=== PATIENT | female | born 1950 | race Caucasian/White ===

== ENCOUNTER → 2018-02-04 09:06 | Outpatient (CLI) | payer MEDICARE, OTHER, SELFPAY ==
[2018-02-04] VITALS (7 sets, daily range): BP systolic 116–150; BP diastolic 57–78; PULSE 53–84; RESP 16–18; TEMP 36.4–37; O2SAT 94–99; BMI 32.9
[2018-02-04] MEDS: Acetaminophen 500 MG Tablet 1000 MG PO (09:09)
[2018-02-04] MEDS: DiphenhydrAMINE 25 MG Capsule PO (09:10)
[2018-02-04] MEDS: MethylPREDNISolone 125 MG/2 ML Vial 100 MG IV (09:12)
== END ==
PROVIDERS: Family Provider Family Medicine; PCP Family Medicine; Visit Provider Internal Medicine Rheumatology
DX: M06.09 Rheumatoid arthritis without rheumatoid factor, multiple sites (principal)
CPT/HCPCS: 96374; 96413; 96415; J7040; J7050; J9310; A4216

== ENCOUNTER → 2018-02-09 09:45 | Outpatient (CLI) | payer MEDICARE, OTHER, SELFPAY ==
--- NOTE | 2018-02-10 08:27 | PFT ---
INTRODUCTION: The patient is a 67-year-old female currently under the care of myself the presents for pulmonary function testing secondary to a diagnosis of obstructive sleep apnea. Respiratory therapy reports good patient effort reports no other concerns. Bronchodilators were used during testing. INTERPRETATION: Forced expiration spirometry demonstrates no evidence of a large airways obstructive ventilatory defect. There was no significant response to aerosolized bronchodilators, based upon strict ATS criteria. Spirograms are of good quality and plateau gradually. Body plethysmography was performed and reveals lung volumes to be within normal limits. Diffusing capacity by single breath CO is moderately reduced at 50% of predicted. There has been significant improvement in the patient's spirometric values and DLCO since PFTs were last completed in 2017. IMPRESSION: These pulmonary function studies demonstrate the presence of an isolated moderate reduction in diffusing capacity. There has been improvement in the patient's PFTs since they were last completed in 2017.
== END ==
PROVIDERS: Family Provider Family Medicine; PCP Family Medicine; Visit Provider Nurse Practitioner Acute Care
DX: G47.33 Obstructive sleep apnea (adult) (pediatric) (principal)
CPT/HCPCS: 94060; 94726; 94729

== ENCOUNTER → 2018-02-18 08:57 | Outpatient (CLI) | payer MEDICARE, OTHER, SELFPAY ==
[2018-02-18 09:07] VITALS: BP 129/65; PULSE 62; RESP 16; TEMP 36.2; O2SAT 96; BMI 33.5
[2018-02-18] MEDS: DiphenhydrAMINE 25 MG Capsule PO (09:12)
[2018-02-18] MEDS: Acetaminophen 500 MG Tablet 1000 MG PO (09:13)
[2018-02-18] MEDS: MethylPREDNISolone 125 MG/2 ML Vial 100 MG IV (09:13)
[2018-02-18 10:20] VITALS: BP 125/58; PULSE 54
[2018-02-18 10:55] VITALS: BP 128/64; PULSE 49; RESP 16; TEMP 36.3; O2SAT 96
[2018-02-18 12:26] VITALS: BP 112/52; PULSE 55; RESP 16; TEMP 36.2; O2SAT 96
== END ==
PROVIDERS: Family Provider Family Medicine; PCP Family Medicine; Visit Provider Internal Medicine Rheumatology
DX: M06.09 Rheumatoid arthritis without rheumatoid factor, multiple sites (principal)
CPT/HCPCS: 96375; 96413; 96415; J7040; J7050; J9310

== ENCOUNTER → 2018-02-26 08:18 | Outpatient (CLI) | payer MEDICARE, OTHER, SELFPAY ==
[2018-02-26 10:45] LABS: Absolute Lymphocyte Count 1.82 X10^3/ul (0.83-4.51); Basophil# 0.03 X10^3/uL; Basophil% 0.4 % (0-1); Eosinophil# 0.12 X10^3/uL; Eosinophils% 1.5 % (0-5); Hematocrit 40.8 % (37-47); Hemoglobin 13.4 g/dl (12.0-15.0); Lymphocyte # 1.82 X10^3/ul (4.0); Lymphocyte % 23.2 % (19-41); Mean Corp Hgb Conc 32.8 g/gl (32-36); Mean Corpuscular Hgb 31.6 pg (27.0-32.0); Mean Corpuscular Volume 96.2 fL (81-99); Mean Platelet Vol. 10.9 fl (6.2-12.0); Monocyte# 0.73 X10^3/uL; Monocyte% 9.3 % (0-10); Neutrophil # 5.04 X10^3/uL (2.7-7.7); Neutrophil % 64.5 % (47-70); Platelet Count 232 K/mm3 (150-450); RBC Distribution Width CV 13.5 % (11.6-14.6); RBC Distribution Width SD 46.1 fl (35.1-43.9); Red Blood Count 4.24 M/mm3 (4.2-5.4); White Blood Count 7.8 K/mm3 (4.4-11.0)
[2018-02-26 10:47] LABS: POSITIVE COUNT NO; POSITIVE DIFFERENTIAL NO; POSITIVE MORPHOLOGY NO
== END ==
PROVIDERS: Family Provider Family Medicine; PCP Family Medicine; Visit Provider Internal Medicine Rheumatology
DX: D72.819 Decreased white blood cell count, unspecified (principal)
CPT/HCPCS: 36415; 85025

== ENCOUNTER → 2018-03-11 09:03 | Outpatient (CLI) | payer MEDICARE, OTHER, SELFPAY ==
[2018-03-11 10:14] LABS: Absolute Lymphocyte Count 1.61 X10^3/ul (0.83-4.51); Absolute Neutrophil Count 5.6 X10^3/uL (2.0-7.7); Basophil# 0.02 X10^3/uL; Basophil% 0.2 % (0-1); Eosinophil# 0.12 X10^3/uL; Eosinophils% 1.5 % (0-5); Hemoglobin 12.3 g/dl (12.0-15.0); Lymphocyte # 1.61 X10^3/ul (4.0); Lymphocyte % 19.9 % (19-41); Mean Corp Hgb Conc 31.5 g/gl (32-36); Mean Corpuscular Volume 95.1 fL (81-99); Mean Platelet Vol. 10.7 fl (6.2-12.0); Monocyte# 0.77 X10^3/uL; Monocyte% 9.5 % (0-10); Neutrophil # 5.55 X10^3/uL (2.7-7.7); Neutrophil % 68.4 % (47-70); POSITIVE COUNT NO; POSITIVE DIFFERENTIAL NO; POSITIVE MORPHOLOGY NO; Platelet Count 223 K/mm3 (150-450); RBC Distribution Width CV 13.9 % (11.6-14.6); RBC Distribution Width SD 48.2 fl (35.1-43.9); White Blood Count 8.1 K/mm3 (4.4-11.0)
[2018-03-11 10:28] LABS: ALB/GLOB Ratio 0.9 RATIO (0.9-2.4); AST(SGOT) 22 U/L (15-37); Alanine Aminotransfer ALT/SGPT 26 U/L (13-56); Albumin, Serum 3.4 g/dL (3.2-5.0); Alkaline Phosphatase 77 U/L (45-117); Anion Gap 5 (5-15); BUN 18 mg/dL (7-18); BUN/Creat Ratio 18.1 RATIO (10-20); Calcium,Total 9.7 mg/dL (8.5-10.1); Chloride 107 mmol/L (98-107); Creatinine, Serum 0.99 mg/dL (0.55-1.02); EST Glomerular Filtration Rate 59 mL/min (>60); Est Glom Filt Rate - Afr Amer 72 mL/min (>60); Globulin 3.6 g/dL (2.2-4.2); Glucose 83 mg/dL (74-106); Potassium 4.2 mmol/L (3.5-5.1); Sodium Level 140 mmol/L (136-145)
== END ==
PROVIDERS: Family Provider Family Medicine; PCP Family Medicine; Visit Provider Family Medicine
DX: Z01.818 Encounter for other preprocedural examination (principal)
CPT/HCPCS: 36415; 80053; 85025

== ENCOUNTER 2018-03-19 06:57 | Day surgery (SDC) | payer MEDICARE, OTHER, SELFPAY ==
[2018-03-19 07:24] VITALS: BP 127/69; PULSE 55; RESP 14; TEMP 36.3; BMI 34.3
--- NOTE | 2018-03-19 08:30 | BON_PTH ---
PATIENT: TATO SOLOMON LOC: [facility] – [place] U#:[id number] AGE/SX: 67/F ROOM: RE03/19/[address]: Dr. Wellington Bess DPM : 1950 BED: DIS: 03/19/2018 SPEC #: [id number] RECD: 03/19/18 16:07 STATUS: RODRIGUEZ CELIA #: [id number] MARLY: 03/19/18 08:[address]: Wellington Bess DEPT: SURGICAL PATHOLOGY RECD BY: Shola Chery ENTERED: 03/22/18 07:30 SP TYPE: Bone OTHR DR: Dr. Pablo Gonzalez MD Tissues: Bone of foot, NOS Procedures: Decalcification bone/plaque Surgery Specimen Level III HEADER OPERATION: Arthroplasty/cheilectomy, 1st MPJ, corticosteroid injection PRE-OP DIAGNOSIS: Right hallux rigidus, rheumatoid arthritis TISSUE SUBMITTED: Bone first metatarsophalangeal joint, right foot MICROSCOPIC DIAGNOSIS Bone first metatarsophalangeal joint, right foot: Pieces of bone and adherent pieces of synovial tissue with reactive changes. See comment. RANDALL:bruno 03/25/18 COMMENT Changes consistent with rheumatoid nodule formation are not seen. MICROSCOPIC DESCRIPTION Slides are reviewed. GROSS DESCRIPTION Received in fixative is one container labeled with the patient's name and designated bone first metatarsophalangeal joint right foot. The specimen consists of multiple pieces of bone that in aggregate measure 4 x 3 x 0.4 cm. The entire specimen is submitted in two cassettes after decalcification. / RANDALL:bruno 03/22/18 TC: 5 CPT: 06525, 05883
--- NOTE | 2018-03-19 08:55 | RAD_ITS ---
STUDY: X-RAY - LEFT FOOT CLINICAL: Female, 67 years old. Arthroplasty. TECHNIQUE: 7 C-arm view(s) of the foot. 8 seconds fluoroscopy time. COMPARISON: None. FINDINGS: These images show medial bunionectomy of the head of the first metatarsal. There is prominent osteoarthritis of the first metatarsophalangeal joint. Correlate with procedure note. Electronically Signed: Bhaskar Bello MD at 16:27 EDT , Service support , RAD/Foot min 3 Views
[2018-03-19] MEDS: Ondansetron 4 MG/2 ML Vial (09:12)
[2018-03-19] MEDS: Cefazolin 2 GM in 0.9% Normal Saline 100 ML IV (09:13)
[2018-03-19] MEDS: Bupivacaine Mpf 0.5% 30 ML VIAL (09:20)
[2018-03-19] MEDS: MethylPREDNISolone Acetate 80 MG/ML Vial (10:08)
--- NOTE | 2018-03-19 10:21 | RAD_ITS ---
STUDY: X-RAY - RIGHT FOOT CLINICAL: Female, 67 years old. Postop TECHNIQUE: 3 view(s) of the foot. COMPARISON: None. FINDINGS: Normal calcaneus. Arthritic change of the hindfoot and midfoot. Advanced joint space narrowing with cystic change at the talonavicular articulation. There is accessory navicular. Postoperative changes of the first metatarsal. There is degenerative arthrosis of the metatarsophalangeal joint of the hallux . Normal tibial and fibular sesamoid bones. Normal interphalangeal joint of the great toe. Normal phalanges of the great toe. Normal second through fifth metatarsophalangeal joints. Normal interphalangeal joints and phalanges of the lesser toes. Postoperative changes in the soft tissues on the medial aspect. RAD/Foot min 3 Views IMPRESSION: Postoperative changes. Electronically Signed: Segundo Diana MD at 13:42 EDT , Service support ,
--- NOTE | 2018-03-19 10:24 | PCM.DC.POD ---
Discharge Diet: Light diet - advance as tolerated Discharge Activity: May Not Drive, Use Walker Weight Bearing Status: Partial weight bearing Keep extremity elevated above heart level: Right Leg - Keep right foot elevated with pillows for at least 50 minutes of every hour Call your doctor if your incision/area has: Continuous Slow Oozing, Sudden Increased Bleeding, Increased Redness, Foul Smelling Discharge Call your doctor if you observe: Fever of 101 or Higher, Coldness, Increased Pain, Shortness of breath, Chest pain, Increased palpitations (irregular heartbeat), Calf discomfort, Uncontrolled pain Cleanse incision/area with: Do not get Incision Wet, Keep Dressing Clean & Dry Allergies/Adverse Reactions: Allergies Sulfa (Sulfonamide Antibiotics) Allergy (Intermediate, Verified 03/12/18 13:05) Rash sulfasalazine Allergy (Verified 03/12/18 13:05) Rash Medications to take at Discharge Alendronate Sodium [Fosamax] 70 mg PO Q7D@0700 06/13/15 Calcium Carbonate/Vitamin D3 [Calcium 600-Vit D3 800 Tablet] 1 ea PO DAILY 06/13/15 Multivitamins,Therapeutic [Multivitamin] 1 tab PO DAILY 06/13/15 Sumatriptan Succinate [Imitrex] 100 - 200 mg PO DAILY PRN PRN 06/13/15 Citalopram [Celexa] 20 mg PO DAILY 07/11/15 Acetaminophen/Butalbital/Caffe [Fioricet] 40 mg PO DAILY PRN PRN 01/13/17 Ropinirole HCl [Requip] 1 mg PO QHS 01/13/17 Leflunomide 10 mg PO DAILY 07/03/17 Rituximab/Hyaluronidase,Human [Rituxan Hycela 1,400 mg-23,400] 1,000 mg IV UD 07/03/17 omega-3 acid ethyl esters 1 gram capsule 1 g PO QDAY 11/12/17 prednisone 5 mg tablet 10 mg PO DAILY tab 11/12/17 Atenolol 50 mg PO DAILY 02/04/18 Cyanocobalamin (Vitamin B-12) [Vitamin B-12] 1,000 mcg PO DAILY 03/12/18 L.acidoph,Paracasei, B.lactis [Probiotic] 1 each PO DAILY 03/12/18 Omeprazole 40 mg PO QDAY 03/12/18 Hydrocodone/Acetaminophen [Vicodin 5-300 mg Tablet] 1 - 2 tab PO Q6H PRN PRN 4 Days #30 tab 03/19/18 The following prescriptions were given: Hydrocodone/Acetaminophen [Vicodin 5-300 mg Tablet] 1 - 2 tab PO Q6H PRN PRN 4 Days #30 tab PRN Reason: Pain Primary Care Physician: Pablo Gonzalez MD [Primary Care Provider] - Please Follow Up With: Wellington Bess DPM When: within 1 week, sooner if needed
[2018-03-19 10:25] VITALS: BP 127/69; BP 161/72; PULSE 80; RESP 18; TEMP 36.3; O2SAT 96
--- NOTE | 2018-03-19 10:26 | PCM.OPRPT ---
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 Hallux rigidus, right. Rheumatoid arthritis. 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 Kyara Santacruz Type of Anesthesia:: Local MAC Specimen's removed: Bone from 1st MTPJ, right, sent to pathology Estimated Blood Loss (mL): 10mL Description of Procedure: Indications: This is a 67 year old with painful 1st metatarsal phalagneal joint (MTPJ), as well as midfoot/hindfoot joints due to osteoarthritis, rheumatoid arthritis and hallux rigidus, right foot. Patient has pain, with limited range of motion. Osteoarthritis was seen on xrays of the foot. This has been treated with extensive conservative/nonsurgical management, but symptoms persists and she continues to have pain and limitation. She elected to undergo surgery. We discussed the procedures. We reviewed the rationale of each as well as the possible benefits, risks, potential complications goals and expectations of each. This was discussed with her in great detail. Typical post op recovery was reviewed with her. She expressed understanding and agreement. The consent forms were reviewed with her in detail, and she freely signed them. No guarantees were given or implied. All of her questions were answered. Operative Procedure: The patient was brought back into the operating room and was placed on the operating room table in the supine position. She was carefully secured to the operating room table with a safety belt around her waist. A time out was performed and the patient was properly identified and the surgical plan was confirmed. The patient received 2 grams of IV Ancef for antibiotic prophylaxis. A well padded pneumatic tourniquet was applied around the right ankle. The patient did receive MAC anesthesia per the anesthesiologist. The skin was cleansed with 70% Isopropyl alcohol, and 10mL of 0.5% Bupivacaine plain was given as a 1st ray block on the right foot. The right foot was scrubbed, prepped, draped in the usual aseptic fashion. A timeout was performed and the patient was properly identified and the surgical plan was confirmed. The right foot was elevated for 3 minutes and the right ankle pneumatic tourniquet was inflated to 250mmHg. Attention was directed to the right 1st MTPJ. There as noted to be significant limited range of motion present, with grinding consistent with hallux rigidus and osteoarthritis. A linear longitudinal skin incision was made overlying the dorsal medial 1st MTPJ, medial to the Extensor Hallucis Longus tendon using a 15 scalpel blade. Careful blunt dissection was completed down through the subcutaneous tissue layer, down to the 1st MTPJ capsule, which was incised with a 15 scalpel blade. The 1st MTPJ capsule was partially reflected exposing the dorsal, lateral, and medial aspect of the 1st metatarsal head and base of the hallux proximal phalanx. There were significant osteophytes around the dorsal, medial and lateral 1st metatarsal head as well as the base of the hallux proximal phalanx. The was a large dorsal eminence present to the dorsal 1st metatarsal head. The cartilage on the dorsal half of the 1st metatarsal head was significantly thinned, worn away and unhealthy. There was a osteochondral lesion to the base of the hallux proximal phalanx. There were significant adhesions of the sesamoid apparatus. The adhesions of the sesamoid apparatus were freed up using a McGlamry elevator. Using a powered sagittal saw the dorsal eminence and the dorsal 1st metatarsal head was resected. The osteophytes were resected using a bone cutting rongeur. The resected bone was sent to pathology for further evaluation. Resection of the dorsal aspect of the 1st metatarsal head and osteophytes was confirmed using intra operative fluoroscopy, without the use of a renewable energy technician. The osteochondral lesion was drilled subchondrally using a 0.062 inch Kwire. At this time the 1st MTPJ was put through range of motion and it was gliding normally and smoothly, with no impingement present. There was now 90 degrees of dorsiflexion of the hallux, this was confirmed using intra operative fluoroscopy without a surveillance technician. The remaining joint appeared healthy and viable. The site was flushed out with copious amounts of normal saline solution. The joint capsule was reapproximated in neutral position using 3-0 Vicryl, the subcutaneous tissue layer was reapproximated using 3-0 Vicryl, the skin was reapproximated using 3-0 Monocryl. An additional 10mL of 0.5% Bupivacaine plain as well as 1% Lidocaine plain had to be given for further pain control intra-operatively. Next a total of 40mg of Depo Medrol as well as an additional 2mL of 0.5% Bupivacaine plain was given an a corticosteroid injection to the subtalar joint/sinus tarsi and midfoot joints. Cavilon was painted to the sutured skin edges and steristrips were applied across the sutured skin incisions. All vital structure, including all vital neurovascular structures were properly identified and protected as necessary throughout the procedure. The pneumatic tourniquet was deflated, there was immediate return of vascular flow to the foot and all toes. CFT < 2 seconds to all toes, and had normal temperature gradient present. A dressing was applied which consisted of Betadine soaked adaptic, 4x4 gauze, kerlix and sveta dressing to the right foot. The patient tolerated the above operative procedure well at the anesthesia well with no complications. The patient was transported to the recovery room with vital signs stable and in good condition. Post operative orders were placed. Post operative instructions were reviewed with patient today. No weightbearing right foot, keep right foot elevated for at least 50 minutes of every hour, keep dressing clean, dry and intact. Prescription for Vicodin 5mg/325mg was prescribed: 1-2 tabs PO q 6 hours PRN pain for pain control. She was dispensed a surgical shoe. Post operative xrays were obtained in the recovery room which confirmed 1st MTPJ cheilectomy arthroplasty. No post operative complications. Otherwise no acute changes and stable xrays. Grafts/Implants Used: None - Complications None
[2018-03-19 10:30] VITALS: BP 127/69; BP 146/86; PULSE 78; RESP 16; O2SAT 94
[2018-03-19 10:35] VITALS: BP 127/69; BP 155/64; PULSE 78; RESP 16; O2SAT 93
[2018-03-19 10:40] VITALS: BP 127/69; BP 147/64; PULSE 78; RESP 16; TEMP 36.3; O2SAT 94
[2018-03-19 11:04] VITALS: BP 127/69
== END 2018-03-19 11:10 | disposition home or self-care (01) ==
LOC: SDC 06:59 → AC 07:00
PROVIDERS: Family Provider Family Medicine; PCP Family Medicine; Visit Provider Podiatrist
PROC: (CPT 20605; principal; 2018-03-19 08:15)
DX: M19.071 Primary osteoarthritis, right ankle and foot (principal); M20.21 Hallux rigidus, right foot; M06.9 Rheumatoid arthritis, unspecified; I10 Essential (primary) hypertension; M85.80 Other specified disorders of bone density and structure, unspecified site; G25.81 Restless legs syndrome; G47.30 Sleep apnea, unspecified; K21.9 Gastro-esophageal reflux disease without esophagitis; F32.9 Major depressive disorder, single episode, unspecified; F41.9 Anxiety disorder, unspecified; Z78.0 Asymptomatic menopausal state; I25.2 Old myocardial infarction; Z79.899 Other long term (current) drug therapy
CPT/HCPCS: 01480; 20605; 28289; 73630; 76000; 88304; 88305; 88311; J7120; J2405

== ENCOUNTER → 2018-05-07 11:12 | Outpatient (CLI) | payer MEDICARE, OTHER, SELFPAY ==
--- NOTE | 2018-05-07 11:15 | RAD_ITS ---
STUDY: X-RAY CHEST REASON FOR EXAM: Female, 67 years old. Left-sided rib pain. TECHNIQUE: PA and lateral views of the chest. COMPARISON: Comparison is made with prior study dated February 18, 2017. FINDINGS: Volume loss in the right hemithorax. The previously seen infiltration has resolved. Minimal changes persist most likely representing scarring. The left lung is clear. Hyperinflation. Normal size heart. Normal mediastinum and luann. There is prominence of the pulmonary hilar arteries without peripheral pulmonary vascular congestion, suggesting pulmonary hypertension. Normal visualized aortic arch and descending thoracic aorta. There is demineralization of the osseous structures. Normal visualized ribs, clavicles, and shoulders. There is no demonstrated abnormality of the visualized soft tissue structures of the upper abdomen. RAD/Chest PA and Lateral IMPRESSION: Hyperinflation. Volume loss in the right hemithorax. No acute abnormality is seen. Electronically Signed: Donald Baird MD at 12:02 EDT Tel [phone], Service support ,
== END ==
PROVIDERS: Family Provider Family Medicine; PCP Family Medicine; Visit Provider Family Medicine
DX: R07.81 Pleurodynia (principal)
CPT/HCPCS: 71046

== ENCOUNTER → 2018-06-14 10:14 | Outpatient (CLI) | payer MEDICARE, OTHER, SELFPAY ==
[2018-06-14 12:58] LABS: Albumin, Serum 3.2 g/dL (3.2-5.0); BUN 14 mg/dL (7-18); BUN/Creat Ratio 15.3 RATIO (10-20); Calcium,Total 9.6 mg/dL (8.5-10.1); Chloride 105 mmol/L (98-107); Creatinine, Serum 0.92 mg/dL (0.55-1.02); EST Glomerular Filtration Rate 65 mL/min (>60); Est Glom Filt Rate - Afr Amer 79 mL/min (>60); Glucose 86 mg/dL (74-106); Phosphorus 2.5 mg/dL (2.5-4.9); Potassium 3.7 mmol/L (3.5-5.1); Sodium Level 139 mmol/L (136-145)
== END ==
PROVIDERS: Family Provider Family Medicine; PCP Family Medicine; Visit Provider Internal Medicine Rheumatology
DX: N28.9 Disorder of kidney and ureter, unspecified (principal)
CPT/HCPCS: 36415; 80069

== ENCOUNTER → 2018-06-28 15:41 | Outpatient (CLI) | payer MEDICARE, OTHER, SELFPAY ==
--- NOTE | 2018-06-28 | COLBX_PTH ---
PATIENT: TATO SOLOMON LOC: [place] U#:[id number] AGE/SX: 74/F ROOM: RE06/28/[address]: Dr. Jose Larry MD : 1950 BED: DIS: SPEC #: [id number] RECD: 06/28/18 15:20 STATUS: RODRIGUEZ RAMEYPriyanka #: [id number] MARLY: 06/28/18 00:[address]: Jose Larry DEPT: SURGICAL PATHOLOGY RECD BY: Edgar Cleveland ENTERED: 06/29/18 12:00 SP TYPE: COLON BX OTHR DR: Dr. Pablo Gonzalez MD [facility] [place] Tissues: A - Ileum, NOS B - Cecum, NOS C - COLON BIOPSY D - Sigmoid colon biopsy Procedures: Trichrome (control) Special Stain Group II Surgery Specimen Level IV HEADER OPERATION: Colonoscopy with biopsies PRE-OP DIAGNOSIS: Diarrhea TISSUE SUBMITTED: A ? Terminal ileum biopsies, rule out Crohn?s, B ? Ulcer biopsies cecum, rule out Crohn?s, C ? Right and left colon, rule out microscopic colitis, D ? Sigmoid polyp 30 cm, rule out adenoma MICROSCOPIC DIAGNOSIS A. Terminal ileum, biopsy: No significant pathologic change. No evidence of Crohn?s colitis. B. Cecal ulcer, biopsy: Ulceration with associated acute and chronic inflammation and granulation. C. Right and left colon, biopsy: Collagenous colitis. D. Sigmoid colon polyp at 30 cm, biopsy: Tubular adenoma, inflamed. AM:bruno 06/30/18 COMMENT A. Benign appearing lymphoid aggregates are present in the biopsy. B. Features of Crohn?s colitis are not present. Clinical correlation is suggested. C. Trichrome stain with matched control reveals a thickened basal plate. MICROSCOPIC DESCRIPTION Slides are reviewed. B. Sections show ulcerated mucosa with acute and chronic inflammation. No significant glandular distortion is identified. No granulomas are seen. GROSS DESCRIPTION A - Received in fixative is one container labeled with the patient's name and designated terminal ileum. The specimen consists of one irregular fragment of light wick soft tissue that measures 0.5 x 0.2 x 0.1 cm. The specimen is totally submitted in one cassette. B - Received in fixative is one container labeled with the patient's name and designated cecum. The specimen consists of multiple irregular fragments of light wick soft tissue that in aggregate measure 0.6 x 0.6 x 0.1 cm. The specimen is totally submitted in one cassette. C - Received in fixative is one container labeled with the patient's name and designated right and left colon biopsy. The specimen consists of multiple irregular fragments of light wick soft tissue that in aggregate measure 0.7 x 0.5 x 0.1 cm. The specimen is totally submitted in one cassette. D - Received in fixative is one container labeled with the patient's name and designated sigmoid polyp. The specimen consists of one irregular fragment of light wick soft tissue that measures 0.5 x 0.3 x 0.1 cm. The specimen is totally submitted in one cassette. / AM:bruno 06/29/18 TC:4 CPT: 64888 x4, 46964
== END ==
PROVIDERS: Family Provider Family Medicine; PCP Family Medicine; Visit Provider Internal Medicine Gastroenterology
DX: K63.3 Ulcer of intestine (principal); K52.831 Collagenous colitis; D12.5 Benign neoplasm of sigmoid colon
CPT/HCPCS: 88305; 88313

== ENCOUNTER → 2018-08-19 08:59 | Outpatient (CLI) | payer MEDICARE, OTHER, SELFPAY ==
[2018-08-19] VITALS (7 sets, daily range): BP systolic 93–132; BP diastolic 52–80; PULSE 44–58; RESP 16–18; TEMP 36.4–36.6; O2SAT 97–98; BMI 29.1
[2018-08-19] MEDS: DiphenhydrAMINE 25 MG Capsule PO (09:28)
[2018-08-19] MEDS: MethylPREDNISolone 125 MG/2 ML Vial 100 MG IV (09:36)
[2018-08-19] MEDS: Acetaminophen 500 MG Tablet 1000 MG PO (09:44)
== END ==
PROVIDERS: Family Provider Family Medicine; PCP Family Medicine; Referring Provider Internal Medicine Rheumatology; Visit Provider Internal Medicine Rheumatology
DX: M06.09 Rheumatoid arthritis without rheumatoid factor, multiple sites (principal)
CPT/HCPCS: 96375; 96413; 96415; J7040; J7050; J9310; A4216

== ENCOUNTER → 2018-09-02 08:59 | Outpatient (CLI) | payer MEDICARE, OTHER, SELFPAY ==
[2018-09-02] VITALS (10 sets, daily range): BP systolic 72–147; BP diastolic 47–67; PULSE 49–68; RESP 16; TEMP 36.1–36.4; O2SAT 99; BMI 28.5
[2018-09-02] MEDS: DiphenhydrAMINE 25 MG Capsule PO (09:12)
[2018-09-02] MEDS: Acetaminophen 500 MG Tablet 1000 MG PO (09:12)
[2018-09-02] MEDS: MethylPREDNISolone 125 MG/2 ML Vial 100 MG IV (09:24)
== END ==
PROVIDERS: Family Provider Family Medicine; PCP Family Medicine; Referring Provider Internal Medicine Rheumatology; Visit Provider Internal Medicine Rheumatology
DX: M06.09 Rheumatoid arthritis without rheumatoid factor, multiple sites (principal)
CPT/HCPCS: 96375; 96413; 96415; J7040; J7050; J9310; A4216

== ENCOUNTER → 2018-09-09 15:17 | Outpatient (CLI) | payer MEDICARE, OTHER, SELFPAY ==
--- NOTE | 2018-09-09 15:18 | BD_ITS ---
STUDY: DUAL ENERGY X-RAY ABSORPTIOMETRY / DXA REASON FOR EXAM: Female, 67 years old. The patient is postmenopausal. Loss of height. TECHNIQUE: Bone Mineral Density (BMD) measurements of lumbar spine and bilateral hips were obtained. COMPARISON: None. FINDINGS: Lumbar Spine (L1-L4): g/cm2 (0.916) / T-score (-2.1) / Z-score (-0.4) Findings are suggestive of osteopenia with a moderate fracture risk. Increased thoracic kyphosis. Left Femur Total: g/cm2 (0.793) / T-score (-1.7) / Z-score (-0.3) Left Femoral Neck: g/cm2 (0.777) / T-score (-1.9) / Z-score (-0.3) Right Femur Total: g/cm2 (0.790) / T-score (-1.7) / Z-score (-0.3) Right Femoral Neck: g/cm2 (0.769) / T-score (-1.9) / Z-score (-0.3) BD/Dexa Bone Density Study IMPRESSION: The patient is considered osteopenic as outlined below according to World Keagan Organization (WHO) criteria with a moderate fracture risk. There has been worsening of bone density since the previous examination. Reference Information: The T-score is the number of standard deviations above or below the standard which is normal for young adults at their peak bone mineral density. The World Health Organization (WHO) interprets the T-scores as follows: Above -1 Normal bone density Between -1 and -2.5 Osteopenia Equal to / or below -2.5 Osteoporosis As a practical clinical guideline, osteopenia may be graded as follows: Mild -1 through -1.5 Moderate -1.6 through -2.0 Severe -2.1 through -2.4 The Z-score is the number of standard deviations above or below age-matched controls. A Z-score of less than -1.5 would be considered abnormal. References: 1. NIH Osteoporosis and Related Bone Diseases http://www.osteo.org 2. International Society for Clinical Densitometry http://www.iscd.org 3. National Osteoporosis Foundation http://www.nof.org Electronically Signed: Donald Baird MD at 15:05 EST Tel [phone], Service support ,
--- NOTE | 2018-09-09 15:19 | BI_ITS ---
MAMMOGRAPHY - BILATERAL SCREENING REASON FOR EXAM: Female, 67 years old. Routine annual screening examination. PERTINENT HISTORY: Non-contributory. TECHNIQUE: Digital bilateral breast nupur (3D mammographic acquisition) in the CC and MLO projections. 2-D mediolateral oblique (MLO) and craniocaudad (CC) views of both breasts were obtained. CAD: Full Field Digital Mammography with Computer Added Detection was performed. COMPARISON: Comparison is made with prior study dated September 05, 2017. FINDINGS: Breast Composition: The breasts are heterogeneously dense, which may obscure small masses. There are no dominant masses or suspicious calcifications. No other significant abnormalities are identified. There has been no significant change since the prior study. BI/SCREENING MAMM (CAD), BILAT IMPRESSION: Stable bilateral screening mammogram. Yearly follow-up mammogram recommended. (A) ASSESSMENT CATEGORY: BIRADS Category 1: Negative. A letter regarding these results will be sent to the patient by the facility within 30 days. Approximately 10% of breast cancers are not detected by mammography. A normal mammogram should not delay biopsy of a clinically suspicious abnormality. [id number] Electronically Signed: Donald Baird MD at 8:00 EST Tel [phone], Service support ,
== END ==
PROVIDERS: Family Provider Family Medicine; PCP Family Medicine; Referring Provider Nurse Practitioner Women's Health; Visit Provider Nurse Practitioner Women's Health
DX: Z12.31 Encounter for screening mammogram for malignant neoplasm of breast (principal); Z78.0 Asymptomatic menopausal state; M85.80 Other specified disorders of bone density and structure, unspecified site
CPT/HCPCS: 77063; 77067; 77080

== ENCOUNTER → 2019-02-22 09:01 | Outpatient (CLI) | payer MEDICARE, OTHER, SELFPAY ==
[2019-02-15 10:41] VITALS: BMI 27.8
[2019-02-22] VITALS (8 sets, daily range): BP systolic 92–140; BP diastolic 44–84; PULSE 57–67; RESP 16–18; TEMP 36.2–36.6; O2SAT 97–100; BMI 27.4
[2019-02-22] MEDS: DiphenhydrAMINE 25 MG Capsule PO (09:34)
[2019-02-22] MEDS: Acetaminophen 500 MG Tablet 1000 MG PO (09:35)
[2019-02-22] MEDS: MethylPREDNISolone 125 MG/2 ML Vial 100 MG IV (09:35)
== END ==
PROVIDERS: Family Provider Family Medicine; PCP Family Medicine; Referring Provider Internal Medicine Rheumatology; Visit Provider Internal Medicine Rheumatology
DX: M06.09 Rheumatoid arthritis without rheumatoid factor, multiple sites (principal)
CPT/HCPCS: 96375; 96413; 96415; J7040; J7050; J9312; A4216

== ENCOUNTER → 2019-03-08 09:01 | Outpatient (CLI) | payer MEDICARE, OTHER, SELFPAY ==
[2019-02-22 09:18] VITALS: BMI 27.4
[2019-03-08] MEDS: DiphenhydrAMINE 25 MG Capsule PO (09:13)
[2019-03-08] MEDS: Acetaminophen 500 MG Tablet 1000 MG PO (09:13)
[2019-03-08] MEDS: MethylPREDNISolone 125 MG/2 ML Vial 100 MG IV (09:14)
[2019-03-08 09:36] VITALS: BP 136/74; PULSE 54; RESP 16; TEMP 36.6; O2SAT 98; BMI 26.9
[2019-03-08 14:06] VITALS: BP 120/73; PULSE 69; RESP 16; TEMP 36.9; O2SAT 97
== END ==
PROVIDERS: Family Provider Family Medicine; PCP Family Medicine; Referring Provider Internal Medicine Rheumatology; Visit Provider Internal Medicine Rheumatology
DX: M06.09 Rheumatoid arthritis without rheumatoid factor, multiple sites (principal)
CPT/HCPCS: 96375; 96413; 96415; J7040; J7050; J9312; A4216

== ENCOUNTER → 2019-08-30 | Outpatient (CLI) | payer MEDICARE, OTHER, SELFPAY ==
[2019-03-08 09:36] VITALS: BMI 26.9
[2019-08-30 09:02] VITALS: BP 125/67; PULSE 47; RESP 16; TEMP 36; O2SAT 98; BMI 26.9
[2019-08-30] MEDS: Acetaminophen 500 MG Tablet 1000 MG PO (09:34)
[2019-08-30] MEDS: DiphenhydrAMINE 25 MG Capsule PO (09:34)
[2019-08-30] MEDS: MethylPREDNISolone 125 MG/2 ML Vial 100 MG IV (09:36)
== END | disposition home or self-care (01) ==
LOC: MEDOUTP 08:56
PROVIDERS: Family Provider Family Medicine; PCP Family Medicine; Referring Provider Internal Medicine Rheumatology; Visit Provider Internal Medicine Rheumatology
DX: M06.09 Rheumatoid arthritis without rheumatoid factor, multiple sites (principal)
CPT/HCPCS: 96365; 96366; 96375; 96413; J7040; J7050; J9312; A4216

== ENCOUNTER → 2019-09-13 08:44 | Outpatient (CLI) | payer MEDICARE, OTHER, SELFPAY ==
[2019-03-08 09:36] VITALS: BMI 26.9
[2019-08-30 09:02] VITALS: BMI 26.9
[2019-09-13] MEDS: Acetaminophen 500 MG Tablet 1000 MG PO (09:09)
[2019-09-13] MEDS: DiphenhydrAMINE 25 MG Capsule PO (09:09)
[2019-09-13] MEDS: MethylPREDNISolone 125 MG/2 ML Vial 100 MG IV (09:17)
[2019-09-13 09:21] VITALS: BP 144/60; PULSE 48; RESP 16; O2SAT 99; BMI 27.1
== END ==
PROVIDERS: Family Provider Family Medicine; PCP Family Medicine; Referring Provider Internal Medicine Rheumatology; Visit Provider Internal Medicine Rheumatology
DX: M06.09 Rheumatoid arthritis without rheumatoid factor, multiple sites (principal)
CPT/HCPCS: 96375; 96413; 96415; J7040; J7050; J9312

== ENCOUNTER → 2019-09-22 10:28 | Outpatient (CLI) | payer MEDICARE, OTHER, SELFPAY ==
[2019-09-13 09:21] VITALS: BMI 27.1
[2019-09-22 13:05] LABS: ALB/GLOB Ratio 1.1 RATIO (0.9-2.4); AST(SGOT) 24 U/L (15-37); Alanine Aminotransfer ALT/SGPT 32 U/L (13-56); Albumin, Serum 3.7 g/dL (3.2-5.0); Alkaline Phosphatase 67 U/L (45-117); Anion Gap 8 (5-15); BUN 16 mg/dL (7-18); BUN/Creat Ratio 20.8 RATIO (10-20); Calcium,Total 9.6 mg/dL (8.5-10.1); Chloride 104 mmol/L (98-107); Cholesterol 232 mg/dL (200); Creatinine, Serum 0.77 mg/dL (0.55-1.02); EST Glomerular Filtration Rate 79 mL/min (>60); Est Glom Filt Rate - Afr Amer 95 mL/min (>60); Globulin 3.5 g/dL (2.2-4.2); Glucose 78 mg/dL (74-106); High Density Lipoprotein 80 mg/dL; Potassium 3.8 mmol/L (3.5-5.1); Protein, Total 7.2 g/dL (6.4-8.2); Sodium Level 139 mmol/L (136-145); Triglycerides 148 mg/dL; Very Low Density Lipoprotein 30 mg/dL (5-40)
== END ==
PROVIDERS: Family Provider Family Medicine; PCP Family Medicine; Referring Provider Family Medicine; Visit Provider Family Medicine
DX: I10 Essential (primary) hypertension (principal)
CPT/HCPCS: 36415; 80053; 80061

== ENCOUNTER → 2019-09-27 10:16 | Outpatient (CLI) | payer MEDICARE, OTHER, SELFPAY ==
[2019-03-08 09:36] VITALS: BMI 26.9
[2019-09-27 09:59] VITALS: BMI 27.1
--- NOTE | 2019-09-27 10:17 | BI_ITS ---
MAMMOGRAPHY - BILATERAL SCREENING 3-D TOMOSYNTHESIS REASON FOR EXAM: Female, 68 years old. Routine annual screening examination. PERTINENT HISTORY: No significant family history. TECHNIQUE: 2-D mammograms and 3-D Tomosynthesis of the breast (s) were performed. CAD was performed. COMPARISON: September 09, 2018, May 29, 2015 FINDINGS: The breast composition is composed of scattered fibroglandular density. Scattered benign calcifications are seen. No dense spiculated masses or suspicious microcalcifications are identified. No architectural distortion is identified. There is no skin thickening or retraction. Stable lymph nodes. There has been no significant change since the prior study. BI/SCREEN MAMM (CAD) W/SOL BILAT IMPRESSION: No mammographic signs of malignancy. Routine yearly mammograms recommended. ASSESSMENT CATEGORY: BIRADS Category 2: Benign. A letter regarding these results will be sent to the patient by the facility within 30 days. FOLLOW UP RECOMMENDATION: Yearly follow up mammogram recommended. (A) Approximately 10% of breast cancers are not detected by mammography. A normal mammogram should not delay biopsy of a clinically suspicious abnormality. Electronically Signed: Ever Heredia MD at 11:39 EST , Service support ,
== END ==
PROVIDERS: Family Provider Family Medicine; PCP Family Medicine; Referring Provider Nurse Practitioner Women's Health; Visit Provider Nurse Practitioner Women's Health
DX: Z12.31 Encounter for screening mammogram for malignant neoplasm of breast (principal)
CPT/HCPCS: 77063; 77067

== ENCOUNTER → 2020-02-14 08:55 | Outpatient (CLI) | payer MEDICARE, OTHER, SELFPAY ==
[2019-09-13 09:21] VITALS: BMI 27.1
[2019-10-24 11:43] VITALS: BMI 28.5
[2020-02-14 09:02] VITALS: BP 116/73; PULSE 58; RESP 18; TEMP 36.1; O2SAT 100; BMI 27.5
[2020-02-14] MEDS: 0.9% NaCl IVPB Med Flush (250 mL) 15 ML IV (09:20)
[2020-02-14] MEDS: Acetaminophen 500 MG Tablet 1000 MG PO (09:21)
[2020-02-14] MEDS: MethylPREDNISolone 125 MG/2 ML Vial 100 MG IV (09:21)
[2020-02-14] MEDS: DiphenhydrAMINE 25 MG Capsule PO (09:21)
[2020-02-14] MEDS: 0.9% NaCl Peripheral Flush Adult/Peds IV (09:21)
== END ==
PROVIDERS: Family Provider Family Medicine; PCP Family Medicine; Referring Provider Internal Medicine Rheumatology; Visit Provider Internal Medicine Rheumatology
DX: M06.09 Rheumatoid arthritis without rheumatoid factor, multiple sites (principal)
CPT/HCPCS: 96375; 96413; 96415; J7040; J7050; J9312; A4216

== ENCOUNTER → 2020-02-27 08:58 | Outpatient (CLI) | payer MEDICARE, OTHER, SELFPAY ==
[2019-09-13 09:21] VITALS: BMI 27.1
[2020-02-14 09:02] VITALS: BMI 27.5
[2020-02-27 09:08] VITALS: BP 137/62; PULSE 68; RESP 16; TEMP 36.2; O2SAT 98; BMI 27.3
[2020-02-27] MEDS: 0.9% NaCl IVPB Med Flush (250 mL) 15 ML IV (09:13)
[2020-02-27] MEDS: DiphenhydrAMINE 25 MG Capsule PO (09:14)
[2020-02-27] MEDS: Acetaminophen 500 MG Tablet 1000 MG PO (09:14)
[2020-02-27] MEDS: MethylPREDNISolone 125 MG/2 ML Vial 100 MG IV (09:19)
[2020-02-27] MEDS: 0.9% NaCl Peripheral Flush Adult/Peds IV (09:26)
== END ==
PROVIDERS: Family Provider Family Medicine; PCP Family Medicine; Referring Provider Internal Medicine Rheumatology; Visit Provider Internal Medicine Rheumatology
DX: M06.09 Rheumatoid arthritis without rheumatoid factor, multiple sites (principal)
CPT/HCPCS: 96372; 96375; 96413; 96415; J7040; J7050; J9312; A4216

== ENCOUNTER → 2020-03-07 09:25 | Outpatient (CLI) | payer MEDICARE, OTHER, SELFPAY ==
[2020-02-27 09:08] VITALS: BMI 27.3
[2020-03-07 10:17] LABS: Cholesterol 223 mg/dL (200); High Density Lipoprotein 81 mg/dL; Triglycerides 130 mg/dL; Very Low Density Lipoprotein 26 mg/dL (5-40)
== END ==
PROVIDERS: PCP Family Medicine; Visit Provider Family Medicine
DX: E78.00 Pure hypercholesterolemia, unspecified (principal)
CPT/HCPCS: 36415; 80061

== ENCOUNTER → 2020-08-08 15:30 | Outpatient (CLI) | payer MEDICARE, OTHER, SELFPAY ==
[2020-02-27 09:08] VITALS: BMI 27.3
[2020-08-10 20:07] LABS: Endomysial Antibody IgA Negative (Negative); Immunoglobulin A 58 mg/dL (87-352)
[2020-08-10 20:34] LABS: t-Transglutaminase IgA <2 U/mL (0-3)
== END ==
PROVIDERS: PCP Family Medicine; Referring Provider Internal Medicine Gastroenterology; Visit Provider Internal Medicine Gastroenterology
DX: R19.7 Diarrhea, unspecified (principal)
CPT/HCPCS: 36415; 82784; 83516; 86255

== ENCOUNTER → 2020-08-09 | Outpatient (CLI) | payer MEDICARE, OTHER, SELFPAY ==
[2019-10-24 11:43] VITALS: BMI 28.5
[2020-02-27 09:08] VITALS: BMI 27.3
[2020-08-09 09:16] VITALS: BP 122/59; PULSE 57; RESP 16; TEMP 36.4; O2SAT 96; BMI 28.3
[2020-08-09] MEDS: DiphenhydrAMINE 25 MG Capsule PO (09:40)
[2020-08-09] MEDS: 0.9% NaCl IVPB Med Flush (250 mL) 15 ML IV (09:40)
[2020-08-09] MEDS: 0.9% NaCl Peripheral Flush Adult/Peds IV (09:40)
[2020-08-09] MEDS: MethylPREDNISolone 125 MG/2 ML Vial 100 MG IV (09:41)
[2020-08-09] MEDS: Acetaminophen 500 MG Tablet 1000 MG PO (09:53)
[2020-08-09 14:46] VITALS: BP 118/49; PULSE 58; TEMP 36.2
== END | disposition home or self-care (01) ==
LOC: MEDOUTP 09:00
PROVIDERS: PCP Family Medicine; Referring Provider Internal Medicine Rheumatology; Visit Provider Internal Medicine Rheumatology
DX: M06.09 Rheumatoid arthritis without rheumatoid factor, multiple sites (principal)
CPT/HCPCS: 96375; 96413; 96415; J7040; J7050; J9312; A4216

== ENCOUNTER → 2020-08-16 14:30 | Outpatient (CLI) | payer MEDICARE, OTHER, SELFPAY ==
[2020-08-09 09:16] VITALS: BMI 28.3
[2020-08-18 14:32] LABS: Immunoglobulin G 714 mg/dL (586-1602)
== END ==
LOC: MTLAB 02-19 00:19
PROVIDERS: PCP Family Medicine; Visit Provider Internal Medicine Gastroenterology
DX: D80.2 Selective deficiency of immunoglobulin A [IgA] (principal)
CPT/HCPCS: 36415; 82784; 83516

== ENCOUNTER → 2020-08-24 08:56 | Outpatient (CLI) | payer MEDICARE, OTHER, SELFPAY ==
[2020-02-14 09:02] VITALS: BMI 27.5
[2020-08-09 09:16] VITALS: BMI 28.3
[2020-08-24 09:14] VITALS: BP 145/67; PULSE 59; RESP 18; TEMP 36.2; O2SAT 96; BMI 28.3
[2020-08-24] MEDS: 0.9% NaCl Peripheral Flush Adult/Peds IV (09:30)
[2020-08-24] MEDS: 0.9% NaCl IVPB Med Flush (250 mL) 15 ML IV (09:30)
[2020-08-24] MEDS: Acetaminophen 500 MG Tablet 1000 MG PO (09:33)
[2020-08-24] MEDS: DiphenhydrAMINE 25 MG Capsule PO (09:33)
[2020-08-24] MEDS: MethylPREDNISolone 125 MG/2 ML Vial 100 MG IV (09:33)
[2020-08-24 14:00] VITALS: BP 124/60; PULSE 61; RESP 16; TEMP 36.6; O2SAT 95
== END ==
PROVIDERS: PCP Family Medicine; Referring Provider Internal Medicine Rheumatology; Visit Provider Internal Medicine Rheumatology
DX: M06.09 Rheumatoid arthritis without rheumatoid factor, multiple sites (principal)
CPT/HCPCS: 96375; 96413; 96415; J7040; J7050; J9312; A4216

== ENCOUNTER → 2020-10-02 10:30 | Outpatient (CLI) | payer MEDICARE, OTHER, SELFPAY ==
[2020-02-27 09:08] VITALS: BMI 27.3
[2020-08-24 09:14] VITALS: BMI 28.3
--- NOTE | 2020-10-02 10:35 | BI_ITS ---
MAMMOGRAPHY - BILATERAL SCREENING REASON FOR EXAM: Female, 69 years old. Routine annual screening examination. PERTINENT HISTORY: Non-contributory. TECHNIQUE: Digital bilateral breast sol (3D mammographic acquisition) in the CC and MLO projections. 2-D mediolateral oblique (MLO) and craniocaudad (CC) views of both breasts were obtained. CAD: Full Field Digital Mammography with Computer Added Detection was performed. COMPARISON: Comparison is made with prior study dated 09/27/2019 and 09/09/2018. FINDINGS: Breast Composition: The breasts are heterogeneously dense, which may obscure small masses. There are no dominant masses or suspicious calcifications. No other significant abnormalities are identified. There has been no significant change since the prior study. BI/SCREEN MAMM (CAD) W/SOL BILAT IMPRESSION: Stable bilateral screening mammogram. Yearly follow-up mammogram recommended. (A) ASSESSMENT CATEGORY: BIRADS Category 1: Negative. A letter regarding these results will be sent to the patient by the facility within 30 days. Approximately 10% of breast cancers are not detected by mammography. A normal mammogram should not delay biopsy of a clinically suspicious abnormality. [id number] Electronically Signed: Donald Baird, at 11:22 EST , Service support ,
--- NOTE | 2020-10-02 11:02 | BD_ITS ---
STUDY: DUAL ENERGY X-RAY ABSORPTIOMETRY / DXA REASON FOR EXAM: Female, 69 years old. Age of juma 47. Pat is 174.1# and 63 and quot; a loss of 2 and quot; per pat. Past hx of using an HRT but for a short time. Past hx of taking fosamax for about 5 yrs. Takes prednisone for about 5-6 yrs now for arthritis. takes Endocort for colitis. Takes 1000 mg of calcium and a multi-vit. Exercises a little. Hx of a left patella fx. Hx of L4-L5 micro decompresion. TECHNIQUE: Bone Mineral Density (BMD) measurements of lumbar spine and bilateral hips were obtained. COMPARISON: Comparison is made with prior study dated 09/09/2018. FINDINGS: Lumbar Spine (L1-L4): g/cm2 (0.988) / T-score (-1.5) / Z-score (0.2) Findings are suggestive of osteopenia with a low fracture risk. Left Femur Total: g/cm2 (0.797) / T-score (-1.7) / Z-score (-0.2) Left Femoral Neck: g/cm2 (0.793) / T-score (-1.8) / Z-score (0.0) Right Femur Total: g/cm2 (0.812) / T-score (-1.5) / Z-score (-0.1) Right Femoral Neck: g/cm2 (0.801) / T-score (-1.7) / Z-score (0.0) The T-Scores on the most recent prior examination were: Lumbar Spine (L1-L4): There has been improvement of bone density since the previous examination. Left Femur Total: which represents an improvement of 0.5%. Right Femur Total: which represents an improvement of 2.8%. BD/Dexa Bone Density Study IMPRESSION: The patient is considered osteopenic as outlined below according to World Keagan Organization (WHO) criteria with a moderate fracture risk. There has been improvement of bone density since the previous examination. Reference Information: The T-score is the number of standard deviations above or below the standard which is normal for young adults at their peak bone mineral density. The World Health Organization (WHO) interprets the T-scores as follows: Above -1 Normal bone density Between -1 and -2.5 Osteopenia Equal to / or below -2.5 Osteoporosis As a practical clinical guideline, osteopenia may be graded as follows: Mild -1 through -1.5 Moderate -1.6 through -2.0 Severe -2.1 through -2.4 The Z-score is the number of standard deviations above or below age-matched controls. A Z-score of less than -1.5 would be considered abnormal. References: 1. NIH Osteoporosis and Related Bone Diseases www osteo.org 2. International Society for Clinical Densitometry www iscd.org 3. National Osteoporosis Foundation www nof.org Electronically Signed: Donald Baird, at 15:06 EST , Service support ,
== END ==
PROVIDERS: PCP Family Medicine; Referring Provider Nurse Practitioner Women's Health; Visit Provider Nurse Practitioner Women's Health
DX: Z12.31 Encounter for screening mammogram for malignant neoplasm of breast (principal); Z78.0 Asymptomatic menopausal state
CPT/HCPCS: 77063; 77067; 77080

== ENCOUNTER → 2020-10-09 11:14 | Outpatient (CLI) | payer MEDICARE, OTHER, SELFPAY ==
[2020-08-24 09:14] VITALS: BMI 28.3
[2020-10-09 12:47] LABS: AST(SGOT) 22 U/L (15-37); Alanine Aminotransfer ALT/SGPT 28 U/L (13-56); Albumin, Serum 3.6 g/dL (3.2-5.0); Alkaline Phosphatase 83 U/L (45-117); Anion Gap 6 (5-15); BUN 18 mg/dL (7-18); BUN/Creat Ratio 24.3 RATIO (10-20); Calcium,Total 9.7 mg/dL (8.5-10.1); Chloride 103 mmol/L (98-107); Cholesterol 195 mg/dL (200); Creatinine, Serum 0.74 mg/dL (0.55-1.02); EST Glomerular Filtration Rate 82 mL/min (>60); Est Glom Filt Rate - Afr Amer 99 mL/min (>60); Globulin 3.6 g/dL (2.2-4.2); Glucose 84 mg/dL (74-106); High Density Lipoprotein 81 mg/dL; Potassium 3.7 mmol/L (3.5-5.1); Protein, Total 7.2 g/dL (6.4-8.2); Sodium Level 137 mmol/L (136-145); Triglycerides 84 mg/dL; Very Low Density Lipoprotein 17 mg/dL (5-40)
== END ==
PROVIDERS: PCP Family Medicine; Visit Provider Family Medicine
DX: I10 Essential (primary) hypertension (principal)
CPT/HCPCS: 36415; 80053; 80061

== ENCOUNTER → 2020-10-29 10:52 | Outpatient (CLI) | payer MEDICARE, OTHER, SELFPAY ==
[2020-10-10 10:55] VITALS: BMI 30.8
--- NOTE | 2020-10-29 10:53 | ECHOD_ITS ---
Reason For Study: CONGENITAL HEART DISEASE Procedure This was a 2D Doppler, Color Flow transthoracic echocardiogram. The study was technically difficult. Exam performed in department. Left Ventricle Normal LV size. Left ventricular systolic function is normal. The estimated ejection fraction is 65 %. Stage 1 diastolic dysfunction. No regional wall motion abnormalities noted. Right Ventricle Normal RV size. Normal systolic function. Atria Normal left atrium. Normal right atrium. Mitral Valve Normal mitral valve. Mild (1+) eccentric mitral valve insufficiency. Tricuspid Valve Normal tricuspid valve. Mild (1+) tricuspid valve insufficiency. Pulmonary artery systolic pressure is 40 mmHg. Aortic Valve Normal aortic valve. Great Vessels Normal aortic root. The pulmonary artery is normal size. Normal inferior vena cava. Pericardium/Pleural No pericardial effusion. MMode/2D Measurements & Calculations LVIDd: 4.8 cm IVSd: 0.95 cm Ao root diam: 3.2 cm LVIDs: 3.4 cm LVPWd: 0.96 cm RVDd: 4.2 cm FS: 28.8 % LAV(MOD-bp): 64.0 ml LVAd ap4: 28.5 cm2 SV(MOD-sp4): 41.5 ml LAV(MOD-bp) Indexed: 34.8 ml/m2 EDV(MOD-sp4): 84.8 ml LAV(MOD-sp2): 73.5 ml EDV(sp4-el): 87.9 ml LAV(MOD-sp4): 56.0 ml LVAs ap4: 18.4 cm2 ESV(MOD-sp4): 43.3 ml ESV(sp4-el): 44.3 ml EF(MOD-sp4): 48.9 % EF(sp4-el): 49.6 % SV(sp4-el): 43.6 ml LA dimension(2D): 3.5 cm LA A4 area: 19.8 cm2 RA A4 area: 17.8 cm2 Time Measurements MV dec time: 0.22 sec Doppler Measurements & Calculations MV E max hector: 93.3 cm/sec Lat Peak E' Hector: 7.4 cm/sec Med Peak E' Hector: 5.9 cm/sec MV A max hector: 112.2 cm/sec E/E' lat: 12.7 E/E' med: 15.7 MV E/A: 0.83 Ao V2 max: 179.3 cm/sec LV V1 max: 132.9 cm/sec TV V2 max: 80.1 cm/sec Ao max P.9 mmHg LV V1 max P.1 mmHg TV max P.6 mmHg TV V2 mean: 40.0 cm/sec TV mean P.72 mmHg PA V2 max: 218.7 cm/sec TR max hector: 302.7 cm/sec PA V2 mean: 154.8 cm/sec TR max P.0 mmHg PA V2 VTI: 54.7 cm Interpretation Summary Normal LV size. Left ventricular systolic function is normal. The estimated ejection fraction is 65 %. Stage 1 diastolic dysfunction. Mild (1+) tricuspid valve insufficiency. Pulmonary artery systolic pressure is 40 mmHg. Ordering Physician: Rodrigue Mendez Referring Physician: INDERJIT PRUETT Performed By: Marsha Grove, ERICKSON, RVT
== END ==
PROVIDERS: PCP Family Medicine; Referring Provider Internal Medicine Cardiovascular Disease; Visit Provider Internal Medicine Cardiovascular Disease
DX: Q22.1 Congenital pulmonary valve stenosis (principal)
CPT/HCPCS: 93306

== ENCOUNTER 2020-12-26 14:45 | Outpatient (RCR) | payer MEDICARE, OTHER, SELFPAY ==
[2020-10-10 10:55] VITALS: BMI 30.8
== END 2020-12-26 23:59 ==
LOC: IMMUN 14:45
PROVIDERS: PCP Family Medicine; Referring Provider Family Medicine; Visit Provider Family Medicine
DX: Z23 Encounter for immunization (principal)
CPT/HCPCS: 0011A; 0012A; 91301

== ENCOUNTER 2021-02-21 08:56 | Outpatient (CLI) | payer MEDICARE, OTHER, SELFPAY ==
[2020-02-27 09:08] VITALS: BMI 27.3
[2020-10-10 10:55] VITALS: BMI 30.8
[2021-02-21] MEDS: 0.9% NaCl Peripheral Flush Adult/Peds IV (09:05)
[2021-02-21] MEDS: 0.9% NaCl IVPB Med Flush (250 mL) 15 ML IV (09:22)
[2021-02-21] MEDS: MethylPREDNISolone 125 MG/2 ML Vial 100 MG IV (09:23)
[2021-02-21] MEDS: Acetaminophen 500 MG Tablet 1000 MG PO (09:23)
[2021-02-21] MEDS: DiphenhydrAMINE 25 MG Capsule PO (09:23)
[2021-02-21 09:33] VITALS: BP 129/61; PULSE 81; RESP 16; TEMP 36.3; O2SAT 97; BMI 29.2
[2021-02-21 13:42] VITALS: BP 120/60; PULSE 73; RESP 16; TEMP 36.6; O2SAT 94
== END 2021-02-21 16:00 | disposition home or self-care (01) ==
LOC: MEDOUTP 08:59
PROVIDERS: PCP Family Medicine; Referring Provider Internal Medicine Rheumatology; Visit Provider Internal Medicine Rheumatology
DX: M06.89 Other specified rheumatoid arthritis, multiple sites (principal)
CPT/HCPCS: 96375; 96413; 96415; J7040; J7050; J9312; A4216

== ENCOUNTER 2021-02-25 14:30 | Outpatient (RCR) | payer MEDICARE, OTHER, SELFPAY ==
[2020-10-10 10:55] VITALS: BMI 30.8
--- NOTE | 2021-01-02 15:42 | HP.OTEVAL ---
Patient's Visit Information TATO SOLOMON is a 70 year old F, referred to Occupational Therapy by YANCY LEA, with a diagnosis of RA. Date of Evaluation: 12/31/20 Occupational Therapist: Isamar Georges, ARABELLA/Reynaldo, CHT - Subjective This 70 year olf female was seen for OT eval with dx of RA right UE, wrist. pt 2 weeks s/p a Proximal row carpectomy with interpositional arthroplasty using capsular tissue, excison of volar mass right wristflexor tenosynovectomy/synovectomy, volar aspect of right wrist. repair of radial artery atrhodesis metacarpohalangial joint right thumb with allograft. pt arrives with right thumb spica clam shell orthsis. Incisions clean and no sings of infections. pt states she struggled with pain for years prior to having her sx. pt would like to return to perfoming ADLs and IALDs at ind level. - ADLs Eating: Use silverware, Drink from glass Bathing: Handle washcloth & soap Kitchen: Chop with knife, Open jars, Open bottle caps Household: Laundry - Pain right hand 3 Pain Intensity Range: 3, 6 - ROM Wrist: right NT left 75/60 CMC: right NT left 5 MP: right NT left 65 IP: right 25 left 45 Radial Abduction: right NT left 40 ROM Comments: will test ROM when protocol permits - Strength Transportation Design Engineer: right NT left 26# Lateral Pinch: right NT left 6# Tripod Pinch: right NT left 6# Strength Comments: will test right metal drill operator strength at later date - Quick DASH-Disab of Arm,Shoulder& Hand Quick DASH Score: 77.2725 - Goals Goal:100% adherence to protocol: Yes Comment: Proximal row carpectomy protocol Goal:Daily scar massage when approriate: Yes Goal:ROM equal to unaffected hand: Yes Comment: ROM to 30 50% of unaffected Goal:No pain with affected hand use: Yes Goal:Full use of affected hand in daily activities including: Yes - Rehabilitation General Assessment: pt 2 weeks s/p a Proximal row carpectomy with interpositional arthroplasty using capsular tissue, excison of volar mass right wristflexor tenosynovectomy/synovectomy, volar aspect of right wrist. repair of radial artery atrhodesis metacarpohalangial joint right thumb with allograft. pt limited with ROM and use of right hand with ADLs and IADLs. pt would benefit from skilled OT services 1-2x week for 8 weeks. Today therapist ed. pt on protocol and edema control jose. Therapy will follow protocol for pt to gain use of right UE for ADLs and IADL.pt demo understanding and agree to POC. Rehabilitation Potential: Good - Anticipated Interventions A/AAROM/PROM, Strengthening, Edema Control, Triggerpoint Release, Desensitization, Sensory Retraining, Modalities, Orthoses, Joint Protection/Energy Conservation, Ergonomic Education - Visit Plan Frequency: 1-2x /Week Duration: 2 Months TEXT: Thank you for the opportunity to evaluate your patient. For Medicare and Medicare HMO plans, please review the plan of care and approve it. It will need to be FAXED BACK to us at [phone] for Medicare purposes. Please let me know if there are questions or concerns regarding this plan of care. Physician Signature: Date:
--- NOTE | 2021-01-21 15:20 | HP.OTREVAL ---
YANCY LEA, It has been my pleasure to treat TATO SOLOMON over the last 3 visits for RA. Please see the progress note below for an update on the occupational therapy plan of care! Subjective: pt arrives 5 weeks s/p proximal row carpectomy- and cmc arthroplasty- pt states she is doing better with pain and still sometimes wakes pt up at night - mostly at IF MPJ region - Objective/Function: wrist 32/30. CMC 10*. MP fussion. IP 30*. opposition to tip of RF. pt is progressing with her ROM and gurpreet. orthosis well- will progress pt as able and gurpreet- with light strenghtening at 6 weeks will follow protocol Plan Frequency: 1-2x /Week Duration: 2 Months Plan: cont with Dr protocol. Goals - Goals Patient Goals: Use Hand/Wrist/Arm Normally Again Goal:100% adherence to protocol: Yes Goal:Daily scar massage when approriate: Yes Goal:ROM equal to unaffected hand: Yes Goal:No pain with affected hand use: Yes Goal:Full use of affected hand in daily activities including: Yes Anticipated Interventions Anticipated Interventions: A/AAROM/PROM, Strengthening, Edema Control, Triggerpoint Release, Desensitization, Sensory Retraining, Modalities, Orthoses, Joint Protection/Energy Conservation, Ergonomic Education Please do not hesitate to contact me at [phone] by phone or if you have questions or concerns regarding this new plan of care! Sincerely, Isamar Georges, OTR/L, CHT
--- NOTE | 2021-02-25 15:04 | HP.OTREVAL ---
YANCY LEA, It has been my pleasure to treat TATO SOLOMON over the last 8 visits for RA. Please see the progress note below for an update on the occupational therapy plan of care! Subjective: pt is s/p 10 weeks s/p from right proximal row carpectomy arthroplasty. pt states she is doing her scar mtg- and ROM exercises Objective/Function: pt states she is 85% better! pt states her right hand doesnt stop her from doing her ADLs just reports akward mobility (ie slicing tomato). right manager of enterprise strength 25# left is 26#. right lateral pinch 2# left is 6#. right wrist ROM 35/35. right cmc 5. right mp 10 (fussion ). right IP 40. oppisition to MF. pt is using electric can residential sales manager and will use spring loaded scissors for opening cracker/chip bags etc- pt is working on strengthening right UB with 2# Plan Plan: pt return to for follow up Goals - Goals Patient Goals: Use Hand/Wrist/Arm Normally Again Goal:100% adherence to protocol: Yes Goal:Daily scar massage when approriate: Yes Goal:ROM equal to unaffected hand: Yes Goal:No pain with affected hand use: Yes Goal:Full use of affected hand in daily activities including: Yes Anticipated Interventions Anticipated Interventions: A/AAROM/PROM, Strengthening, Edema Control, Triggerpoint Release, Desensitization, Sensory Retraining, Modalities, Orthoses, Joint Protection/Energy Conservation, Ergonomic Education Please do not hesitate to contact me at [phone] by phone or if you have questions or concerns regarding this new plan of care! Sincerely, Isamar Georges, OTR/L, CHT
--- NOTE | 2021-06-24 15:28 | HP.OTDCSUM_ITS ---
It has been my pleasure to treat TATO SOLOMON under orders from YANCY LEA, for the diagnosis of RA for a total of 8 visit(s). Please see the following information for a summary of their discharge status. % Improvement: 80 Objective/Function: pt states she is 85% better! pt states her right hand doesnt stop her from doing her ADLs just reports akward mobility (ie slicing tomato). right administrative services coordinator strength 25# left is 26#. right lateral pinch 2# left is 6#. right wrist ROM 35/35. right cmc 5. right mp 10 (fussion ). right IP 40. oppisition to MF. pt is using electric can radio communications mechanician and will use spring loaded scissors for opening cracker/chip bags etc- pt is working on strengthening right UB with 2# Patient Goals: Use Hand/Wrist/Arm Normally Again Goal:100% adherence to protocol: Yes Goal:Daily scar massage when approriate: Yes Goal:ROM equal to unaffected hand: Yes Goal:No pain with affected hand use: Yes Goal:Full use of affected hand in daily activities including: Yes Plan: pt return to for follow up If there are questions or concerns regarding this patient's occupational therapy, please fell free to call me at [phone]. Thank you for the referral of this patient. Sincerely, Isamar Georgse, OTR/L, CHT
== END 2021-02-25 19:00 | disposition home or self-care (01) ==
LOC: OT 14:30
PROVIDERS: PCP Family Medicine
DX: M06.9 Rheumatoid arthritis, unspecified (principal)
CPT/HCPCS: 97110; 97140; 97166; 97530; 97760; 97763

== ENCOUNTER → 2021-03-08 08:55 | Outpatient (CLI) | payer MEDICARE, OTHER, SELFPAY ==
[2020-02-27 09:08] VITALS: BMI 27.3
[2021-02-21 09:33] VITALS: BMI 29.2
[2021-03-08 09:08] VITALS: BP 142/69; PULSE 58; RESP 16; TEMP 36.4; O2SAT 97; BMI 28.7
[2021-03-08] MEDS: DiphenhydrAMINE 25 MG Capsule PO (09:11)
[2021-03-08] MEDS: Acetaminophen 500 MG Tablet 1000 MG PO (09:11)
[2021-03-08] MEDS: 0.9% NaCl Peripheral Flush Adult/Peds IV (09:11)
[2021-03-08] MEDS: MethylPREDNISolone 125 MG/2 ML Vial 100 MG IV (09:12)
[2021-03-08] MEDS: 0.9% NaCl IVPB Med Flush (250 mL) 15 ML IV (09:12)
== END ==
PROVIDERS: PCP Family Medicine; Referring Provider Internal Medicine Rheumatology; Visit Provider Internal Medicine Rheumatology
DX: M06.9 Rheumatoid arthritis, unspecified (principal)
CPT/HCPCS: 96375; 96413; 96415; J7040; J7050; J9312; A4216

== ENCOUNTER → 2021-07-29 15:47 | Outpatient (CLI) | payer MEDICARE, OTHER, SELFPAY | PROVIDERS: PCP Family Medicine; Referring Provider Internal Medicine Rheumatology; Visit Provider Internal Medicine Rheumatology | DX: M06.09 Rheumatoid arthritis without rheumatoid factor, multiple sites (principal) | CPT/HCPCS: 36415 ==

== ENCOUNTER → 2021-10-03 10:52 | Outpatient (CLI) | payer MEDICARE, OTHER, SELFPAY ==
--- NOTE | 2021-10-03 10:54 | BI_ITS ---
MAMMOGRAPHY - BILATERAL SCREENING REASON FOR EXAM: Female, 70 years old. Routine annual screening examination. PERTINENT HISTORY: Non-contributory. TECHNIQUE: Digital bilateral breast sol (3D mammographic acquisition) in the CC and MLO projections. 2-D mediolateral oblique (MLO) and craniocaudad (CC) views of both breasts were obtained. CAD: Full Field Digital Mammography with Computer Added Detection was performed. COMPARISON: Comparison is made with prior study 10/02/2020 and 09/27/2019. FINDINGS: Breast Composition: The breasts are heterogeneously dense, which may obscure small masses. There are no dominant masses or suspicious calcifications. No other significant abnormalities are identified. There has been no significant change since the prior study. BI/SCRN MAMM (CAD)W/SOL BILAT IMPRESSION: Stable bilateral screening mammogram. Yearly follow-up mammogram recommended. (A) ASSESSMENT CATEGORY: BIRADS Category 1: Negative. A letter regarding these results will be sent to the patient by the facility within 30 days. Approximately 10% of breast cancers are not detected by mammography. A normal mammogram should not delay biopsy of a clinically suspicious abnormality. [id number] Electronically Signed: Donald Baird MD at 12:24 EST , Service support ,
== END ==
PROVIDERS: PCP Family Medicine; Referring Provider Nurse Practitioner Women's Health; Visit Provider Nurse Practitioner Women's Health
DX: Z12.31 Encounter for screening mammogram for malignant neoplasm of breast (principal)
CPT/HCPCS: 77063; 77067

== ENCOUNTER 2021-11-07 09:31 | Outpatient (CLI) | payer MEDICARE, OTHER, SELFPAY ==
[2021-11-07] MEDS: Acetaminophen 500 MG Tablet 1000 MG PO (10:08)
[2021-11-07] MEDS: DiphenhydrAMINE 25 MG Capsule PO (10:08)
[2021-11-07] MEDS: 0.9% NaCl IVPB Med Flush (250 mL) 15 ML IV (10:09)
[2021-11-07] MEDS: 0.9% NaCl Peripheral Flush Adult/Peds IV (10:09)
[2021-11-07] MEDS: MethylPREDNISolone 125 MG/2 ML Vial 100 MG IV (10:12)
[2021-11-07 10:22] VITALS: BP 139/77; PULSE 57; RESP 16; TEMP 35.8; O2SAT 97
== END 2021-11-07 23:59 | disposition short-term general hospital (02) ==
LOC: MEDOUTP 09:32
PROVIDERS: PCP Family Medicine; Referring Provider Internal Medicine Rheumatology; Visit Provider Internal Medicine Rheumatology
DX: M06.09 Rheumatoid arthritis without rheumatoid factor, multiple sites (principal)
CPT/HCPCS: 96415 ×2; 96375; 96413; J7040; J7050; J9312; A4216

== ENCOUNTER 2021-11-21 09:02 | Outpatient (CLI) | payer MEDICARE, OTHER, SELFPAY ==
[2021-11-21] MEDS: 0.9% NaCl IVPB Med Flush (250 mL) 15 ML IV (09:23)
[2021-11-21] MEDS: 0.9% NaCl Peripheral Flush Adult/Peds IV (09:23)
[2021-11-21] MEDS: Acetaminophen 500 MG Tablet 1000 MG PO (09:25)
[2021-11-21] MEDS: DiphenhydrAMINE 25 MG Capsule PO (09:25)
[2021-11-21] MEDS: MethylPREDNISolone 125 MG/2 ML Vial 100 MG IV (09:26)
[2021-11-21 09:32] VITALS: BP 140/58; PULSE 55; RESP 16; TEMP 35.9; O2SAT 97; BMI 28.7
== END 2021-11-21 23:59 | disposition home or self-care (01) ==
LOC: MEDOUTP 09:02
PROVIDERS: PCP Family Medicine; Referring Provider Internal Medicine Rheumatology; Visit Provider Internal Medicine Rheumatology
DX: M06.09 Rheumatoid arthritis without rheumatoid factor, multiple sites (principal)
CPT/HCPCS: 96415 ×2; 96375; 96413; J7040; J7050; J9312; A4216

== ENCOUNTER 2021-12-07 18:26 | Emergency (ER) | payer MEDICARE, OTHER, SELFPAY ==
[2021-12-07 18:28] VITALS: BP 138/79; PULSE 74; RESP 17; TEMP 37; O2SAT 94; BMI 30.7
--- NOTE | 2021-12-07 18:41 | EX.ED.DYSGE1 ---
HPI History of Present Illness Chief Complaint: Dizziness Informant: patient Onset/Context/Timing Context: Sudden Onset Timing: Continuous Quality: Aching Location: Head Worsened by: Head movements Relieved by: Nothing Narrative Narrative: Patient presents with dizziness and a headache that began today. Patient states it began rather suddenly after eating lunch. Patient states that her dizziness is worse whenever she moves her head or moves her eyes. Patient states that her dizziness does not feel like a spinning sensation. Patient is unable to describe her dizziness. Patient admits to a generalized headache. Patient states it is more in the frontal area but it is all over. Patient describes it as aching. Patient admits to nausea but denies any vomiting. [facility] Medical History (Updated 12/07/21 @ 21:[address] Macho Duran, ) Abnormal chest CT Abnormal LFTs Acute respiratory failure with hypoxemia Acute systolic (congestive) heart failure (12/2016) Anxiety and depression Atrophic vaginitis Community acquired pneumonia Depression Essential (primary) hypertension GERD (gastroesophageal reflux disease) History of immunosuppressive therapy History of non-ST elevation myocardial infarction (NSTEMI) (01/15/17) Hypokalemia Hypomagnesemia Hypophosphatemia Immunocompromised Inflamed seborrheic keratosis Legionella pneumonia Microscopic colitis Migraine headache Nevus Normochromic normocytic anemia DARIO (obstructive sleep apnea) Osteopenia Osteoporosis Pulmonary HTN Rate-dependent bundle branch block Respiratory insufficiency Rheumatoid arthritis RLS (restless legs syndrome) Seborrheic keratosis Sleep-related breathing disorder Home Medications calcium carbonate-vitamin D3 1 ea PO DAILY 06/13/15 [History Last Taken 01/12/17] multivitamin with folic acid 1 tab PO DAILY 06/13/15 [History Last Taken 01/12/17 09:00] sumatriptan succinate 100 - 200 mg PO DAILY PRN PRN 06/13/15 [History Last Taken 01/06/17 09:00] citalopram 20 mg PO DAILY 07/11/15 [History Last Taken 01/12/17 09:00] sbdqccifln-ntdipjuspnegy-wjpi 40 mg PO DAILY PRN PRN 01/13/17 [History Last Taken 01/08/17 09:00] leflunomide 10 mg PO DAILY 07/03/17 [History Last Taken Unknown] rituximab-hyaluronidase,human 1,000 mg IV UD 07/03/17 [History Last Taken 02/18/18] omega-3 acid ethyl esters 1 gram capsule 1 g PO QDAY 11/12/17 [History Last Taken Unknown] L.acidoph, paracasei,B. lactis 1 ea PO DAILY 03/12/18 [History Last Taken Unknown] cyanocobalamin (vitamin B-12) 1,000 mcg PO DAILY 03/12/18 [History Last Taken Unknown] omeprazole 20 mg PO DAILY 08/09/20 [History Last Taken Unknown] prednisone 1 mg tablet 3 mg PO DAILY tab 10/10/20 [History Last Taken Unknown] ropinirole 1 mg tablet 2 mg PO BID tab 10/10/20 [History Last Taken Unknown] atenolol 25 mg tablet 25 mg PO DAILY #90 tab 01/30/21 [Rx Last Taken Unknown] meclizine 25 mg PO Q8H PRN PRN #20 tab 12/07/21 [Rx Last Taken Unknown] Allergy/AdvReac Type Severity Reaction Status Date / Time Sulfa (Sulfonamide Allergy Intermediate Rash Verified 12/07/21 18:27 Antibiotics) sulfasalazine Allergy Rash Verified 12/07/21 18:27 Family History Father CVA (cerebral vascular accident) Diabetes Surgical History History of bilateral carpal tunnel release History of cholecystectomy History of lumbar surgery (11/2019) Hx of appendectomy Total knee replacement status Social History Smoking Status: Never smoker second hand exposure: No alcohol intake: current alcohol intake frequency: holidays/special occasions only substance use type: does not use what type of physical activity do you participate in: bicycling frequency: 3-4 times per week ROS ROS ED Constitutional Constitutional ED: Reports chills and sweats; Denies fever(s) Eyes Eyes: Denies blurry vision or change in vision ENT ENT ED: Denies rhinorrhea or sore throat Cardiovascular Cardiovascular: Denies chest pain or palpitations Respiratory/Chest Respiratory/Chest: Denies cough or dyspnea Gastrointestinal Gastrointestinal: Reports nausea; Denies vomiting Genitourinary Genitourinary ED: Denies dysuria or hematuria Musculoskeletal Musculoskeletal: Reports neck pain; Denies back pain Integumentary Denies abscess or rash Neurologic Neurologic: Reports headache(s); Denies weakness Allergic/Immunologic Allergic/Immunologic ED: Denies mouth swelling or urticaria EXAM Physical Exam Const Vital Signs: 12/07/21 18:28 12/07/21 21:04 Temperature 98.6 F Temperature Source Oral Pulse Rate 74 72 Respiratory Rate 17 20 H Blood Pressure 138/79 H 144/60 H Blood Pressure Mean 98 88 Pulse Ox 94 94 Oxygen Delivery Method Room Air Positive well nourished and well developed General Appearance ED: well developed HEENT Reports moist mucous membranes Eyes PERRL and EOMs intact bilaterally Resp normal respiratory effort and clear to auscultation bilaterally Cardio regular rate and regular rhythm GI normal to inspection, nondistended, normoactive bowel sounds and non-tender Palpation: soft Neuro oriented x3, CN's II-XII intact bilaterally and no sensory deficits noted Sensorium / Orientation: alert Motor Exam: strength 5/5 throughout Psych mental status grossly normal Skin no rashes or lesions noted MDM MDM MDM Narrative Medical decision making narrative: Patient was given a dose of meclizine here. CBC and comprehensive metabolic profile were obtained and were essentially within normal limits. Urinalysis does not show any evidence of urinary tract infection. CT scan of the brain was obtained. There is no acute intracranial abnormality. This was interpreted by the radiologist and reviewed by myself. Patient was feeling better on reevaluation. Patient was able to ambulate to the bathroom without difficulty. Patient was given a prescription for meclizine. Patient was instructed to rest at home. Patient was instructed to follow-up with her primary care physician in 5 to 7 days. Patient understood and was agreeable with the plan. All questions were answered. Lab Data Attestation: I reviewed the patient's lab results. Labs: Laboratory Results - last 24 hr 12/07/21 12/07/21 12/07/21 18:35 18:35 20:20 WBC 5.6 RBC 3.84 L Hgb 12.2 Hct 36.7 L MCV 95.6 MCH 31.8 MCHC 33.2 RDW Std Deviation 45.2 H RDW Coeff of Omar 13.0 Plt Count 193 MPV 11.6 Immature Gran % (Auto) 0.500 Neut % (Auto) 72.7 H Lymph % (Auto) 13.9 L Sandoval % (Auto) 11.4 H Eos % (Auto) 1.1 Baso % (Auto) 0.4 Absolute Neuts (auto) 4.1 Absolute Lymphs (auto) 0.78 L Nucleated RBC % 0 Sodium 137 Potassium 3.5 Chloride 103 Carbon Dioxide 26.0 Anion Gap 8 BUN 19 H Creatinine 1.12 H Estim Creat Clear Calc 39.78 Est GFR (MDRD) Af Amer 62 Est GFR (MDRD) Non-Af 51 L BUN/Creatinine Ratio 17.0 Glucose 141 H Calcium 10.1 Total Bilirubin 0.50 AST 33 ALT 31 Alkaline Phosphatase 79 Total Protein 7.4 Albumin 3.9 Globulin 3.5 Albumin/Globulin Ratio 1.1 Urine Color Straw Urine Clarity Sl. Cloudy Urine pH 6.0 Ur Specific [place] 1.010 Urine Protein Negative Urine Glucose (UA) Normal Urine Ketones Negative Urine Occult Blood Negative Urine Nitrite Negative Urine Bilirubin Negative Urine Urobilinogen Normal Ur Leukocyte Esterase 25 H Urine RBC 0 SEEN Urine WBC 0-5 SEEN Ur Squamous Epith Cells 0-5 SEEN Urine Bacteria RARE Urine Mucus 0 SEEN Radiography Diagnostic Testing: Clinical Impression(s) from Imaging Studies Brain CT 12/07/21 19:48 IMPRESSION: No acute intracranial hemorrhage or mass effect. Electronically Signed: Carlos Weathers MD (Brooks) at 20:24 EST Reading Location ID and State: [facility] / [place] , Service support , Discharge Plan Triage Chief Complaint: Dizziness ED Provider: Macho Duran Dx/Rx/DC Orders Clinical Impression: Vertigo Instructions: ED Vertigo, Unspecified Prescriptions: New meclizine 25 MG tablet 25 mg PO Q8H PRN PRN (Reason: Dizziness) Qty: 20 RF: 0 No Action omega-3 acid ethyl esters [Lovaza] 1 gram capsule 1 g PO QDAY RF: 0 prednisone 1 mg tablet 3 mg PO DAILY RF: 0 sumatriptan succinate 100 MG tablet 100 - 200 mg PO DAILY PRN PRN (Reason: Migraine Symptoms) RF: 0 multivitamin with folic acid 1 TABLET tablet 1 tab PO DAILY RF: 0 calcium carbonate-vitamin D3 1 EACH tablet 1 ea PO DAILY RF: 0 citalopram 20 MG tablet 20 mg PO DAILY RF: 0 ppghcewnwt-lkxrimochqruc-qkdy 1 TABLET tablet 40 mg PO DAILY PRN PRN (Reason: Headache) RF: 0 ropinirole 1 mg tablet 2 mg PO BID RF: 0 leflunomide 10 MG tablet 10 mg PO DAILY RF: 0 rituximab-hyaluronidase,human 1,400 MG/11.7 ML solution 1,000 mg IV UD RF: 0 cyanocobalamin (vitamin B-12) 1,000 MCG tablet 1,000 mcg PO DAILY RF: 0 L.acidoph, paracasei,B. lactis 1 EACH capsule 1 ea PO DAILY RF: 0 omeprazole 40 MG capsule,delayed release(DR/EC) 20 mg PO DAILY RF: 0 atenolol 25 mg tablet 25 mg PO DAILY Qty: 90 RF: 3 Primary Care Provider: Macho Schmidt Referrals: Macho Schmidt MD [Primary Care Provider] - 3-5 Days Disposition Disposition: Home, Self Care
[2021-12-07 19:12] LABS: Absolute Lymphocyte Count 0.78 X10^3/uL (0.83-4.51); Absolute Neutrophil Count 4.1 X10^3/uL (2.0-7.7); Basophil# 0.02 X10^3/uL; Basophil% 0.4 % (0-1); Eosinophil# 0.06 X10^3/uL; Eosinophils% 1.1 % (0-5); Hematocrit 36.7 % (37-47); Hemoglobin 12.2 g/dL (12.0-15.0); Lymphocyte # 0.78 X10^3/ul (0.83-4.51); Lymphocyte % 13.9 % (19-41); Mean Corp Hgb Conc 33.2 g/dL (32-36); Mean Corpuscular Hgb 31.8 pg (27.0-32.0); Mean Corpuscular Volume 95.6 fL (81-99); Mean Platelet Vol. 11.6 fl (6.2-12.0); Monocyte# 0.64 X10^3/uL; Monocyte% 11.4 % (0-10); NRBC Flagged by Analyzer 0 % (0-5); Neutrophil # 4.08 X10^3/uL (2.7-7.7); Neutrophil % 72.7 % (47-70); Platelet Count 193 K/mm3 (150-450); RBC Distribution Width SD 45.2 fl (35.1-43.9); Red Blood Count 3.84 M/mm3 (4.2-5.4); White Blood Count 5.6 K/mm3 (4.4-11.0)
[2021-12-07] MEDS: Meclizine HCl 25 MG Tablet PO (19:22)
[2021-12-07] MEDS: Metoclopramide 10 MG/2 ML Vial IV (19:23)
[2021-12-07] MEDS: DiphenhydrAMINE 50 MG/ML Syringe 25 MG IV (19:23)
[2021-12-07 19:25] LABS: ALB/GLOB Ratio 1.1 RATIO (0.9-2.4); AST(SGOT) 33 U/L (15-37); Alanine Aminotransfer ALT/SGPT 31 U/L (13-56); Albumin, Serum 3.9 g/dL (3.2-5.0); Alkaline Phosphatase 79 U/L (45-117); Anion Gap 8 (5-15); BUN 19 mg/dL (7-18); Calcium,Total 10.1 mg/dL (8.5-10.1); Chloride 103 mmol/L (98-107); Creatinine, Serum 1.12 mg/dL (0.55-1.02); EST Glomerular Filtration Rate 51 mL/min (>60); Est Glom Filt Rate - Afr Amer 62 mL/min (>60); Estimated Creatinine Clearance 39.78 ml/min; Globulin 3.5 g/dL (2.2-4.2); Glucose 141 mg/dL (74-106); Potassium 3.5 mmol/L (3.5-5.1); Protein, Total 7.4 g/dL (6.4-8.2); Sodium Level 137 mmol/L (136-145)
--- NOTE | 2021-12-07 19:48 | CT_ITS ---
STUDY: CT BRAIN WITHOUT CONTRAST REASON FOR EXAM: Female, 70 years old. Headache RADIATION DOSAGE (If Supplied By Facility): CTDIvol = ( 44.99 ) mGy, DLP = ( 829.85 ) mGycm TECHNIQUE: Transaxial CT imaging of the brain was performed without administration of intravenous contrast material. Individualized dose optimization techniques were used for this CT. COMPARISON: No relevant priors. FINDINGS: Normal soft tissue structures. Normal calvarium. There is mild cerebral atrophy with widening of the extra-axial spaces and ventricular dilatation. There are areas of decreased attenuation within the white matter tracts of the supratentorial brain, consistent with microvascular disease changes. There are small punctate calcifications of the basal ganglia which are seen in the aging brain as a normal variant. Normal brainstem. Normal cerebellum. There is no intracranial hemorrhage. There are no findings of an acute ischemic infarction. Normal visualized paranasal sinuses. CT/Brain/Head without Contrast IMPRESSION: No acute intracranial hemorrhage or mass effect. Electronically Signed: Carlos Weathers MD (Brooks) at 20:24 EST Reading Location ID and State: [facility] / [place] , Service support ,
[2021-12-07 20:25] LABS: Mucous, Urine 0 SEEN /hpf (<or=2+); Red Blood Cells-Urine 0 SEEN /hpf (0-5)
[2021-12-07 20:27] LABS: Color, Urine Straw (Yellow); Glucose, Dipstick Normal (Normal); Ketone-Dipstick Negative (Negative); Leukocyte Esterase-Dipstick 25 /ul (Negative); Nitrite-Dipstick Negative (Negative); Occult Blood-Urine Negative /ul (Negative); Protein-Dipstick Negative (Negative); Urine Bilirubin Dipstick Negative (Negative); Urine Clarity Sl. Cloudy (Clear); Urine Urobilinogen Normal (Normal)
[2021-12-07 20:39] LABS: Squamous Epithelial Cells - UA 0-5 SEEN /hpf (5-10); White Blood Cells 0-5 SEEN /hpf (0-5)
[2021-12-07 20:40] LABS: Bacteria RARE /hpf (None Seen)
[2021-12-07 21:04] VITALS: BP 144/60; PULSE 72; RESP 20; O2SAT 94
[2021-12-07 21:37] VITALS: PULSE 68; RESP 18
== END 2021-12-07 21:38 | disposition home or self-care (01) ==
PROVIDERS: Emergency Provider Emergency Medicine; PCP Family Medicine; Visit Provider Emergency Medicine
DX: R42 Dizziness and giddiness (principal); M06.9 Rheumatoid arthritis, unspecified; I27.20 Pulmonary hypertension, unspecified; I10 Essential (primary) hypertension; R11.0 Nausea; R51.9 Headache, unspecified; F32.A Depression, unspecified; F41.9 Anxiety disorder, unspecified; K21.9 Gastro-esophageal reflux disease without esophagitis; I25.2 Old myocardial infarction; Z79.899 Other long term (current) drug therapy
CPT/HCPCS: 70450; 80053; 81001; 85025; 96374; 96375; 99284; A4216

== ENCOUNTER 2022-01-16 14:29 | Outpatient (CLI) | payer MEDICARE, OTHER, SELFPAY ==
--- NOTE | 2022-01-16 14:34 | RAD_ITS ---
STUDY: X-RAY CHEST REASON FOR EXAM: Female, 71 years old. CHEST PAIN ARTHRITIS/PAIN TECHNIQUE: XR Chest 2 Views COMPARISON: 7.6.18 FINDINGS: There is no demonstrated pleural abnormality. The lung villasenor are hyperexpanded. There is mild cardiac enlargement. Normal mediastinum and luann. Normal visualized pulmonary arteries. There is atherosclerotic calcification of the aortic arch with tortuosity. There are diffuse degenerative changes of the visualized thoracic spine. There is degenerative osteoarthritis of the bilateral shoulders. There is no demonstrated abnormality of the visualized soft tissue structures of the upper abdomen. RAD/Chest PA and Lateral IMPRESSION: There are no acute findings. Electronically Signed: Crow Bryan MD at 14:51 EDT ,
== END 2022-01-16 23:59 | disposition home or self-care (01) ==
LOC: MTRAD 14:32
PROVIDERS: PCP Family Medicine; Referring Provider Internal Medicine Rheumatology; Visit Provider Internal Medicine Rheumatology
DX: M06.09 Rheumatoid arthritis without rheumatoid factor, multiple sites (principal)
CPT/HCPCS: 71046

== ENCOUNTER 2022-01-27 10:34 | Outpatient (CLI) | payer MEDICARE, OTHER, SELFPAY ==
[2022-01-27 12:46] LABS: Thyroid Stim Hormone (TSH) 2.32 uIU/mL (0.358-3.74)
== END 2022-01-27 23:59 | disposition home or self-care (01) ==
PROVIDERS: PCP Family Medicine; Referring Provider Internal Medicine Rheumatology; Visit Provider Internal Medicine Rheumatology
DX: R94.6 Abnormal results of thyroid function studies (principal)
CPT/HCPCS: 36415; 84443

== ENCOUNTER → 2022-03-04 | Outpatient (CLI) | payer MEDICARE, OTHER, SELFPAY ==
[2022-03-04 10:38] VITALS: BP 135/52; PULSE 53; RESP 12; TEMP 36.4; O2SAT 97; BMI 28.8
[2022-03-04 13:20] VITALS: BP 128/52; PULSE 53; RESP 12; TEMP 36.4; O2SAT 95
== END | disposition home or self-care (01) ==
LOC: MEDOUTP 10:22
PROVIDERS: PCP Family Medicine; Referring Provider Internal Medicine Rheumatology; Visit Provider Internal Medicine Rheumatology
DX: M06.09 Rheumatoid arthritis without rheumatoid factor, multiple sites (principal); Z79.899 Other long term (current) drug therapy
CPT/HCPCS: 96372; Q0220

== ENCOUNTER → 2022-05-15 | Outpatient (CLI) | payer MEDICARE, OTHER, SELFPAY ==
[2022-05-16 08:10] LABS: Hepatitis B Surface Antigen Non-Reactive (Nonreactive)
[2022-05-17 13:07] LABS: QNTFERON TB Mitogen Value > 10.00 IU/mL (.); QNTFERON TB Nil Value 0.02 IU/mL (.); QNTFERON TB1+ Ag Value 0.02 IU/mL (.); QNTFERON TB2+ Ag Value 0.02 IU/mL (.)
[2022-05-17 13:34] LABS: QNTIFERON TB Positive Criteria Negative (Negative)
== END | disposition home or self-care (01) ==
LOC: MTLAB 16:14
PROVIDERS: PCP Family Medicine; Referring Provider Internal Medicine Gastroenterology; Visit Provider Internal Medicine Gastroenterology
DX: K52.839 Microscopic colitis, unspecified (principal); R19.7 Diarrhea, unspecified
CPT/HCPCS: 36415; 86480; 87340

== ENCOUNTER → 2022-08-14 | Outpatient (CLI) | payer MEDICARE, OTHER, SELFPAY ==
[2022-08-14 10:18] LABS: Absolute Lymphocyte Count 1.54 X10^3/uL (0.83-4.51); Absolute Neutrophil Count 1.2 X10^3/uL (2.0-7.7); Basophil# 0.04 X10^3/uL; Eosinophil# 0.12 X10^3/uL; Eosinophils% 3.1 % (0-5); Hemoglobin 13.8 g/dL (12.0-15.0); Lymphocyte # 1.54 X10^3/ul (0.83-4.51); Lymphocyte % 40.4 % (19-41); Mean Corp Hgb Conc 32.9 g/dL (32-36); Mean Corpuscular Hgb 31.6 pg (27.0-32.0); Mean Corpuscular Volume 96.1 fL (81-99); Mean Platelet Vol. 11.5 fl (6.2-12.0); Monocyte# 0.91 X10^3/uL; Monocyte% 23.9 % (0-10); NRBC Flagged by Analyzer 0 % (0-5); Neutrophil # 1.19 X10^3/uL (2.7-7.7); Neutrophil % 31.3 % (47-70); Platelet Count 188 K/mm3 (150-450); RBC Distribution Width CV 13.2 % (11.6-14.6); RBC Distribution Width SD 47.7 fl (35.1-43.9); Red Blood Count 4.37 M/mm3 (4.2-5.4); White Blood Count 3.8 K/mm3 (4.4-11.0)
[2022-08-14 11:02] LABS: BUN 13 mg/dL (7-18); Creatinine, Serum 0.96 mg/dL (0.55-1.02); Glucose 88 mg/dL (74-106)
[2022-08-14 11:03] LABS: ALB/GLOB Ratio 1.1 RATIO (0.9-2.4); AST(SGOT) 26 U/L (15-37); Alanine Aminotransfer ALT/SGPT 25 U/L (13-56); Albumin, Serum 3.7 g/dL (3.2-5.0); Alkaline Phosphatase 68 U/L (45-117); Anion Gap 9 (5-15); BUN/Creat Ratio 13.6 RATIO (10-20); Calcium,Total 9.7 mg/dL (8.5-10.1); Chloride 106 mmol/L (98-107); Cholesterol 207 mg/dL (200); EST Glomerular Filtration Rate 61 mL/min (>60); Est Glom Filt Rate - Afr Amer 74 mL/min (>60); Globulin 3.3 g/dL (2.2-4.2); High Density Lipoprotein 84 mg/dL; Sodium Level 140 mmol/L (136-145); Triglycerides 112 mg/dL; Very Low Density Lipoprotein 22 mg/dL (5-40)
== END | disposition home or self-care (01) ==
LOC: MFPLAB 08:56
PROVIDERS: PCP Family Medicine; Referring Provider Family Medicine; Visit Provider Nurse Practitioner Family
DX: Z01.818 Encounter for other preprocedural examination (principal); E78.00 Pure hypercholesterolemia, unspecified; I10 Essential (primary) hypertension
CPT/HCPCS: 36415; 80053; 80061; 85025

== ENCOUNTER → 2022-10-31 | Outpatient (CLI) | payer MEDICARE, OTHER, SELFPAY | END | disposition home or self-care (01) | LOC: MTLAB 10:10 | PROVIDERS: PCP Family Medicine; Referring Provider Internal Medicine Gastroenterology; Visit Provider Internal Medicine Gastroenterology | DX: K52.839 Microscopic colitis, unspecified (principal) | CPT/HCPCS: 36415 ==

== ENCOUNTER → 2022-11-26 | Outpatient (CLI) | payer MEDICARE, OTHER, SELFPAY ==
[2022-11-26 15:29] LABS: Hematocrit 39.1 % (37-47); Hemoglobin 12.7 g/dL (12.0-15.0); Mean Corp Hgb Conc 32.5 g/dL (32-36); Mean Corpuscular Hgb 31.6 pg (27.0-32.0); Mean Corpuscular Volume 97.3 fL (81-99); Mean Platelet Vol. 12.3 fl (6.2-12.0); Platelet Count 210 K/mm3 (150-450); RBC Distribution Width CV 12.8 % (11.6-14.6); RBC Distribution Width SD 45.2 fl (35.1-43.9); Red Blood Count 4.02 M/mm3 (4.2-5.4); White Blood Count 6.3 K/mm3 (4.4-11.0)
[2022-11-26 15:30] LABS: Erythrocyte Sedimentation Rate 11 mm/hr (0-30)
[2022-11-26 15:49] LABS: ALB/GLOB Ratio 1.2 RATIO (0.9-2.4); AST(SGOT) 21 U/L (15-37); Alanine Aminotransfer ALT/SGPT 25 U/L (13-56); Albumin, Serum 3.9 g/dL (3.2-5.0); Alkaline Phosphatase 75 U/L (45-117); Anion Gap 7 (5-15); BUN 17 mg/dL (7-18); BUN/Creat Ratio 18.2 RATIO (10-20); CRP 5.56 mg/L (0.0-3.0); Calcium,Total 9.6 mg/dL (8.5-10.1); Chloride 106 mmol/L (98-107); Creatinine, Serum 0.93 mg/dL (0.55-1.02); EST Glomerular Filtration Rate 63 mL/min (>60); Est Glom Filt Rate - Afr Amer 76 mL/min (>60); Globulin 3.2 g/dL (2.2-4.2); Glucose 81 mg/dL (74-106); Protein, Total 7.1 g/dL (6.4-8.2); Sodium Level 139 mmol/L (136-145); T4 Total, Thyroxin 9.1 ug/dL (4.8-13.9); Thyroid Stim Hormone (TSH) 1.57 uIU/mL (0.358-3.74)
== END | disposition home or self-care (01) ==
LOC: MTLAB 11:38
PROVIDERS: PCP Family Medicine; Referring Provider Internal Medicine Gastroenterology; Visit Provider Internal Medicine Gastroenterology
DX: R19.7 Diarrhea, unspecified (principal)
CPT/HCPCS: 36415; 80053; 84436; 84443; 85027; 85652; 86140

== ENCOUNTER → 2022-12-16 | Outpatient (CLI) | payer MEDICARE, OTHER, SELFPAY ==
--- NOTE | 2022-12-16 14:19 | BI_ITS ---
MAMMOGRAPHY - BILATERAL SCREENING REASON FOR EXAM: Female, 71 years old. Routine annual screening examination. PERTINENT HISTORY: Non-contributory. TECHNIQUE: Digital bilateral breast sol (3D mammographic acquisition) in the CC and MLO projections. 2-D mediolateral oblique (MLO) and craniocaudad (CC) views of both breasts were obtained. CAD: Full Field Digital Mammography with Computer Added Detection was performed. COMPARISON: Comparison is made with prior study dated 10/03/2021 and 10/02/2020. FINDINGS: Breast Composition: The breasts are heterogeneously dense, which may obscure small masses. There are no dominant masses or suspicious calcifications. No other significant abnormalities are identified. There has been no significant change since the prior study. BI/SCRN MAMM (CAD)W/SOL BILAT IMPRESSION: Stable bilateral screening mammogram. Yearly follow-up mammogram recommended. (A) ASSESSMENT CATEGORY: BIRADS Category 1: Negative. A letter regarding these results will be sent to the patient by the facility within 30 days. Approximately 10% of breast cancers are not detected by mammography. A normal mammogram should not delay biopsy of a clinically suspicious abnormality. [id number] Electronically Signed: Donald Baird MD at 15:37 EST ,
--- NOTE | 2022-12-16 14:25 | BD_ITS ---
STUDY: DUAL ENERGY X-RAY ABSORPTIOMETRY / DXA REASON FOR EXAM: Female, 71 years old. Bone density screening TECHNIQUE: Bone Mineral Density (BMD) measurements of lumbar spine and bilateral hips were obtained. COMPARISON: Comparison is made with prior study dated 10/02/2020. FINDINGS: Lumbar Spine (L1-L4): g/cm2 (0.794) / T-score (-2.0) / Z-score (0.2) Findings are suggestive of osteopenia with a moderate fracture risk. Left Femur Total: g/cm2 (0.758) / T-score (-1.5) / Z-score (0.2) Left Femoral Neck: g/cm2 (0.589) / T-score (-2.3) / Z-score (-0.4) Right Femur Total: g/cm2 (0.792) / T-score (-1.2) / Z-score (0.4) Right Femoral Neck: g/cm2 (0.662) / T-score (-1.7) / Z-score (0.3) The T-Scores on the most recent prior examination were: Lumbar Spine (L1-L4): There has been worsening of bone density since the previous examination. Left Femur Total: which represents an improvement of 2.8%. Right Femur Total: which represents an improvement of 5.3%. BD/Dexa Bone Density Study IMPRESSION: The patient is considered osteopenic as outlined below according to World Keagan Organization (WHO) criteria with a high fracture risk. There has been improvement of bone density since the previous examination. Reference Information: The T-score is the number of standard deviations above or below the standard which is normal for young adults at their peak bone mineral density. The World Health Organization (WHO) interprets the T-scores as follows: Above -1 Normal bone density Between -1 and -2.5 Osteopenia Equal to / or below -2.5 Osteoporosis As a practical clinical guideline, osteopenia may be graded as follows: Mild -1 through -1.5 Moderate -1.6 through -2.0 Severe -2.1 through -2.4 The Z-score is the number of standard deviations above or below age-matched controls. A Z-score of less than -1.5 would be considered abnormal. References: 1. NIH Osteoporosis and Related Bone Diseases www osteo.org 2. International Society for Clinical Densitometry www iscd.org 3. National Osteoporosis Foundation www nof.org Electronically Signed: Donald Baird MD at 15:12 EST ,
== END | disposition home or self-care (01) ==
LOC: OPBD 14:16
PROVIDERS: PCP Family Medicine; Visit Provider Obstetrics & Gynecology
DX: Z12.31 Encounter for screening mammogram for malignant neoplasm of breast (principal); Z78.0 Asymptomatic menopausal state; M85.80 Other specified disorders of bone density and structure, unspecified site
CPT/HCPCS: 77063; 77067; 77080

== ENCOUNTER → 2023-01-05 | Outpatient (CLI) | payer MEDICARE, OTHER, SELFPAY ==
[2023-01-05 15:32] LABS: Vitamin D,25 Hydroxy 78.8 ng/mL
[2023-01-05 15:41] LABS: ALB/GLOB Ratio 1.4 RATIO (0.9-2.4); AST(SGOT) 23 U/L (15-37); Alanine Aminotransfer ALT/SGPT 23 U/L (13-56); Albumin, Serum 4.1 g/dL (3.2-5.0); Alkaline Phosphatase 64 U/L (45-117); Anion Gap 6 (5-15); BUN 21 mg/dL (7-18); BUN/Creat Ratio 22.1 RATIO (10-20); Calcium,Total 10.3 mg/dL (8.5-10.1); Chloride 103 mmol/L (98-107); Creatinine, Serum 0.95 mg/dL (0.55-1.02); EST Glomerular Filtration Rate 61 mL/min (>60); Est Glom Filt Rate - Afr Amer 74 mL/min (>60); Glucose 91 mg/dL (74-106); Potassium 4.3 mmol/L (3.5-5.1); Protein, Total 7.1 g/dL (6.4-8.2); Sodium Level 139 mmol/L (136-145)
[2023-01-06 08:45] LABS: PTHIN 39.6 pg/mL (18.4-80.1)
== END | disposition home or self-care (01) ==
PROVIDERS: PCP Family Medicine; Referring Provider Family Medicine; Visit Provider Family Medicine
DX: M85.80 Other specified disorders of bone density and structure, unspecified site (principal)
CPT/HCPCS: 36415; 80053; 82306; 83970

== ENCOUNTER 2023-08-27 09:07 | Outpatient (CLI) | payer MEDICARE, OTHER, SELFPAY ==
[2023-08-27 10:57] LABS: Absolute Lymphocyte Count 2.04 X10^3/uL (0.83-4.51); Absolute Neutrophil Count 4.3 X10^3/uL (2.0-7.7); Basophil# 0.03 X10^3/uL; Basophil% 0.4 % (0-1); Eosinophil# 0.11 X10^3/uL; Eosinophils% 1.6 % (0-5); Hematocrit 34.9 % (37-47); Hemoglobin 10.9 g/dL (12.0-15.0); Lymphocyte # 2.04 X10^3/ul (0.83-4.51); Lymphocyte % 29.1 % (19-41); Mean Corp Hgb Conc 31.2 g/dL (32-36); Mean Corpuscular Hgb 29.1 pg (27.0-32.0); Mean Corpuscular Volume 93.1 fL (81-99); Mean Platelet Vol. 10.6 fl (6.2-12.0); Monocyte# 0.49 X10^3/uL; NRBC Flagged by Analyzer 0 % (0-5); Neutrophil # 4.31 X10^3/uL (2.7-7.7); Neutrophil % 61.6 % (47-70); Platelet Count 256 K/mm3 (150-450); RBC Distribution Width CV 13.4 % (11.6-14.6); RBC Distribution Width SD 45.6 fl (35.1-43.9); Red Blood Count 3.75 M/mm3 (4.2-5.4)
[2023-08-27 11:29] LABS: PTHIN 79.8 pg/mL (18.4-80.1)
[2023-08-27 11:32] LABS: Vitamin B12 1028 pg/mL (211-911); Vitamin D,25 Hydroxy 34.5 ng/mL
[2023-08-27 12:20] LABS: ALB/GLOB Ratio 0.9 RATIO (0.9-2.4); AST(SGOT) 18 U/L (15-37); Alanine Aminotransfer ALT/SGPT 25 U/L (13-56); Albumin, Serum 3.2 g/dL (3.2-5.0); Alkaline Phosphatase 72 U/L (45-117); Anion Gap 5 (5-15); BUN 18 mg/dL (7-18); BUN/Creat Ratio 21.2 RATIO (10-20); Calcium,Total 8.9 mg/dL (8.5-10.1); Chloride 107 mmol/L (98-107); Cholesterol 136 mg/dL (200); Creatinine, Serum 0.85 mg/dL (0.55-1.02); EST Glomerular Filtration Rate 70 mL/min (>60); Est Glom Filt Rate - Afr Amer 84 mL/min (>60); Ferritin 48 ng/mL (8-252); Globulin 3.4 g/dL (2.2-4.2); Glucose 83 mg/dL (74-106); High Density Lipoprotein 64 mg/dL; Potassium 4.5 mmol/L (3.5-5.1); Protein, Total 6.6 g/dL (6.4-8.2); Sodium Level 139 mmol/L (136-145); Triglycerides 98 mg/dL; Very Low Density Lipoprotein 20 mg/dL (5-40)
== END 2023-08-27 23:59 | disposition home or self-care (01) ==
PROVIDERS: PCP Family Medicine; Visit Provider Family Medicine
DX: Z13.220 Encounter for screening for lipoid disorders (principal); M06.9 Rheumatoid arthritis, unspecified; M85.80 Other specified disorders of bone density and structure, unspecified site; K52.839 Microscopic colitis, unspecified; E78.00 Pure hypercholesterolemia, unspecified
CPT/HCPCS: 36415; 80053; 80061; 82306; 82607; 82728; 82746; 83970; 85025

== ENCOUNTER → 2024-02-09 | Outpatient (CLI) | payer MEDICARE, OTHER, SELFPAY ==
[2024-02-09 15:26] LABS: Absolute Neutrophil Count 9.4 X10^3/uL (2.0-7.7); Basophil# 0.04 X10^3/uL; Basophil% 0.3 % (0-1); Eosinophil# 0.05 X10^3/uL; Eosinophils% 0.4 % (0-5); Hematocrit 34.9 % (37-47); Hemoglobin 10.5 g/dL (12.0-15.0); Lymphocyte % 11.1 % (19-41); Mean Corp Hgb Conc 30.1 g/dL (32-36); Mean Corpuscular Hgb 26.6 pg (27.0-32.0); Mean Corpuscular Volume 88.4 fL (81-99); Mean Platelet Vol. 10.3 fl (6.2-12.0); Monocyte# 0.83 X10^3/uL; Monocyte% 7.1 % (0-10); NRBC Flagged by Analyzer 0 % (0-5); Neutrophil # 9.41 X10^3/uL (2.7-7.7); Neutrophil % 80.7 % (47-70); Platelet Count 316 K/mm3 (150-450); RBC Distribution Width CV 14.9 % (11.6-14.6); RBC Distribution Width SD 47.9 fl (35.1-43.9); Red Blood Count 3.95 M/mm3 (4.2-5.4); White Blood Count 11.7 K/mm3 (4.4-11.0)
[2024-02-09 16:39] LABS: AST(SGOT) 24 U/L (15-37); Alanine Aminotransfer ALT/SGPT 23 U/L (13-56); Albumin, Serum 3.4 g/dL (3.2-5.0); Alkaline Phosphatase 66 U/L (45-117); Anion Gap 9 (5-15); BUN 16 mg/dL (7-18); BUN/Creat Ratio 14.7 RATIO (10-20); Calcium,Total 9.5 mg/dL (8.5-10.1); Chloride 103 mmol/L (98-107); Creatinine, Serum 1.09 mg/dL (0.55-1.02); EST Glomerular Filtration Rate 52 mL/min (>60); Est Glom Filt Rate - Afr Amer 63 mL/min (>60); Globulin 3.5 g/dL (2.2-4.2); Glucose 96 mg/dL (74-106); Potassium 4.5 mmol/L (3.5-5.1); Protein, Total 6.9 g/dL (6.4-8.2); Sodium Level 135 mmol/L (136-145); Thyroid Stim Hormone (TSH) 1.94 uIU/mL (0.358-3.74)
== END | disposition home or self-care (01) ==
LOC: MFPLAB 11:41
PROVIDERS: PCP Family Medicine; Visit Provider Family Medicine
DX: R53.83 Other fatigue (principal)
CPT/HCPCS: 36415; 80053; 84443; 85025

== ENCOUNTER 2024-03-31 15:00 | Outpatient (RCR) | payer MEDICARE, OTHER, SELFPAY ==
--- NOTE | 2024-02-16 10:52 | HP.PTEVAL_ITS ---
Patient's Visit Information Visit Information Visit Information: TATO SOLOMON is a 73 year old F referred to Physical Therapy by Dr. Macho Schmidt MD with a diagnosis of Fatigue adn joint pain,RA. Date of Evaluation: 02/16/24 Physical Therapist: Macho Allen, DPT, OCS, CSCS Visit Plan Frequency: 2x /Week Duration: 4-6 Weeks Plan: 2x/week for 4-6 weeks for 1. HS and gastroc stretches to HEP 2. LE/core adn UE general ex to HEp 3. vestibular and weight shift ex for balance to HEP work all to I with list and pics and emphasize compliance. IE: pt given walking 15-20+ daily with wh walker and educated on course of therapy Subjective Subjective: Saw Brayan bustamante last week for f/u and fatigue is a big thing as she gets worn out easily. Scheduled with heart group. Has RA. Balance is not as great as it used to be and has to be careful. H/o back surgery long ago. Pain is not a great issue right now. 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 It has been getting worse. Takes meds from rhumatologist. Feels better with tylenol in am. Uses caffeine to give a boost. Sleep is OK typically, has sleep apnea and uses cpap. Trouble falling asleep and uses sleep aid occasionally. Lives with husbnad in two story house with railing and can do them slowly. Bathe, dress, bathroom I. 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 Spends day now bumming around house and that is getting more limited. Avoids outdoor work b/c she [place] and hard to walk outdoors, uses cane to keep balance on irregular surfaces. Hobbies: puzzle. No regular exercises. Has dumbbells at home Objective Objective: Walks with stiff legs and weakness apparent L hip and very short steps without much weight shifting into PT without Ad I. Much faster, bigger stepos with wh walker which she has at home. Transfers bed and chair I, steps needs rail and prefers step to pattern for safety and stiffness. Very stiff in LE whne first exitting chair. LE AROM WNL hips and knee and ankles, tightness obvious in gastroc and HS B at - 30 90/90 test. Weakness apparent in hips and core with + instability test of UE and hip flexion showing opposite IR at hips. 3+ strength hip flexion, abd and ext, 4- knee flexion and extension ankle strength 4 reflexes 2/3 patella and achilles Sensation LE WNL to gross light touch UE AROM and strength WFL and 3+/5 coordination reciprocal toe tapping and heel tapping. Balance/Special Test Scores Functional Gait Assessment Score: 22 % Disability: 26.6700 CATSIB Score (Max score 120 seconds): 94 Lower Extremity Functional Score: 24 TUG Test Time Seconds: 14 30 Second Chair Rise Test Seconds: 8 Goals Goal 1:: 30 sec sit to stand 12 and FGA 25 to diminish fallk risk and improve mobility. Goal Time Frame: 4-6 Weeks Goal 2:: I appropriate HEP to maintain improved mobility(walking and strength/stretch) Goal Time Frame: 4-6 Weeks Goal 3:: Pt feel 75% better in overall mobility Goal Time Frame: 4-6 Weeks Goal 4:: able to work for 1 hour without needing a break Goal Time Frame: 4-6 Weeks Goal 5:: 44 LEFS Goal Time Frame: 4-6 Weeks Rehabilitation Potential Physical Therapy Diagnosis: stiffness and imbalance effecting mob ility Rehabilitation Potential: Fair Anticipated Interventions Patient/Client Instruction: Educate patient on: Condition and Plan of Care For the Purpose of:: To improve nutrient delivery to tissue, To improve muscle performance and motor function, To increase tolerance to activity/condition/position, To improve ability of physical actions for home/community/work/leisure and To improve gait and locomotor functions Therapeutic Exercise to Include: Strength training, Flexibilty training, Gait and locomotor training, Passive ROM and Active ROM For the Purpose of:: To increase ROM, To improve nutrient delivery to tissue, To improve muscle performance and motor function, To improve ability of physical actions for home/community/work/leisure and To improve gait and locomotor functions Text: Thank you for the opportunity to evaluate your patient. For Medicare and Medicare HMO plans, please review the plan of care and approve it. It will need to be FAXED BACK to us at [phone] for Medicare purposes. For Medicare only, by signing this I certify the plan of care. Please let me know if there are questions or concerns regarding this plan of care. Physician Signature: Date:
--- NOTE | 2024-03-31 15:50 | HP.PTDCSUM ---
Discharge Summary D/C summary: It has been my pleasure to treat TATO SOLOMON referred by Dr. Macho Schmidt MD, with the diagnosis of Fatigue adn joint pain,RA for a total of 12 visit(s). Discharge Date: 03/31/24 Please see the following information for a summary of their discharge status. Subjective Subjective: Better. Walking good without pain. Balance is improving. Activities are good, wants to do steps better but can do them. Currently uses railing. Feels steadier that way. sleeping well. HEP going well. Pain wrist and elbow: Pain Intensity (Out of 10): 3 R foot: Pain Intensity (Out of 10): 2 L hip: Pain Intensity (Out of 10): 0 Overall Improvement % Improvement: 80 Objective Objective/Function: fGA +3 +3 30 sec STS subjectively better and doing what she needs to do. Slight weakness descending steps but safe with railing. Goals Goal 1:: 30 sec sit to stand 12 and FGA 25 to diminish fallk risk and improve mobility. Goal Progress: Progressing STS, met FGA Goal 2:: I appropriate HEP to maintain improved mobility(walking and strength/stretch) Goal Progress: Goal Met Goal 3:: Pt feel 75% better in overall mobility Goal Progress: Goal Met Goal 4:: able to work for 1 hour without needing a break Goal Progress: Progressing, 30 min Goal 5:: 44 LEFS Goal Progress: Progressing Plan Plan: d/c to HEP D/C Information d/c sentence: If there are questions or concerns regarding this patient's physical therapy, please feel free to call me at [phone]. Thank you for the referral of this patient. Sincerely, Macho Allen, DPT, OCS, CSCS Balance/Gait/Functional tests Balance/Special Test Scores Functional Gait Assessment Score: 25 % Disability: 16.6700 CATSIB Score (Max score 120 seconds): 94 Lower Extremity Functional Score: 36 TUG Test Time Seconds: 14 Tug Test: <20 sec.=mostly independent 30 Second Chair Rise Test Seconds: 11 Improvement % Improvement: 80
== END 2024-03-31 19:00 | disposition home or self-care (01) ==
LOC: PT 15:00
PROVIDERS: PCP Family Medicine; Referring Provider Family Medicine; Visit Provider Family Medicine
DX: R53.83 Other fatigue (principal); M06.9 Rheumatoid arthritis, unspecified; M25.50 Pain in unspecified joint; R26.89 Other abnormalities of gait and mobility; M85.80 Other specified disorders of bone density and structure, unspecified site
CPT/HCPCS: 97110; 97162; 97530

== ENCOUNTER 2024-04-07 11:44 | Inpatient (IN) | payer MEDICARE, OTHER, SELFPAY ==
[2024-04-07] VITALS (18 sets, daily range): BP systolic 103–162; BP diastolic 48–147; PULSE 31–72; RESP 12–21; TEMP 36.4–37.2; O2SAT 88–100; BMI 31.3
--- NOTE | 2024-04-07 12:21 | EX.ED.DYSGE1 ---
HPI <RASHAD Lauren - Last Filed: 04/07/24 13:19> History of Present Illness Chief Complaint: Dizziness Narrative Narrative: Patient is a 73-year-old female with history of rheumatoid arthritis, hypertension hyperlipidemia who presents to the emergency department with syncopal episodes, low heart rate. Patient states last evening, she was sitting, she states that she had 2-3 syncopal episodes just while sitting there. She noticed that her heart rate was lower than normal and she is here for evaluation. She did take her atenolol today this morning. Patient states she just feels washed out, and that she cannot do anything. He states every time she gets up and tries to do something, she feels dizzy and like she might pass out. PFS <RASHAD Lauren - Last Filed: 04/07/24 13:19> [facility] Medical History Left bundle branch block (LBBB) Rate-dependent bundle branch block History of immunosuppressive therapy Essential (primary) hypertension History of non-ST elevation myocardial infarction (NSTEMI) (01/15/17) Atrophic vaginitis Microscopic colitis DARIO (obstructive sleep apnea) Inflamed seborrheic keratosis Seborrheic keratosis Nevus Immunocompromised GERD (gastroesophageal reflux disease) Abnormal chest CT Pulmonary HTN Osteopenia Sleep-related breathing disorder Depression Migraine headache Community acquired pneumonia Abnormal LFTs Hypophosphatemia Hypomagnesemia Hypokalemia Normochromic normocytic anemia Osteoporosis Anxiety and depression RLS (restless legs syndrome) Acute systolic (congestive) heart failure (12/2016) Acute respiratory failure with hypoxemia Legionella pneumonia Respiratory insufficiency Rheumatoid arthritis Home Medications ?Medication ?Instructions ?Recorded ?Last Taken ?Type multivitamin with folic acid 400 1 tab PO DAILY 06/13/15 01/12/17 09:00 History mcg tablet sumatriptan succinate 100 mg tablet 100 - 200 mg PO DAILY PRN PRN 06/13/15 01/06/17 09:00 History Migraine Symptoms citalopram 20 mg tablet 20 mg PO DAILY 07/11/15 01/12/17 09:00 History omega-3 acid ethyl esters 1 gram 1 g PO QDAY 11/12/17 Unknown History capsule (Lovaza) cyanocobalamin (vitamin B-12) 1,000 mcg PO DAILY SUPPLEMENT 03/12/18 Unknown History 1,000 mcg tablet ropinirole 1 mg tablet 2 mg PO BID 10/10/20 Unknown History meclizine 25 mg tablet 25 mg PO Q8H PRN PRN Dizziness #20 12/07/21 Unknown Rx tabs prednisone 1 mg tablet 1 mg PO DAILY 05/20/22 Unknown History Lactobacillus 1 cap PO DAILY 08/19/22 Unknown History acidophilus-Bifidobac.animalis 10 billion cell capsule (Digestive Probiotic) rjzhrisrnr-owlhloafqdugl-ezdvcffh 1 tab PO DAILY PRN PRN Headache 08/19/22 Unknown History 50 mg-325 mg-40 mg tablet calcium carbonate 600 mg-vitamin 2 tab PO DAILY 08/19/22 Unknown History D3 20 mcg (800 unit) tablet cholecalciferol (vitamin D3) 50 50 mcg PO DAILY 08/19/22 Unknown History mcg (2,000 unit) capsule omeprazole 20 mg capsule,delayed 20 mg PO DAILY 08/19/22 Unknown History release atenolol 25 mg tablet 25 mg PO DAILY #90 tabs 03/23/24 Unknown Rx hydroxychloroquine 200 mg tablet 300 mg PO DAILY 03/23/24 Unknown History infliximab 100 mg intravenous mg .Route 03/23/24 Unknown History solution (Remicade) Allergy/AdvReac Type Severity Reaction Status Date / Time Sulfa (Sulfonamide Allergy Intermediate Rash Verified 04/07/24 11:45 Antibiotics) sulfasalazine Allergy Rash Verified 04/07/24 11:45 Family History Father CVA (cerebral vascular accident) Diabetes Surgical History H/O cataract removal with insertion of prosthetic lens History of left heart catheterization (01/19/17) History of lumbar surgery (11/2019) Total knee replacement status History of cholecystectomy Hx of appendectomy History of bilateral carpal tunnel release Social History Smoking Status: Never smoker second hand exposure: No alcohol intake: current alcohol intake frequency: holidays/special occasions only substance use type: does not use what type of physical activity do you participate in: bicycling frequency: 3-4 times per week ROS <RASHAD Lauren - Last Filed: 04/07/24 13:19> ROS ED ROS Narrative Constitutional: Negative for fever, chills, weight loss, weakness Eyes: Negative for vision loss, vision change, double vision ENT: Negative for any sore throat, ear pain, congestion Cardiovascular: Negative for any chest pain, tightness, palpitations. Positive for low heart rate Respiratory: Negative for any cough, sputum production, hemoptysis, dyspnea, dyspnea on exertion, orthopnea Gastrointestinal: Negative for any abdominal pain, nausea, vomiting, diarrhea, constipation, blood in stool, blood in vomit : Negative for any urinary frequency, dysuria, retention, blood in urine Muscle skeletal: Negative for any neck pain, back pain Neurological: Negative for any headache. Positive syncope, dizziness Skin: Negative for any rashes, itching, abrasions, lacerations Psychiatric: Negative for any depression, anxiety, stress, suicidal ideation, homicidal ideation Hematologic: Negative for any excessive bruising, easy bleeding EXAM <RASHAD Lauren - Last Filed: 04/07/24 13:19> Physical Exam Narrative Exam Narrative: Vital signs reviewed. On my evaluation, patient's heart rate was 42, he did look irregular. HEET: Head normocephalic atraumatic, TMs clear bilaterally. Posterior pharynx is clear, moist mucous membranes. Nares clear bilaterally. Neck: Supple with no lymphadenopathy or tenderness. No signs of meningismus. Cardiac: Bradycardic, irregular no murmurs gallops or rubs, equal peripheral pulses bilaterally. Respiratory: Lungs clear to auscultation bilaterally. No chest tenderness. Abdomen: Soft, nontender, nondistended. No abdominal bruit or pulsatile masses. No hepatosplenomegaly Extremities: No peripheral edema, no signs of gross trauma or deformity. Active full range of motion of all extremities. Neuro: Cranial nerves II through XII intact, no focal neurological deficits. Skin: Clean dry and intact with no rash, purpura, petechiae, vesicles or pustules. Backs/flank: No CVA tenderness, no midline spinal tenderness, no deformity. Psych: Normal mood and affect. No SI, HI or acute psychosis. Const Vital Signs: 04/07/24 11:44 04/07/24 11:44 04/07/24 12:19 Temperature 98.3 F Temperature Source Temporal Pulse Rate 60 33 L Respiratory Rate 12 12 Blood Pressure 110/79 109/70 Blood Pressure Mean 89 83 Pulse Ox 96 95 98 Oxygen Delivery Method Room Air Room Air Nasal Cannula Oxygen Flow Rate (L/min) 3 04/07/24 12:48 Temperature 99.0 F Temperature Source Oral Pulse Rate 36 L Respiratory Rate 12 Blood Pressure 121/104 H Blood Pressure Mean 109 Pulse Ox 95 Oxygen Delivery Method Nasal Cannula Oxygen Flow Rate (L/min) 3 Positive well nourished and well developed General Appearance ED: well developed <Dr. Ron Carter DO - Last Filed: 04/07/24 14:15> Physical Exam Const Vital Signs: 04/07/24 11:44 04/07/24 11:44 04/07/24 12:19 Temperature 98.3 F Temperature Source Temporal Pulse Rate 60 33 L Respiratory Rate 12 12 Blood Pressure 110/79 109/70 Blood Pressure Mean 89 83 Pulse Ox 96 95 98 Oxygen Delivery Method Room Air Room Air Nasal Cannula Oxygen Flow Rate (L/min) 3 04/07/24 12:48 Temperature 99.0 F Temperature Source Oral Pulse Rate 36 L Respiratory Rate 12 Blood Pressure 121/104 H Blood Pressure Mean 109 Pulse Ox 95 Oxygen Delivery Method Nasal Cannula Oxygen Flow Rate (L/min) 3 MDM <RASHAD Lauren - Last Filed: 04/07/24 13:19> MDM Lab Data Labs: Laboratory Results - last 24 hr 04/07/24 12:30 WBC 9.7 RBC 3.63 L Hgb 9.7 L Hct 32.2 L MCV 88.7 MCH 26.7 L MCHC 30.1 L RDW Std Deviation 51.0 H RDW Coeff of Omar 15.8 H Plt Count 267 MPV 10.3 Immature Gran % (Auto) 0.400 Neut % (Auto) 78.6 H Lymph % (Auto) 14.4 L Benton % (Auto) 5.9 Eos % (Auto) 0.4 Baso % (Auto) 0.3 Absolute Neuts (auto) 7.6 Absolute Lymphs (auto) 1.40 Nucleated RBC % 0 PT 13.8 INR 1.1 Sodium 133 L Potassium 4.9 Chloride 103 Carbon Dioxide 21.0 Anion Gap 9 BUN 35 H Creatinine 1.58 H Est GFR (MDRD) Af Amer 41 L Est GFR (MDRD) Non-Af 34 L BUN/Creatinine Ratio 22.2 H Glucose 114 H Calcium 9.5 Magnesium 1.9 Troponin I High Sens 432 H* B-Natriuretic Peptide 933.9 H TSH 3.24 Radiography Diagnostic Testing: Clinical Impression(s) from Imaging Studies Chest X-Ray 04/07/24 12:50 IMPRESSION: Hyperinflation. No acute abnormality is seen. Hiatal hernia. Electronically Signed: Donald Baird MD at 13:12 EDT , Treatment and Re-Evaluation :: Differential diagnosis includes however is not limited to: Heart block, medication reaction, ACS, MD, CHF Patient appears to be in no respiratory distress, patient is bradycardic, patient looks nontoxic. Patient will receive a full cardiac workup, I am concerned for her bradycardia could be heart block. EKG will be completed, electrolytes, TSH, patient given 1 L normal saline. Patient denies any specific chest pain however states her whole body can feel numb, she did have 2-3 syncopal episodes yesterday. Upon my initial evaluation, I do believe the patient need to be admitted to the hospital. Patient will be reevaluated I did reach out to cardiology. Cardiology did come down and evaluate the patient. While the patient was speaking with the hotel recreational facilities manager and the ER attending, patient did have a torsades episode. Patient remained stable. Chest x-ray was unremarkable. Patient's CBC was unremarkable, PT/INR was unremarkable. Patient's chemistries show slight elevation in renal function with a creatinine of 1.58, this is higher than baseline. Patient's troponin was elevated 432, I did speak with the hotel recreational facilities manager regarding this, secondary to the plan to have a pacemaker placed, the patient will not be heparinized. BNP was elevated at 933, TSH was normal at 3.24. We did speak to hospitalist, patient be admitted to the ICU for close monitoring. Patient stable for admission. <Dr. Ron Carter, DO - Last Filed: 04/07/24 14:15> [facility] Lab Data Labs: Laboratory Results - last 24 hr 04/07/24 12:30 WBC 9.7 RBC 3.63 L Hgb 9.7 L Hct 32.2 L MCV 88.7 MCH 26.7 L MCHC 30.1 L RDW Std Deviation 51.0 H RDW Coeff of Omar 15.8 H Plt Count 267 MPV 10.3 Immature Gran % (Auto) 0.400 Neut % (Auto) 78.6 H Lymph % (Auto) 14.4 L Benton % (Auto) 5.9 Eos % (Auto) 0.4 Baso % (Auto) 0.3 Absolute Neuts (auto) 7.6 Absolute Lymphs (auto) 1.40 Nucleated RBC % 0 PT 13.8 INR 1.1 Sodium 133 L Potassium 4.9 Chloride 103 Carbon Dioxide 21.0 Anion Gap 9 BUN 35 H Creatinine 1.58 H Est GFR (MDRD) Af Amer 41 L Est GFR (MDRD) Non-Af 34 L BUN/Creatinine Ratio 22.2 H Glucose 114 H Calcium 9.5 Magnesium 1.9 Troponin I High Sens 432 H* B-Natriuretic Peptide 933.9 H TSH 3.24 Radiography Diagnostic Testing: Clinical Impression(s) from Imaging Studies Chest X-Ray 04/07/24 12:50 IMPRESSION: Hyperinflation. No acute abnormality is seen. Hiatal hernia. Electronically Signed: Donald Baird MD at 13:12 EDT , Treatment and Re-Evaluation :: Differential diagnosis includes however is not limited to: Heart block, medication reaction, ACS, MD, CHF Patient appears to be in no respiratory distress, patient is bradycardic, patient looks nontoxic. Patient will receive a full cardiac workup, I am concerned for her bradycardia could be heart block. EKG will be completed, electrolytes, TSH, patient given 1 L normal saline. Patient denies any specific chest pain however states her whole body can feel numb, she did have 2-3 syncopal episodes yesterday. Upon my initial evaluation, I do believe the patient need to be admitted to the hospital. Patient will be reevaluated I did reach out to cardiology. Cardiology did come down and evaluate the patient. While the patient was speaking with the hotel recreational facilities manager and the ER attending, patient did have a torsades episode. Patient remained stable. Chest x-ray was unremarkable. Patient's CBC was unremarkable, PT/INR was unremarkable. Patient's chemistries show slight elevation in renal function with a creatinine of 1.58, this is higher than baseline. Patient's troponin was elevated 432, I did speak with the hotel recreational facilities manager regarding this, secondary to the plan to have a pacemaker placed, the patient will not be heparinized. BNP was elevated at 933, TSH was normal at 3.24. We did speak to hospitalist, patient be admitted to the ICU for close monitoring. Patient stable for admission. This patient was seen with a PA/DIESEL ENGINEER Individually assessed they patient including history and physical. I have reviewed everything on the chart that is available and agree with the documentation provided by the PA/DIESEL ENGINEER including discussion about the assessment, treatment plan, discussion, and return precautions. Differential as above. 73-year-old female presenting with feeling weak. She states she had a couple of episodes where she felt lightheaded yesterday and almost fainted. She does not report any chest pain. She feels generally weak. On arrival she is noted to be bradycardic and her EKG looks like a third-degree heart block. Discussed with cardiology. CBC shows normal white blood cell count at 9.7. Hemoglobin 9.7 as well. Creatinine is increased today at 1.58. Magnesium level normal at 1.9. BNP 933.6. High-sensitivity troponin 432. Follows in the room with Dr. Mendez look like she went into torsades. Apparently she took some Zofran this morning for some nausea. Dr. Crenshaw he does not recommend heparin. He plans to do a pacemaker later today. Discussed with the hospitalist for admission to the ICU Discharge Plan Dx/Rx/DC Orders Clinical Impression: CHB (complete heart block), Syncope, Torsades de pointes, Elevated troponin Disposition Disposition: Acute Care Hospital [facility] Discharge Date/Time: 04/07/24 13:53
[2024-04-07 12:40] LABS: Absolute Neutrophil Count 7.6 X10^3/uL (2.0-7.7); Basophil# 0.03 X10^3/uL; Basophil% 0.3 % (0-1); Eosinophil# 0.04 X10^3/uL; Eosinophils% 0.4 % (0-5); Hematocrit 32.2 % (37-47); Hemoglobin 9.7 g/dL (12.0-15.0); Lymphocyte % 14.4 % (19-41); Mean Corp Hgb Conc 30.1 g/dL (32-36); Mean Corpuscular Hgb 26.7 pg (27.0-32.0); Mean Corpuscular Volume 88.7 fL (81-99); Mean Platelet Vol. 10.3 fl (6.2-12.0); Monocyte# 0.57 X10^3/uL; Monocyte% 5.9 % (0-10); NRBC Flagged by Analyzer 0 % (0-5); Neutrophil # 7.62 X10^3/uL (2.7-7.7); Neutrophil % 78.6 % (47-70); Platelet Count 267 K/mm3 (150-450); RBC Distribution Width CV 15.8 % (11.6-14.6); Red Blood Count 3.63 M/mm3 (4.2-5.4); White Blood Count 9.7 K/mm3 (4.4-11.0)
[2024-04-07] MEDS: 0.9% Normal Saline (1000mL) 1,000 ML 999 ML IV (12:43)
[2024-04-07 12:47] LABS: International Normalized Ratio 1.1; Prothrombin Time (Protime)PT. 13.8 SECONDS (11.7-14.9)
--- NOTE | 2024-04-07 12:50 | RAD_ITS ---
STUDY: X-RAY CHEST REASON FOR EXAM: Female, 73 years old. Chest pain TECHNIQUE: Single AP portable view of the chest. COMPARISON: Comparison is made with prior study dated January 16, 2022. FINDINGS: EKG electrodes are seen. Hyperinflation. There is no demonstrated pleural abnormality. There is moderate cardiac enlargement. Calcified hilar lymph nodes. Normal visualized pulmonary arteries. Normal visualized aortic arch and descending thoracic aorta. There are degenerative changes of the visualized thoracic spine. Normal visualized ribs, clavicles, and shoulders. Hiatal hernia. RAD/Chest 1 View (Portable) IMPRESSION: Hyperinflation. No acute abnormality is seen. Hiatal hernia. Electronically Signed: Donald Baird MD at 13:12 EDT ,
[2024-04-07 13:02] LABS: BNP,B-Type NATRIURETIC PEPTIDE 933.9 pg/mL (0-100)
--- NOTE | 2024-04-07 13:06 | PCM.HP.STD ---
HPI - General General Date of Admission: 04/07/24 Date of Service: 04/07/24 Chief Complaint: syncope HPI Narrative TATO SOLOMON, is a 73 F with a PMH as outlined who presents via the ED on 04/07/2024 with a complaint of dizziness and syncope. She had 2-3 syncopal episodes whilst sitting on the couch watching tv yesterday. She felt lightheaded and weak and felt like she was going to faint. She also felt like her heart rate was slow. She denied any chest pain, nausea, vomiting or any other symptoms. Review of systems was otherwise negative. She had not had any symptoms like that before. Vitals in the ED were BP of 121/104, LA of 36, RR of 12 and temp of 99F. He was saturating at 95% on 3L of oxygen. CBC showed hb of 9.7, wbc of 9.7 and platelets of 267. Chemistry showed sodium of 133, potassium of 4.9, bicarb of 21, Cr of 1.58, troponin of 432 and BNP of 933.9. TSH was 3.24. CXR showed hyperinflation. EKG showed third degree heart block. Per ED doctor, patient went into torsades in the ER and so was started on dopamine drip per cardiology. She is being admitted to be managed for third degree AV block. During my review, patient went into torsades again. She was sent emergently to the Web Specialist for insertion of pacemaker. [facility] Medical History (Updated 04/07/24 @ 17:50 by Martha Chadwick) Presence of cardiac pacemaker Left bundle branch block (LBBB) Rate-dependent bundle branch block History of immunosuppressive therapy Essential (primary) hypertension History of non-ST elevation myocardial infarction (NSTEMI) (01/15/17) Atrophic vaginitis Microscopic colitis DARIO (obstructive sleep apnea) Inflamed seborrheic keratosis Seborrheic keratosis Nevus Immunocompromised GERD (gastroesophageal reflux disease) Abnormal chest CT Pulmonary HTN Osteopenia Sleep-related breathing disorder Depression Migraine headache Community acquired pneumonia Abnormal LFTs Hypophosphatemia Hypomagnesemia Hypokalemia Normochromic normocytic anemia Osteoporosis Anxiety and depression RLS (restless legs syndrome) Acute systolic (congestive) heart failure (12/2016) Acute respiratory failure with hypoxemia Legionella pneumonia Respiratory insufficiency Rheumatoid arthritis Home Medications ?Medication ?Instructions ?Recorded ?Last Taken ?Type multivitamin with folic acid 400 1 tab PO DAILY vitamin 06/13/15 04/07/24 History mcg tablet sumatriptan succinate 100 mg tablet 100 - 200 mg PO DAILY PRN PRN 06/13/15 01/06/17 09:00 History Migraine Symptoms citalopram 20 mg tablet 20 mg PO DAILY mood 07/11/15 04/07/24 History omega-3 acid ethyl esters 1 gram 1 g PO QDAY supplement 11/12/17 04/07/24 History capsule (Lovaza) cyanocobalamin (vitamin B-12) 1,000 mcg PO DAILY SUPPLEMENT 03/12/18 04/07/24 History 1,000 mcg tablet ropinirole 1 mg tablet 2 mg PO BID restless legs 10/10/20 04/06/24 History meclizine 25 mg tablet 25 mg PO Q8H PRN PRN Dizziness #20 12/07/21 Unknown Rx tabs prednisone 1 mg tablet 1 mg PO DAILY RA 05/20/22 04/07/24 History Lactobacillus 1 cap PO DAILY digestion 08/19/22 04/07/24 History acidophilus-Bifidobac.animalis 10 billion cell capsule (Digestive Probiotic) hldeksoxvl-cncxgugfztpfy-lucujbtr 1 tab PO DAILY PRN PRN Headache 08/19/22 Unknown History 50 mg-325 mg-40 mg tablet calcium carbonate 600 mg-vitamin 2 tab PO DAILY supplement 08/19/22 04/07/24 History D3 20 mcg (800 unit) tablet cholecalciferol (vitamin D3) 50 50 mcg PO DAILY supplement 08/19/22 04/07/24 History mcg (2,000 unit) capsule omeprazole 20 mg capsule,delayed 20 mg PO DAILY gerd 08/19/22 04/06/24 History release atenolol 25 mg tablet 25 mg PO DAILY blood pressure #90 03/23/24 04/07/24 Rx tabs hydroxychloroquine 200 mg tablet 300 mg PO DAILY RA 03/23/24 04/07/24 History infliximab 100 mg intravenous mg .Route RA and colitis 03/23/24 Unknown History solution (Remicade) Allergy/AdvReac Type Severity Reaction Status Date / Time Sulfa (Sulfonamide Allergy Intermediate Rash Verified 04/07/24 11:45 Antibiotics) sulfasalazine Allergy Rash Verified 04/07/24 11:45 Family History Father CVA (cerebral vascular accident) Diabetes Surgical History H/O cataract removal with insertion of prosthetic lens History of left heart catheterization (01/19/17) History of lumbar surgery (11/2019) Total knee replacement status History of cholecystectomy Hx of appendectomy History of bilateral carpal tunnel release Social History Smoking Status: Never smoker second hand exposure: No alcohol intake: current alcohol intake frequency: holidays/special occasions only substance use type: does not use what type of physical activity do you participate in: bicycling frequency: 3-4 times per week ROS Constitutional Constitutional: Reports fatigue, malaise and weakness; Denies anorexia, chills or fever(s) Eyes Eyes: Denies change in vision ENT HEENT: Denies dysphagia, headache(s) or sore throat Cardiovascular Cardiovascular: Reports lightheadedness and syncope; Denies chest pain, dyspnea on exertion, edema, orthopnea, palpitations, paroxysmal nocturnal dyspnea or rapid heart rate Respiratory/Chest Respiratory/Chest: Denies cough, dyspnea, productive cough, shortness of breath at rest, shortness of breath with exertion or wheezing Gastrointestinal Gastrointestinal: Reports nausea; Denies abdominal pain, diarrhea, melena or vomiting Genitourinary Genitourinary: Denies burning urination or dysuria Musculoskeletal Musculoskeletal: Denies arthralgias, back pain or joint stiffness Neurologic Neurologic: Denies confusion, dizziness, focal weakness, headache(s), numbness, seizures, syncope or tingling Psychiatric Psychiatric: Denies anxiety or depression Endocrine Endocrinology: Denies change in body appearance Vital Signs Vital Signs Vital Signs: 04/07/24 11:44 04/07/24 11:44 Temperature 98.3 F Temperature Source Temporal Pulse Rate 60 33 L Respiratory Rate 12 12 Blood Pressure 110/79 109/70 Blood Pressure Mean 89 83 Pulse Ox 96 95 Oxygen Delivery Method Room Air Room Air Physical Exam Const alert, oriented x3 and no apparent distress General Appearance: cooperative HEENT normocephalic, head/scalp atraumatic, hearing grossly normal bilaterally and moist oral mucous membranes Mouth: oral and palatal mucosa normal Eyes PERRL, EOMs intact bilaterally and conjunctivae normal Neck no lymphadenopathy and supple Resp normal respiratory effort, no retractions, no use of accessory muscles and clear to auscultation bilaterally Cardio regular rhythm, S1 normal heart sound, S2 normal heart sound and no murmurs Cardio Narrative: bradycardic, then went into torsades during my review. GI normal to inspection, nondistended, normoactive bowel sounds, soft to palpation and non-tender Extremity normal to inspection, full ROM and no clubbing, cyanosis or edema Neuro oriented x3, CN's II-XII intact bilaterally, moves all extremities and no focal motor deficits Sensorium / Orientation: awake and alert Motor Exam: strength 5/5 throughout Results Lab / Micro Data 04/07/24 12:30 04/07/24 12:30 Labs: Laboratory Results - last 24 hr 04/07/24 12:30: WBC 9.7, RBC 3.63 L, Hgb 9.7 L, Hct 32.2 L, MCV 88.7, MCH 26.7 L, MCHC 30.1 L, RDW Std Deviation 51.0 H, RDW Coeff of Omar 15.8 H, Plt Count 267, MPV 10.3, Immature Gran % (Auto) 0.400, Neut % (Auto) 78.6 H, Lymph % (Auto) 14.4 L, Camp % (Auto) 5.9, Eos % (Auto) 0.4, Baso % (Auto) 0.3, Absolute Neuts (auto) 7.6, Absolute Lymphs (auto) 1.40, Nucleated RBC % 0, PT 13.8, INR 1.1, B-Natriuretic Peptide 933.9 H Assessment & Plan Assessment/Plan (1) Torsades de pointes: (2) Syncope: (3) CHB (complete heart block): (4) Elevated troponin: PLAN: Plan #Syncope due to third degree heart block with torsades de pointes admit to ICU due to patient being on dopamine drip was admitted with a complaint of dizziness, lightheadedness and syncope EKG done in ED showed third degree heart block. She subsequently went into torsades rhythm cardiology consulted BNP is elevated at 933 and initial troponin also elevated at 432. patient started on dopamine drip per cardiology get 2D echo check magnesium hold citalopram o/a of torsades de pointes was sent emergently to the laboratory animal facility supervisor for insertion of pacemaker. #Hypertension: on atenolol; will hold due to third degree heart block #JONATHAN: Baseline Cr is 0.85, and Cr is 1.58. Cannot hydrate due to elevated BNP. Will trend Cr, and if it trends upwards, will consider nephrology consult #NSTEMI; initial troponin is elevated at 432. WIll trend troponins. Per cardiology, no need to anticoagulate with heparin drip. 2D echo ordered. Cardiology on board. #Acute HF: EF unknown. BNP is 933.9. 2D echo ordered. Will diurese with IV lasix 40mg bid. #Rheumatoid arthritis: on infliximab and plaquenil. Will hold these due to Torsades de pointes arrythmia #History of migraines: on sumatriptan prn #Restless leg syndrome: on ropinirole #Depression: hold citalopram due to patient having torsades de pointes. DVT prophylaxis: lovenox Code status: full code Patient counseled about differences between full code, DNRCCA and DNRCC; patient elects to be full code. total face to face time: 17 mins Charges/Coding Visit Charges Inpatient E&M: 37293 Init Hosp L3 Procedures Hospitalists Procedures: 28428 Advncd Care Plan 30 Min
[2024-04-07 13:09] LABS: Anion Gap 9 (5-15); BUN 35 mg/dL (7-18); BUN/Creat Ratio 22.2 RATIO (10-20); Calcium,Total 9.5 mg/dL (8.5-10.1); Chloride 103 mmol/L (98-107); Creatinine, Serum 1.58 mg/dL (0.55-1.02); EST Glomerular Filtration Rate 34 mL/min (>60); Est Glom Filt Rate - Afr Amer 41 mL/min (>60); Glucose 114 mg/dL (74-106); Magnesium 1.9 mg/dL (1.6-2.6); Potassium 4.9 mmol/L (3.5-5.1); Sodium Level 133 mmol/L (136-145); Thyroid Stim Hormone (TSH) 3.24 uIU/mL (0.358-3.74); Troponin-I HS (w/2H Reflex) 432 pg/mL (3.0-54.0)
--- NOTE | 2024-04-07 13:09 | CON.PCM.CA_ITS ---
Assessment & Plan Assessment/Plan (1) CHB (complete heart block): PLAN: Patient presents with complete heart block complicated by intermittent torsade de pointes. This is likely from the Zofran interacting with her bradycardia and other medications. My recommendation will be to proceed with an urgent permanent pacemaker I have discussed this with her the risk benefits alternatives she understands and agrees to proceed. This was in the presence of the ER physician. (2) Essential (primary) hypertension: PLAN: Her blood pressure appears to be stable at this time we will hold off on current medications. We will obtain an echocardiogram in AM. HPI Consult Data Date of Consult: 04/07/24 HPI Narrative HPI Narrative: TATO SOLOMON, is a 73 F who presents to the emergency room with complaints of fatigue which has been going on for a day or so. She actually had presented to the office a few weeks ago with a similar complaint of fatigue but yesterday she felt particularly fatigued and felt she was going to pass out. Yesterday she also did get nauseated and took a dose of Zofran yesterday as well as today. She also took her regular dose of atenolol. She has had dizziness but no diaphoresis and specifically denies any chest pain. She has had some shortness of breath. She has been compliant with all her other medications. She has a history of hypertension, rheumatoid arthritis with immunosuppressive therapy obstructive sleep apnea and congenital pulmonary valve stenosis diagnosed in 1971. She has had a right bundle branch block as well as a left anterior fascicular block and has been on atenolol. She did undergo a cardiac catheterization in 2017 demonstrating preserved ejection fraction and angiographically normal coronary arteries. She was seen in the emergency room today and was noted to be in an AV dissociated rhythm suggestive of complete heart block. During my evaluation of her she did have intermittent periods of torsade. [facility] Medical History Left bundle branch block (LBBB) Rate-dependent bundle branch block History of immunosuppressive therapy Essential (primary) hypertension History of non-ST elevation myocardial infarction (NSTEMI) (01/15/17) Atrophic vaginitis Microscopic colitis DARIO (obstructive sleep apnea) Inflamed seborrheic keratosis Seborrheic keratosis Nevus Immunocompromised GERD (gastroesophageal reflux disease) Abnormal chest CT Pulmonary HTN Osteopenia Sleep-related breathing disorder Depression Migraine headache Community acquired pneumonia Abnormal LFTs Hypophosphatemia Hypomagnesemia Hypokalemia Normochromic normocytic anemia Osteoporosis Anxiety and depression RLS (restless legs syndrome) Acute systolic (congestive) heart failure (12/2016) Acute respiratory failure with hypoxemia Legionella pneumonia Respiratory insufficiency Rheumatoid arthritis Home Medications ?Medication ?Instructions ?Recorded ?Last Taken ?Type multivitamin with folic acid 400 1 tab PO DAILY 06/13/15 01/12/17 09:00 History mcg tablet sumatriptan succinate 100 mg tablet 100 - 200 mg PO DAILY PRN PRN 06/13/15 01/06/17 09:00 History Migraine Symptoms citalopram 20 mg tablet 20 mg PO DAILY 07/11/15 01/12/17 09:00 History omega-3 acid ethyl esters 1 gram 1 g PO QDAY 11/12/17 Unknown History capsule (Lovaza) cyanocobalamin (vitamin B-12) 1,000 mcg PO DAILY SUPPLEMENT 03/12/18 Unknown History 1,000 mcg tablet ropinirole 1 mg tablet 2 mg PO BID 10/10/20 Unknown History meclizine 25 mg tablet 25 mg PO Q8H PRN PRN Dizziness #20 12/07/21 Unknown Rx tabs prednisone 1 mg tablet 1 mg PO DAILY 05/20/22 Unknown History Lactobacillus 1 cap PO DAILY 08/19/22 Unknown History acidophilus-Bifidobac.animalis 10 billion cell capsule (Digestive Probiotic) ioqihgmyks-zsrrfnxhesmaj-iwvfnfnj 1 tab PO DAILY PRN PRN Headache 08/19/22 Unknown History 50 mg-325 mg-40 mg tablet calcium carbonate 600 mg-vitamin 1 tab PO DAILY 08/19/22 Unknown History D3 20 mcg (800 unit) tablet cholecalciferol (vitamin D3) 50 50 mcg PO DAILY 08/19/22 Unknown History mcg (2,000 unit) capsule omeprazole 20 mg capsule,delayed 20 mg PO DAILY 08/19/22 Unknown History release atenolol 25 mg tablet 25 mg PO DAILY #90 tabs 03/23/24 Unknown Rx hydroxychloroquine 200 mg tablet 200 mg PO BID 03/23/24 Unknown History infliximab 100 mg intravenous mg .Route 03/23/24 Unknown History solution (Remicade) Allergy/AdvReac Type Severity Reaction Status Date / Time Sulfa (Sulfonamide Allergy Intermediate Rash Verified 04/07/24 11:45 Antibiotics) sulfasalazine Allergy Rash Verified 04/07/24 11:45 Family History Father CVA (cerebral vascular accident) Diabetes Surgical History H/O cataract removal with insertion of prosthetic lens History of left heart catheterization (01/19/17) History of lumbar surgery (11/2019) Total knee replacement status History of cholecystectomy Hx of appendectomy History of bilateral carpal tunnel release Social History Smoking Status: Never smoker second hand exposure: No alcohol intake: current alcohol intake frequency: holidays/special occasions only substance use type: does not use what type of physical activity do you participate in: bicycling frequency: 3-4 times per week ROS Constitutional Constitutional: Denies fever(s) or weight loss Eyes Eyes: Reports systems reviewed and no addt'l complaints, except as documented ENT HEENT: Reports systems reviewed and no addt'l complaints, except as documented Cardiovascular Cardiovascular: Reports dizziness, dyspnea at rest and slow heart rate; Denies chest pain at rest, chest pain with activity, dyspnea on exertion, edema, palpitations or paroxysmal nocturnal dyspnea Respiratory/Chest Respiratory/Chest: Denies dyspnea on exertion, productive cough, shortness of breath at rest or shortness of breath with exertion Gastrointestinal Gastrointestinal: Denies change in bowel habits, nausea, vomiting or weight changes Genitourinary Genitourinary: Denies difficulty urinating Musculoskeletal Musculoskeletal: Denies joint stiffness or muscle weakness Integumentary Integumentary: Denies lesions Neurologic Neurologic: Reports dizziness; Denies syncope Psychiatric Psychiatric: Denies anxiety Endocrine Endocrinology: Denies excessive sweating or fatigue Hematologic/Lymphatic Hematologic/Lymphatic: Denies anemia Allergic/Immunologic Allergic/Immunologic: Denies seasonal rhinorrhea Physical Exam Const alert, oriented x3 and no apparent distress General Appearance: cooperative HEENT hearing grossly normal bilaterally Head and Scalp: atraumatic Eyes EOMs intact bilaterally Neck General: normal visual inspection Chest inspection of chest normal and palpation of chest normal Resp normal respiratory effort Auscultation: clear to auscultation bilaterally Cardio regular rate, regular rhythm, S1 normal heart sound and S2 normal heart sound Jugular Venous Distention: JVD GI normal to inspection, nondistended, normoactive bowel sounds Extremity normal capillary refill and no pedal edema Peripheral Pulses: Yes pulses 2+ throughout and femoral pulses present Skin no rashes or lesions noted Neuro oriented x3 and CN's II-XII intact bilaterally Psych Appearance: grossly normal and appropriate Risk Stratification Risk Stratification Applicable: No Objective Data Vital Signs: Vital Signs Temp Pulse Resp BP Pulse Ox O2 Del Method O2 Flow Rate 99.0 F 36 L 12 121/104 H 95 Nasal Cannula 3 04/07/24 12:48 04/07/24 12:48 04/07/24 12:48 04/07/24 12:48 04/07/24 12:48 04/07/24 12:48 04/07/24 12:48 Oxygen Flow Rate (L/min) 3 Oxygen Delivery Method Nasal Cannula Lab / Micro Data 04/07/24 12:30 04/07/24 12:30 Labs: Laboratory Results - last 24 hr 04/07/24 12:30: WBC 9.7, RBC 3.63 L, Hgb 9.7 L, Hct 32.2 L, MCV 88.7, MCH 26.7 L , MCHC 30.1 L, RDW Std Deviation 51.0 H, RDW Coeff of Omar 15.8 H, Plt Count 267, MPV 10.3, Immature Gran % (Auto) 0.400, Neut % (Auto) 78.6 H, Lymph % (Auto) 14.4 L, [place] % (Auto) 5.9, Eos % (Auto) 0.4, Baso % (Auto) 0.3, Absolute Neuts (auto) 7.6, Absolute Lymphs (auto) 1.40, Nucleated RBC % 0, PT 13.8, INR 1.1, S odium 133 L, Potassium 4.9, Chloride 103, Carbon Dioxide 21.0, Anion Gap 9, BUN 35 H, Creatinine 1.58 H, Est GFR (MDRD) Af Amer 41 L, Est GFR (MDRD) Non-Af 34 L , BUN/Creatinine Ratio 22.2 H, Glucose 114 H, Calcium 9.5, Magnesium 1.9, T roponin I High Sens 432 H*, B-Natriuretic Peptide 933.9 H, TSH 3.24 Cardiology Labs/Tests 04/07/24 12:30: WBC 9.7, RBC 3.63 L, Hgb 9.7 L, Hct 32.2 L, MCV 88.7, MCH 26.7 L , MCHC 30.1 L, Plt Count 267, MPV 10.3, Immature Gran % (Auto) 0.400, Neut % (Auto) 78.6 H, Lymph % (Auto) 14.4 L, [place] % (Auto) 5.9, Eos % (Auto) 0.4, Baso % (Auto) 0.3, Absolute Neuts (auto) 7.6, Nucleated RBC % 0, PT 13.8, INR 1.1, S odium 133 L, Potassium 4.9, Chloride 103, Carbon Dioxide 21.0, Anion Gap 9, BUN 35 H, Creatinine 1.58 H, Est GFR (MDRD) Af Amer 41 L, Est GFR (MDRD) Non-Af 34 L , BUN/Creatinine Ratio 22.2 H, Glucose 114 H, Calcium 9.5, Magnesium 1.9, B- Natriuretic Peptide 933.9 H Rhythm: EKG: ECHO: Stress Test: Cardiac Cath: PCI: CT Surgery: Holter monitor: EPS: PPM: CXR: Chest CT Scan:
--- NOTE | 2024-04-07 13:22 | NURSING ---
ICU [facility] 3RD DEGREE HEART BLOCK, TORSADES DE POINTE
--- NOTE | 2024-04-07 13:30 | ED.RN ---
UNABLE TO SCAN DOPAMINE GTT. GTT HUNG BY THIS NURSE WITH VERIFICATION OF RATE BY PATSY,RN FLIGHT TEST MECHANIC.
[2024-04-07 14:36] LABS: Reflex Troponin-HS? (from REC) Y
--- NOTE | 2024-04-07 15:08 | ECHOD_ITS ---
Reason For Study: ARRYTHMIA Procedure This was a 2D Doppler, Color Flow transthoracic echocardiogram. Technically difficult study. Patient scanned supine due to recent pacemaker placement. Exam performed portable in patient room. Left Ventricle Normal LV size. The left ventricular ejection fraction is 55 %. Mild segmental systolic dysfunction (see wall motion). Septal [place] : Hypokinetic. Inferior [place] : Hypokinetic. There are regional wall motion abnormalities as specified. Right Ventricle Normal RV size. ICD or pacer leads identified within the right ventricle. Normal systolic function. Atria Normal left atrium. Normal right atrium. Mitral Valve Normal mitral valve. Tricuspid Valve Normal tricuspid valve. Aortic Valve Trisinus/trileaflet aortic valve. Pulmonic Valve Normal pulmonic valve. Great Vessels Normal aortic root. The pulmonary artery is normal size. Normal inferior vena cava. Pericardium/Pleural No pericardial effusion. MMode/2D Measurements & Calculations RVDd: 3.4 cm LAV(MOD-bp): 47.2 ml LVAd ap4: 28.9 cm2 LAV(MOD-bp) Indexed: 25.7 ml/m2 LVLd ap4: 8.6 cm LAV(MOD-sp2): 38.4 ml EDV(MOD-sp4): 83.3 ml LAV(MOD-sp4): 57.9 ml EDV(sp4-el): 82.2 ml LVAs ap4: 13.8 cm2 LVLs ap4: 7.3 cm ESV(MOD-sp4): 22.8 ml ESV(sp4-el): 22.0 ml EF(MOD-sp4): 72.7 % EF(sp4-el): 73.2 % SV(MOD-sp4): 60.5 ml SV(sp4-el): 60.2 ml LA A4 area: 20.1 cm2 RA A4 area: 15.5 cm2 TAPSE: 1.8 cm Time Measurements MV dec time: 0.24 sec Doppler Measurements & Calculations MV E max hector: 57.4 cm/sec Lat Peak E' Hector: 4.4 cm/sec Med Peak E' Hector: 3.6 cm/sec MV A max hector: 101.8 cm/sec E/E' lat: 13.0 E/E' med: 16.0 MV E/A: 0.56 MV V2 max: 93.6 cm/sec MV dec slope: 244.0 cm/sec2 Ao V2 max: 201.6 cm/sec MV max P.5 mmHg Ao max P.3 mmHg MV V2 mean: 56.2 cm/sec Ao V2 mean: 131.7 cm/sec MV mean P.4 mmHg Ao mean P.1 mmHg MV V2 VTI: 32.9 cm Ao V2 VTI: 40.4 cm AV (velocity ratio): 0.82 LV V1 max: 157.9 cm/sec PA V2 max: 241.6 cm/sec LV V1 max P.0 mmHg PA max PG (full): 19.0 mmHg LV V1 mean P.8 mmHg PA V2 mean: 175.3 cm/sec LV V1 mean: 98.8 cm/sec PA mean PG (full): 11.3 mmHg LV V1 VTI: 33.1 cm ECHO/Echo Complete Interpretation Summary Normal LV size. The left ventricular ejection fraction is 55 %. Mild segmental systolic dysfunction (see wall motion). There are regional wall motion abnormalities as specified. Ordering Physician: Jennifer Mitchell Referring Physician: ADALBERTO DAVID Performed By: Anna Silverman RCS
[2024-04-07 17:50] LABS: Troponin-I HS 812 pg/mL (3.0-54.0)
[2024-04-07] MEDS: Furosemide 40 MG/4 ML Vial IV (19:13)
[2024-04-07] MEDS: Magnesium Sulfate 2 GM in Dextrose 5%-Water (100mL Bag) 100 ML IV (20:06)
[2024-04-07] MEDS: Pramipexole Di-HCl 1 MG Tablet PO (22:06)
[2024-04-07] MEDS: Acetaminophen 325 MG Tablet 650 MG PO (22:06)
[2024-04-08 03:19] VITALS: BMI 32.4
[2024-04-08 03:53] VITALS: BP 146/62; PULSE 60; RESP 21; TEMP 36.1; O2SAT 100
--- NOTE | 2024-04-08 05:55 | RAD_ITS ---
We are attempting to reach an attending provider to discuss findings. An addendum with communication details will be sent when the communication is complete. EXAM: XR CHEST, 3 VIEWS CLINICAL INDICATION: Post permanant ICD/Pacemaker -- inspiration/expiration. Arms Down. Wet read to MD TECHNIQUE: Frontal, lateral and one additional view of the chest. COMPARISON: Previous chest radiographs of 04/07/2024 and 01/16/2022. FINDINGS: LUNGS AND PLEURAL SPACES: Lateral view shows mild blunting of posterior costophrenic angles indicating development of small pleural effusions. No acute pulmonary infiltrates are identified. No pneumothorax. Chronic curvilinear scarring abutting an emphysematous bulla in the right midlung. HEART: Heart size remains moderately enlarged with normal pulmonary vasculature. MEDIASTINUM: There is a stable rounded retrocardiac bulge consistent with hiatal hernia. Stable mild elongation of the thoracic aorta. BONES/JOINTS: Stable degenerative narrowing of one of the lower thoracic intervertebral disc spaces. No acute fracture. SOFT TISSUES: Unremarkable. TUBES, LINES AND DEVICES: A dual-lead cardiac pacemaker has been placed with the generator overlying the left upper chest laterally. The pacing lead tips are projected in the region of the right atrium and right ventricular apex. RAD/Chest 3 View IMPRESSION: Interval placement of cardiac pacemaker; no pneumothorax. Hiatal hernia again noted. Blunting of both posterior costophrenic angles indicating small pleural effusions. Nonstandard communication protocol initiated. Electronically Signed: Noam Phoenix MD at 5:28 EDT ,
[2024-04-08 06:04] LABS: Absolute Lymphocyte Count 1.05 X10^3/uL (0.83-4.51); Absolute Neutrophil Count 4.3 X10^3/uL (2.0-7.7); Basophil# 0.04 X10^3/uL; Basophil% 0.6 % (0-1); Eosinophil# 0.13 X10^3/uL; Eosinophils% 2.1 % (0-5); Hematocrit 28.9 % (37-47); Hemoglobin 8.9 g/dL (12.0-15.0); Lymphocyte # 1.05 X10^3/ul (0.83-4.51); Mean Corp Hgb Conc 30.8 g/dL (32-36); Mean Corpuscular Hgb 26.6 pg (27.0-32.0); Mean Corpuscular Volume 86.5 fL (81-99); Mean Platelet Vol. 10.1 fl (6.2-12.0); Monocyte# 0.61 X10^3/uL; Monocyte% 9.9 % (0-10); NRBC Flagged by Analyzer 0 % (0-5); Neutrophil # 4.31 X10^3/uL (2.7-7.7); Neutrophil % 70.1 % (47-70); Platelet Count 236 K/mm3 (150-450); RBC Distribution Width CV 15.7 % (11.6-14.6); RBC Distribution Width SD 49.6 fl (35.1-43.9); Red Blood Count 3.34 M/mm3 (4.2-5.4); White Blood Count 6.2 K/mm3 (4.4-11.0)
[2024-04-08 07:33] VITALS: O2SAT 100
[2024-04-08 08:17] LABS: Anion Gap 8 (5-15); BUN 25 mg/dL (7-18); BUN/Creat Ratio 26.5 RATIO (10-20); Calcium,Total 9.3 mg/dL (8.5-10.1); Chloride 105 mmol/L (98-107); Creatinine, Serum 0.94 mg/dL (0.55-1.02); EST Glomerular Filtration Rate 62 mL/min (>60); Est Glom Filt Rate - Afr Amer 75 mL/min (>60); Estimated Creatinine Clearance 53.58 ml/min; Glucose 91 mg/dL (74-106); Potassium 3.9 mmol/L (3.5-5.1); Sodium Level 138 mmol/L (136-145)
[2024-04-08 09:00] VITALS: BP 147/52; PULSE 61; RESP 18; TEMP 37; O2SAT 99
[2024-04-08] MEDS: predniSONE 1 MG Tablet PO (09:03)
[2024-04-08] MEDS: Furosemide 40 MG/4 ML Vial IV (09:03)
[2024-04-08] MEDS: Enoxaparin 40 MG/0.4 ML Syringe SC (09:03)
[2024-04-08] MEDS: Cyanocobalamin 500 MCG Tablet 1000 MCG PO (09:03)
[2024-04-08] MEDS: Omega-3 Acid Ethyl Esters 1 GM Capsule PO (09:04)
[2024-04-08] MEDS: Cholecalciferol (VIT D3) 25 MCG TABLET (1,000 UNITS) 50 MCG PO (09:04)
[2024-04-08] MEDS: Pantoprazole Sodium 20 MG Tablet PO (09:04)
[2024-04-08] MEDS: Calcium Carb/Vitamin D 1 TABLET Tablet 2 TABLET PO (09:04)
[2024-04-08] MEDS: Pramipexole Di-HCl 1 MG Tablet PO ×2 (09:04→19:47)
[2024-04-08] MEDS: Multivitamins,Therapeutic Tablet 1 TABLET PO (09:04)
[2024-04-08] MEDS: Lactobacillis Acidophilus 1 CAP PO (09:04)
[2024-04-08] MEDS: 0.9% Saline Lock 10 ML Syringe IV (09:05)
--- NOTE | 2024-04-08 09:11 | PCM.PN.HOSP ---
Subjective Subjective Doing well, no issues overnight. She is on a little bit of oxygen and was started on Lasix. Pacemaker in place and functioning Objective Data Objective Data Vital Signs: Vital Signs Temp Pulse Resp BP Pulse Ox O2 Del Method O2 Flow Rate 98.6 F 61 18 147/52 H 99 Nasal Cannula 2 04/08/24 09:00 04/08/24 09:00 04/08/24 09:00 04/08/24 09:00 04/08/24 09:00 04/08/24 09:00 04/08/24 09:00 Oxygen Flow Rate (L/min) 2 Oxygen Delivery Method Nasal Cannula Weight: 182 lb 15.739 oz Body Mass Index (BMI) 32.4 Intake & Output: Intake and Output for Last 24 Hours 04/07/24 04/08/24 04/09/24 03:59 03:59 03:59 Intake Total 1284 / 1284 Output Total 1200 / 1200 0 / 0 Balance 84 / 84 0 / 0 Lab / Micro Data 04/08/24 05:34 04/08/24 05:34 Labs: Laboratory Results - last 24 hr 04/07/24 12:30: WBC 9.7, RBC 3.63 L, Hgb 9.7 L, Hct 32.2 L, MCV 88.7, MCH 26.7 L, MCHC 30.1 L, RDW Std Deviation 51.0 H, RDW Coeff of Omar 15.8 H, Plt Count 267, MPV 10.3, Immature Gran % (Auto) 0.400, Neut % (Auto) 78.6 H, Lymph % (Auto) 14.4 L, [place] % (Auto) 5.9, Eos % (Auto) 0.4, Baso % (Auto) 0.3, Absolute Neuts (auto) 7.6, Absolute Lymphs (auto) 1.40, Nucleated RBC % 0, PT 13.8, INR 1.1, Sodium 133 L, Potassium 4.9, Chloride 103, Carbon Dioxide 21.0, Anion Gap 9, BUN 35 H, Creatinine 1.58 H, Est GFR (MDRD) Af Amer 41 L, Est GFR (MDRD) Non-Af 34 L, BUN/Creatinine Ratio 22.2 H, Glucose 114 H, Calcium 9.5, Magnesium 1.9, Troponin I High Sens 432 H*, B-Natriuretic Peptide 933.9 H, TSH 3.24 04/07/24 17:12: Troponin I High Sens 812 H* 04/08/24 05:34: WBC 6.2, RBC 3.34 L, Hgb 8.9 L, Hct 28.9 L, MCV 86.5, MCH 26.6 L, MCHC 30.8 L, RDW Std Deviation 49.6 H, RDW Coeff of Omar 15.7 H, Plt Count 236, MPV 10.1, Immature Gran % (Auto) 0.300, Neut % (Auto) 70.1 H, Lymph % (Auto) 17.0 L, [place] % (Auto) 9.9, Eos % (Auto) 2.1, Baso % (Auto) 0.6, Absolute Neuts (auto) 4.3, Absolute Lymphs (auto) 1.05, Nucleated RBC % 0, Sodium 138, Potassium 3.9, Chloride 105, Carbon Dioxide 25.0, Anion Gap 8, BUN 25 H, Creatinine 0.94, Estim Creat Clear Calc 53.58, Est GFR (MDRD) Af Amer 75, Est GFR (MDRD) Non-Af 62, BUN/Creatinine Ratio 26.5 H, Glucose 91, Calcium 9.3 Radiography Diagnostic Testing: Radiology Impression Chest X-Ray 04/07/24 12:50 IMPRESSION: Hyperinflation. No acute abnormality is seen. Hiatal hernia. Electronically Signed: Donald Baird MD at 13:12 EDT , Chest X-Ray 04/08/24 05:55 IMPRESSION: Interval placement of cardiac pacemaker; no pneumothorax. Hiatal hernia again noted. Blunting of both posterior costophrenic angles indicating small pleural effusions. Nonstandard communication protocol initiated. Electronically Signed: Noam Phoenix MD at 5:28 EDT , ADDENDUM: 04/08/24 0535 IMPRESSION: Interval placement of cardiac pacemaker; no pneumothorax. Hiatal hernia again noted. Blunting of both posterior costophrenic angles indicating small pleural effusions. Nonstandard communication protocol initiated. N.B. : The above Results were Read Back by Noam Phoenix MD to Ericka Atwood RN, and understanding confirmed on 04/08/2024 05:28:52 (ET). Electronically Signed: Noam Phoenix MD at 5:28 EDT , Physical Exam Narrative General: Alert, Oriented x3, Cooperative, No apparent distress HEENT: Atraumatic, PERRLA, EOMI, Normocephalic Oral: Moist Mucosa Neck: Supple, No JVD Lungs: Diminished, Normal air movement, No rhonchi, No wheeze, No rales Cardiovascular: Regular rate, Regular Rhythm, Normal S1, Normal S2, No murmurs Abdomen: Soft, Non Tender, Non-Distended, No Hepato-splenomegaly Extremities: No edema, Capillary Refill Less than 3 Seconds Skin: No rashes, No breakdown Musculoskeletal: No Tenderness to Palpation of Joints or Extremities Neurological: No focal neurological deficits, Motor Exam 5/5 strength throughout, Sensory exam intact to light touch and pain Psych/Mental Status: Normal Affect, Appropriate Assessment & Plan Assessment/Plan (1) Torsades de pointes: (2) Syncope: (3) CHB (complete heart block): (4) Elevated troponin: PLAN: Plan 1. Syncope secondary to third-degree AV block with torsades/essential HTN/JONATHAN ? She is status post pacemaker, she tolerated the procedure well ? Continue with Lasix ? Appreciate cardiology's assistance ? Echo is pending ? Elevated troponin likely secondary to her third-degree AV block with torsades unlikely to be a non-STEMI ? Heart failure physiology is likely related to her heart block, now that she is with a pacemaker in place we will check echo ? She was on atenolol as an outpatient however this was discontinued secondary to her third-degree block will see how she does with the pacemaker prior to instituting blood pressure medications ? Renal function is back to baseline, JONATHAN is resolved 2. Rheumatoid arthritis ? Stable ? Will hold her Plaquenil secondary to her torsades ? Will need to follow-up with her hvac service technician for adjustment of her medications 3. Restless leg syndrome/anxiety/depression ? Can continue with ropinirole but will hold her citalopram secondary to her torsades ? She will need to follow-up as an outpatient for medication adjustment DVT: Lovenox Charges/Coding Visit Charges Inpatient E&M: 35996 Subs Hosp L2
--- NOTE | 2024-04-08 09:35 | CASEMGMT ---
MAMTA RODRÍGUEZ Assessment Face to Face with patient for initial transition planning/care coordination assessment. MAMTA RODRÍGUEZ introduced self and role at [facility], pt voices understanding. Pt is A&Ox4 and is resting comfortably in bed and is calm. Care providers, pharmacy, and demographics verified. Admitting dx: 3rd Degree HB LACE Strata: 2 PCP: Macho Schmidt Specialists: Laron SMYTH (GI), Michelle (Rheumatology - [facility]) Preferred Pharmacy: [facility] [place] Insurance: MCR A/B, [employer] MCR Supp Prescription Benefit: Yes LNOK: Nimesh You (H) Living Arrangements: Pt lives with her in a raised ranch style home with 13 steps to enter ADLs/IADLs: Ind Transportation: Self, DME: CPAP @ [facility] with no additional O2. BP Cuff. Pulse Ox (this is how the pt knew her saturation levels were low [employer]). Pt uses a cane at time. FWW at home. Pt is currently on 2L of additional oxygen. A verbal list of local in-network DME companies provided to the pt at this time. Pt chose [facility] for potential home going oxygen needs. HHC/SNF: Denies history or needs. Pt states that she has a history at [facility] and [facility]. Pt states that she just finished PT at [facility] very recently. Pt denies the need to return after DC. Pt?s goal: Home with Plan: Home with . Follow Oxygen needs. Pt denies the need for HHC or OP therapy. Pt states that she wishes to DC home once she is medically ready. Pt denies further questions or concerns. CM to follow for safe DC from [facility]. Marycarmen Gonzalez RN, CM
--- NOTE | 2024-04-08 12:09 | DCINST_ITS ---
Discharge Instructions Diet Discharge Diet: No restrictions (as you feel able. No excessive stretching. No lifting your arm over your head (keep elbow below shoulder level) until seen for your pacemaker check. Do not lift your elbow away from your side until you are seen for your first visit. Keep the arm sling on if it helps remind you not to lift your arm.) Activity Discharge Activity: May Not Drive May shower in (days): 2 Additional Activity Instructions:: May shower or bathe on [day 3]. Do not scrub the incision or soak in the tub. Just wash with soap and let the water run over the incision. Gently pat dry with towel. Medications: Take your pain medication as directed. Refer to your discharge instruction sheet for a list of medications you are to take. Dressing / Incision Call your doctor if your incision/area has: Continuous Slow Oozing, Sudden Increased Bleeding, Increased Pain/ Swelling, Increased Redness, Foul Smelling Discharge and Swelling at the incision site Call your doctor if you observe: Fever of 101 or Higher, Shortness of breath, Dizziness, Fainting spells, Swelling in the ankles, Chest pain, Prolonged hiccupping and Increased palpitations (irregular heartbeat) Suture Line Care: Avoid Pulling/Pushing and Avoid Pinching/Bending Change Dressing in: do not change dressing Cleanse incision/area with: Do not get Incision Wet and Keep Dressing Clean & Dry Additional Dressing/Incision Instructions:: When dressing is removed, wash and dry incision. Keep covered with a light bandage if it is rubbing against your clothing. Do not cover the incision with an airtight bandage. Change the bandage daily. Do not remove steri strips. The strips will fall off on their own. Follow Up Care Please Follow Up With: Rodrigue Mendez MD When: Pacer follow-up on April 14, 2024 at 10 AM Test Results: Test results from this visit will be discussed in further detail at your follow- up appointment, if applicable. Discharge Plan Admission Admit Date/Time: 04/07/24 13:23 Attending Provider: Chaka To Primary Care Provider: Macho Schmidt Consulting Providers: Rodrigue Mendez; Jennifer Mitchell Discharge Orders/Prescriptions Prescriptions: No Action omega-3 acid ethyl esters [Lovaza] 1 gram capsule 1 g PO QDAY prednisone 1 mg tablet 1 mg PO DAILY omeprazole 20 mg capsule,delayed release(DR/EC) 20 mg PO DAILY Digestive Probiotic 10 billion cell capsule 1 cap PO DAILY cholecalciferol (vitamin D3) 50 mcg (2,000 unit) capsule 50 mcg PO DAILY hydroxychloroquine 200 mg tablet 300 mg PO DAILY infliximab [Remicade] 100 mg recon soln .Route Rx Instructions: every 8 weeks atenolol 25 mg tablet 25 mg PO DAILY Qty: 90 3RF sumatriptan succinate 100 MG tablet 100 - 200 mg PO DAILY PRN PRN (Reason: Migraine Symptoms) Patient Comments: MIGRAINES multivitamin with folic acid 1 TABLET tablet 1 tab PO DAILY Patient Comments: VITAMIN SUPPLEMENT calcium carbonate-vitamin D3 600 mg-20 mcg (800 unit) tablet 2 tab PO DAILY Patient Comments: SUPPLEMENT citalopram 20 MG tablet 20 mg PO DAILY Patient Comments: MOOD ropinirole 1 mg tablet 2 mg PO BID Patient Comments: 1 mg AM and 2 mg PM vpamxqazvt-tgqhtynwgtrhe-ccjn 50-325-40 mg tablet 1 tab PO DAILY PRN PRN (Reason: Headache) Patient Comments: HEADACHE 1-2 tabs cyanocobalamin (vitamin B-12) 1,000 MCG tablet 1,000 mcg PO DAILY meclizine 25 MG tablet 25 mg PO Q8H PRN PRN (Reason: Dizziness) Qty: 20 0RF Referrals / Follow Up: Macho Schmidt MD [Primary Care Provider] -
--- NOTE | 2024-04-08 12:10 | PN.CARD_ITS ---
Objective Data Vital Signs: Vital Signs Temp Pulse Resp BP Pulse Ox O2 Del Method O2 Flow Rate 98.6 F 61 18 147/52 H 99 Nasal Cannula 2 04/08/24 09:00 04/08/24 09:00 04/08/24 09:00 04/08/24 09:00 04/08/24 09:00 04/08/24 09:00 04/08/24 09:00 Oxygen Flow Rate (L/min) 2 Oxygen Delivery Method Nasal Cannula Weight: 182 lb 15.739 oz Body Mass Index (BMI) 32.4 Intake & Output: Intake and Output for Last 24 Hours 04/06/24 04/07/24 04/08/24 23:59 23:59 23:59 Intake Total 1284 / 1284 540 / 540 Output Total 1200 / 1200 950 / 950 Balance 84 / 84 -410 / -410 Lab / Micro Data 04/08/24 05:34 04/08/24 05:34 Labs: Laboratory Results - last 24 hr 04/07/24 12:30: WBC 9.7, RBC 3.63 L, Hgb 9.7 L, Hct 32.2 L, MCV 88.7, MCH 26.7 L , MCHC 30.1 L, RDW Std Deviation 51.0 H, RDW Coeff of Omar 15.8 H, Plt Count 267, MPV 10.3, Immature Gran % (Auto) 0.400, Neut % (Auto) 78.6 H, Lymph % (Auto) 14.4 L, [place] % (Auto) 5.9, Eos % (Auto) 0.4, Baso % (Auto) 0.3, Absolute Neuts (auto) 7.6, Absolute Lymphs (auto) 1.40, Nucleated RBC % 0, PT 13.8, INR 1.1, S odium 133 L, Potassium 4.9, Chloride 103, Carbon Dioxide 21.0, Anion Gap 9, BUN 35 H, Creatinine 1.58 H, Est GFR (MDRD) Af Amer 41 L, Est GFR (MDRD) Non-Af 34 L , BUN/Creatinine Ratio 22.2 H, Glucose 114 H, Calcium 9.5, Magnesium 1.9, T roponin I High Sens 432 H*, B-Natriuretic Peptide 933.9 H, TSH 3.24 04/07/24 17:12: Troponin I High Sens 812 H* 04/08/24 05:34: WBC 6.2, RBC 3.34 L, Hgb 8.9 L, Hct 28.9 L, MCV 86.5, MCH 26.6 L , MCHC 30.8 L, RDW Std Deviation 49.6 H, RDW Coeff of Omar 15.7 H, Plt Count 236, MPV 10.1, Immature Gran % (Auto) 0.300, Neut % (Auto) 70.1 H, Lymph % (Auto) 17.0 L, [place] % (Auto) 9.9, Eos % (Auto) 2.1, Baso % (Auto) 0.6, Absolute Neuts (auto) 4.3, Absolute Lymphs (auto) 1.05, Nucleated RBC % 0, Sodium 138, Potassium 3.9, Chloride 105, Carbon Dioxide 25.0, Anion Gap 8, BUN 25 H, Creatinine 0.94, Estim Creat Clear Calc 53.58, Est GFR (MDRD) Af Amer 75, Est GFR (MDRD) Non-Af 62, BUN/Creatinine Ratio 26.5 H, Glucose 91, Calcium 9.3 Cardiology Labs/Tests 04/07/24 12:30: WBC 9.7, RBC 3.63 L, Hgb 9.7 L, Hct 32.2 L, MCV 88.7, MCH 26.7 L , MCHC 30.1 L, Plt Count 267, MPV 10.3, Immature Gran % (Auto) 0.400, Neut % (Auto) 78.6 H, Lymph % (Auto) 14.4 L, [place] % (Auto) 5.9, Eos % (Auto) 0.4, Baso % (Auto) 0.3, Absolute Neuts (auto) 7.6, Nucleated RBC % 0, PT 13.8, INR 1.1, S odium 133 L, Potassium 4.9, Chloride 103, Carbon Dioxide 21.0, Anion Gap 9, BUN 35 H, Creatinine 1.58 H, Est GFR (MDRD) Af Amer 41 L, Est GFR (MDRD) Non-Af 34 L , BUN/Creatinine Ratio 22.2 H, Glucose 114 H, Calcium 9.5, Magnesium 1.9, B- Natriuretic Peptide 933.9 H 04/08/24 05:34: WBC 6.2, RBC 3.34 L, Hgb 8.9 L, Hct 28.9 L, MCV 86.5, MCH 26.6 L , MCHC 30.8 L, Plt Count 236, MPV 10.1, Immature Gran % (Auto) 0.300, Neut % (Auto) 70.1 H, Lymph % (Auto) 17.0 L, [place] % (Auto) 9.9, Eos % (Auto) 2.1, Baso % (Auto) 0.6, Absolute Neuts (auto) 4.3, Nucleated RBC % 0, Sodium 138, Potassium 3.9, Chloride 105, Carbon Dioxide 25.0, Anion Gap 8, BUN 25 H, Creatinine 0.94, Est GFR (MDRD) Af Amer 75, Est GFR (MDRD) Non-Af 62, B UN/Creatinine Ratio 26.5 H, Glucose 91, Calcium 9.3 Rhythm: EKG: ECHO: Stress Test: Cardiac Cath: PCI: CT Surgery: Holter monitor: EPS: PPM: CXR: Chest CT Scan: Radiography Diagnostic Testing: Radiology Impression Chest X-Ray 04/07/24 12:50 IMPRESSION: Hyperinflation. No acute abnormality is seen. Hiatal hernia. Electronically Signed: Donald Baird MD at 13:12 EDT , Echocardiogram 04/07/24 15:08 Interpretation Summary Normal LV size. The left ventricular ejection fraction is 55 %. Mild segmental systolic dysfunction (see wall motion). There are regional wall motion abnormalities as specified. Ordering Physician: Jennifer Mitchell Referring Physician: ADALBERTO DAVID Performed By: Anna Silverman RCS Chest X-Ray 04/08/24 05:55 IMPRESSION: Interval placement of cardiac pacemaker; no pneumothorax. Hiatal hernia again noted. Blunting of both posterior costophrenic angles indicating small pleural effusions. Nonstandard communication protocol initiated. Electronically Signed: Noam Phoenix MD at 5:28 EDT , ADDENDUM: 04/08/24 0535 IMPRESSION: Interval placement of cardiac pacemaker; no pneumothorax. Hiatal hernia again noted. Blunting of both posterior costophrenic angles indicating small pleural effusions. Nonstandard communication protocol initiated. N.B. : The above Results were Read Back by Noam Phoenix MD to Ericka Atwood RN, and understanding confirmed on 04/08/2024 05:28:52 (ET). Electronically Signed: Noam Phoenix MD at 5:28 EDT , Physical Exam Const alert, oriented x3 and no apparent distress General Appearance: cooperative HEENT hearing grossly normal bilaterally Head and Scalp: atraumatic Eyes EOMs intact bilaterally Neck General: normal visual inspection Chest inspection of chest normal and palpation of chest normal Resp normal respiratory effort Auscultation: clear to auscultation bilaterally Cardio regular rate, regular rhythm, S1 normal heart sound and S2 normal heart sound Jugular Venous Distention: JVD GI normal to inspection, nondistended, normoactive bowel sounds Extremity normal capillary refill and no pedal edema Peripheral Pulses: Yes pulses 2+ throughout and femoral pulses present Skin no rashes or lesions noted Neuro oriented x3 and CN's II-XII intact bilaterally Psych Appearance: grossly normal and appropriate Assessment & Plan Assessment/Plan (1) CHB (complete heart block): PLAN: Patient presents with complete heart block complicated by intermittent torsade de pointes. She underwent successful placement of a dual-chamber pacemaker yesterday and pacemaker interrogation today demonstrates normal function and chest x-ray demonstrates good positioning. * She does have an unexplained anemia which will be further evaluated and at this point in time I do not want to pursue any invasive management until this is sorted out. (2) Essential (primary) hypertension: PLAN: Her blood pressure appears to be stable at this time we will hold off on current medications. Her echocardiogram demonstrated preserved ejection fraction with segmental wall motion abnormality involving the distal anterior wall. I will recommend at some point evaluating this with a left heart catheterization.
[2024-04-08 12:34] LABS: Hematocrit 31.9 % (37-47); Hemoglobin 9.8 g/dL (12.0-15.0)
[2024-04-08 13:13] LABS: Ferritin 80 ng/mL (8-252); Iron 34 ug/dL (50-170); Iron Binding Capacity,Total 329 ug/dL (250-450); PERCENT IRON SATURATION 10.3 % (15.0-55.0)
[2024-04-08 15:05] VITALS: BP 141/50; PULSE 62; RESP 18; TEMP 36.6; O2SAT 96
[2024-04-08] MEDS: Ferrous Gluconate 324 MG Tablet PO (16:05)
[2024-04-08] MEDS: Acetaminophen 325 MG Tablet 650 MG PO (19:47)
[2024-04-08 21:27] VITALS: BP 110/57; PULSE 62; RESP 16; TEMP 36.1; O2SAT 97
[2024-04-09 03:06] VITALS: BMI 32.6
[2024-04-09 03:50] VITALS: BP 145/60; PULSE 59; RESP 18; TEMP 36.6; O2SAT 95
--- NOTE | 2024-04-09 03:51 | EKG12_ITS ---
Test Reason : CP Blood Pressure : / mmHG Vent. Rate : 063 BPM Atrial Rate : 063 BPM P-R Int : 194 ms QRS Dur : 174 ms QT Int : 524 ms P-R-T Axes : 010 265 059 degrees QTc Int : 536 ms AV dual-paced rhythm Abnormal ECG When compared with ECG of 07-APR-2024 12:22, Previous ECG has undetermined rhythm, needs review Confirmed by CASSIE AGARWAL, FABRICIO ([id number]), visual effects editor IFEANYI LOPEZ ([id number]) on 04/12/2024 5:53:07 AM Referred By: Confirmed By:FABRICIO MATTHEWS MD
[2024-04-09] MEDS: Acetaminophen 325 MG Tablet 650 MG PO (03:54)
[2024-04-09] MEDS: Calcium Carbonate 500 MG Tablet PO (04:16)
[2024-04-09] MEDS: oxyCODONE 5 MG Tablet PO (05:30)
[2024-04-09 05:31] LABS: Absolute Neutrophil Count 6.5 X10^3/uL (2.0-7.7); Basophil# 0.03 X10^3/uL; Basophil% 0.3 % (0-1); Eosinophil# 0.16 X10^3/uL; Eosinophils% 1.9 % (0-5); Hematocrit 31.4 % (37-47); Hemoglobin 9.8 g/dL (12.0-15.0); Mean Corp Hgb Conc 31.2 g/dL (32-36); Mean Corpuscular Hgb 26.8 pg (27.0-32.0); Mean Corpuscular Volume 85.8 fL (81-99); Mean Platelet Vol. 10.4 fl (6.2-12.0); Monocyte# 0.66 X10^3/uL; Monocyte% 7.6 % (0-10); NRBC Flagged by Analyzer 0 % (0-5); Neutrophil # 6.45 X10^3/uL (2.7-7.7); Neutrophil % 74.7 % (47-70); Platelet Count 265 K/mm3 (150-450); RBC Distribution Width CV 15.3 % (11.6-14.6); RBC Distribution Width SD 48.2 fl (35.1-43.9); Red Blood Count 3.66 M/mm3 (4.2-5.4); White Blood Count 8.6 K/mm3 (4.4-11.0)
[2024-04-09 05:54] LABS: Anion Gap 6 (5-15); BUN 25 mg/dL (7-18); BUN/Creat Ratio 26.8 RATIO (10-20); Calcium,Total 9.8 mg/dL (8.5-10.1); Chloride 102 mmol/L (98-107); Creatinine, Serum 0.93 mg/dL (0.55-1.02); EST Glomerular Filtration Rate 62 mL/min (>60); Est Glom Filt Rate - Afr Amer 76 mL/min (>60); Estimated Creatinine Clearance 54.36 ml/min; Glucose 117 mg/dL (74-106); Potassium 3.9 mmol/L (3.5-5.1); Sodium Level 135 mmol/L (136-145)
--- NOTE | 2024-04-09 06:17 | CT_ITS ---
STUDY: CT CHEST WITHOUT CONTRAST REASON FOR EXAM: Female, 73 years old. Chest pain RADIATION DOSAGE (If Supplied By Facility): CTDIvol = ( 11.55 ) mGy, DLP = ( 401.28 ) mGycm TECHNIQUE: Transaxial imaging was performed without the administration of intravenous contrast material. Coronal and sagittal reformatted images were created. Individualized dose optimization techniques were used for this CT. COMPARISON: Prior study dated: 06/16/2017 FINDINGS: LUNGS: There are no pulmonary infiltrates. There is stable scarring noted in both lungs. PLEURAL SPACE: There are small bilateral pleural effusions. There is no pneumothorax. MEDIASTINUM: There is a pacemaker in place. The heart and pericardium are within normal limits. There are no coronary artery calcifications. There is no thoracic lymphadenopathy. VESSELS: There is no evidence of thoracic aortic aneurysm. UPPER ABDOMEN: There is a moderate hiatal hernia. BONES: There are no destructive osseous lesions. SOFT TISSUES: The visualized soft tissues are unremarkable. CT/Chest without Contrast IMPRESSION: Small bilateral pleural effusions. No pulmonary infiltrates. Stable bilateral pulmonary scarring. Moderate hiatal hernia. This is increased in size when compared with the prior exam. Electronically Signed: Jag De León MD at 7:43 EDT ,
[2024-04-09] MEDS: Ketorolac 15 MG/ML Vial IV (06:31)
--- NOTE | 2024-04-09 07:10 | PCM.DC ---
Discharge Instructions Diet Discharge Diet: No restrictions (as you feel able. No excessive stretching. No lifting your arm over your head (keep elbow below shoulder level) until seen for your pacemaker check. Do not lift your elbow away from your side until you are seen for your first visit. Keep the arm sling on if it helps remind you not to lift your arm.) Activity Discharge Activity: Return to Normal Activity May shower in (days): 2 Additional Activity Instructions:: May shower or bathe on [day 3]. Do not scrub the incision or soak in the tub. Just wash with soap and let the water run over the incision. Gently pat dry with towel. Medications: Take your pain medication as directed. Refer to your discharge instruction sheet for a list of medications you are to take. Dressing / Incision Call your doctor if your incision/area has: Continuous Slow Oozing, Sudden Increased Bleeding, Increased Pain/ Swelling, Increased Redness, Foul Smelling Discharge and Swelling at the incision site Call your doctor if you observe: Fever of 101 or Higher, Shortness of breath, Dizziness, Fainting spells, Swelling in the ankles, Chest pain, Prolonged hiccupping and Increased palpitations (irregular heartbeat) Suture Line Care: Avoid Pulling/Pushing and Avoid Pinching/Bending Cleanse incision/area with: Do not get Incision Wet and Keep Dressing Clean & Dry Additional Dressing/Incision Instructions:: When dressing is removed, wash and dry incision. Keep covered with a light bandage if it is rubbing against your clothing. Do not cover the incision with an airtight bandage. Change the bandage daily. Do not remove steri strips. The strips will fall off on their own. Follow Up Care Please Follow Up With: Rodrigue Mendez MD Test Results: Test results from this visit will be discussed in further detail at your follow-up appointment, if applicable. 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 Discharge Orders/Prescriptions Prescriptions: New ferrous gluconate 324 mg (37.5 mg iron) Tablet 324 mg PO BIDCM 30 Days Qty: 60 0RF Continued omega-3 acid ethyl esters [Lovaza] 1 gram capsule 1 g PO QDAY prednisone 1 mg tablet 1 mg PO DAILY omeprazole 20 mg capsule,delayed release(DR/EC) 20 mg PO DAILY Digestive Probiotic 10 billion cell capsule 1 cap PO DAILY cholecalciferol (vitamin D3) 50 mcg (2,000 unit) capsule 50 mcg PO DAILY infliximab [Remicade] 100 mg recon soln .Route Rx Instructions: every 8 weeks sumatriptan succinate 100 MG tablet 100 - 200 mg PO DAILY PRN PRN (Reason: Migraine Symptoms) Patient Comments: MIGRAINES multivitamin with folic acid 1 TABLET tablet 1 tab PO DAILY Patient Comments: VITAMIN SUPPLEMENT calcium carbonate-vitamin D3 600 mg-20 mcg (800 unit) tablet 2 tab PO DAILY Patient Comments: SUPPLEMENT citalopram 20 MG tablet 20 mg PO DAILY Patient Comments: MOOD ropinirole 1 mg tablet 2 mg PO BID Patient Comments: 1 mg AM and 2 mg PM zqjkyltvye-ilfunttqyfhjd-hvlh 50-325-40 mg tablet 1 tab PO DAILY PRN PRN (Reason: Headache) Patient Comments: HEADACHE 1-2 tabs cyanocobalamin (vitamin B-12) 1,000 MCG tablet 1,000 mcg PO DAILY meclizine 25 MG tablet 25 mg PO Q8H PRN PRN (Reason: Dizziness) Qty: 20 0RF Held hydroxychloroquine 200 mg tablet 300 mg PO DAILY Hold Instructions: Resume on 04/15/24. Discontinued atenolol 25 mg tablet 25 mg PO DAILY Qty: 90 3RF Referrals / Follow Up: Rodrigue Mendez MD [Med Staff - Active Staff] - Within 1 Month Macho Schmidt MD [Primary Care Provider] - Within 1 Week Disposition Disposition (needs filled in before D/C Order can be placed): Home, Self Care
[2024-04-09 07:19] VITALS: BP 124/88; PULSE 70; RESP 16; TEMP 36.1; O2SAT 98
[2024-04-09 09:41] VITALS: O2SAT 100; O2SAT 98
[2024-04-09] MEDS: Ferrous Gluconate 324 MG Tablet PO (09:45)
[2024-04-09] MEDS: Omega-3 Acid Ethyl Esters 1 GM Capsule PO (09:45)
[2024-04-09] MEDS: Cholecalciferol (VIT D3) 25 MCG TABLET (1,000 UNITS) 50 MCG PO (09:45)
[2024-04-09] MEDS: Cyanocobalamin 500 MCG Tablet 1000 MCG PO (09:46)
[2024-04-09] MEDS: Multivitamins,Therapeutic Tablet 1 TABLET PO (09:46)
[2024-04-09] MEDS: Lactobacillis Acidophilus 1 CAP PO (09:46)
[2024-04-09] MEDS: Calcium Carb/Vitamin D 1 TABLET Tablet 2 TABLET PO (09:46)
[2024-04-09] MEDS: Pantoprazole Sodium 20 MG Tablet PO (09:46)
[2024-04-09] MEDS: Pramipexole Di-HCl 1 MG Tablet PO (09:47)
[2024-04-09] MEDS: predniSONE 1 MG Tablet PO (09:47)
[2024-04-09] MEDS: Enoxaparin 40 MG/0.4 ML Syringe SC (09:47)
[2024-04-09 09:50] VITALS: BP 124/88; PULSE 70; RESP 16; TEMP 36.1; O2SAT 98
--- NOTE | 2024-04-09 14:20 | PCM.DC.SUM ---
Providers Date of Admission: 04/07/24 Primary Care Physician: Dr. Macho Schmidt MD Consultations 04/07/24 16:26 Consult: Cardiology Routine Consulting Provider: Rodrigue Mendez Reason for Consult: third degree heart block EMERGENT Consult: No MD Notified: Yes Date Notified: 04/07/24 Time Notified: 13:49 Method of Notification: ED Physician Initiated Reason For Visit: THIRD DEGREE HEART BLOCK Diagnosis Discharge Diagnosis (1) CHB (complete heart block): Status: Acute Code(s): I44.2 - Atrioventricular block, complete (2) Essential (primary) hypertension: Status: Chronic Code(s): I10 - Essential (primary) hypertension Medications at Discharge Home Medications multivitamin with folic acid 400 mcg tablet 1 tab PO DAILY vitamin 06/13/15 sumatriptan succinate 100 mg tablet 100 - 200 mg PO DAILY PRN PRN Migraine Symptoms 06/13/15 citalopram 20 mg tablet 20 mg PO DAILY mood 07/11/15 omega-3 acid ethyl esters 1 gram capsule (Lovaza) 1 g PO QDAY supplement 11/12/17 cyanocobalamin (vitamin B-12) 1,000 mcg tablet 1,000 mcg PO DAILY SUPPLEMENT 03/12/18 ropinirole 1 mg tablet 2 mg PO BID restless legs 10/10/20 meclizine 25 mg tablet 25 mg PO Q8H PRN PRN Dizziness #20 tabs 12/07/21 prednisone 1 mg tablet 1 mg PO DAILY RA 05/20/22 Lactobacillus acidophilus-Bifidobac.animalis 10 billion cell capsule (Digestive Probiotic) 1 cap PO DAILY digestion 08/19/22 nfarounbzv-jfcubbveldwcx-gzvhmfot 50 mg-325 mg-40 mg tablet 1 tab PO DAILY PRN PRN Headache 08/19/22 calcium carbonate 600 mg-vitamin D3 20 mcg (800 unit) tablet 2 tab PO DAILY supplement 08/19/22 cholecalciferol (vitamin D3) 50 mcg (2,000 unit) capsule 50 mcg PO DAILY supplement 08/19/22 omeprazole 20 mg capsule,delayed release 20 mg PO DAILY gerd 08/19/22 hydroxychloroquine 200 mg tablet 300 mg PO DAILY RA 03/23/24 infliximab 100 mg intravenous solution (Remicade) mg .Route RA and colitis 03/23/24 ferrous gluconate 324 mg (37.5 mg iron) tablet 324 mg PO BIDCM 30 days #60 tabs 04/09/24 Hospital Course Operations None Procedures 2-D Echocardiogram and - (Pacemaker placement) Summary of Care Provided Minutes Spent on Discharge: 33 Hospital Course: Per HPI: TATO SOLOMON, is a 73 F with a PMH as outlined who presents via the ED on 04/07/2024 with a complaint of dizziness and syncope. She had 2-3 syncopal episodes whilst sitting on the couch watching tv yesterday. She felt lightheaded and weak and felt like she was going to faint. She also felt like her heart rate was slow. She denied any chest pain, nausea, vomiting or any other symptoms. Review of systems was otherwise negative. She had not had any symptoms like that before. Vitals in the ED were BP of 121/104, UT of 36, RR of 12 and temp of 99F. He was saturating at 95% on 3L of oxygen. CBC showed hb of 9.7, wbc of 9.7 and platelets of 267. Chemistry showed sodium of 133, potassium of 4.9, bicarb of 21, Cr of 1.58, troponin of 432 and BNP of 933.9. TSH was 3.24. CXR showed hyperinflation. EKG showed third degree heart block. Per ED doctor, patient went into torsades in the ER and so was started on dopamine drip per cardiology. She is being admitted to be managed for third degree AV block. During my review, patient went into torsades again. She was sent emergently to the [facility] for insertion of pacemaker. Hospital Course: 1. Syncope secondary to third-degree A-V block with torsades/essential HTN/JONATHAN?73-year-old female presented to the hospital with dizziness and syncope. While here in the hospital she was found to be in torsades and third-degree heart block. She was taken to [facility] and had a pacemaker placed and her symptoms have resolved. She did have an echo that demonstrated an EF of 55% diastolic function. Initially she was on Lasix given the fact that she appeared to be volume overloaded but this was a function of her heart block. Discharge was delayed secondary to a slight anemia, cardiology was concerned given the fact that when she had come into the hospital she was 9.7 and the day after the procedure she was 8.9, iron studies were obtained and showed a slight deficiency and fecal occult studies were negative. She was started on iron replacement. On the day of discharge she was having a little bit of lower chest pain/upper abdominal pain and a CT of the chest was obtained which was unremarkable. She was no longer having this painful issue when discharged. Of note she does have rheumatoid arthritis and Plaquenil is known to cause torsades and cardiac arrhythmias so this was held pending evaluation by her pressure welder given the fact that she had third-degree heart block and needs a pacemaker. I discussed with her the plan for discharge today and she expressed understanding of the risk and benefits of going home and would like to go home today. Recommend follow-up with cardiology as well as her PCP in the next 1 to 2 weeks. Her atenolol was discontinued. 2. Rheumatoid arthritis, restless leg syndrome, anxiety, depression are chronic medical conditions which complicate her care. Her home medications were continued where appropriate Physical Exam Narrative General: Alert, Oriented x3, Cooperative, No apparent distress HEENT: Atraumatic, PERRLA, EOMI, Normocephalic Oral: Moist Mucosa Neck: Supple, No JVD Lungs: Diminished, Normal air movement, No rhonchi, No wheeze, No rales Cardiovascular: Regular rate, Regular Rhythm, Normal S1, Normal S2, No murmurs Abdomen: Soft, Non Tender, Non-Distended, No Hepato-splenomegaly Extremities: No edema, Capillary Refill Less than 3 Seconds Skin: No rashes, No breakdown Musculoskeletal: No Tenderness to Palpation of Joints or Extremities Neurological: No focal neurological deficits, Motor Exam 5/5 strength throughout, Sensory exam intact to light touch and pain Psych/Mental Status: Normal Affect, Appropriate Weight / BMI Weight Weight: 184 lb 4.903 oz Body Mass Index (BMI) 32.6 ABG / Lab / Microbiology Data 04/09/24 04:56 04/09/24 04:56 Laboratory: Laboratory Results - last 24 hr 04/09/24 04:56: WBC 8.6, RBC 3.66 L, Hgb 9.8 L, Hct 31.4 L, MCV 85.8, MCH 26.8 L, MCHC 31.2 L, RDW Std Deviation 48.2 H, RDW Coeff of Omar 15.3 H, Plt Count 265, MPV 10.4, Immature Gran % (Auto) 0.500, Neut % (Auto) 74.7 H, Lymph % (Auto) 15.0 L, [place] % (Auto) 7.6, Eos % (Auto) 1.9, Baso % (Auto) 0.3, Absolute Neuts (auto) 6.5, Absolute Lymphs (auto) 1.30, Nucleated RBC % 0, Sodium 135 L, Potassium 3.9, Chloride 102, Carbon Dioxide 27.0, Anion Gap 6, BUN 25 H, Creatinine 0.93, Estim Creat Clear Calc 54.36, Est GFR (MDRD) Af Amer 76, Est GFR (MDRD) Non-Af 62, BUN/Creatinine Ratio 26.8 H, Glucose 117 H, Calcium 9.8 Microbiology: Microbiology 04/08/24 18:45 Stool Stool Occult Blood (HUBER) - Final Radiography Diagnostic Testing: Radiology Impression Chest CT 04/09/24 06:17 IMPRESSION: Small bilateral pleural effusions. No pulmonary infiltrates. Stable bilateral pulmonary scarring. Moderate hiatal hernia. This is increased in size when compared with the prior exam. Electronically Signed: Jag De León MD at 7:43 EDT , D/C Instructions Discharge Diet: No restrictions (as you feel able. No excessive stretching. No lifting your arm over your head (keep elbow below shoulder level) until seen for your pacemaker check. Do not lift your elbow away from your side until you are seen for your first visit. Keep the arm sling on if it helps remind you not to lift your arm.) May shower in (days): 2 Additional Activity Instructions: May shower or bathe on [day 3]. Do not scrub the incision or soak in the tub. Just wash with soap and let the water run over the incision. Gently pat dry with towel. Medications: Take your pain medication as directed. Refer to your discharge instruction sheet for a list of medications you are to take. Call your doctor if your incision/area has: Continuous Slow Oozing, Sudden Increased Bleeding, Increased Pain/ Swelling, Increased Redness, Foul Smelling Discharge and Swelling at the incision site Call your doctor if you observe: Fever of 101 or Higher, Shortness of breath, Dizziness, Fainting spells, Swelling in the ankles, Chest pain, Prolonged hiccupping and Increased palpitations (irregular heartbeat) Suture Line Care: Avoid Pulling/Pushing and Avoid Pinching/Bending Cleanse incision/area with: Do not get Incision Wet and Keep Dressing Clean & Dry Additional Dressing/Incision Instructions: When dressing is removed, wash and dry incision. Keep covered with a light bandage if it is rubbing against your clothing. Do not cover the incision with an airtight bandage. Change the bandage daily. Do not remove steri strips. The strips will fall off on their own. Please Follow Up With: Rodrigue Mendez MD When: Pacer follow-up on April 14, 2024 at 10 AM Meaningful Use Info Meaningful Use Meaningful Use Diagnoses (Choose all that apply): None applicable Ischemic Stroke Statin Dosing Therapy Reference: STATIN DOSE THERAPY REFERENCE: * Patients > 75 years receive moderate or high dose statin therapy. * Patients 75 years or YOUNGER should receive HIGH intensity statin dose unless contraindicated. You will be required to document reason for non-treatment if statin daily dose does not meet guidelines. HIGH DOSE STATIN THERAPY DAILY Atorvastatin > than or = to 40 mg Rosuvastatin > than or = to 20 mg Amlodipine + Atorvastatin > than or = to 2.5/40 mg Ezetimibe + Simvastatin 10/80 mg Simvastatin 80mg Discharge Plan Admission Admit Date/Time: 04/07/24 13:23 Attending Provider: Chaka To Primary Care Provider: Macho Schmidt Consulting Providers: Rodrigue Mendez; Jennifer Mitchell Instructions Additional Instructions / Restrictions: Follow-up with your pressure welder to discuss the safety of resuming Plaquenil in the setting of having torsades and complete heart block. Discharge Orders/Prescriptions Prescriptions: New ferrous gluconate 324 mg (37.5 mg iron) Tablet 324 mg PO BIDCM 30 Days Qty: 60 0RF Continued omega-3 acid ethyl esters [Lovaza] 1 gram capsule 1 g PO QDAY prednisone 1 mg tablet 1 mg PO DAILY omeprazole 20 mg capsule,delayed release(DR/EC) 20 mg PO DAILY Digestive Probiotic 10 billion cell capsule 1 cap PO DAILY cholecalciferol (vitamin D3) 50 mcg (2,000 unit) capsule 50 mcg PO DAILY infliximab [Remicade] 100 mg recon soln .Route Rx Instructions: every 8 weeks sumatriptan succinate 100 MG tablet 100 - 200 mg PO DAILY PRN PRN (Reason: Migraine Symptoms) Patient Comments: MIGRAINES multivitamin with folic acid 1 TABLET tablet 1 tab PO DAILY Patient Comments: VITAMIN SUPPLEMENT calcium carbonate-vitamin D3 600 mg-20 mcg (800 unit) tablet 2 tab PO DAILY Patient Comments: SUPPLEMENT citalopram 20 MG tablet 20 mg PO DAILY Patient Comments: MOOD ropinirole 1 mg tablet 2 mg PO BID Patient Comments: 1 mg AM and 2 mg PM hwjvupuxfe-jrmyveyydxymz-xrfo 50-325-40 mg tablet 1 tab PO DAILY PRN PRN (Reason: Headache) Patient Comments: HEADACHE 1-2 tabs cyanocobalamin (vitamin B-12) 1,000 MCG tablet 1,000 mcg PO DAILY meclizine 25 MG tablet 25 mg PO Q8H PRN PRN (Reason: Dizziness) Qty: 20 0RF Held hydroxychloroquine 200 mg tablet 300 mg PO DAILY Hold Instructions: Resume on 04/15/24. Discontinued atenolol 25 mg tablet 25 mg PO DAILY Qty: 90 3RF Referrals / Follow Up: Rodrigue Mendez MD [Med Staff - Active Staff] - Within 1 Month Macho Schmidt MD [Primary Care Provider] - Within 1 Week Disposition Disposition (needs filled in before D/C Order can be placed): Home, Self Care Charges/Coding Visit Charges Inpatient E&M: 20405 Disch Hosp >30min
--- NOTE | 2024-04-11 11:22 | CL.IE_ITS ---
Patient: TATO SOLOMON Study Date: 04/07/2024 Performing: Rodrigue Mendez MD : 1950 Age: 73 Gender: female PROCEDURES PERFORMED LP04-(14002)INITIAL PACER INSERT+DUAL LEADS INDICATIONS Complete Heart Block PROCEDURE DETAILS The patient was brought to the Catheterization Lab in the postabsorptive nonsedated state. Informed consent was obtained prior to the procedure. Local anesthetic was given subcutaneously to the left upper chest area with Lidocaine 2%. Access was achieved and a guidewire was advanced into the left subclavian vein. Incision was made to the left upper chest. A peel-away sheath was inserted into the left subclavian vein. PPM ventricular lead was inserted / positioned to right ventricular apex. PPM atrial lead was inserted / positioned to the right atrial appendage. PPM ventricular lead testing performed. PPM ventricular lead testing performed. PPM atrial lead testing performed. The Atrial lead sutured in place with 2-0 Silk. The Ventricular PM lead sutured in place with 2-0 Silk. Device pocket was irrigated with antibiotic. PPM generator was attached to the lead(s) and inserted into the pocket. Subcutaneous closure was completed with 3-0 Vicryl. Skin closure was completed with 4-0 Vicryl. The patient tolerated the procedure well. 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: [employer], Model # Tendril STS 2088TC , Serial # [id number] PPM Atrial lead - Stained Glass Painter: [employer], Model # Tendril STS 2088TC , Serial # [id number] PPM Generator - Stained Glass Painter: [employer], Model # Assurity MRI OB8115 , Serial # [id number] DEVICE PARAMETERS ATRIAL LEAD PARAMETERS: P wave- 1.3 (mV) threshold- 1.5 (V) impedence- 417 (OHMS) VENTRICULAR LEAD PARAMETERS: R wave- 9.0 (mV) threshold- 0.7 (V) impedence- 751 (OHMS) DEVICE PARAMETERS: Mode- DDD Lower rate- 60 Upper rate- 120 CONCLUSIONS / RECOMMENDATIONS Device Conclusions: Successful implantation of a dual chamber pacemaker Device Recommendations: Follow up with Primary Care Physician PROCEDURE MEDICATIONS Fentanyl 25 mcg IV Versed 1 mg IV Oxygen: 4 L/min via nasal cannula Antibiotic given in appropriate timeframe. Ancef 2 Gm IV @ 04/07/2024 14:18:04 Signed By Rodrigue Mendez MD On 04/11/2024 11:22:29 Rodrigue Mendez MD
== END 2024-04-09 11:13 | disposition home or self-care (01) | DRG 243 ==
LOC: ED 13:19 → PCU 13:20 → ICU 16:02 → PCU 16:22
PROVIDERS: Nurse Practitioner; Admitting Provider Student in an Organized Health Care Education/Training Program; Emergency Provider Student in an Organized Health Care Education/Training Program; PCP Family Medicine; Visit Provider Family Medicine
DX: I44.2 Atrioventricular block, complete (principal); N17.9 Acute kidney failure, unspecified; I24.89 Other forms of acute ischemic heart disease; I47.21 Torsades de pointes; M06.9 Rheumatoid arthritis, unspecified; G25.81 Restless legs syndrome; F32.A Depression, unspecified; I10 Essential (primary) hypertension; K44.9 Diaphragmatic hernia without obstruction or gangrene; F41.9 Anxiety disorder, unspecified; Z82.3 Family history of stroke; Z66 Do not resuscitate; Z51.5 Encounter for palliative care; Z79.52 Long term (current) use of systemic steroids
CPT/HCPCS: 33208; 36415; 71045; 71047; 71250; 80048; 82274; 82728; 83540; 83550; 83735; 83880; 84443; 84484; 85014; 85018; 85025; 85610; 93005; 93306; 94762; 99152; 99153; 99285; J7030; J7050; Q9967; A4216; C1769; C1894; J1940

== ENCOUNTER → 2024-04-12 | Outpatient (CLI) | payer MEDICARE, OTHER, SELFPAY ==
--- NOTE | 2024-04-12 10:06 | RAD_ITS ---
STUDY: X-RAY CHEST REASON FOR EXAM: Female, 73 years old. Pain on inspiration post pacemaker implant TECHNIQUE: PA and lateral views of the chest. COMPARISON: Comparison is made with prior study of April 08, 2024. FINDINGS: Blunting of the left costophrenic angle with increased markings at the left lung base suggestive of left basilar atelectasis. There is no demonstrated pleural abnormality. A left-sided dual-chamber pacemaker is seen. Normal mediastinum and luann. Normal visualized pulmonary arteries. Normal visualized aortic arch and descending thoracic aorta. There are degenerative changes of the visualized thoracic spine. Demineralization of the thoracic vertebrae. Increased kyphosis. Normal visualized ribs, clavicles, and shoulders. There is no demonstrated abnormality of the visualized soft tissue structures of the upper abdomen. RAD/Chest PA and Lateral IMPRESSION: Increased markings at the left lung base suggestive of left basilar atelectasis with blunting of the left costophrenic angle. No evidence of pneumothorax. Electronically Signed: Donald Baird MD at 11:01 EDT ,
== END | disposition home or self-care (01) ==
LOC: RAD 10:04
PROVIDERS: PCP Family Medicine; Referring Provider Internal Medicine Cardiovascular Disease; Visit Provider Internal Medicine Cardiovascular Disease
DX: R07.1 Chest pain on breathing (principal); Z95.0 Presence of cardiac pacemaker
CPT/HCPCS: 71046

== ENCOUNTER → 2024-04-20 | Outpatient (CLI) | payer MEDICARE, OTHER, SELFPAY ==
[2024-04-20 13:09] LABS: Anion Gap 10 (5-15); BUN 13 mg/dL (7-18); BUN/Creat Ratio 13.3 RATIO (10-20); Calcium,Total 9.8 mg/dL (8.5-10.1); Chloride 105 mmol/L (98-107); Creatinine, Serum 0.98 mg/dL (0.55-1.02); EST Glomerular Filtration Rate 59 mL/min (>60); Est Glom Filt Rate - Afr Amer 72 mL/min (>60); Glucose 99 mg/dL (74-106); Potassium 4.2 mmol/L (3.5-5.1); Sodium Level 138 mmol/L (136-145)
== END | disposition home or self-care (01) ==
LOC: MTLAB 10:18
PROVIDERS: PCP Family Medicine; Referring Provider Nurse Practitioner Gerontology; Visit Provider Nurse Practitioner Gerontology
DX: R07.1 Chest pain on breathing (principal)
CPT/HCPCS: 36415; 80048

== ENCOUNTER → 2024-05-24 | Outpatient (CLI) | payer MEDICARE, OTHER, SELFPAY ==
--- NOTE | 2024-05-24 10:24 | RAD_ITS ---
HISTORY: bilateral costophrenic blunting/poss. pleural eff.. TECHNIQUE: XR Chest 2 Views. COMPARISON: 04/12/2024. FINDINGS: CARDIOMEDIASTINAL BORDERS: Cardiac silhouette within normal limits in size with cardiac pacemaker again noted. Mediastinal contours also unchanged, within normal limits in size and chronic mild rightward deviation due to volume loss. LUNGS: Chronic mild scarring in the right lung base. Decreased left basilar opacity. PLEURA: No pleural effusion or pneumothorax seen. Resolution of left costophrenic angle blunting. OSSEOUS STRUCTURES: Mild degenerative change. RAD/Chest PA and Lateral IMPRESSION: No acute cardiopulmonary process identified. Electronically Signed: Grace Wild MD at 9:24 EDT ,
[2024-05-24 12:48] LABS: Anion Gap 11 (5-15); BUN 13 mg/dL (7-18); BUN/Creat Ratio 13.9 RATIO (10-20); Calcium,Total 9.3 mg/dL (8.5-10.1); Chloride 106 mmol/L (98-107); Creatinine, Serum 0.93 mg/dL (0.55-1.02); EST Glomerular Filtration Rate 62 mL/min (>60); Est Glom Filt Rate - Afr Amer 75 mL/min (>60); Glucose 92 mg/dL (74-106); Potassium 4.1 mmol/L (3.5-5.1); Sodium Level 137 mmol/L (136-145)
== END | disposition home or self-care (01) ==
LOC: MTLAB 09:59
PROVIDERS: PCP Family Medicine; Referring Provider Nurse Practitioner Gerontology; Visit Provider Nurse Practitioner Gerontology
DX: Z51.81 Encounter for therapeutic drug level monitoring (principal); Z79.899 Other long term (current) drug therapy; J90 Pleural effusion, not elsewhere classified
CPT/HCPCS: 36415; 71046; 80048

== ENCOUNTER → 2024-05-27 | Outpatient (CLI) | payer MEDICARE, OTHER, SELFPAY ==
[2024-05-27 11:47] LABS: Absolute Lymphocyte Count 1.15 X10^3/uL (0.83-4.51); Absolute Neutrophil Count 13.6 X10^3/uL (2.0-7.7); Basophil# 0.04 X10^3/uL; Basophil% 0.3 % (0-1); Eosinophil# 0.08 X10^3/uL; Eosinophils% 0.5 % (0-5); Hematocrit 34.3 % (37-47); Hemoglobin 10.3 g/dL (12.0-15.0); Lymphocyte # 1.15 X10^3/ul (0.83-4.51); Lymphocyte % 7.2 % (19-41); Mean Corpuscular Hgb 25.4 pg (27.0-32.0); Mean Corpuscular Volume 84.5 fL (81-99); Mean Platelet Vol. 9.9 fl (6.2-12.0); Monocyte# 0.94 X10^3/uL; Monocyte% 5.9 % (0-10); NRBC Flagged by Analyzer 0 % (0-5); Neutrophil # 13.58 X10^3/uL (2.7-7.7); Neutrophil % 85.4 % (47-70); Platelet Count 355 K/mm3 (150-450); RBC Distribution Width CV 15.5 % (11.6-14.6); Red Blood Count 4.06 M/mm3 (4.2-5.4); White Blood Count 15.9 K/mm3 (4.4-11.0)
== END | disposition home or self-care (01) ==
LOC: LAB 11:12
PROVIDERS: PCP Family Medicine; Visit Provider Nurse Practitioner Gerontology
DX: R53.83 Other fatigue (principal)
CPT/HCPCS: 36415; 85025

== ENCOUNTER → 2024-06-21 | Outpatient (CLI) | payer MEDICARE, OTHER, SELFPAY ==
--- NOTE | 2024-06-21 14:05 | RAD_ITS ---
STUDY: X-RAY CHEST REASON FOR EXAM: Female, 73 years old. Shortness of breath. TECHNIQUE: Frontal and lateral views of the chest. COMPARISON: May 24, 2024 FINDINGS: Stable mild hyperinflation. There is no demonstrated pleural abnormality. Cardiomegaly with dual lead cardiac pacer unchanged. Normal mediastinum and luann. Normal visualized pulmonary arteries. Aortic tortuosity. Stable osteopenia with mild diffuse thoracic spondylosis. Normal visualized ribs, clavicles, and shoulders. Stable small hiatal hernia. RAD/Chest PA and Lateral IMPRESSION: Stable chest with no acute or active cardiopulmonary disease. Electronically Signed: Ever Heredia MD at 15:47 EDT ,
[2024-06-21 15:01] LABS: Absolute Lymphocyte Count 1.03 X10^3/uL (0.83-4.51); Absolute Neutrophil Count 9.5 X10^3/uL (2.0-7.7); Basophil# 0.03 X10^3/uL; Basophil% 0.3 % (0-1); Eosinophil# 0.01 X10^3/uL; Eosinophils% 0.1 % (0-5); Hematocrit 29.9 % (37-47); Hemoglobin 9.1 g/dL (12.0-15.0); Lymphocyte # 1.03 X10^3/ul (0.83-4.51); Lymphocyte % 9.3 % (19-41); Mean Corp Hgb Conc 30.4 g/dL (32-36); Mean Corpuscular Hgb 25.6 pg (27.0-32.0); Mean Corpuscular Volume 84.2 fL (81-99); Mean Platelet Vol. 9.9 fl (6.2-12.0); Monocyte# 0.51 X10^3/uL; Monocyte% 4.6 % (0-10); NRBC Flagged by Analyzer 0 % (0-5); Neutrophil # 9.47 X10^3/uL (2.7-7.7); Neutrophil % 85.2 % (47-70); Platelet Count 295 K/mm3 (150-450); RBC Distribution Width CV 15.5 % (11.6-14.6); RBC Distribution Width SD 47.1 fl (35.1-43.9); Red Blood Count 3.55 M/mm3 (4.2-5.4); White Blood Count 11.1 K/mm3 (4.4-11.0)
[2024-06-21 15:20] LABS: Anion Gap 6 (5-15); BUN 19 mg/dL (7-18); BUN/Creat Ratio 22.6 RATIO (10-20); Calcium,Total 9.7 mg/dL (8.5-10.1); Chloride 108 mmol/L (98-107); Creatinine, Serum 0.84 mg/dL (0.55-1.02); EST Glomerular Filtration Rate 70 mL/min (>60); Est Glom Filt Rate - Afr Amer 85 mL/min (>60); Glucose 98 mg/dL (74-106); Potassium 4.4 mmol/L (3.5-5.1); Sodium Level 139 mmol/L (136-145)
[2024-06-21 15:23] LABS: BNP,B-Type NATRIURETIC PEPTIDE 95.4 pg/mL (0-100)
== END | disposition home or self-care (01) ==
PROVIDERS: PCP Family Medicine; Referring Provider Nurse Practitioner Gerontology; Visit Provider Nurse Practitioner Gerontology
DX: R06.02 Shortness of breath (principal); I50.21 Acute systolic (congestive) heart failure; R93.1 Abnormal findings on diagnostic imaging of heart and coronary circulation; Q22.1 Congenital pulmonary valve stenosis; Z87.09 Personal history of other diseases of the respiratory system; Z51.81 Encounter for therapeutic drug level monitoring; Z79.899 Other long term (current) drug therapy
CPT/HCPCS: 36415; 71046; 80048; 83880; 85025

== ENCOUNTER → 2024-07-11 | Outpatient (CLI) | payer MEDICARE, OTHER, SELFPAY ==
--- NOTE | 2024-07-11 17:10 | STRESSREP ---
Stress Test Report Pharmacologic myocardial perfusion stress test. 73-year-old lady with a history of abnormal EKG Resting EKG demonstrates sinus rhythm with ventricular pacing with a rate of 73 bpm. Resting blood pressure is 124/80 mmHg. 0.4 mg of regadenoson was infused per usual protocol followed by rapid intravenous saline flush injection. Continuous EKG monitoring was performed. The maximum heart rate was 83 bpm which was 56% of max impacted heart rate the maximum workload was 1 metabolic equivalent. At rest there were no ST or T wave changes noted to suggest ischemia and at peak infusion nonspecific ST changes were noted which did not meet the criteria for ischemia. No clinical angina is noted. The final blood pressure was 120/72 mmHg. Myocardial perfusion protocol. 11.8 mCi of technetium 99m sestamibi was injected at rest. 0.4 mg of regadenoson was infused per usual protocol. At peak infusion 34.7 mCi of technetium 99m sestamibi was injected stress images were obtained stress and rest images were reconstructed and compared in the short axis vertical long and horizontal long axis. Gated images were also obtained. Perfusion SPECT analysis: Review of the stress images demonstrate normal uptake of tracer noted in all areas of the myocardium. A small portion of the apex has a defect. The resting images similar demonstrated normal uptake of tracer noted in all areas of the myocardium. A persistent defect is noted at the apex suggestive of an apical infarct or pacemaker activity. Gated SPECT analysis: The gated ejection fraction is 56%. Conclusion: Normal pharmacologic myocardial perfusion stress test. Preserved ejection fraction. Apical infarct cannot be excluded
== END | disposition home or self-care (01) ==
LOC: CVS 06:34
PROVIDERS: PCP Family Medicine; Referring Provider Nurse Practitioner Gerontology; Visit Provider Nurse Practitioner Gerontology
DX: R94.31 Abnormal electrocardiogram [ECG] [EKG] (principal); R93.1 Abnormal findings on diagnostic imaging of heart and coronary circulation; R79.89 Other specified abnormal findings of blood chemistry
CPT/HCPCS: 78452; 93017; A9500; A4216; J2785

== ENCOUNTER → 2024-08-30 | Outpatient (CLI) | payer MEDICARE, OTHER, SELFPAY ==
[2024-08-30 12:26] LABS: Absolute Neutrophil Count 10.3 X10^3/uL (2.0-7.7); Basophil# 0.03 X10^3/uL; Basophil% 0.2 % (0-1); Eosinophil# 0.04 X10^3/uL; Eosinophils% 0.3 % (0-5); Hematocrit 32.4 % (37-47); Hemoglobin 10.1 g/dL (12.0-15.0); Lymphocyte % 9.9 % (19-41); Mean Corp Hgb Conc 31.2 g/dL (32-36); Mean Corpuscular Hgb 25.8 pg (27.0-32.0); Mean Corpuscular Volume 82.7 fL (81-99); Mean Platelet Vol. 10.1 fl (6.2-12.0); Monocyte# 0.46 X10^3/uL; Monocyte% 3.8 % (0-10); NRBC Flagged by Analyzer 0 % (0-5); Neutrophil # 10.32 X10^3/uL (2.7-7.7); Neutrophil % 85.3 % (47-70); Platelet Count 294 K/mm3 (150-450); RBC Distribution Width CV 16.1 % (11.6-14.6); RBC Distribution Width SD 48.8 fl (35.1-43.9); Red Blood Count 3.92 M/mm3 (4.2-5.4); White Blood Count 12.1 K/mm3 (4.4-11.0)
[2024-08-30 13:13] LABS: Anion Gap 7 (5-15); BUN 19 mg/dL (7-18); BUN/Creat Ratio 19.5 RATIO (10-20); Chloride 105 mmol/L (98-107); Creatinine, Serum 0.97 mg/dL (0.55-1.02); EST Glomerular Filtration Rate 59 mL/min (>60); Est Glom Filt Rate - Afr Amer 72 mL/min (>60); Glucose 91 mg/dL (74-106); Potassium 4.2 mmol/L (3.5-5.1); Sodium Level 136 mmol/L (136-145)
== END | disposition home or self-care (01) ==
LOC: LAB 11:23
PROVIDERS: PCP Family Medicine; Referring Provider Nurse Practitioner Gerontology; Visit Provider Nurse Practitioner Gerontology
DX: R53.83 Other fatigue (principal)
CPT/HCPCS: 36415; 80048; 84443; 85025

== ENCOUNTER → 2024-10-10 | Outpatient (CLI) | payer MEDICARE, OTHER, SELFPAY | END | disposition home or self-care (01) | PROVIDERS: PCP Family Medicine; Referring Provider Internal Medicine Gastroenterology; Visit Provider Internal Medicine Gastroenterology | DX: K52.9 Noninfective gastroenteritis and colitis, unspecified (principal); M06.9 Rheumatoid arthritis, unspecified; Z79.899 Other long term (current) drug therapy | CPT/HCPCS: 36415 ==

== ENCOUNTER → 2024-10-21 | Outpatient (CLI) | payer MEDICARE, OTHER, SELFPAY ==
[2024-10-21 12:20] LABS: Absolute Lymphocyte Count 2.76 X10^3/uL (0.83-4.51); Absolute Neutrophil Count 7.6 X10^3/uL (2.0-7.7); Basophil# 0.04 X10^3/uL; Basophil% 0.4 % (0-1); Eosinophils% 1.8 % (0-5); Hematocrit 32.8 % (37-47); Lymphocyte # 2.76 X10^3/ul (0.83-4.51); Lymphocyte % 24.2 % (19-41); Mean Corp Hgb Conc 30.5 g/dL (32-36); Mean Corpuscular Hgb 25.6 pg (27.0-32.0); Mean Corpuscular Volume 83.9 fL (81-99); Mean Platelet Vol. 9.8 fl (6.2-12.0); Monocyte# 0.78 X10^3/uL; Monocyte% 6.8 % (0-10); NRBC Flagged by Analyzer 0 % (0-5); Neutrophil # 7.56 X10^3/uL (2.7-7.7); Neutrophil % 66.3 % (47-70); Platelet Count 311 K/mm3 (150-450); RBC Distribution Width CV 16.8 % (11.6-14.6); RBC Distribution Width SD 50.9 fl (35.1-43.9); Red Blood Count 3.91 M/mm3 (4.2-5.4); White Blood Count 11.4 K/mm3 (4.4-11.0)
== END | disposition home or self-care (01) ==
LOC: MTLAB 09:56
PROVIDERS: PCP Family Medicine; Referring Provider Nurse Practitioner Family; Visit Provider Nurse Practitioner Family
DX: D72.829 Elevated white blood cell count, unspecified (principal)
CPT/HCPCS: 36415; 85025

== ENCOUNTER → 2024-12-20 | Outpatient (CLI) | payer MEDICARE, OTHER, SELFPAY ==
--- NOTE | 2024-12-20 15:32 | BI_ITS ---
PROCEDURE: SCRN MAMM (CAD)W/SOL BILAT REASON FOR EXAM: F, Age 73 y/o, no family history. Routine annual mammogram. TECHNIQUE: Bilateral screening digital breast tomosynthesis with 2D and 3D images. Computer aided detection. COMPARISON: Prior exam(s) dating back to December 16, 2022.. FINDINGS: The breasts are heterogeneously dense which may obscure small masses. A battery pack of a pacemaker is seen in the left axilla. No suspicious masses, areas of developing architectural distortion, or suspicious calcifications. BI/SCRN MAMM (CAD)W/SOL BILAT IMPRESSION: BI-RADS 2: BENIGN. RECOMMEND ANNUAL MAMMOGRAPHIC SCREENING. Follow-up code: Routine Follow-up The patient will be notified of the results by letter. Reading Location: [place] [id number]
== END | disposition home or self-care (01) ==
LOC: OPBI 15:32
PROVIDERS: PCP Family Medicine; Referring Provider Family Medicine; Visit Provider Family Medicine
DX: Z12.31 Encounter for screening mammogram for malignant neoplasm of breast (principal); Z95.0 Presence of cardiac pacemaker
CPT/HCPCS: 77063; 77067

== ENCOUNTER → 2025-01-16 | Outpatient (CLI) | payer MEDICARE, OTHER, SELFPAY ==
--- NOTE | 2025-01-16 15:55 | RAD_ITS ---
PROCEDURE: CERV SPINE 4 OR 5 VIEWS 01/16/2025 REASON FOR EXAM: NERVE PAIN TECHNIQUE: 6 views of the cervical spine. FINDINGS: 3 mm anterolisthesis of C4-5 with multilevel facet arthropathy. This is more so on the left. Suspect significant nerve root impingement. Demineralization of the bones. No acute cervical spine fracture RAD/Cerv Spine 4 or 5 Views IMPRESSION: Multilevel degenerative disc disease with degenerative anterolisthesis C4-5. G iven the degree of degenerative facet arthropathy, MRI may be of diagnostic benefit to better evaluate for nerve root impingement Reading Location: [id number]
== END | disposition home or self-care (01) ==
LOC: RAD 15:49
PROVIDERS: PCP Family Medicine; Referring Provider Anesthesiology; Visit Provider Anesthesiology
DX: M54.2 Cervicalgia (principal)
CPT/HCPCS: 72050

== ENCOUNTER → 2025-01-25 | Outpatient (CLI) | payer MEDICARE, OTHER, SELFPAY ==
--- NOTE | 2025-01-25 12:09 | RAD_ITS ---
EXAM: Lumbar myelogram. CLINICAL HISTORY: Pain. COMPARISON: None. TECHNIQUE: See below. FINDINGS: See combined report under today's accession number hook the [id number]. RAD/Lumbar Myelogram IMPRESSION: As above. Reading Location: [place] [address]
[2025-01-25 12:31] VITALS: BP 147/70; PULSE 77; RESP 16; TEMP 36.2; O2SAT 100; BMI 31.8
[2025-01-25 12:33] LABS: Prothrombin Time (Protime)PT. 13.7 SECONDS (11.7-14.9)
[2025-01-25 12:34] LABS: Partial Thromboplast Time 37.4 Seconds (24.1-36.2)
[2025-01-25] MEDS: Lidocaine 2% (5ml sdv) 5 ML VIAL.MPF INFILT (13:02)
--- NOTE | 2025-01-25 13:24 | CT_ITS ---
PROCEDURE: SPINE LUMBAR WITH CONTRAST. Postmyelogram CT scan of the lumbar spine. REASON FOR EXAM: PAIN. . TECHNIQUE: Lumbar spine CT with contrast. CONTRAST: Omnipaque 200 VOLUME: 15mL intrathecal. One or more dose reduction techniques were used (e.g., Automated exposure control, adjustment of the mA and/or kV according to patient size, use of iterative reconstruction technique). RADIATION DOSE SUMMARY: DLP: 1118.2 mGycm COMPARISON: None. FINDINGS: Informed consent was obtained. Patient was placed prone on the examination table in the thecal sac punctured singly and posterocentrally through the large left laminotomy defect at the L5 level. Several droplets of clear CSF were alluded and subsequently, under direct fluoroscopic visualization, 15 cc of Omnipaque 200 were introduced in the needle removed. AP and lateral views were obtained along with flexion and extension views in lateral projection. Patient was subsequently sent to the CT scanner for more definitive evaluation. There is no evidence of recent compression fracture. There is severe degenerative narrowing anteriorly along with degenerative endplate sclerosis and irregularity due to remove discovertebral trauma at the T11-T12 level resulting in a mild anterior superior wedge compression deformity at the T12 level and severe disc narrowing and desiccation. No suspicious osteolytic or osteoblastic lesion is identified. T9-T10: Mild generalized posterior disc bulge partially indents the anterior thecal sac. T10-T11: Moderate generalized posterior disc bulge, slightly more pronounced posterior centrally or small dystrophic calcification is seen along with degenerative endplate irregularity. T11-T12: Unremarkable. T12-L1: Mild asymmetric left-sided posterior disc protrusion partially indents the thecal sac. Degenerative endplate irregularity, possibly iatrogenic. Mild mainly left-sided posterior disc bulging slightly indents the anterior thecal sac and markedly narrows the left foraminal outlet. L1-L2: No significant posterior disc protrusion or bulge. Facets unremarkable. Spinal canal and neural foramina widely patent. L2-L3: Mild concentric disc bulge. Mild stenosis of the spinal canal and [id number] narrowing of both neural foramina. Marginal effacement the anterior thecal sac and involvement of both subarticular recesses. L3-L4: Severe disc desiccation and narrowing with moderate anterior disc bulging and ridging. Extensive superior and inferior endplate degenerative irregularity with sclerosis. No significant posterior disc protrusion or bulge and facets unremarkable. Spinal canal widely patent. Neural foramina are mildly narrowed due to decrease in height. L4-L5: Spinal canal and neural foramina are widely patent. Facets unremarkable. L5-S1: Minor degenerative sclerotic changes of facets. Disc space height maintained. Minimal posterior disc bulge remains contained within the anterior thecal sac. Spinal canal and neural foramina are widely patent. Incidental note is made of the presence of bilateral nephrocalcinosis. CT/Spine Lumbar WITH Contrast IMPRESSION: Old left L5 laminotomy. Multi level degenerative changes as described level by level above. No evidenc e of critical spinal stenosis. Reading Location: [place] [id number]
[2025-01-25 13:40] VITALS: BP 100/77; PULSE 79; RESP 16; O2SAT 100
[2025-01-25 14:01] VITALS: BP 119/53; PULSE 79; RESP 16; O2SAT 99
== END | disposition home or self-care (01) ==
PROVIDERS: PCP Family Medicine; Referring Provider Radiology Diagnostic Radiology; Visit Provider Student in an Organized Health Care Education/Training Program
DX: Z01.818 Encounter for other preprocedural examination (principal); M48.062 Spinal stenosis, lumbar region with neurogenic claudication; M51.369 Other intervertebral disc degeneration, lumbar region without mention of lumbar back pain or lower extremity pain; R06.02 Shortness of breath; Z95.0 Presence of cardiac pacemaker
CPT/HCPCS: 36415; 62304; 72132; 85610; 85730; Q9967

== ENCOUNTER 2025-01-26 07:58 | Emergency (ER) | payer MEDICARE, OTHER, SELFPAY ==
[2025-01-26] VITALS (21 sets, daily range): BP systolic 108–158; BP diastolic 54–73; PULSE 63–121; RESP 12–37; TEMP 37.3–39.4; O2SAT 88–100; BMI 33.7
--- NOTE | 2025-01-26 08:11 | EKG12_ITS ---
Test Reason : Blood Pressure : */* mmHG Vent. Rate : 96 BPM Atrial Rate : 96 BPM P-R Int : * ms QRS Dur : 172 ms QT Int : 412 ms P-R-T Axes : * -85 84 degrees QTcB Int : 520 ms Ventricular-paced rhythm in a pattern of bigeminy Abnormal ECG Confirmed by CASSIE AGARWAL, FABRICIO ([id number]), food editor DANAY BONILLA ([id number]) on 01/27/2025 8:44:53 AM Referred By: JESSICA Confirmed By: FABRICIO MATTHEWS MD
[2025-01-26] MEDS: 0.9% Normal Saline (1000mL) 1,000 ML 999 ML IV (08:22)
[2025-01-26] MEDS: Acetaminophen 650 MG Suppository RC (08:23)
[2025-01-26] MEDS: Ipratropium/Albuterol Sulfate 3 ML AMPUL.NEB 9 ML INHALATION (08:24)
[2025-01-26 08:34] LABS: Base Excess 0 mmol/L (-2 to +2); Bicarbonate 22.4 mmol/L (22-26); Blood Gas Specimen Type ART; Mode Not entered; O2 Delivery Device Cannula; PO2 66 mmHG (75-100); SITE L Brach; SO2 95 % (95-99); Total Carbon Dioxide 23 mmol/L; pCO2 27.3 mmHg (35-45); pH 7.52 (7.35-7.45)
[2025-01-26 08:35] LABS: Absolute Neutrophil Count 31.3 X10^3/uL (2.0-7.7); Basophil# 0.09 X10^3/uL; Basophil% 0.3 % (0-1); Eosinophil# 0.11 X10^3/uL; Eosinophils% 0.3 % (0-5); Hematocrit 33.1 % (37-47); Hemoglobin 10.8 g/dL (12.0-15.0); Lymphocyte % 3.5 % (19-41); Mean Corp Hgb Conc 32.6 g/dL (32-36); Mean Corpuscular Hgb 27.2 pg (27.0-32.0); Mean Corpuscular Volume 83.4 fL (81-99); Mean Platelet Vol. 9.7 fl (6.2-12.0); Monocyte% 4.1 % (0-10); NRBC Flagged by Analyzer 0 % (0-5); Neutrophil # 31.32 X10^3/uL (2.7-7.7); POSITIVE COUNT YES; POSITIVE DIFFERENTIAL YES; Platelet Count 502 K/mm3 (150-450); RBC Distribution Width CV 15.4 % (11.6-14.6); RBC Distribution Width SD 47.1 fl (35.1-43.9); Red Blood Count 3.97 M/mm3 (4.2-5.4)
[2025-01-26 08:38] LABS: Bacteria 0 SEEN /hpf (None Seen); Mucous, Urine 0 SEEN /hpf (<or=2+); Squamous Epithelial Cells - UA 0 SEEN /hpf (5-10); White Blood Cells 0 SEEN /hpf (0-5)
[2025-01-26 08:42] LABS: Color, Urine Yellow (Yellow); Glucose, Dipstick Normal (Normal); Ketone-Dipstick 15 mg/dl (Negative); Leukocyte Esterase-Dipstick Negative /ul (Negative); Nitrite-Dipstick Negative (Negative); Occult Blood-Urine 25 /ul (Negative); Protein-Dipstick 30 mg/dl (Negative); Specific Gravity, Urine 1.015 (1.002-1.030); Urine Bilirubin Dipstick Negative (Negative); Urine Clarity Clear (Clear); Urine Urobilinogen Normal (Normal)
[2025-01-26] MEDS: Ceftriaxone 2 GM in 0.9% Normal Saline (50mL MB+) 50 ML IV (08:45)
[2025-01-26 08:50] LABS: International Normalized Ratio 1.1; Partial Thromboplast Time 32.5 Seconds (24.1-36.2); Prothrombin Time (Protime)PT. 13.9 SECONDS (11.7-14.9)
[2025-01-26 08:50] LABS: Red Blood Cells-Urine 0-5 SEEN /hpf (0-5)
[2025-01-26 09:00] LABS: White Blood Count 34.4 K/mm3 (4.4-11.0)
[2025-01-26 09:01] LABS: Differential Indicated SCAN CRITERIA MET
[2025-01-26] MEDS: Azithromycin 500 MG in 0.9% Normal Saline (250mL Bag) 250 ML 255 MG IV (09:03)
[2025-01-26 09:06] LABS: Pro- Brain NATRIURETIC PEPTIDE 1916 pg/mL (<=1800)
[2025-01-26 09:08] LABS: Lactic Acid 2.1 mmol/L (0.0-2.0)
[2025-01-26] MEDS: Etomidate 20 MG/10 ML Vial IV (09:08)
[2025-01-26] MEDS: Propofol 10MG/Ml 1,000 MG/100 ML Bottle 5.2 MG CONT INF (09:08)
[2025-01-26] MEDS: Rocuronium Bromide 50 MG/5 ML Vial 80 MG IV (09:08)
[2025-01-26 09:12] LABS: ALB/GLOB Ratio 1.2 RATIO (0.9-2.4); AST(SGOT) 37 U/L (<=31); Alanine Aminotransfer ALT/SGPT 22 U/L (<=34); Albumin, Serum 3.9 g/dL (3.4-4.8); Alkaline Phosphatase 116 U/L (35-104); Anion Gap 17 (5-15); BUN 15 mg/dL (4-19); BUN/Creat Ratio 18.5 RATIO (10-20); Calcium,Total 9.4 mg/dL (7.6-11.0); Carbon Dioxide 17.4 mmol/L (21.0-32.0); Chloride 101 mmol/L (98-108); Creatinine, Serum 0.81 mg/dL (0.70-1.20); EST Glomerular Filtration Rate 76 (>60); Globulin 3.2 g/dL (2.2-4.2); Glucose 156 mg/dL (70-99); Potassium 3.9 mmol/L (3.3-5.1); Protein, Total 7.1 g/dL (5.9-8.4); Sodium Level 135 mmol/L (133-145); Total Bilirubin 0.69 mg/dL (0.00-1.30)
--- NOTE | 2025-01-26 09:15 | RAD_ITS ---
EXAM: XR Abdomen, 1 View CLINICAL INDICATION: OG INSERTION TECHNIQUE: Frontal supine view of the abdomen/pelvis. COMPARISON: No relevant prior studies available. FINDINGS: GASTROINTESTINAL TRACT: Unremarkable. No dilation. BONES/JOINTS: Unremarkable. No acute fracture. TUBES, LINES AND DEVICES: Enteric tube courses into the stomach but remains in high position. Advancement is recommended. RAD/Abdomen Single View (Portable) IMPRESSION: Enteric tube courses into the stomach but remains in high position. Advancemen t is recommended. Reading Location: [facility]
--- NOTE | 2025-01-26 09:15 | RAD_ITS ---
EXAM: XR Abdomen, 1 View CLINICAL INDICATION: NG PLACEMENT TECHNIQUE: Frontal supine view of the abdomen/pelvis. COMPARISON: XR Abdomen dated 01/26/2025 FINDINGS: GASTROINTESTINAL TRACT: Unremarkable. No dilation. BONES/JOINTS: Unremarkable. No acute fracture. TUBES, LINES AND DEVICES: The enteric tube has been retracted. Advancement is recommended. RAD/Abdomen Single View IMPRESSION: The enteric tube has been retracted. Advancement is recommended. Reading Location: [facility]
--- NOTE | 2025-01-26 09:15 | RAD_ITS ---
EXAM: XR Chest, 1 View CLINICAL INDICATION: INTUBATION TECHNIQUE: Frontal view of the chest. COMPARISON: No relevant prior studies available. FINDINGS: LUNGS AND PLEURAL SPACES: Pulmonary congestion and edema. Pneumonia cannot be excluded. No pneumothorax. HEART: Unremarkable. No cardiomegaly. MEDIASTINUM: Unremarkable. Normal mediastinal contour. BONES/JOINTS: Unremarkable. No acute fracture. TUBES, LINES AND DEVICES: The endotracheal tube (ETT) is in satisfactory position. Left-sided cardiac pacemaker. RAD/Chest 1 View (Portable) IMPRESSION: Pulmonary congestion and edema. Pneumonia cannot be excluded. Reading Location: [facility]
--- NOTE | 2025-01-26 09:26 | EX.ED.CRITCA ---
HPI History of Present Illness Chief Complaint: Alt LOC Narrative Narrative: Chief complaint and HPI: Altered mental status. 74-year-old female with past medical history of cardiac pacemaker, RA on immunosuppression therapy, CAD, HTN, pulmonary HTN presents for evaluation of altered mental status and hypoxia. History unable to be obtained by patient. History obtained via EMS as well as . Per report, patient had a CT lumbar myelogram yesterday. He states today he found her altered and mumbling. He called EMS. On EMS arrival, patient was 83% on room air. On presentation, patient is minimally responsive. She will open eyes to command, not follow commands with extremities but withdrawals from pain, and not speaking. She has increased work of breathing and febrile. Review of systems: See HPI Medications: As listed on the chart Allergies: As listed on the chart PFSH: Per chart Vital signs: As listed on the chart. Reviewed. Physical exam: Gen Somnolent Head: Normocephalic, atraumatic Eyes: Eyes closed but opens to command, no sclera icterus, conjunctiva clear, PERRL ENT: Dry mucous membranes Neck: Trachea midline, No JVD CV: Tachycardic, regular rhythm, no murmurs, no peripheral edema Resp: Lungs coarse bilaterally diminished, scattered wheezing, tachypneic, on 6 L nasal cannula, not speaking GI: Abd soft, non-distended, does not appear tender Musc: Will move all extremities but not follow commands-withdrawals from pain, no deformity, back does not appear tender, myelogram insertion site without signs of infection or bruising Skin: Warm, dry Neuro: Somnolent, moving all extremities but not following commands PFSH PFSH Medical History Presence of cardiac pacemaker Left bundle branch block (LBBB) Rate-dependent bundle branch block History of immunosuppressive therapy Essential (primary) hypertension History of non-ST elevation myocardial infarction (NSTEMI) (01/15/17) Atrophic vaginitis Microscopic colitis DARIO (obstructive sleep apnea) Inflamed seborrheic keratosis Seborrheic keratosis Nevus Immunocompromised GERD (gastroesophageal reflux disease) Abnormal chest CT Pulmonary HTN Osteopenia Sleep-related breathing disorder Depression Migraine headache Community acquired pneumonia Abnormal LFTs Hypophosphatemia Hypomagnesemia Hypokalemia Normochromic normocytic anemia Osteoporosis Anxiety and depression RLS (restless legs syndrome) Acute systolic (congestive) heart failure (12/2016) Acute respiratory failure with hypoxemia Legionella pneumonia Respiratory insufficiency Rheumatoid arthritis Home Medications ?Medication ?Instructions ?Recorded ?Last Taken ?Type multivitamin with folic acid 400 1 tab PO DAILY vitamin 06/13/15 04/07/24 History mcg tablet sumatriptan succinate 100 mg tablet 100 - 200 mg PO DAILY PRN PRN 06/13/15 01/06/17 09:00 History Migraine Symptoms omega-3 acid ethyl esters 1 gram 1 g PO QDAY supplement 11/12/17 04/07/24 History capsule (Lovaza) cyanocobalamin (vitamin B-12) 1,000 mcg PO DAILY SUPPLEMENT 03/12/18 04/07/24 History 1,000 mcg tablet Lactobacillus 1 cap PO DAILY digestion 08/19/22 04/07/24 History acidophilus-Bifidobac.animalis 10 billion cell capsule (Digestive Probiotic) zszbwszyej-uarxgmmzvcagb-ovwnrxgj 1 tab PO DAILY PRN PRN Headache 08/19/22 Unknown History 50 mg-325 mg-40 mg tablet calcium 600 mg (as 2 tab PO DAILY supplement 08/19/22 04/07/24 History carbonate)-vitamin D3 20 mcg (800 unit) tablet omeprazole 20 mg capsule,delayed 20 mg PO DAILY gerd 08/19/22 04/06/24 History release hydroxychloroquine 200 mg tablet 300 mg PO DAILY RA 03/23/24 04/07/24 History infliximab 100 mg intravenous 100 mg .Route RA and colitis 03/23/24 Unknown History solution (Remicade) escitalopram oxalate 10 mg tablet 10 mg PO DAILY 05/25/24 Unknown History zoledronic acid 5 mg/100 mL in 1 ea .Route .yearly 05/25/24 Unknown History mannitol 5 %-water intravenous piggybck (Reclast) biotin 5,000 mcg sublingual tablet 5,000 mcg sublingual DAILY 05/27/24 Unknown History cholestyramine-aspartame 4 gram 1 ea PO DAILY 05/27/24 Unknown History oral powder for susp in a packet (Prevalite) ropinirole 1 mg tablet 3 mg PO BID restless legs 08/30/24 Unknown History benzonatate 200 mg capsule 200 mg PO TID PRN cough #20 caps 09/26/24 Unknown Rx cyclobenzaprine 5 mg tablet 5 mg PO TID PRN muscle spasm #30 12/22/24 Unknown Rx Held on 01/25/25. tabs Instructions: Ordered gabapentin 100 mg capsule 100 mg PO BID 01/25/25 Unknown History Allergy/AdvReac Type Severity Reaction Status Date / Time Sulfa (Sulfonamide Allergy Intermediate Rash Verified 01/25/25 12:26 Antibiotics) sulfasalazine Allergy Rash Verified 01/25/25 12:26 Family History Father CVA (cerebral vascular accident) Diabetes Surgical History H/O cataract removal with insertion of prosthetic lens History of left heart catheterization (01/19/17) History of lumbar surgery (11/2019) Total knee replacement status History of cholecystectomy Hx of appendectomy History of bilateral carpal tunnel release Social History Smoking Status: Never smoker second hand exposure: No alcohol intake: current alcohol intake frequency: holidays/special occasions only substance use type: does not use what type of physical activity do you participate in: bicycling frequency: 3-4 times per week EXAM Physical Exam Const Vital Signs: 01/26/25 07:59 01/26/25 08:08 01/26/25 08:11 Temperature 100.5 F H 100.5 F H Temperature Source Axillary Axillary Pulse Rate 95 96 Respiratory Rate 35 H 27 H Respiratory Effort Respiratory Pattern Blood Pressure 138/67 H 138/67 H Blood Pressure Mean 90 90 Pulse Ox 92 92 Oxygen Delivery Method Nasal Cannula Nasal Cannula Nasal Cannula Oxygen Flow Rate (L/min) 6 6 Fraction of Inspired Oxygen (FIO2) 01/26/25 08:11 01/26/25 08:31 01/26/25 08:31 Temperature 102.1 F H Temperature Source Core Pulse Rate 108 H 113 H Respiratory Rate 18 27 H Respiratory Effort Respiratory Pattern Normal Blood Pressure Blood Pressure Mean Pulse Ox 96 Oxygen Delivery Method Oxygen Flow Rate (L/min) Fraction of Inspired Oxygen (FIO2) 01/26/25 08:45 01/26/25 08:52 01/26/25 09:00 Temperature Temperature Source Pulse Rate 114 H 63 Respiratory Rate 37 H 14 Respiratory Effort Normal Non-Labored Respiratory Pattern Tachypnea Blood Pressure 141/73 H 127/54 H Blood Pressure Mean 90 78 Pulse Ox 100 Oxygen Delivery Method Mechanical Ventilator Oxygen Flow Rate (L/min) Fraction of Inspired Oxygen (FIO2) 01/26/25 09:00 01/26/25 09:00 01/26/25 09:08 Temperature 100.4 F H Temperature Source Core Pulse Rate 112 H 121 H Respiratory Rate 12 18 Respiratory Effort Respiratory Pattern Blood Pressure 127/54 H 127/54 H Blood Pressure Mean 74 78 Pulse Ox 99 100 Oxygen Delivery Method Mechanical Ventilator Oxygen Flow Rate (L/min) Fraction of Inspired Oxygen (FIO2) 55 01/26/25 09:11 01/26/25 09:13 01/26/25 09:15 Temperature 102.9 F H Temperature Source Core Pulse Rate 116 H 105 H Respiratory Rate 14 25 H Respiratory Effort Respiratory Pattern Normal Blood Pressure 154/72 H Blood Pressure Mean 97 Pulse Ox 98 98 Oxygen Delivery Method Oxygen Flow Rate (L/min) Fraction of Inspired Oxygen (FIO2) 60 01/26/25 09:30 01/26/25 09:53 01/26/25 09:54 Temperature Temperature Source Pulse Rate 104 H 97 118 H Respiratory Rate 15 19 H Respiratory Effort Respiratory Pattern Blood Pressure 158/72 H Blood Pressure Mean 97 Pulse Ox 96 97 97 Oxygen Delivery Method Oxygen Flow Rate (L/min) Fraction of Inspired Oxygen (FIO2) 01/26/25 10:00 01/26/25 10:00 01/26/25 10:08 Temperature 102.4 F H 100.2 F H Temperature Source Core Core Pulse Rate 108 H 106 H Respiratory Rate 15 18 Respiratory Effort Respiratory Pattern Blood Pressure 157/68 H 154/73 H Blood Pressure Mean 93 100 Pulse Ox 97 100 Oxygen Delivery Method Mechanical Ventilator Oxygen Flow Rate (L/min) Fraction of Inspired Oxygen (FIO2) 01/26/25 10:15 01/26/25 11:30 01/26/25 11:30 Temperature 101.8 F H Temperature Source Core Pulse Rate 113 H 114 H Respiratory Rate 14 20 H Respiratory Effort Respiratory Pattern Blood Pressure 154/73 H 128/71 H Blood Pressure Mean 95 90 Pulse Ox 96 100 Oxygen Delivery Method Mechanical Ventilator Oxygen Flow Rate (L/min) Fraction of Inspired Oxygen (FIO2) 01/26/25 12:00 01/26/25 12:00 01/26/25 13:00 Temperature 101.3 F H Temperature Source Core Pulse Rate 108 H 103 H Respiratory Rate 21 H 18 Respiratory Effort Respiratory Pattern Blood Pressure 127/71 H 108/64 Blood Pressure Mean 89 78 Pulse Ox 100 99 Oxygen Delivery Method Mechanical Ventilator Mechanical Ventilator Oxygen Flow Rate (L/min) Fraction of Inspired Oxygen (FIO2) 01/26/25 13:00 01/26/25 13:35 01/26/25 14:07 Temperature 99.5 F H Temperature Source Core Pulse Rate 107 H 100 Respiratory Rate 15 14 Respiratory Effort Respiratory Pattern Normal Blood Pressure 114/61 Blood Pressure Mean 78 Pulse Ox 95 96 Oxygen Delivery Method Mechanical Ventilator Oxygen Flow Rate (L/min) Fraction of Inspired Oxygen (FIO2) 40 01/26/25 14:07 01/26/25 14:07 Temperature 99.2 F H 99.2 F H Temperature Source Core Pulse Rate 100 Respiratory Rate 14 Respiratory Effort Respiratory Pattern Blood Pressure 114/61 Blood Pressure Mean 78 Pulse Ox 96 Oxygen Delivery Method Oxygen Flow Rate (L/min) Fraction of Inspired Oxygen (FIO2) MDM MDM MDM Narrative Medical decision making narrative: 74-year-old female with past medical history of cardiac pacemaker, RA on immunosuppression therapy, CAD, HTN, pulmonary HTN presents for evaluation of altered mental status and hypoxia. On presentation, patient is somnolent, tachypneic, febrile. Her GCS 8. Differential diagnosis includes but not limited to pneumonia, COVID, influenza, ACS, PE, bacteremia, UTI, JONATHAN, electrolyte abnormality. Sepsis alert initiated. Patient given Rocephin and azithromycin for suspected pneumonia. Breathing treatments ordered. Patient is full code. Will hold off on intubation to see if mental status or respiratory status improves with breathing treatments. 30 cc/kg bolus not ordered as concern is for respiratory airway and patient has history of CHF. NS bolus ordered. After breathing treatments, patient's GCS improved to 10 she will open her eyes to command, still not speaking, intermittently following with hand squeezing and wiggling of the toes. This is not consistent. She is still tachypneic with a respiratory rate in the high 30s/40s. Lungs are still coarse. With her mental status, I do not feel that BiPAP will be beneficial as I do not believe patient is alert enough to remove the mask if she were to vomit. Her VBG shows a pH of 7.52, pCO2 27.3, pO2 of 65.5. After discussion with the family, the plan is for intubation. Patient was intubated with etomidate and rocuronium. She tolerated this well. She was placed on a propofol drip. Chest x-ray was personally reviewed by me, ED physician. Patient has pulmonary congestion versus infiltrate on the right. ET tube in correct placement. Will order CTA chest to better assess for lung pathology as well as PE with her hypoxia and recent procedure. KUB was personally reviewed and interpreted by me, ED physician. OG tube is in superior placement. We have attempted to replace it multiple times. Tube having difficulty advancing as well as intermittently coiling. We are obtaining gastric contents. You can hear air in the stomach when it is flushed. CBC with a leukocytosis of 34.4. Hemoglobin 10.8 which is baseline anemia. Patient has thrombocytosis of 502. Coagulation panel unremarkable. BMP without JONATHAN. Patient does have a mildly metabolic anion gap. Lactic acid 2.1. AST mildly elevated at 37. Patient is troponin is 215. Her BNP is 1916. Will interrogate her pacemaker. UA is negative for UTI. Ill-defined hypoattenuating foci in the periventricular white matter, more prominent in the posterior occipital regions. This may represent asymmetric wall vessel ischemic changes. Acute infarction cannot be entirely excluded. Recommendation is for MRI. CTA chest negative for PE. Patient has long emphysema with scattered areas of partial consolidation and groundglass attenuation, predominantly in the right may suggest atelectasis and/or multifocal pneumonia. Suggestion of pulmonary hypertension. Given concern for acute infarction patient will need CTA head and neck. Neurology stroke consulted. Will give another NS bolus. Interrogation was performed on the pacemaker, we were called by [facility]. Patient is in the atrial tachycardia at 400 ms. Cardiology consulted, I spoke with Dr. Mendez. No further recommendations by cardiology - patient's atrial tachycardia as well as troponins is in response to her infection. Repeat troponin 395. I spoke with the neurologist at [facility]. He looked at the imaging. He does not feel that this is an acute infarct. Concern that this is secondary to myelogram versus meningitis. Recommended antibiotics to treat meningitis at this time and then LP. Cefepime, ampicillin, vancomycin, acyclovir ordered for meningitis, broad coverage given patient is immunocompromised. Given patient's clinical condition at this time, LP will be deferred. Neurology was made aware of this and confirmed understanding. They state that the LP just needs to be performed in 24 hours. Patient still febrile. Ibuprofen down the OG. Patient will warrant admission however given her critical condition, suspect that hospitalist may want to transfer. I spoke with Dr. Wood he recommends transfer to a higher level of care. I spoke with the family members originally they wanted to go to [facility] but after speaking to the neurologist on [facility] telehealth they have decided that they would like to go to [facility]. Transfer will be arranged. Patient accepted to [facility]. Given patient's critical condition and necessity for quick transport, [facility] will transfer the patient. Prior to transfer, I spoke with the radiologist for this CT head and neck. No acute vascular abnormality. Ventriculomegaly with increased attenuation of the CSF of the posterior horns which may be accounted for by recent myelogram. Meningitis or prior intraventricular hemorrhage are differential considerations. Note is made of near complete opacification of the right paraspinal sinus with some high density contents, likely due to severe chronic sinusitis. Endotracheal Intubation Indication: Respiratory Distress Consent: Risks, benefits, and alternatives discussed with patient and consent obtained by . Patient is full code. Procedure: A timeout was performed verifying correct patient, procedure, site, and positioning.The patient was on a environmental monitoring specialist including continuous pulse oximetry. Rapid Sequence Intubation was conducted. The patient received 20 mg of Etomidate for induction and 80 mg of Rocuronium for adequate paralysis. Cricoid pressure was maintained from the time the induction agent was given to the time of cuff balloon inflation. Using a laryngoscope and a size 7.5 endotracheal tube with stylet, the patient was intubated on the first attempt. The stylet was removed, and the cuff balloon was inflated. Appropriate endotracheal tube position was confirmed by direct visualization of vocal cord passage, fogging of the tube, CO2 colorimetric indicator and symmetric breath sounds. The tube was secured at 22 cm at the lips. EKG: Interpreted by me/EM physician: EKG shows ventricular paced rhythm. Heart rate 96. 120 minutes of critical care time utilized in managing the patient. This is due to high probability of and deterioration of the patient based on the patient's condition and excludes any separately billable procedures. Impression: 1. Acute hypoxic respiratory failure on mechanical ventilation 2. Encephalopathy, multifactorial 3. Multifocal pneumonia 4. Possible meningitis versus artifact from myelogram 5. Elevated troponin, likely secondary to infection, type II demand ischemia 6. Metabolic anion gap acidosis 7. Thrombocytosis 8. AST transaminitis 9. Atrial tachycardia on pacemaker 10. Chronic anemia 11. History of immunosuppressants Lab Data Labs: Laboratory Results - last 24 hr 01/26/25 01/26/25 01/26/25 08:05 08:30 10:28 WBC 34.4 H* RBC 3.97 L Hgb 10.8 L Hct 33.1 L MCV 83.4 MCH 27.2 MCHC 32.6 RDW Std Deviation 47.1 H RDW Coeff of Omar 15.4 H Plt Count 502 H MPV 9.7 Immature Gran % (Auto) 0.800 Neut % (Auto) 91.0 H Lymph % (Auto) 3.5 L [place] % (Auto) 4.1 Eos % (Auto) 0.3 Baso % (Auto) 0.3 Absolute Neuts (auto) 31.3 H Absolute Lymphs (auto) 1.20 Nucleated RBC % 0 Diff Path Review March foll Platelet Estimate MOD INC PT 13.9 INR 1.1 APTT 32.5 Sodium 135 Potassium 3.9 Chloride 101 Carbon Dioxide 17.4 L Anion Gap 17 H BUN 15 Creatinine 0.81 Estim Creat Clear Calc 61.20 Est GFR (MDRD) Non-Af 76 BUN/Creatinine Ratio 18.5 Glucose 156 H Lactic Acid 2.1 H Calcium 9.4 Total Bilirubin 0.69 AST 37 H ALT 22 Alkaline Phosphatase 116 H Troponin T High Sens 215 H* Troponin T Hi Sens 2 Hr 395 H* Troponin T Hi Sens 4Hr NT pro BNP II 1916 H Total Protein 7.1 Albumin 3.9 Globulin 3.2 Albumin/Globulin Ratio 1.2 Urine Color Yellow Urine Clarity Clear Urine pH 6.0 Ur Specific [place] 1.015 Urine Protein 30 H Urine Glucose (UA) Normal Urine Ketones 15 H Urine Occult Blood 25 H Urine Nitrite Negative Urine Bilirubin Negative Urine Urobilinogen Normal Ur Leukocyte Esterase Negative Urine RBC 0-5 SEEN Urine WBC 0 SEEN Ur Squamous Epith Cells 0 SEEN Urine Bacteria 0 SEEN Urine Mucus 0 SEEN 01/26/25 13:50 WBC RBC Hgb Hct MCV MCH MCHC RDW Std Deviation RDW Coeff of Omar Plt Count MPV Immature Gran % (Auto) Neut % (Auto) Lymph % (Auto) Pecos % (Auto) Eos % (Auto) Baso % (Auto) Absolute Neuts (auto) Absolute Lymphs (auto) Nucleated RBC % Diff Path Review Platelet Estimate PT INR APTT Sodium Potassium Chloride Carbon Dioxide Anion Gap BUN Creatinine Estim Creat Clear Calc Est GFR (MDRD) Non-Af BUN/Creatinine Ratio Glucose Lactic Acid Calcium Total Bilirubin AST ALT Alkaline Phosphatase Troponin T High Sens Troponin T Hi Sens 2 Hr Troponin T Hi Sens 4Hr 525 H* NT pro BNP II Total Protein Albumin Globulin Albumin/Globulin Ratio Urine Color Urine Clarity Urine pH Ur Specific [place] Urine Protein Urine Glucose (UA) Urine Ketones Urine Occult Blood Urine Nitrite Urine Bilirubin Urine Urobilinogen Ur Leukocyte Esterase Urine RBC Urine WBC Ur Squamous Epith Cells Urine Bacteria Urine Mucus ABG Data ABG results: ABG 01/26/25 01/26/25 01/26/25 08:31 09:39 13:44 Specimen Type ART ART ART Sample Site L Brach L Brach L Brach pH 7.52 H 7.35 7.37 Bicarbonate Actual 22.4 19.9 L 19.4 L Total CO2 23 21 21 Base Excess 0 -6 L -6 L O2 Saturation 95 93 L 96 O2 % 6.0 50.0 40.0 ABG pCO2 27.3 L 36.1 33.3 L ABG pO2 66 L 71 L 84 Anderson Test N/A N/A N/A Respiration Rate 14 14 O2 Delivery Device Cannula Adult Vent Adult Vent Vent Mode Not entered AC AC Tidal Volume 450.0 450.0 POC PEEP 5 5 Radiography Diagnostic Testing: Clinical Impression(s) from Imaging Studies Chest X-Ray 01/26/25 09:15 IMPRESSION: Pulmonary congestion and edema. Pneumonia cannot be excluded. Reading Location: [facility] KUB X-Ray 01/26/25 09:15 IMPRESSION: The enteric tube has been retracted. Advancement is recommended. Reading Location: [facility] KUB X-Ray 01/26/25 09:15 IMPRESSION: Enteric tube courses into the stomach but remains in high position. Advancement is recommended. Reading Location: [facility] Brain CT 01/26/25 09:38 IMPRESSION: Ill-defined hypoattenuating foci in the periventricular white matter, more prominent in the posterior occipital regions. This may represent asymmetric small-vessel ischemic changes. Acute infarction can not be entirely excluded. Further evaluation with MRI is recommended. Reading Location: [facility] Chest CTA 01/26/25 09:40 IMPRESSION: 1. No pulmonary embolism. 2. Lung emphysema with scattered areas of partial consolidation and ground-glass attenuation, predominantly in the right may suggest atelectasis and/or multifocal pneumonia. 3. Suggestion of pulmonary hypertension. Reading Location: [facility] Head/Neck CTA 01/26/25 11:15 IMPRESSION: 1. No acute vascular abnormality of the head and neck. 2. Ventriculomegaly with increased attenuation of the CSF of the posterior horns discussed with the ER physician, which may be accounted for by recent myelogram. Meningitis or prior intraventricular hemorrhage are differential considerations. 3. Note is made of near-complete opacification of the right paranasal sinus with some high density contents, likely due to severe chronic sinusitis. An odontogenic etiology should be considered. 4. Patchy pulmonary opacities in the visualized lung apices, possibly infectious or due to pulmonary edema. 5. Enlargement of the main pulmonary artery, possibly due to chronic pulmonary arterial hypertension. 6. Grade 1 spondylolisthesis at C4-5, as seen on recent cervical spine radiographs. [facility] T[facility] Chief Complaint: Alt LOC ED Provider: [place] Dx/Rx/DC Orders Prescriptions: No Action omega-3 acid ethyl esters [Lovaza] 1 gram capsule 1 g PO QDAY omeprazole 20 mg capsule,delayed release(DR/EC) 20 mg PO DAILY Digestive Probiotic 10 billion cell capsule 1 cap PO DAILY escitalopram oxalate 10 mg tablet 10 mg PO DAILY zoledronic pckq-lmcvsupp-tqhil [Reclast] 5 mg/100 mL piggyback 1 ea .Route .yearly Rx Instructions: yearly hydroxychloroquine 200 mg tablet 300 mg PO DAILY infliximab [Remicade] 100 mg recon soln 100 mg .Route Rx Instructions: 100 mg; every 8 weeks cholestyramine-aspartame [Prevalite] 4 gram powder in packet 1 ea PO DAILY biotin 5,000 mcg tablet, sublingual 5,000 mcg sublingual DAILY benzonatate 200 mg capsule 200 mg PO TID PRN (Reason: cough) Qty: 20 0RF cyclobenzaprine 5 mg tablet 5 mg PO TID PRN (Reason: muscle spasm) Qty: 30 0RF sumatriptan succinate 100 MG tablet 100 - 200 mg PO DAILY PRN PRN (Reason: Migraine Symptoms) Patient Comments: MIGRAINES multivitamin with folic acid 1 TABLET tablet 1 tab PO DAILY Patient Comments: VITAMIN SUPPLEMENT calcium carbonate-vitamin D3 600 mg-20 mcg (800 unit) tablet 2 tab PO DAILY Patient Comments: SUPPLEMENT owupqkhckp-hqkkngfrlbffn-ybcq 50-325-40 mg tablet 1 tab PO DAILY PRN PRN (Reason: Headache) Patient Comments: HEADACHE 1-2 tabs ropinirole 1 mg tablet 3 mg PO BID Patient Comments: 1 mg AM and 2 mg PM cyanocobalamin (vitamin B-12) 1,000 MCG tablet 1,000 mcg PO DAILY gabapentin 100 mg capsule 100 mg PO BID Primary Care Provider: Macho Schmidt Referrals: Macho Schmidt MD [Primary Care Provider] - Print Language: Sri Lankan Disposition Disposition: Acute Care Hospital Discharge Location: [facility] Discharge Date/Time: 01/26/25 14:36
[2025-01-26 09:34] LABS: Troponin T High Sensitivity 215 ng/L (<=14)
--- NOTE | 2025-01-26 09:38 | CT_ITS ---
EXAM: CT Head Without Intravenous Contrast CLINICAL INDICATION: AMS TECHNIQUE: Axial computed tomography images of the head/brain without intravenous contrast. This CT exam was performed using one or more of the following dose reduction techniques: automated exposure control, adjustment of the mA and/or kV according to patient size, and/or use of iterative reconstruction technique. COMPARISON: No relevant prior studies available. FINDINGS: BRAIN AND EXTRA-AXIAL SPACES: Ill-defined hypoattenuating foci in the periventricular white matter, more prominent in the posterior occipital regions. This may represent asymmetric small-vessel ischemic changes. Acute infarction can not be entirely excluded. Further evaluation with MRI is recommended. No hemorrhage. BONES/JOINTS: Unremarkable. No acute fracture. SOFT TISSUES: Unremarkable. SINUSES: Mucosal thickening of the right maxillary sinus. MASTOID AIR CELLS: Unremarkable as visualized. No mastoid effusion. CT/Brain/Head without Contrast IMPRESSION: Ill-defined hypoattenuating foci in the periventricular white matter, more prom inent in the posterior occipital regions. This may represent asymmetric small-vessel ischemic changes. Acute infarction can n ot be entirely excluded. Further evaluation with MRI is recommended. Reading [facility]
--- NOTE | 2025-01-26 09:40 | CT_ITS ---
EXAM: CT Angiography Chest Without and With Intravenous Contrast CLINICAL INDICATION: PE WELL PNA TECHNIQUE: Axial computed tomographic angiography images of the chest without and with intravenous contrast. This CT exam was performed using one or more of the following dose reduction techniques: automated exposure control, adjustment of the mA and/or kV according to patient size, and/or use of iterative reconstruction technique. MIP reconstructed images were created and reviewed. COMPARISON: CTA Chest dated 04/09/2024 FINDINGS: PULMONARY ARTERIES: Unremarkable. No pulmonary embolism. AORTA: No acute findings. No thoracic aortic aneurysm. LUNGS AND PLEURAL SPACES: Lung emphysema with scattered areas of partial consolidation and ground-glass attenuation, predominantly in the right may suggest atelectasis and/or multifocal pneumonia. Suggestion of pulmonary hypertension. No significant effusion. HEART: Unremarkable. No cardiomegaly. No significant pericardial effusion. No evidence of RV dysfunction. BONES/JOINTS: No acute fracture. No dislocation. SOFT TISSUES: Unremarkable. LYMPH NODES: Unremarkable. No enlarged lymph nodes. KIDNEYS AND URETERS: Partially visualized bilateral nephrolithiasis. CT/CTA Chest W/WO Contrast IMPRESSION: 1. No pulmonary embolism. 2. Lung emphysema with scattered areas of partial consolidation and ground-gla ss attenuation, predominantly in the right may suggest atelectasis and/or multifocal pneumonia. 3. Suggestion of pulmonary hypertension. Reading Location: [facility]
[2025-01-26 09:44] LABS: Base Excess -6 mmol/L (-2 to +2); Bicarbonate 19.9 mmol/L (22-26); Blood Gas Specimen Type ART; Mode AC; O2 Delivery Device Adult Vent; PEEP 5; PO2 71 mmHG (75-100); RR 14; SITE L Brach; SO2 93 % (95-99); Total Carbon Dioxide 21 mmol/L; pCO2 36.1 mmHg (35-45); pH 7.35 (7.35-7.45)
[2025-01-26 09:48] LABS: Platelet Estimate MOD INC (ADEQ)
[2025-01-26 10:04] LABS: Pathologist Review May foll
--- NOTE | 2025-01-26 11:15 | CT_ITS ---
PROCEDURE: STROKE CTA HEAD AND NECK W/CON 01/26/2025 REASON FOR EXAM: CVA R/O TECHNIQUE: CTA imaging of the head and neck from the aortic arch to the skull vertex with intravenous contrast. Coronal and Sagittal reconstruction series were provided. MIP and 3D reconstructions performed. One or more dose reduction techniques were used (e.g., Automated exposure control, adjustment of the mA and/or kV according to patient size, use of iterative reconstruction technique). COMPARISON: 01/26/2025; 01/16/2025 FINDINGS: CTA HEAD FINDINGS: Internal carotid arteries: No acute thrombus or dissection. Vertebrobasilar arteries: No acute thrombus or dissection. Intracranial arteries: No acute thrombus, dissection, aneurysm or vascular malformation. Venous sinuses: Unremarkable. Brain: Increased density in the distended lateral ventricles discussed with the ER physician, and additional history provided that the patient had a myelogram recently. I discussed the possibility of hydrocephalus or meningitis. Paranasal sinuses: Near-complete opacification of the right paranasal sinus with some high density material present. CTA NECK FINDINGS: Aorta and proximal great vessels: No acute thrombus or dissection.The central pulmonary arteries are enlarged, possibly due to chronic pulmonary arterial hypertension. Common carotid arteries: No acute thrombosis or dissection. Internal carotid arteries: No acute thrombosis or dissection. Vertebral arteries: No acute thrombosis or dissection. Bones: There is a grade 1 anterolisthesis of C4 on C5, as seen on recent prior cervical spine radiographs. Soft tissues: Unremarkable. Upper chest: An endotracheal tube is noted in satisfactory position. There is also an enteric tube. Patchy pulmonary consolidations are present in the upper lung villasenor, greater on the right than the left. CT/STROKE CTA Head AND Neck W/Con IMPRESSION: 1. No acute vascular abnormality of the head and neck. 2. Ventriculomegaly with increased attenuation of the CSF of the posterior horn s discussed with the ER physician, which may be accounted for by recent myelogram. Meningitis or prior intraventricular hemorr yolanda are differential considerations. 3. Note is made of near-complete opacification of the right paranasal sinus wit h some high density contents, likely due to severe chronic sinusitis. An odontogenic etiology should be considered. 4. Patchy pulmonary opacities in the visualized lung apices, possibly infectiou s or due to pulmonary edema. 5. Enlargement of the main pulmonary artery, possibly due to chronic pulmonary arterial hypertension. 6. Grade 1 spondylolisthesis at C4-5, as seen on recent cervical spine radiogra phs. Reading Location: [facility]
[2025-01-26 11:21] LABS: Troponin T High Sens 2 HR 395 ng/L (<=14)
[2025-01-26] MEDS: 0.9% Normal Saline (1000mL) 1,000 ML 1000 ML IV (11:37)
[2025-01-26] MEDS: Ibuprofen 100 MG/5 ML UDC 600 MG PO (12:09)
[2025-01-26] MEDS: Cefepime HCl 2 GM in 0.9% Normal Saline (100mL MB+) 100 ML IV (12:09)
[2025-01-26] MEDS: Ampicillin 2 GM in 0.9% Normal Saline (100mL MB+) 100 ML IV (12:40)
[2025-01-26] MEDS: WATER IV (13:11)
[2025-01-26] MEDS: DEXTROSE 5% IV (13:11)
[2025-01-26] MEDS: ACYCLOVIR IV (13:11)
[2025-01-26] MEDS: fentaNYL 100 MCG/2 ML Ampul IV (13:30)
[2025-01-26] MEDS: Vancomycin HCl 2,000 MG in 0.9% Normal Saline (500mL Bag) 500 ML 250 MG IV (13:41)
[2025-01-26] MEDS: fentaNYL drip 100 ML 2.5 MCG CONT INF (13:42)
[2025-01-26 13:48] LABS: Base Excess -6 mmol/L (-2 to +2); Bicarbonate 19.4 mmol/L (22-26); Blood Gas Specimen Type ART; Mode AC; O2 Delivery Device Adult Vent; PEEP 5; PO2 84 mmHG (75-100); RR 14; SITE L Brach; SO2 96 % (95-99); Total Carbon Dioxide 21 mmol/L; pCO2 33.3 mmHg (35-45); pH 7.37 (7.35-7.45)
--- NOTE | 2025-01-26 14:25 | PCA ---
CALLED [facility] FOR TRANSFER @ [phone]. PUSHED ALL THE IMAGES OVER THERE. AFTER SEVERAL PHONE CALLS, [email or web address] ACCEPTED THE FLIGHT AND WAS ON WILL CALL FOR WHEN A BED WAS READY FOR THE PATIENT. DR. LYN ACCEPTED THE PATIENT @ [phone] [facility]
[2025-01-26 15:24] LABS: Troponin T High Sens 4 HR 525 ng/L (<=14)
== END 2025-01-26 14:36 | disposition short-term general hospital (02) ==
PROVIDERS: Emergency Provider Surgery; PCP Family Medicine; Visit Provider Surgery
DX: J96.01 Acute respiratory failure with hypoxia (principal); J44.0 Chronic obstructive pulmonary disease with (acute) lower respiratory infection; D64.9 Anemia, unspecified; Z95.0 Presence of cardiac pacemaker; I47.19 Other supraventricular tachycardia; G93.49 Other encephalopathy; J18.9 Pneumonia, unspecified organism; D75.839 Thrombocytosis, unspecified; E87.20 Acidosis, unspecified; I25.2 Old myocardial infarction; R74.01 Elevation of levels of liver transaminase levels; R77.8 Other specified abnormalities of plasma proteins; Z79.899 Other long term (current) drug therapy
CPT/HCPCS: 31500; 31720; 36600; 51702; 70450; 70496; 70498; 71045; 71275; 74018; 80053; 81001; 82803; 83605; 83880; 84484; 85025; 85610; 85730; 87040; 87070; 87077; 87086; 87186; 87205; 87633; 93005; 94002; 94640; 96365; 96366; 96367; 99252; 99285; Q9967; A4216; G0463; J0290; J0696

== ENCOUNTER 2025-02-10 13:05 | Inpatient (IN) | payer MEDICARE, OTHER, SELFPAY ==
[2025-02-10 13:23] VITALS: BP 145/64; PULSE 82; RESP 17; TEMP 36.8; O2SAT 99; BMI 30.7
[2025-02-10 13:56] VITALS: BMI 30.7
[2025-02-10 14:23] VITALS: O2SAT 99
--- NOTE | 2025-02-10 15:20 | HP.PCM_ITS ---
HPI - General General Date of Admission: 02/10/25 Date of Service: 02/10/25 Chief Complaint: Here for 3 hours daily rehabilitation. HPI Narrative TATO SOLOMON, is a 74 Female who presents with past medical history of osteoporosis, high degree AVB s/p PPM in last 6 months, GERD, Depression, RLS, RA (on remicade infusion in last year, methotrexate, plaquenil, steroid taper), migraines, bilateral burning leg pain with history of lumbar spinal decompression (5 years ago) who presented with acute mental status change and shock, suspected 2/2 bacterial meningitis. 1. Septic shock(resolved)2/2 bacterial meningitis versus ventriculitis in s etting of recent diagnostic myelogram and multifocal pneumonia (community acquired, organism unknown): Imaging c/w ventriculitis/meningitis, severe headache, chills AM 01/26/2025, found down/non responsive with LKW 0600 3.. Underwent myelography . for bilateral lower extremity burning pain for 1 month, ordered by ortho spine doctor. Admission WBC 33.5, Lactate 2.8 > 1.2, 60s/40s required pressors, afebrile. CSF c/w bacterial meningitis. CTH and MRI brain showed layering hyperdense material in the occipital horns favored to represent proteinaceous debris. Patient also with multifocal pneumonia on portions of lung in view on CTA. S/p 1L bolus, s/p decadron (meningitis dosing 01/30). -Intubated at [facility] for low GCS/airway protection. Extubated 01/28. -s/p acyclovir (01/26), ceftriaxone (01/26), Azithromycin (01/26), ampicillin (01/26-01/27). -Cefepime (01/26-02/09) and Vancomycin (01/26 - 02/09). -ID signed off. -[facility] lower respiratory culture 01/26 w/normal celia. -[facility] urine culture 01/26 no growth. -[facility] blood culture 01/26 w/ 1/ growing strep salivarius. -CSF VDRL negative; histo/toxo/JOHANNA/BK negative, CSF culture NGTD, diff is neutrophilic predom. -Blood culture 01/26 [facility] NGTD. Neurology and neurosurgery consulted. -EVD placed 3/28, clamped 02/02, repeat CTH 4/4AM, removed 02/04. -removed rimma prior to discharge. 2. Acute metabolic encephalopathy (improving) 2/2 above. -She is able to answer orientation questions now. -cEEG x 12 hours without a seizure activity. -Delirium precautions. 3. Acute hypoxic respiratory failure, resolved. 4. Pulmonary edema versus pneumonia of unknown source. Chets X-ray on 01/29 showed worsened opacities c/w pulmonary edema versus pneumonia. VBG/ABG without hypercarbia/hypoxia. Elevated BNP to 29k. Occasional mucous plugging with abrupt changes in work of breathing and sats. -s/p lasix 60mg iv 01/29 - 02/01, Lasix every other day at discharge with daily weights. -Previous cultures as above. -Monitor I+O's, goal net negative. -Supplemental oxygen to maintain pulsox > 88%. 5. NSTEMI 2/2 demand ischemia. 6. Acute on chronic HFrEF (EF 30 to 35%): Take Furosemide intermittently outpatient for fluid on her lungs. Troponins peaked at 2k, down trended 400s 01/30. Elevated NTproBNP 29 > 30k. LBBB new 01/29. -PPM in place, place 06/2024, interrogated at [facility] and 100% RV paced. MRI compatible. -s/p lasix 60mg iv daily 01/29 - 02/01, Cr stable off diuresis, Lasix every other day at DC. -Referral to OP Cardiology for LHC, can consider EP eval OP for consideration of biventricular lead placement. -Continue Aspirin, statin. 7. JONATHAN resolved. 02/10/2025 Admit to for 3 hours daily rehabilitation, strengthening, prior to discharge home with . [facility] Medical History (Updated 02/10/25 @ 15:[address] Salvador Carreon MD) Presence of cardiac pacemaker Left bundle branch block (LBBB) Rate-dependent bundle branch block History of immunosuppressive therapy Essential (primary) hypertension History of non-ST elevation myocardial infarction (NSTEMI) (01/15/17) Atrophic vaginitis Microscopic colitis DARIO (obstructive sleep apnea) Inflamed seborrheic keratosis Seborrheic keratosis Nevus Immunocompromised GERD (gastroesophageal reflux disease) Abnormal chest CT Pulmonary HTN Osteopenia Sleep-related breathing disorder Depression Migraine headache Community acquired pneumonia Abnormal LFTs Hypophosphatemia Hypomagnesemia Hypokalemia Normochromic normocytic anemia Osteoporosis Anxiety and depression RLS (restless legs syndrome) Acute systolic (congestive) heart failure (12/2016) Acute respiratory failure with hypoxemia Legionella pneumonia Respiratory insufficiency Rheumatoid arthritis Home Medications ?Medication ?Instructions ?Recorded ?Last Taken ?Type omeprazole 20 mg capsule,delayed 20 mg PO DAILY gerd 1 04/06/24 History release hydroxychloroquine 200 mg tablet 200 mg PO DAILY RA 04/07/24 History infliximab 100 mg intravenous 100 mg .Route RA and col itis 03/23/24 Unknown History solution (Remicade) Held on 02/10/25. Instructions: MD Ordered escitalopram oxalate 10 mg tablet 10 mg PO DAILY Mood 05/25/24 Unknown History zoledronic acid 5 mg/100 mL in 1 ea .Route .yearly [facility] 05/25/24 Unknown History mannitol 5 %-water intravenous piggybck (Reclast) Held on 02/10/25. Instructions: MD Ordered cholestyramine-aspartame 4 gram 1 ea PO DAILY Choleste rol 05/27/24 Unknown History oral powder for susp in a packet (Prevalite) ropinirole 1 mg tablet 1 mg PO 0800,1200 restless l egs 08/30/24 02/10/25 History alendronate 70 mg tablet (Fosamax) 70 mg PO QWEEK Bone health 02/10/25 Unknown History aspirin 81 mg chewable tablet 1 tab PO DAILY heart hea lth 02/10/25 Unknown History atorvastatin 40 mg tablet 40 mg PO QHS cholesterol 09/26 Unknown History calcium citrate 200 mg PO BID supplement 09/26 Unknown History ferrous sulfate 325 mg (65 mg 325 mg PO DAILY suppleme nt 02/10/25 Unknown History iron) tablet (FeroSul) furosemide 20 mg tablet 20 mg PO QODAY Fluid retenti on 02/10/25 Unknown History losartan 25 mg tablet (Cozaar) 25 mg PO DAILY BP 02/10 Unknown History meclizine 25 mg tablet 12.5 - 50 mg PO Q8H PRN PRN motion 02/10/25 Unknown History sickness metoprolol succinate 25 mg 12.5 mg PO DAILY BP 5 Unknown History tablet,extended release 24 hr (Toprol XL) prednisone 1 mg tablet 1 mg PO DAILY Steroid Unknown History ropinirole 2 mg tablet 2 mg PO QHS RLS 02/10/25 Unk nown History Allergy/AdvReac Type Severity Reaction Status Date / Time Sulfa (Sulfonamide Allergy Intermediate Rash Verified 01/25/25 12:26 Antibiotics) sulfasalazine Allergy Rash Verified 01/25/25 12:26 Family History Father CVA (cerebral vascular accident) Diabetes Surgical History H/O cataract removal with insertion of prosthetic lens History of left heart catheterization (01/19/17) History of lumbar surgery (11/2019) Total knee replacement status History of cholecystectomy Hx of appendectomy History of bilateral carpal tunnel release Social History (Updated 02/10/25 @ 15:[address] Salvador Carreon MD) household members: spouse Smoking Status: Never smoker second hand exposure: No alcohol intake: current alcohol intake frequency: holidays/special occasions only substance use type: does not use what type of physical activity do you participate in: bicycling frequency: 3-4 times per week ROS Constitutional Constitutional: Reports weakness; Denies chills, fever(s) or weight gain ENT HEENT: Denies headache(s), nasal congestion or nasal discharge Cardiovascular Cardiovascular: Denies chest pain or palpitations Respiratory/Chest Respiratory/Chest: Denies cough, excessive phlegm production or shortness of breath with exertion Gastrointestinal Gastrointestinal: Denies abdominal pain, nausea or vomiting Genitourinary Genitourinary: Denies dysuria Musculoskeletal Musculoskeletal: Denies joint pain or joint swelling Integumentary Integumentary: Denies rash or wounds Neurologic Neurologic: Reports confusion; Denies focal weakness, numbness or tingling Psychiatric Psychiatric: Denies anxiety, auditory hallucinations, depression, homicidal ideation or suicidal ideation Vital Signs Vital Signs Vital Signs: 02/10/25 13:23 02/10/25 14:23 Temperature 98.3 F Temperature Source Temporal Pulse Rate 82 Respiratory Rate 17 Respiratory Effort Normal Non-Labored Respiratory Depth Normal Respiratory Pattern Normal Blood Pressure 145/64 H Blood Pressure Mean 91 Blood Pressure Source Monitor Blood Pressure Position Sitting Blood Pressure Location Right Arm Pulse Ox 99 99 Oxygen Delivery Method Room Air Room Air Weight Weight: 78.8 kg Body Mass Index (BMI) 30.7 Indicators for Scoring Admitted with or Primary Diagnosis of CVA/Stroke: No Hx of CVA/Stroke: No Modified Vin Score MRS Score at time of Evaluation: 3-Moderate disability Physical Exam Const alert General Appearance: cooperative HEENT normocephalic HEENT Narrative: Right frontal scalp shaved. Right frontal parietal incision clean, dry, near healed. Eyes PERRL and EOMs intact bilaterally Neck supple, no JVD and no carotid bruits Resp normal respiratory effort, normal air movement and clear to auscultation bilaterally Cardio regular rate and regular rhythm GI normal to inspection, nondistended, normoactive bowel sounds, non-tender and non-distended Extremity normal capillary refill General Extremity: Negative for edema Skin no rashes or lesions noted General Skin Exam: no breakdown Psych affect normal Appearance: appropriate Assessment & Plan Assessment/Plan (1) Debility: (2) Septic shock: (3) Meningitis: (4) Cerebral ventriculitis: (5) Multifocal pneumonia: (6) NSTEMI (non-ST elevated myocardial infarction): (7) Acute on chronic HFrEF (heart failure with reduced ejection fraction): (8) Acute kidney injury: (9) Rheumatoid arthritis: (10) Coronary artery disease: (11) Essential (primary) hypertension: (12) Pulmonary HTN: (13) Osteoporosis: (14) Depression: (15) Neuropathic pain: (16) RLS (restless legs syndrome): PLAN: Plan 74 year old female with below past medical history hospitalized for septic shock 2/2 meningitis/ventriculitis after CT myelogram, complicated by multifocal pneumonia, acute respiratory failure with hypoxia, nstemi 2/2 demand ischemia, acute on chronic HFrEF, acute kidney injury, admitted to for 3 hours daily rehabilitation, strengthening, prior to discharge home with . * Debility - PT/OT. * Cognition - ST. * Pain - Tylenol 650mg q6 prn. * Bowel - senna/colace 2 tablets bid, Dulcolax 10mg pr x 1 prn, MOM 30mL po x 1 prn, cholestyramine 4gm daily. * Osteoporosis - Alendronate 70mg qweek. * CAD - Metoprolol succinate 12.5mg daily, Aspirin 81mg daily. * Hyperlipidemia - Atorvastatin 40mg qhs. * Depression - Escitalopram 10mg daily. * Iron deficiency anemia - Ferrous sulfate 325mg daily. * Chronic HFrEF - Metoprolol succinate 12.5mg daily, Losartan 25mg daily, Furosemide 20mg every other day. * RA - Hydroxychloroquine 200mg daliy, Prednisone 1mg daily. * Vertigo - Meclizine 12.5 - 50mg q8 prn. * GERD - Pantoprazole 20mg daily. * Restless leg syndrome - Mirapex 0.5mg bid, 1mg qhs.
[2025-02-10] MEDS: Meclizine HCl 25 MG Tablet PO (16:55)
[2025-02-10 17:34] VITALS: BP 130/49; PULSE 89; RESP 17; TEMP 36.6; O2SAT 98
[2025-02-10] MEDS: Senna/Docusate Sodium 1 Tablet 2 TABLET PO (20:58)
[2025-02-10] MEDS: Atorvastatin Calcium 40 MG Tablet PO (21:00)
[2025-02-10] MEDS: Pramipexole Di-HCl 1 MG Tablet PO (21:01)
[2025-02-10 21:14] VITALS: BP 130/54; PULSE 77; RESP 18; TEMP 36.7; O2SAT 97
[2025-02-11 03:32] VITALS: BP 134/59; PULSE 77; RESP 18; TEMP 36.6; O2SAT 98
[2025-02-11 07:23] VITALS: O2SAT 95
[2025-02-11 07:29] LABS: Absolute Lymphocyte Count 1.53 X10^3/uL (0.83-4.51); Basophil# 0.08 X10^3/uL; Basophil% 1.2 % (0-1); Eosinophil# 0.27 X10^3/uL; Eosinophils% 3.9 % (0-5); Hematocrit 26.4 % (37-47); Hemoglobin 8.3 g/dL (12.0-15.0); Lymphocyte # 1.53 X10^3/ul (0.83-4.51); Lymphocyte % 22.2 % (19-41); Mean Corp Hgb Conc 31.4 g/dL (32-36); Mean Corpuscular Hgb 27.4 pg (27.0-32.0); Mean Corpuscular Volume 87.1 fL (81-99); Mean Platelet Vol. 12.4 fl (6.2-12.0); Monocyte# 0.84 X10^3/uL; Monocyte% 12.2 % (0-10); NRBC Flagged by Analyzer 0 % (0-5); Neutrophil # 4.03 X10^3/uL (2.7-7.7); Neutrophil % 58.6 % (47-70); Platelet Count 180 K/mm3 (150-450); RBC Distribution Width CV 16.2 % (11.6-14.6); RBC Distribution Width SD 49.3 fl (35.1-43.9); Red Blood Count 3.03 M/mm3 (4.2-5.4); White Blood Count 6.9 K/mm3 (4.4-11.0)
[2025-02-11 07:49] LABS: ALB/GLOB Ratio 1.4 RATIO (0.9-2.4); AST(SGOT) 58 U/L (<=31); Alanine Aminotransfer ALT/SGPT 91 U/L (<=34); Albumin, Serum 3.3 g/dL (3.4-4.8); Alkaline Phosphatase 81 U/L (35-104); Anion Gap 11 (5-15); BUN 9 mg/dL (4-19); BUN/Creat Ratio 9.4 RATIO (10-20); Calcium,Total 8.9 mg/dL (7.6-11.0); Carbon Dioxide 20.2 mmol/L (21.0-32.0); Chloride 108 mmol/L (98-108); Creatinine, Serum 0.97 mg/dL (0.70-1.20); EST Glomerular Filtration Rate 61 (>60); Estimated Creatinine Clearance 49.81 ml/min (50-250); Globulin 2.3 g/dL (2.2-4.2); Glucose 82 mg/dL (70-99); Magnesium 1.8 mg/dL (1.5-2.2); Potassium 3.8 mmol/L (3.3-5.1); Protein, Total 5.6 g/dL (5.9-8.4); Sodium Level 139 mmol/L (133-145); Total Bilirubin 0.45 mg/dL (0.00-1.30)
[2025-02-11 08:36] VITALS: BP 128/63; PULSE 75
[2025-02-11] MEDS: Losartan Potassium 25 MG Tablet PO (08:37)
[2025-02-11] MEDS: Cholestyramine/Sucrose 4 GM/PACKET PO (08:37)
[2025-02-11 08:38] VITALS: PULSE 75
[2025-02-11] MEDS: Pramipexole Di-HCl 0.5 MG Tablet PO ×2 (08:38→12:42)
[2025-02-11] MEDS: Metoprolol(XL)Succ 25 MG Tablet 12.5 MG PO (08:38)
[2025-02-11] MEDS: Aspirin 81 MG TAB.CHEW PO (08:38)
[2025-02-11] MEDS: Hydroxychloroquine 200 MG Tablet PO (08:38)
[2025-02-11] MEDS: predniSONE 1 MG Tablet PO (08:38)
[2025-02-11] MEDS: Pantoprazole Sodium 20 MG Tablet PO (08:38)
[2025-02-11] MEDS: Escitalopram Oxalate 10 MG Tablet PO (08:40)
[2025-02-11] MEDS: Na Biphos/Potassium Phosphate PACKET 1 PACKET PO (10:44)
[2025-02-11] MEDS: Ferrous Sulfate 325 MG Tablet PO (12:42)
[2025-02-11] MEDS: Ensure Plus High Protein 120 ML LIQUID PO (17:30)
[2025-02-11 17:40] VITALS: BP 137/61; PULSE 65; RESP 16; TEMP 36.6; O2SAT 99
--- NOTE | 2025-02-11 19:19 | PCM.RU.PYE ---
Admission Information Primary Diagnosis:: Septic shock, meningitis/ventriculitis. Status Changes from Prescreening?: No changes Identified Actual Problem List:: Cognitve Impr/Memory Loss, Alteration in Sleep, Alteration in Nutrition, Mobility Impaired, Self Care Deficit, Ineffective Communication, Know.Dfct/Disease Process, Know.Dfct of Medicaitons and Alteration-Leisure Activ. Potential Problem List:: DVT, Bleeding, Infection, UTI, Aspiration, Falls, Skin Integrity and Depression Risk of Complications DVT: LMWH, ISAIAH Hose and Sequential Compression Device Bleeding: Monitor Lab Values, Nursing to Teach Precautions for anti-coagulation therapy., Wound, if applicable, to be assessed every shift. and Stroke patients assessed for lethargy or change in status. Infection: Clinical Staff to Monitor for S/S of infection: and S/S of infection include fever, redness, warmth, etc. Urinary Tract Infection: Monitor for frequency, burning, discomfort, or incontinence. and Nursing will obtain urine sample for urinalysis and C&S when ordered. Aspiration: Clinical staff will monitor for coughing, drooling, congestion., Speech will evaluate swallowing and dsyphasia. and Nursing will monitor patient swallowing during meals. Falls: Patient will be evaluated for Fall Precautions and Patient will be placed on Fall Precautions as indicated per protocol. Skin Breakdown: Nursing will assess skin daily using assessment tool. and Nursing will place on Skin Breakdown Precautions as indicated. Pain: Clinical staff will assess patient's pain level per protocol., Medications will be given, if needed, and the pain level reassessed. and Other methods: Massage, distraction, decrease stimulus, etc. used PRN. Plan of Care Patient requires physician specializing in physical medicine and rehab oversight to provide close medical supervision of rehab issues including: Pain Management, Sleep Problems, Bowel and Bladder, Medical and co-morbidity Management, DVT prophylaxis, Rehabilitation Leadership and Coordination of treatment team Patient needs Physical Therapy: For a minimum of 1 hour and At least 5 out of 7 days Patient needs Physical Therapy to improve:: Mobility, Strengthening, Transfers, Stretching, ROM, Endurance, Stairs, Gait and Balance Patient needs Occupational Therapy: For a minimum of 1 hour and At least 5 out of 7 days Patient needs Occupational Therapy to improve ADL's incl.: Eating, Grooming, Bathing, Dressing, Toileting, Toilet transfers, Community Reintegration, Higher functioning activities, Household tasks, Adaptive Equipment, Splinting and Other activities as determined Patient requires speech therapy: For a minimum of 1 hour and At least 5 out of 7 days Patient requires speech therapy for: Swallowing, Cognition, Language Skills and Compensatory Strategies Patient requires 24/ Rehabilitation Nursing for: Pain Issues, Identifying and preventing risk factors, Monitoring and reporting current medical conditions, Assisting with ambulation, transfer, and all ADL's, Teaching patients about disease process and medications, Family teaching, Providing safe environment, Bowel and Bladder Issues, Skin integrity and Medication Management Patient needs Telemarketing Supervisor/ Case Management for: Discharge Planning, Arranging Home Equipment or Services and Family Interventions Patient needs Dietary and Nutrition Services for: Adequate Nutrition, Nutritional Supplements and Nutritional Education Goals Goals Patient will ambulate: 100 feet (with FWW and sup.) Patient will complete lower body dressing at: MOD I level of assist. Patient will complete toileting at: - (P/Mod assist.) Patient will complete grooming at: - (Simulate.) Patient will achieve: - (1 step curb with FWW and SBA to CGA without LOB.) Patient's skin will: remain intact and free from infection. Patient will receive: adequate nutrition. Discharge Planning Pt Prognosis for Sig. Practical Improv. w/in Reasonable Time: Fair Estimated Length of stay (days): 21 Anticipated D/C Destination: Nursing Home Facility Was Preadmission Assessment Accurate?: Yes
[2025-02-11] MEDS: Senna/Docusate Sodium 1 Tablet 2 TABLET PO (20:32)
[2025-02-11] MEDS: Pramipexole Di-HCl 1 MG Tablet PO (20:33)
[2025-02-11] MEDS: Atorvastatin Calcium 40 MG Tablet PO (20:33)
[2025-02-11 22:00] VITALS: PULSE 65; RESP 16; O2SAT 99
[2025-02-12 06:00] VITALS: BP 128/53; PULSE 74; RESP 16; TEMP 37.1; O2SAT 96
[2025-02-12] MEDS: Alendronate Sodium 70 MG Tablet PO (06:25)
[2025-02-12] MEDS: Meclizine HCl 25 MG Tablet PO ×2 (07:11→21:01)
[2025-02-12] MEDS: Cholestyramine/Sucrose 4 GM/PACKET PO (08:13)
[2025-02-12 08:14] VITALS: PULSE 66
[2025-02-12] MEDS: Pantoprazole Sodium 20 MG Tablet PO (08:14)
[2025-02-12] MEDS: Na Biphos/Potassium Phosphate PACKET 1 PACKET PO (08:14)
[2025-02-12] MEDS: Furosemide 20 MG Tablet PO (08:14)
[2025-02-12] MEDS: Escitalopram Oxalate 10 MG Tablet PO (08:14)
[2025-02-12] MEDS: Losartan Potassium 25 MG Tablet PO (08:14)
[2025-02-12] MEDS: Metoprolol(XL)Succ 25 MG Tablet 12.5 MG PO (08:14)
[2025-02-12] MEDS: predniSONE 1 MG Tablet PO (08:14)
[2025-02-12] MEDS: Aspirin 81 MG TAB.CHEW PO (08:14)
[2025-02-12] MEDS: Pramipexole Di-HCl 0.5 MG Tablet PO ×2 (08:14→13:36)
[2025-02-12] MEDS: Senna/Docusate Sodium 1 Tablet 2 TABLET PO ×2 (08:16→21:01)
[2025-02-12] MEDS: Hydroxychloroquine 200 MG Tablet PO (08:16)
[2025-02-12] MEDS: Ensure Plus High Protein 120 ML LIQUID PO ×2 (13:35→16:55)
[2025-02-12] MEDS: Ferrous Sulfate 325 MG Tablet PO (13:37)
[2025-02-12 16:57] VITALS: BP 140/59; PULSE 69; RESP 17; TEMP 36.4; O2SAT 96
[2025-02-12] MEDS: Atorvastatin Calcium 40 MG Tablet PO (21:01)
[2025-02-12] MEDS: Pramipexole Di-HCl 1 MG Tablet PO (21:01)
[2025-02-13 05:30] VITALS: BP 129/53; PULSE 68; RESP 16; TEMP 36.6; O2SAT 97
[2025-02-13 05:48] LABS: Hematocrit 26.5 % (37-47); Hemoglobin 8.5 g/dL (12.0-15.0)
[2025-02-13 07:52] VITALS: BP 120/49; PULSE 70
[2025-02-13] MEDS: Cholestyramine/Sucrose 4 GM/PACKET PO (07:52)
[2025-02-13] MEDS: Metoprolol(XL)Succ 25 MG Tablet 12.5 MG PO (07:52)
[2025-02-13] MEDS: Aspirin 81 MG TAB.CHEW PO (07:52)
[2025-02-13] MEDS: Hydroxychloroquine 200 MG Tablet PO (07:53)
[2025-02-13] MEDS: Escitalopram Oxalate 10 MG Tablet PO (07:53)
[2025-02-13] MEDS: Losartan Potassium 25 MG Tablet PO (07:53)
[2025-02-13] MEDS: Pantoprazole Sodium 20 MG Tablet PO (07:53)
[2025-02-13] MEDS: Pramipexole Di-HCl 0.5 MG Tablet PO ×2 (07:54→11:59)
[2025-02-13] MEDS: predniSONE 1 MG Tablet PO (07:54)
[2025-02-13] MEDS: Na Biphos/Potassium Phosphate PACKET 1 PACKET PO (07:55)
[2025-02-13] MEDS: Senna/Docusate Sodium 1 Tablet 2 TABLET PO ×2 (07:56→20:55)
[2025-02-13] MEDS: Ferrous Sulfate 325 MG Tablet PO (11:59)
[2025-02-13] MEDS: Ensure Plus High Protein 120 ML LIQUID PO (11:59)
--- NOTE | 2025-02-13 15:17 | CASEMGMT ---
Social Work SW received call from expressing distress in not being able to visit pt during the week d/t visitation policy. SW provided active listening. requested he be able to stop in periodically to visit pt, just to say hi prior to the 1600 start of visiting hours M-F. sounded frantic and anxious, pleaing to this worker to allow to visit more frequently. cited he and pt were having increased depression and anxiety without being able to see each other regularly. stated pt would perform better in therapy if he was present. SW first assisted in calming him down and redirecting. Expressed understanding to challenge in visiting hours and appreciated and pt not being together per usual. Explained this worker does not make the decision on visiting hours, and offered to speak with the Dr and team on request. However, the visiting hours are in place to ensure proper rest and recovery for the pt and have proven success in doing so. expressed understanding but appreciative of this worker asking for alteration. SW to f/u with son on outcome after speaking to the Dr. - CLARITZA spoke with Dr and IDT on 's request. Therapy report pt has been participating well in therapy, no concerns witnessed thus far with anxiety or depression, and pt is benefiting from resting throughout sessions. Dr agreed to adhere to visitation policy, but to monitor if pt declines and it would be beneficial for to be more present. therapy offered to end therapy sessions by 1500 M-F, and agreed to visiting starting at 1530. - CLARITZA phoned in return to update on above report from therapy and agreed to earlier visiting M-F at 1530. expressed much gratitude. 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
[2025-02-13 17:12] VITALS: BP 125/51; PULSE 68; RESP 17; TEMP 36.3; O2SAT 98
[2025-02-13] MEDS: Pramipexole Di-HCl 1 MG Tablet PO (20:55)
[2025-02-13] MEDS: Atorvastatin Calcium 40 MG Tablet PO (20:56)
[2025-02-14 06:00] VITALS: BP 136/50; PULSE 74; RESP 14; TEMP 36.7; O2SAT 98
[2025-02-14 08:45] VITALS: PULSE 74
[2025-02-14] MEDS: Senna/Docusate Sodium 1 Tablet 2 TABLET PO ×2 (08:45→20:26)
[2025-02-14] MEDS: Aspirin 81 MG TAB.CHEW PO (08:45)
[2025-02-14] MEDS: Metoprolol(XL)Succ 25 MG Tablet 12.5 MG PO (08:45)
[2025-02-14] MEDS: Losartan Potassium 25 MG Tablet PO (08:45)
[2025-02-14] MEDS: predniSONE 1 MG Tablet PO (08:45)
[2025-02-14] MEDS: Furosemide 20 MG Tablet PO (08:45)
[2025-02-14] MEDS: Ensure Plus High Protein 120 ML LIQUID PO ×2 (08:46→17:32)
[2025-02-14] MEDS: Cholestyramine/Sucrose 4 GM/PACKET PO (08:46)
[2025-02-14] MEDS: Escitalopram Oxalate 10 MG Tablet PO (08:46)
[2025-02-14] MEDS: Pantoprazole Sodium 20 MG Tablet PO (08:46)
[2025-02-14] MEDS: Pramipexole Di-HCl 0.5 MG Tablet PO ×2 (08:46→11:44)
[2025-02-14] MEDS: Na Biphos/Potassium Phosphate PACKET 1 PACKET PO ×3 (08:46→20:26)
[2025-02-14] MEDS: Hydroxychloroquine 200 MG Tablet PO (08:46)
--- NOTE | 2025-02-14 09:13 | PCM.PROGNOTE ---
Subjective Subjective Afebrile VSS -blood pressure over the past 48 hours has ranged from 125/51 to 140/59. Systolic tends to be a little high around suppertime. Antihypertensives include losartan 25 mg daily and metoprolol 12.5 mg daily. Heart rate has ranged from 66-74. Maintaining appropriate oxygen saturation on RA Oral intake - FOOD good FLUIDS averaging 1200 to 1300 cc daily. Last bowel movement was 02/11/2025. She is taking senna 2 tablets p.o. twice daily but is also taking an iron supplement and cholestyramine. Discussed with nursing - no problems that need addressed. Has been incontinent of urine at times.. Not incontinent of stool. Reviewed the THERAPY notes Medication list reviewed. She had 2 doses of Meclizine yesterday. Admits to lightheadedness but, denies vertigo. All lab from yesterday was personally reviewed. Hemoglobin is stable at 8.5. Phosphorus on 02/11/2025 was 2.0. Magnesium was 1.8. Admitted to rehab on 02/10/25 with debility suspected to be due to bacterial meningitis vs ventriculitis post myelogram (01/25/25) and multifocal pneumonia. Seen in the ED at [facility] on 01/26/25 hypoxia, fever and altered mental status. CSF c/w bacterial meningitis. Intubated in the emergency department. White blood cell count was 34.4. UA was negative for UTI. Lactic acid was 2.1. Chest x-ray showed increased vascular congestion versus multifocal pneumonia. CTA of the chest was negative for pulmonary emboli. BNP was 1916. Brain CT showed ill-defined hypoattenuating foci in the periventricular white matter, more prominent in the posterior occipital regions. CTA of the head showed near complete opacification of the right paranasal sinus. There was no acute vascular abnormality. There was ventriculomegaly with increased attenuation of the CSF of the posterior horns possibly consistent with meningitis. Incidental finding was enlargement of the main pulmonary artery possibly due to chronic pulmonary arterial hypertension. There were opacities in both lung apices. [facility] teleneurology was consulted and they felt the patient most likely had meningitis. They recommended treatment with cefepime, ampicillin, vancomycin and acyclovir and a lumbar puncture. She was transferred to [facility] for a higher level of care. She was treated with cefepime and vancomycin from 01/26/2025 to 02/09/2025. Sputum and urine cultures had no growth. A blood culture from 01/26/2025 had 1 of 2 cultures growing strep salivarius. EVD was placed on 01/27/2025 and clamped on 02/02/2025. Continuous EEG x 12 hours at [facility] showed no seizure activity. She was extubated on 01/28/2025. Troponins were elevated initially and peaked at 2000. She was diagnosed with NSTEMI secondary to demand ischemia. Echocardiogram showed a 30 to 35% ejection fraction and she intermittently received furosemide. In April 2024 her ejection fraction was 55%. She was transferred to the acute inpatient rehab unit at [facility] on 02/10/2025 with 3 hours of therapy daily to restore independence/function at or near her level prior to being diagnosed with sepsis/bacterial meningitis/ventriculitis. The myelogram showed an old left L5 laminotomy and multilevel degenerative changes with no evidence of critical spinal stenosis. Past medical history is significant for rheumatoid arthritis (taking Remicaid, Plaquenil and currently on 1 mg of prednisone daily). She sees Dr. Martinez at the [facility] in [place]. History is also positive for restless leg syndrome, osteoporosis, history of pacemaker, pulmonary hypertension, DARIO (compliant with CPAP at 6 cm of water), migraine cephalgia, GERD, microscopic colitis, history of NSTEMI in December 2016, hypertension, left bundle branch block, obesity and anxiety/depression. Today she is complaining of some lightheadedness when she is standing and up walking. She denies any vertigo. She denies cephalgia, chest pain, cough, shortness of breath, nausea/vomiting/abdominal pain, dysuria and calf tenderness. She also denies racing heart/palpitations. She is a bit foggy on what has happened to her recently. We filled her in on what happened and why and how she has been treated so far. She denies burning pain in her legs today. Objective Data Objective Data Vital Signs: Vital Signs Temp Pulse Resp BP Pulse Ox O2 Del Method 98.0 F 74 14 136/50 H 98 Room Air 02/14/25 06:00 02/14/25 08:45 02/14/25 06:00 02/14/25 06:00 02/14/25 06:00 02/14/25 06:00 Oxygen Delivery Method Room Air Weight: 173 lb 11.588 oz Body Mass Index (BMI) 30.7 Intake & Output: Intake and Output for Last 24 Hours 02/12/25 02/13/25 02/14/25 23:59 23:59 23:59 Intake Total 1300 / 1500 1300 / 1300 Output Total 500 / 500 800 / 800 Balance 800 / 1000 500 / 500 Lab / Micro Data 02/13/25 05:20 02/11/25 06:34 Physical Exam Const alert Constitutional Narrative: Pleasant and appropriate. Unclear about all recent events. General Appearance: cooperative HEENT normocephalic Mouth: dry mucous membranes Neck supple Resp normal respiratory effort, normal air movement and clear to auscultation bilaterally Effort and Inspection: Negative for tachypneic Cardio regular rate, regular rhythm, S1 normal heart sound, S2 normal heart sound, no murmurs, no rub and no gallops Cardio Narrative: No ectopy GI normal to inspection, nondistended, normoactive bowel sounds, soft to palpation and non-tender GI Narrative: No guarding with palpation Extremity no calf tenderness General Extremity: Negative for edema Skin Rashes: no rashes Neuro CN's II-XII intact bilaterally Psych Psych Narrative: Does not seem anxious. Not restless or fidgety. States she is sleeping well at night. Very cooperative with the therapists. Appearance: appropriate Mood & Affect: Negative for depressed or anxious Assessment & Plan Assessment/Plan (1) Debility: (2) Cerebral ventriculitis: (3) Meningitis: (4) Cognitive dysfunction: (5) Essential (primary) hypertension: (6) Pulmonary HTN: (7) Osteoporosis: QUALIFIERS: Osteoporosis type: unspecified Presence of current pathological fracture: without current pathological fracture Qualified Code(s): M81.0 - Age-related osteoporosis without current pathological fracture (8) Depression: QUALIFIERS: Depression Type: unspecified Qualified Code(s): F32.A - Depression, unspecified (9) RLS (restless legs syndrome): (10) Presence of cardiac pacemaker: (11) CHB (complete heart block): (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 Continue therapy 2. Increase the Neutra-Phos to 1 packet 3 times daily x 3 days and recheck a phosphorus on Thursday. 3. Check a BMP and CBC on Thursday 4. Continue to monitor the blood pressure Charges/Coding Visit Charges Inpatient E&M: 70274 Subs Hosp L2
[2025-02-14] MEDS: Ferrous Sulfate 325 MG Tablet PO (11:44)
[2025-02-14] MEDS: Magnesium Hydroxide 30 ML UDC PO (11:44)
[2025-02-14 15:26] VITALS: BP 111/50; BP 112/54; BP 130/60; PULSE 65; PULSE 69; PULSE 81
[2025-02-14 18:00] VITALS: BP 103/64; PULSE 701; RESP 18; TEMP 36.8; O2SAT 97
[2025-02-14] MEDS: Atorvastatin Calcium 40 MG Tablet PO (20:26)
[2025-02-14] MEDS: Pramipexole Di-HCl 1 MG Tablet PO (20:26)
[2025-02-15 05:14] VITALS: BMI 30.8
[2025-02-15] MEDS: Na Biphos/Potassium Phosphate PACKET 1 PACKET PO ×3 (05:15→20:28)
[2025-02-15 06:00] VITALS: BP 124/57; PULSE 89; RESP 17; TEMP 36.7; O2SAT 99
[2025-02-15 08:03] VITALS: BP 104/62; PULSE 62
[2025-02-15] MEDS: Losartan Potassium 25 MG Tablet PO (08:03)
[2025-02-15] MEDS: Pramipexole Di-HCl 0.5 MG Tablet PO ×2 (08:03→11:26)
[2025-02-15] MEDS: Hydroxychloroquine 200 MG Tablet PO (08:03)
[2025-02-15] MEDS: Pantoprazole Sodium 20 MG Tablet PO (08:03)
[2025-02-15] MEDS: Escitalopram Oxalate 10 MG Tablet PO (08:03)
[2025-02-15] MEDS: Metoprolol(XL)Succ 25 MG Tablet 12.5 MG PO (08:03)
[2025-02-15] MEDS: predniSONE 1 MG Tablet PO (08:03)
[2025-02-15] MEDS: Aspirin 81 MG TAB.CHEW PO (08:03)
[2025-02-15] MEDS: Cholestyramine/Sucrose 4 GM/PACKET PO (08:04)
[2025-02-15] MEDS: Ensure Plus High Protein 120 ML LIQUID PO ×3 (09:25→17:11)
[2025-02-15] MEDS: Senna/Docusate Sodium 1 Tablet 2 TABLET PO ×2 (09:25→20:30)
[2025-02-15] MEDS: Meclizine 12.5 MG Tablet PO (11:21)
[2025-02-15 11:24] LABS: Anion Gap 13 (5-15); BUN 9 mg/dL (4-19); BUN/Creat Ratio 9.7 RATIO (10-20); Calcium,Total 9.5 mg/dL (7.6-11.0); Carbon Dioxide 23.1 mmol/L (21.0-32.0); Chloride 102 mmol/L (98-108); EST Glomerular Filtration Rate 67 (>60); Estimated Creatinine Clearance 53.75 ml/min (50-250); Glucose 94 mg/dL (70-99); Phosphorus 3.7 mg/dL (2.7-4.5); Potassium 4.3 mmol/L (3.3-5.1); Sodium Level 137 mmol/L (133-145)
[2025-02-15] MEDS: Ferrous Sulfate 325 MG Tablet PO (11:26)
--- NOTE | 2025-02-15 14:26 | PN_ITS ---
Subjective Subjective Afebrile Vital signs are stable and blood pressure is well-controlled. Heart rate is within normal limits. Maintaining appropriate oxygen saturation on room air. She had vertigo today when doing steps with PT when she turned her head. She was given Meclizine and sx have resolved. Orthostatics yesterday showed increased HR of 16 BPM when going from Lying to standing. No significant change in blood pressure when going from lying down to standing. BUN/creatinine ratio was good at 9.7. She takes metoprolol XL 12.5 mg daily and also takes losartan 25 mg daily. She takes 20 mg of furosemide every other day. EF on an echocardiogram done in April 2024 was 55% and there was mild segmental systolic dysfunction. No significant valvular heart disease. Cardiac cath in 2016 showed normal coronaries. The right ventricular systolic pressure on echocardiogram at that time was 43 mmHg. She has been diagnosed with congenital pulmonic valve stenosis in 1971. I reviewed the note from her last visit with cardiology in August 2024 and at that time she was not on furosemide. At that time she was taking 6 mg of prednisone daily. Pt now tells me that she has been taking 2 mg of Prednisone daily at home but, she is currently on 1 mg in the hospital. Has been on higher doses of Prednisone in the recent past for radicular pain in the LE's. Denies cephalgia, chest pain, shortness of breath, cough, nausea/vomiting/abdominal pain, dysuria and calf pain. Lab from this morning was personally reviewed. Creatinine is stable at 0.9. Sodium and potassium are normal. Phosphorus is 3.7 today which is normal following supplementation. Objective Data Objective Data Vital Signs: Vital Signs Temp Pulse Resp BP Pulse Ox O2 Del Method 98.1 F 62 17 104/62 99 Room Air 02/15/25 06:00 02/15/25 08:03 02/15/25 06:00 02/15/25 08:03 02/15/25 06:00 02/15/25 06:00 Oxygen Delivery Method Room Air Weight: 174 lb 2.643 oz Body Mass Index (BMI) 30.8 Intake & Output: Intake and Output for Last 24 Hours 02/13/25 02/14/25 02/15/25 23:59 23:59 23:59 Intake Total 1300 / 1300 780 / 780 900 / 900 Output Total 800 / 800 650 / 650 700 / 700 Balance 500 / 500 130 / 130 200 / 200 Lab / Micro Data 02/13/25 05:20 02/15/25 08:14 Labs: Laboratory Results - last 24 hr 02/15/25 08:14: Sodium 137, Potassium 4.3, Chloride 102, Carbon Dioxide 23.1, Anion Gap 13, BUN 9, Creatinine 0.90, Estim Creat Clear Calc 53.75, Est GFR (MDRD) Non-Af 67, BUN/Creatinine Ratio 9.7 L, Glucose 94, Calcium 9.5, Phosphorus 3.7 Physical Exam Const alert General Appearance: cooperative HEENT Mouth: dry mucous membranes Resp normal respiratory effort, normal air movement and clear to auscultation bilaterally Effort and Inspection: Negative for tachypneic Cardio regular rate, regular rhythm, S1 normal heart sound, S2 normal heart sound, no murmurs, no rub and no gallops Cardio Narrative: No ectopy GI normal to inspection, nondistended, normoactive bowel sounds, soft to palpation and non-tender GI Narrative: No guarding with palpation Extremity no calf tenderness General Extremity: Negative for edema Skin Rashes: no rashes Assessment & Plan Assessment/Plan (1) Debility: (2) Cerebral ventriculitis: (3) Meningitis: (4) Cognitive dysfunction: (5) Essential (primary) hypertension: (6) Pulmonary HTN: (7) Osteoporosis: QUALIFIERS: Osteoporosis type: unspecified Presence of current pathological fracture: without current pathological fracture Qualified Code(s): M81.0 - Age-related osteoporosis without current pathological fracture (8) Depression: QUALIFIERS: Depression Type: unspecified Qualified Code(s): F32.A - Depression, unspecified (9) RLS (restless legs syndrome): (10) Presence of cardiac pacemaker: (11) CHB (complete heart block): (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 Continue therapy 2. Not clear to me how much steroid she has been taking over the past couple months. She has received some burst therapy and is chronically on prednisone. Prednisone and in August 2024 was documented as being 6 mg a day but she tells me she was taking 2 mg prior to admission for meningitis. She has lightheadedness. Unclear to me whether she could have adrenal insufficiency now that she is only taking 1 mg daily. Will order a Cortrosyn stimulation test in the a.m. 3. Recheck a phosphorus level prior to discharge. 4. Encouraged her to increase her fluid intake. Charges/Coding Visit Charges Inpatient E&M: 10560 Subs Hosp L1
[2025-02-15 15:24] LABS: Hematocrit 27.3 % (37-47); Hemoglobin 8.9 g/dL (12.0-15.0); Mean Corp Hgb Conc 32.6 g/dL (32-36); Mean Corpuscular Hgb 28.1 pg (27.0-32.0); Mean Corpuscular Volume 86.1 fL (81-99); Mean Platelet Vol. 10.8 fl (6.2-12.0); Platelet Count 180 K/mm3 (150-450); RBC Distribution Width CV 17.3 % (11.6-14.6); RBC Distribution Width SD 54.3 fl (35.1-43.9); Red Blood Count 3.17 M/mm3 (4.2-5.4); White Blood Count 8.5 K/mm3 (4.4-11.0)
[2025-02-15 18:00] VITALS: BP 134/41; PULSE 76; RESP 17; TEMP 36.8; O2SAT 99
[2025-02-15] MEDS: Atorvastatin Calcium 40 MG Tablet PO (20:28)
[2025-02-15] MEDS: Pramipexole Di-HCl 1 MG Tablet PO (20:29)
[2025-02-15 22:00] VITALS: PULSE 76; RESP 17; O2SAT 99
[2025-02-16] MEDS: Cosyntropin 0.25 MG in 0.9% Normal Saline (Pres. free 4 ML 150 MG IV (05:11)
[2025-02-16] MEDS: 0.9% Saline Lock 10 ML Syringe IV ×2 (05:12→05:28)
[2025-02-16] MEDS: Na Biphos/Potassium Phosphate PACKET 1 PACKET PO ×3 (05:25→21:55)
[2025-02-16 05:48] LABS: CORTISOL AM 4.28 ug/dL (6.02-18.40)
[2025-02-16 06:00] VITALS: BP 106/50; PULSE 64; RESP 15; TEMP 36.3; O2SAT 96
[2025-02-16] MEDS: Furosemide 20 MG Tablet PO (08:11)
[2025-02-16] MEDS: Aspirin 81 MG TAB.CHEW PO (08:11)
[2025-02-16] MEDS: Pramipexole Di-HCl 0.5 MG Tablet PO ×2 (08:11→12:28)
[2025-02-16] MEDS: Cholestyramine/Sucrose 4 GM/PACKET PO (08:11)
[2025-02-16] MEDS: Losartan Potassium 25 MG Tablet PO (08:11)
[2025-02-16] MEDS: Hydroxychloroquine 200 MG Tablet PO (08:11)
[2025-02-16 08:12] VITALS: BP 125/49; PULSE 85
[2025-02-16] MEDS: Ensure Plus High Protein 120 ML LIQUID PO (08:12)
[2025-02-16] MEDS: Escitalopram Oxalate 10 MG Tablet PO (08:12)
[2025-02-16] MEDS: predniSONE 1 MG Tablet PO ×2 (08:12→14:45)
[2025-02-16] MEDS: Metoprolol(XL)Succ 25 MG Tablet 12.5 MG PO (08:12)
[2025-02-16] MEDS: Pantoprazole Sodium 20 MG Tablet PO (08:12)
[2025-02-16] MEDS: Senna/Docusate Sodium 1 Tablet 2 TABLET PO ×2 (08:12→21:55)
--- NOTE | 2025-02-16 09:29 | PN_ITS ---
Subjective Subjective Michelle was seen on team rounds today. Her Nimesh was present in the room for rounds and her daughter Cynthia participated by phone. Afebrile VSS -blood pressure has ranged from 106/52 132/73 over the past 24 hours. The heart rate has ranged from 62-112. Blood pressure lying down was 126/50 with a heart rate of 83. The blood pressure standing up was 111/55 with a heart rate of 108. She became very shaky and felt weak after 3 minutes standing. Maintaining appropriate oxygen saturation on RA Oral intake - FOOD highly variable and ranges from 25% to 74%. FLUIDS she took 1440 yesterday p.o. Overnight she had 365 in and 1100 out for a balance of -735. Discussed with nursing - no problems that need addressed. Continues to be incontinent of urine. Weight is stable. Reviewed the THERAPY notes Medication list reviewed. Having increased lightheadedness.......with standing and her legs get shaky. Denies vertigo. Denies radicular pain in her legs today. Also denies CP, SOB, palpitations, N/V/abd pain, dysuria, calf pain. orthostatics are mildly positive today. Results of the Cortrosyn stim test are equivocal. DHEAS was ordered. Family tells me that she was managing her medications and the finances at home prior to the meningitis. They have noticed increased forgetfulness since recent events. Scored 34/50 on the BCAT. was helping her a lot prior to the myelogram. Objective Data Objective Data Vital Signs: Vital Signs Temp Pulse Resp BP Pulse Ox O2 Del Method 97.4 F L 85 15 125/49 H 96 Room Air 02/16/25 06:00 02/16/25 08:12 02/16/25 06:00 02/16/25 08:12 02/16/25 06:00 02/16/25 06:00 Oxygen Delivery Method Room Air Weight: 174 lb 2.643 oz Body Mass Index (BMI) 30.8 Intake & Output: Intake and Output for Last 24 Hours 02/14/25 02/15/25 02/16/25 23:59 23:59 23:59 Intake Total 780 / 780 1440 / 1440 365 / 365 Output Total 650 / 650 1350 / 1650 800 / 800 Balance 130 / 130 90 / -210 -435 / -435 Lab / Micro Data 02/15/25 15:13 02/15/25 08:14 Labs: Laboratory Results - last 24 hr 02/15/25 08:14: Sodium 137, Potassium 4.3, Chloride 102, Carbon Dioxide 23.1, Anion Gap 13, BUN 9, Creatinine 0.90, Estim Creat Clear Calc 53.75, Est GFR (MDRD) Non-Af 67, BUN/Creatinine Ratio 9.7 L, Glucose 94, Calcium 9.5, Phosphorus 3.7 02/15/25 15:13: WBC 8.5, RBC 3.17 L, Hgb 8.9 L, Hct 27.3 L, MCV 86.1, MCH 28.1, MCHC 32.6, RDW Std Deviation 54.3 H, RDW Coeff of Omar 17.3 H, Plt Count 180, MPV 10.8 02/16/25 05:13: Cortisol AM Sample 4.28 L 02/16/25 06:00: Cortisol AM Sample 16.00 Physical Exam Const alert General Appearance: cooperative HEENT Mouth: dry mucous membranes Resp normal respiratory effort, normal air movement and clear to auscultation bilaterally Effort and Inspection: Negative for tachypneic Cardio regular rate, regular rhythm, S1 normal heart sound, S2 normal heart sound, no murmurs, no rub and no gallops Cardio Narrative: No ectopy GI normal to inspection, nondistended, normoactive bowel sounds, soft to palpation and non-tender GI Narrative: No guarding with palpation Extremity no calf tenderness General Extremity: Negative for edema Skin Rashes: no rashes Assessment & Plan Assessment/Plan (1) Debility: (2) Cerebral ventriculitis: (3) Meningitis: (4) Cognitive dysfunction: (5) Essential (primary) hypertension: (6) Pulmonary HTN: (7) Osteoporosis: QUALIFIERS: Osteoporosis type: unspecified Presence of current pathological fracture: without current pathological fracture Qualified Code(s): M81.0 - Age-related osteoporosis without current pathological fracture (8) Depression: QUALIFIERS: Depression Type: unspecified Qualified Code(s): F32.A - Depression, unspecified (9) RLS (restless legs syndrome): (10) Presence of cardiac pacemaker: (11) CHB (complete heart block): (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 Work up in progress. lab is not consistent with dehydration and she is not having vertigo to account for dizziness (19) Non-ST elevation myocardial infarction (NSTEMI) in recovery phase: (20) Cardiomyopathy: QUALIFIERS: Cardiomyopathy type: ischemic Qualified Code(s): I 25.5 - Ischemic cardiomyopathy PLAN: Plan 1. Continue therapy 2. Prednisone 5 mg p.o. now and increase the daily prednisone to 1 mg p.o. at 7 AM and 2 PM. 3. Have her follow up with endocrinology post DC 4. Recheck orthostatics today and allow 5 minutes in between position changes. This was mildly positive and she was unable to stand for 5 minutes. At 3 minutes she felt shaky and lightheaded and had to sit down. 5. DHEAS ordered. This is a send out test and will likely take several days to come back. Will need 6. Will need follow-up with cardiology postdischarge for cardiomyopathy/coronary artery disease. Charges/Coding Visit Charges Inpatient E&M: 22031 Subs Hosp L2
[2025-02-16] MEDS: predniSONE 5 MG Tablet PO (10:51)
[2025-02-16 10:54] VITALS: BP 132/73; PULSE 112
[2025-02-16 10:59] VITALS: BP 109/51; BP 111/55; BP 126/50; PULSE 108; PULSE 83; PULSE 86
[2025-02-16] MEDS: Ferrous Sulfate 325 MG Tablet PO (12:27)
--- NOTE | 2025-02-16 12:50 | CASEMGMT ---
Social Work IDT met with patient and at bedside, then dtr participated via phone, for Team meeting. Discussed patient's progress in PT/OT/ST/SN. Educated to Medicare approval of 22 days with a DC 03/04. Pt and 's goal is for pt to return home with assisting. Pt scored 34/50 on BCAT. Dtr noticed new cognitive changes as well. Dtr explained pt did not have any significant cognitive issues prior. Inquired to and stated, she had the same problems I have - forgetfulness, cannot remember a name. Dr and dtr concluded those are normal age related memory loss. IDT will continue to assess pt's progress and make recommendations for DC. Discussed having allow pt to perform tasks independently and not doting on pt, and to focus on the tasks pt does not need assistance. Family expressed understanding. SW will assist with DC planning. Will ReTeam weekly. Tamika Petersen TRAIN SYSTEM OPERATOR [employer]
[2025-02-16 18:00] VITALS: BP 113/52; PULSE 71; RESP 18; TEMP 36.7; O2SAT 99
[2025-02-16 21:50] VITALS: PULSE 71; RESP 17; O2SAT 99
[2025-02-16] MEDS: Pramipexole Di-HCl 1 MG Tablet PO (21:55)
[2025-02-16] MEDS: Atorvastatin Calcium 40 MG Tablet PO (21:55)
[2025-02-17] MEDS: 0.9% Saline Lock 10 ML Syringe IV (03:32)
[2025-02-17 04:07] LABS: DHEA Sulfate 5.8 ug/dL (13.9-142.8)
[2025-02-17] MEDS: Na Biphos/Potassium Phosphate PACKET 1 PACKET PO ×2 (05:50→14:53)
[2025-02-17] MEDS: predniSONE 1 MG Tablet PO ×2 (05:51→14:53)
[2025-02-17 06:00] VITALS: BP 118/62; PULSE 84; RESP 16; TEMP 36.7; O2SAT 99
[2025-02-17 08:14] VITALS: BP 118/62; PULSE 84
[2025-02-17] MEDS: Aspirin 81 MG TAB.CHEW PO (08:14)
[2025-02-17] MEDS: Metoprolol(XL)Succ 25 MG Tablet 12.5 MG PO (08:14)
[2025-02-17] MEDS: Pramipexole Di-HCl 0.5 MG Tablet PO ×2 (08:14→11:48)
[2025-02-17] MEDS: Senna/Docusate Sodium 1 Tablet 2 TABLET PO (08:14)
[2025-02-17] MEDS: Cholestyramine/Sucrose 4 GM/PACKET PO (08:14)
[2025-02-17] MEDS: Escitalopram Oxalate 10 MG Tablet PO (08:15)
[2025-02-17] MEDS: Ensure Plus High Protein 120 ML LIQUID PO ×3 (08:15→16:36)
[2025-02-17] MEDS: Hydroxychloroquine 200 MG Tablet PO (08:15)
[2025-02-17] MEDS: Losartan Potassium 25 MG Tablet PO (08:15)
[2025-02-17] MEDS: Pantoprazole Sodium 20 MG Tablet PO (08:15)
[2025-02-17] MEDS: Ferrous Sulfate 325 MG Tablet PO (11:48)
[2025-02-17 17:34] VITALS: BP 110/40; PULSE 68; RESP 16; TEMP 36.6; O2SAT 98
[2025-02-17] MEDS: Atorvastatin Calcium 40 MG Tablet PO (20:58)
[2025-02-17] MEDS: Pramipexole Di-HCl 1 MG Tablet PO (20:58)
[2025-02-17 21:00] VITALS: PULSE 68; RESP 16; O2SAT 98
[2025-02-18 05:00] VITALS: BP 111/53; PULSE 69; RESP 18; TEMP 37; O2SAT 95
[2025-02-18] MEDS: predniSONE 1 MG Tablet PO ×2 (06:16→14:22)
[2025-02-18] MEDS: Losartan Potassium 25 MG Tablet PO (08:26)
[2025-02-18] MEDS: Senna/Docusate Sodium 1 Tablet 2 TABLET PO ×2 (08:26→21:03)
[2025-02-18] MEDS: Cholestyramine/Sucrose 4 GM/PACKET PO (08:26)
[2025-02-18] MEDS: Furosemide 20 MG Tablet PO (08:26)
[2025-02-18] MEDS: Escitalopram Oxalate 10 MG Tablet PO (08:27)
[2025-02-18] MEDS: Hydroxychloroquine 200 MG Tablet PO (08:27)
[2025-02-18] MEDS: Pantoprazole Sodium 20 MG Tablet PO (08:27)
[2025-02-18] MEDS: Aspirin 81 MG TAB.CHEW PO (08:27)
[2025-02-18] MEDS: Ensure Plus High Protein 120 ML LIQUID PO ×2 (08:28→11:47)
[2025-02-18] MEDS: Pramipexole Di-HCl 0.5 MG Tablet PO ×2 (08:28→11:47)
[2025-02-18 08:31] VITALS: BP 114/56; PULSE 76
[2025-02-18] MEDS: Metoprolol(XL)Succ 25 MG Tablet 12.5 MG PO (08:31)
[2025-02-18] MEDS: Ferrous Sulfate 325 MG Tablet PO (11:47)
[2025-02-18] MEDS: 0.9% Saline Lock 10 ML Syringe IV (11:48)
[2025-02-18 18:00] VITALS: BP 104/51; PULSE 67; RESP 17; TEMP 36.3; O2SAT 98
[2025-02-18] MEDS: Atorvastatin Calcium 40 MG Tablet PO (21:02)
[2025-02-18] MEDS: Pramipexole Di-HCl 1 MG Tablet PO (21:03)
[2025-02-19 05:18] VITALS: BP 100/71; PULSE 77; RESP 18; TEMP 36.7; O2SAT 97
[2025-02-19] MEDS: predniSONE 1 MG Tablet PO ×2 (06:43→13:16)
[2025-02-19] MEDS: Alendronate Sodium 70 MG Tablet PO (06:43)
[2025-02-19 08:04] VITALS: PULSE 71
[2025-02-19] MEDS: Pramipexole Di-HCl 0.5 MG Tablet PO ×2 (08:04→11:10)
[2025-02-19] MEDS: Metoprolol(XL)Succ 25 MG Tablet 12.5 MG PO (08:04)
[2025-02-19] MEDS: Losartan Potassium 25 MG Tablet PO (08:04)
[2025-02-19] MEDS: Aspirin 81 MG TAB.CHEW PO (08:04)
[2025-02-19] MEDS: Escitalopram Oxalate 10 MG Tablet PO (08:04)
[2025-02-19] MEDS: Hydroxychloroquine 200 MG Tablet PO (08:04)
[2025-02-19] MEDS: Pantoprazole Sodium 20 MG Tablet PO (08:04)
[2025-02-19] MEDS: Senna/Docusate Sodium 1 Tablet 2 TABLET PO ×2 (08:04→20:44)
[2025-02-19] MEDS: Cholestyramine/Sucrose 4 GM/PACKET PO (08:06)
[2025-02-19 08:11] VITALS: BP 109/40
[2025-02-19] MEDS: Ferrous Sulfate 325 MG Tablet PO (11:10)
[2025-02-19 18:00] VITALS: BP 117/42; PULSE 69; RESP 16; TEMP 36.7; O2SAT 99
[2025-02-19] MEDS: Pramipexole Di-HCl 1 MG Tablet PO (20:44)
[2025-02-19] MEDS: Atorvastatin Calcium 40 MG Tablet PO (20:44)
[2025-02-20 06:00] VITALS: BP 122/45; PULSE 79; RESP 16; TEMP 36.1; O2SAT 96
[2025-02-20] MEDS: predniSONE 1 MG Tablet PO ×2 (06:20→14:31)
[2025-02-20] MEDS: Losartan Potassium 25 MG Tablet PO (08:12)
[2025-02-20] MEDS: Cholestyramine/Sucrose 4 GM/PACKET PO (08:12)
[2025-02-20] MEDS: Furosemide 20 MG Tablet PO (08:12)
[2025-02-20 08:13] VITALS: BP 106/54; PULSE 78
[2025-02-20] MEDS: Aspirin 81 MG TAB.CHEW PO (08:13)
[2025-02-20] MEDS: Pantoprazole Sodium 20 MG Tablet PO (08:13)
[2025-02-20] MEDS: Metoprolol(XL)Succ 25 MG Tablet 12.5 MG PO (08:13)
[2025-02-20] MEDS: Hydroxychloroquine 200 MG Tablet PO (08:13)
[2025-02-20] MEDS: Escitalopram Oxalate 10 MG Tablet PO (08:14)
[2025-02-20] MEDS: Pramipexole Di-HCl 0.5 MG Tablet PO ×2 (08:14→11:50)
--- NOTE | 2025-02-20 08:31 | PN_ITS ---
Subjective Subjective Afebrile VSS -blood pressure is at goal and heart rate is within normal limits. Maintaining appropriate oxygen saturation on RA Oral intake - FOOD good, refuses an occasional meal. Ate 75 to 100% of all of her meals yesterday. FLUIDS inconsistent. Yesterday was a good day and she took 1680. Discussed with nursing - no problems that need addressed Reviewed the THERAPY notes Medication list reviewed. She is complaining of dizziness when looking down to do the stairs today. She tells me today that she has a history of vertigo in the past and has taken meclizine as needed. She tells me meclizine is effective. She has never been taught Apley's maneuvers. She has a dry cough which is chronic. Denies cephalgia, chest pain, shortness of breath, nausea/vomiting/abdominal pain, calf tenderness and dysuria. She feels that she is getting stronger. She is asking me why her head was shaved. EVD was placed at the previous hospital on 01/27/2025 and then clamped on 02/02/2025. The EVD was removed on 02/04/2025. Objective Data Objective Data Vital Signs: Vital Signs Temp Pulse Resp BP Pulse Ox O2 Del Method 97 F L 78 16 106/54 L 96 Room Air 02/20/25 06:00 02/20/25 08:13 02/20/25 06:00 02/20/25 08:13 02/20/25 06:00 02/20/25 06:00 Oxygen Delivery Method Room Air Weight: 174 lb 2.643 oz Body Mass Index (BMI) 30.8 Intake & Output: Intake and Output for Last 24 Hours 02/18/25 02/19/25 02/20/25 23:59 23:59 23:59 Intake Total 810 / 810 1680 / 1680 480 / 480 Output Total 700 / 700 1350 / 1350 300 / 300 Balance 110 / 110 330 / 330 180 / 180 Lab / Micro Data 02/15/25 15:13 02/15/25 08:14 Physical Exam Const alert, oriented x3 and no apparent distress Constitutional Narrative: Forgetful General Appearance: cooperative HEENT Mouth: dry mucous membranes Resp normal respiratory effort and clear to auscultation bilaterally Effort and Inspection: Negative for tachypneic Cardio regular rate, regular rhythm and no gallops Cardio Narrative: Occasional ectopic. GI normal to inspection, nondistended, normoactive bowel sounds and soft to palpation GI Narrative: No guarding with palpation. Extremity no calf tenderness General Extremity: Negative for edema Skin Rashes: no rashes Assessment & Plan Assessment/Plan (1) Debility: (2) Cerebral ventriculitis: (3) Meningitis: (4) Cognitive dysfunction: (5) Essential (primary) hypertension: (6) Pulmonary HTN: (7) Osteoporosis: QUALIFIERS: Osteoporosis type: unspecified Presence of current pathological fracture: without current pathological fracture Qualified Code(s): M81.0 - Age-related osteoporosis without current pathological fracture (8) Depression: QUALIFIERS: Depression Type: unspecified Qualified Code(s): F32.A - Depression, unspecified (9) RLS (restless legs syndrome): (10) Presence of cardiac pacemaker: (11) CHB (complete heart block): (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 Work up in progress. lab is not consistent with dehydration and she is not having vertigo to account for dizziness (19) Non-ST elevation myocardial infarction (NSTEMI) in recovery phase: (20) Cardiomyopathy: QUALIFIERS: Cardiomyopathy type: ischemic Qualified Code(s): I 25.5 - Ischemic cardiomyopathy PLAN: Plan 1. Continue therapy 2. Ask physical therapy to teach her Bernice's maneuvers. 3. Schedule meclizine 12.5 mg at 7 AM daily. 4. Recheck a CBC and a BMP in the a.m. Charges/Coding Visit Charges Inpatient E&M: 46115 Subs Hosp L1
[2025-02-20] MEDS: Senna/Docusate Sodium 1 Tablet 2 TABLET PO ×2 (11:49→20:45)
[2025-02-20] MEDS: Ferrous Sulfate 325 MG Tablet PO (11:50)
[2025-02-20 17:49] VITALS: BP 110/43; PULSE 62; RESP 17; TEMP 36.8; O2SAT 95
[2025-02-20] MEDS: Ensure Plus High Protein 120 ML LIQUID PO ×2 (18:16→20:45)
[2025-02-20] MEDS: Atorvastatin Calcium 40 MG Tablet PO (20:44)
[2025-02-20] MEDS: Pramipexole Di-HCl 1 MG Tablet PO (20:45)
[2025-02-21 05:00] VITALS: BP 112/46; PULSE 78; RESP 16; TEMP 36.5; O2SAT 96
[2025-02-21 05:52] LABS: Hemoglobin 8.3 g/dL (12.0-15.0); Mean Corp Hgb Conc 31.9 g/dL (32-36); Mean Corpuscular Hgb 27.5 pg (27.0-32.0); Mean Corpuscular Volume 86.1 fL (81-99); Mean Platelet Vol. 10.5 fl (6.2-12.0); Platelet Count 199 K/mm3 (150-450); RBC Distribution Width CV 17.5 % (11.6-14.6); RBC Distribution Width SD 55.4 fl (35.1-43.9); Red Blood Count 3.02 M/mm3 (4.2-5.4); White Blood Count 6.1 K/mm3 (4.4-11.0)
[2025-02-21] MEDS: predniSONE 1 MG Tablet PO ×2 (06:00→13:04)
[2025-02-21] MEDS: Meclizine 12.5 MG Tablet PO (06:01)
[2025-02-21 06:23] LABS: Anion Gap 12 (5-15); BUN 15 mg/dL (4-19); Calcium,Total 9.2 mg/dL (7.6-11.0); Carbon Dioxide 21.8 mmol/L (21.0-32.0); Chloride 104 mmol/L (98-108); Creatinine, Serum 0.93 mg/dL (0.70-1.20); EST Glomerular Filtration Rate 64 (>60); Estimated Creatinine Clearance 52.02 ml/min (50-250); Glucose 88 mg/dL (70-99); Potassium 4.1 mmol/L (3.3-5.1); Sodium Level 138 mmol/L (133-145)
[2025-02-21 07:48] VITALS: PULSE 78
[2025-02-21] MEDS: Hydroxychloroquine 200 MG Tablet PO (07:48)
[2025-02-21] MEDS: Aspirin 81 MG TAB.CHEW PO (07:48)
[2025-02-21] MEDS: Escitalopram Oxalate 10 MG Tablet PO (07:48)
[2025-02-21] MEDS: Losartan Potassium 25 MG Tablet PO (07:48)
[2025-02-21] MEDS: Pramipexole Di-HCl 0.5 MG Tablet PO ×2 (07:48→13:04)
[2025-02-21] MEDS: Senna/Docusate Sodium 1 Tablet 2 TABLET PO ×2 (07:48→19:35)
[2025-02-21] MEDS: Pantoprazole Sodium 20 MG Tablet PO (07:48)
[2025-02-21] MEDS: Metoprolol(XL)Succ 25 MG Tablet 12.5 MG PO (07:48)
[2025-02-21] MEDS: Cholestyramine/Sucrose 4 GM/PACKET PO (07:48)
--- NOTE | 2025-02-21 09:22 | PN_ITS ---
Subjective Subjective Afebrile Vital signs are stable Maintaining a oxygen saturation of 95 to 99% on room air. Medication list was reviewed. Nursing reports no problems that need addressed. I reviewed the therapy notes. Making progress steadily. Walked a short distance with the cane today but therapy is recommending she use the rollator at home for increased safety/stability. All lab from today was personally reviewed. Hemoglobin is 8.3 which is stable. White blood cell count is normal at 6.1 and platelets are within normal limits. Sodium is 138 and the potassium is 4.1. Serum bicarb is normal. The BUN is 15 with a stable creatinine of 0.93. Calcium is normal. Michelle tells me she felt very alert this morning and ready to move. Denies cephalgia. No lightheadedness yet today. Started on meclizine 12.5 mg every morning yesterday and physical therapy is going to teach Bernice's maneuvers or Barbeque? maneuvers (since the dizziness comes with flexion/extension of the neck it is the anterior canals that are affected and this is treated with a different maneuver per PT. Denies headache, chest pain, shortness of breath, palpitations, nausea/vomiting/abdominal pain, dysuria and calf tenderness. Feeling stronger. Objective Data Objective Data Vital Signs: Vital Signs Temp Pulse Resp BP Pulse Ox O2 Del Method 97.7 F L 78 16 112/46 L 96 Room Air 02/21/25 05:00 02/21/25 07:48 02/21/25 05:00 02/21/25 05:00 02/21/25 05:00 02/21/25 05:00 Oxygen Delivery Method Room Air Weight: 174 lb 2.643 oz Body Mass Index (BMI) 30.8 Intake & Output: Intake and Output for Last 24 Hours 02/19/25 02/20/25 02/21/25 23:59 23:59 23:59 Intake Total 1680 / 1680 1090 / 1190 350 / 350 Output Total 1350 / 1350 600 / 925 925 / 925 Balance 330 / 330 490 / 265 -575 / -575 Lab / Micro Data 02/21/25 05:22 02/21/25 05:22 Labs: Laboratory Results - last 24 hr 02/21/25 05:22: WBC 6.1, RBC 3.02 L, Hgb 8.3 L, Hct 26.0 L, MCV 86.1, MCH 27.5, MCHC 31.9 L, RDW Std Deviation 55.4 H, RDW Coeff of Omar 17.5 H, Plt Count 199, MPV 10.5, Sodium 138, Potassium 4.1, Chloride 104, Carbon Dioxide 21.8, Anion Gap 12, BUN 15, Creatinine 0.93, Estim Creat Clear Calc 52.02, Est GFR (MDRD) Non-Af 64, BUN/Creatinine Ratio 16.0, Glucose 88, Calcium 9.2 Physical Exam Const alert, oriented x3 and no apparent distress Constitutional Narrative: Forgetful General Appearance: cooperative Neck supple Resp normal respiratory effort and clear to auscultation bilaterally Effort and Inspection: Negative for tachypneic Cardio regular rate, regular rhythm and no gallops Cardio Narrative: Occasional ectopic. GI normal to inspection, nondistended, normoactive bowel sounds and soft to palpation GI Narrative: No guarding with palpation. Extremity no calf tenderness General Extremity: Negative for edema Skin General Skin Exam: no breakdown Rashes: no rashes Neuro CN's II-XII intact bilaterally and no focal motor deficits Psych cooperative Psych Narrative: good eye contact. sleeping well. Appearance: appropriate Activity / Motor Behavior: Negative for restless Assessment & Plan Assessment/Plan (1) Debility: (2) Cerebral ventriculitis: (3) Meningitis: (4) Cognitive dysfunction: (5) Essential (primary) hypertension: (6) Pulmonary HTN: (7) Osteoporosis: QUALIFIERS: Osteoporosis type: unspecified Presence of current pathological fracture: without current pathological fracture Qualified Code(s): M81.0 - Age-related osteoporosis without current pathological fracture (8) Depression: QUALIFIERS: Depression Type: unspecified Qualified Code(s): F32.A - Depression, unspecified (9) RLS (restless legs syndrome): (10) Presence of cardiac pacemaker: (11) CHB (complete heart block): (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 DHEAS was low which is consistent with adrenal insufficiency. (19) Non-ST elevation myocardial infarction (NSTEMI) in recovery phase: (20) Cardiomyopathy: QUALIFIERS: Cardiomyopathy type: ischemic Qualified Code(s): I 25.5 - Ischemic cardiomyopathy PLAN: Plan 1. Continue therapy 2. No changes to the drug regimen today. 3. D/W ST - will have her do a BCAT. 4. Nursing contacted Dr. Martinez's office because we have not received the requested records yet....informed the staff member who deals with MR's will not be in until Thursday. Charges/Coding Visit Charges Inpatient E&M: 07296 Subs Hosp L1
[2025-02-21] MEDS: Ferrous Sulfate 325 MG Tablet PO (13:04)
[2025-02-21] MEDS: Ensure Plus High Protein 120 ML LIQUID PO ×2 (13:05→19:34)
[2025-02-21 17:40] VITALS: BP 116/34; PULSE 68; RESP 16; TEMP 36.1; O2SAT 99
[2025-02-21] MEDS: Atorvastatin Calcium 40 MG Tablet PO (19:34)
[2025-02-21] MEDS: Pramipexole Di-HCl 1 MG Tablet PO (19:36)
[2025-02-22 06:00] VITALS: BP 121/45; PULSE 65; RESP 14; TEMP 36.8; O2SAT 98; BMI 30.4
[2025-02-22] MEDS: Meclizine 12.5 MG Tablet PO (07:00)
[2025-02-22] MEDS: predniSONE 1 MG Tablet PO ×2 (07:01→13:02)
[2025-02-22 07:47] VITALS: PULSE 65
[2025-02-22] MEDS: Hydroxychloroquine 200 MG Tablet PO (07:47)
[2025-02-22] MEDS: Senna/Docusate Sodium 1 Tablet 2 TABLET PO ×2 (07:47→23:50)
[2025-02-22] MEDS: Cholestyramine/Sucrose 4 GM/PACKET PO (07:47)
[2025-02-22] MEDS: Escitalopram Oxalate 10 MG Tablet PO (07:47)
[2025-02-22] MEDS: Aspirin 81 MG TAB.CHEW PO (07:47)
[2025-02-22] MEDS: Pramipexole Di-HCl 0.5 MG Tablet PO ×2 (07:47→13:02)
[2025-02-22] MEDS: Losartan Potassium 25 MG Tablet PO (07:47)
[2025-02-22] MEDS: Metoprolol(XL)Succ 25 MG Tablet 12.5 MG PO (07:47)
[2025-02-22] MEDS: Pantoprazole Sodium 20 MG Tablet PO (07:48)
[2025-02-22] MEDS: Furosemide 20 MG Tablet PO (07:48)
[2025-02-22] MEDS: Ensure Plus High Protein 120 ML LIQUID PO ×3 (07:53→23:50)
[2025-02-22] MEDS: Ferrous Sulfate 325 MG Tablet PO (13:02)
[2025-02-22 17:23] VITALS: BP 137/61; PULSE 71; RESP 15; TEMP 36.7; O2SAT 97
[2025-02-22] MEDS: Pramipexole Di-HCl 1 MG Tablet PO (23:50)
[2025-02-22] MEDS: Atorvastatin Calcium 40 MG Tablet PO (23:50)
[2025-02-23 05:20] VITALS: BP 121/49; PULSE 74; RESP 16; TEMP 36.6; O2SAT 96
[2025-02-23] MEDS: predniSONE 1 MG Tablet PO ×2 (07:03→13:04)
[2025-02-23] MEDS: Meclizine 12.5 MG Tablet PO (07:04)
[2025-02-23 07:51] VITALS: PULSE 74
[2025-02-23] MEDS: Hydroxychloroquine 200 MG Tablet PO (07:51)
[2025-02-23] MEDS: Aspirin 81 MG TAB.CHEW PO (07:51)
[2025-02-23] MEDS: Escitalopram Oxalate 10 MG Tablet PO (07:51)
[2025-02-23] MEDS: Pantoprazole Sodium 20 MG Tablet PO (07:51)
[2025-02-23] MEDS: Pramipexole Di-HCl 0.5 MG Tablet PO ×2 (07:51→13:03)
[2025-02-23] MEDS: Metoprolol(XL)Succ 25 MG Tablet 12.5 MG PO (07:51)
[2025-02-23] MEDS: Losartan Potassium 25 MG Tablet PO (07:51)
[2025-02-23] MEDS: Cholestyramine/Sucrose 4 GM/PACKET PO (07:52)
[2025-02-23] MEDS: Ensure Plus High Protein 120 ML LIQUID PO ×2 (07:55→20:17)
--- NOTE | 2025-02-23 10:37 | PN_ITS ---
Subjective Subjective Michelle was seen on team rounds today. Her Malcolm was present in the room. Daughter Cynthia participated by phone. Afebrile VSS - Maintaining appropriate oxygen saturation on RA Having regular bowel movements. Discussed with nursing - no problems that need addressed Reviewed the THERAPY notes Medication list reviewed. Michelle tells me that she is not lightheaded. She did a flight of stairs today and had no lightheadedness per PT. Got SOB with the stairs but, this is the first time she was able to do a whole flight. Making progress with ST but, ST recommending supervision with medications and finances. Denies CP, palpitations, SOB at rest or with lying down, N/V/Abd pain, dysuria and calf tenderness. Michelle asked me why she was on a diuretic and why she was on Cozaar. The reason is for CHF. EF in April of 2024 was 55 % with wall motion abnormalities......at [facility] the EF was 30-35% and she had acute CHF requiring IV diuretics. She was started on Cozaar because of the CM. I explained that to her. She last saw [facility] in Aug. Has a dual chamber PM. Stress test in July 2024 was negative. RV was normal in size last April. Both atria were normal size. The pulmonic valve was normal. Objective Data Objective Data Vital Signs: Vital Signs Temp Pulse Resp BP Pulse Ox O2 Del Method 97.8 F 74 16 121/49 H 96 Room Air 02/23/25 05:20 02/23/25 07:51 02/23/25 05:20 02/23/25 05:20 02/23/25 05:20 02/23/25 05:20 Oxygen Delivery Method Room Air Weight: 171 lb 15.369 oz Body Mass Index (BMI) 30.4 Intake & Output: Intake and Output for Last 24 Hours 02/21/25 02/22/25 02/23/25 23:59 23:59 23:59 Intake Total 1240 / 1240 1340 / 1340 960 / 960 Output Total 1675 / 1675 1200 / 1200 550 / 550 Balance -435 / -435 140 / 140 410 / 410 Lab / Micro Data 02/21/25 05:22 02/21/25 05:22 Physical Exam Const alert, oriented x3 and no apparent distress Constitutional Narrative: Forgetful General Appearance: cooperative Resp normal respiratory effort and clear to auscultation bilaterally Effort and Inspection: Negative for tachypneic Cardio regular rate, regular rhythm and no gallops Cardio Narrative: Occasional ectopic. GI normal to inspection, nondistended, normoactive bowel sounds and soft to palpation GI Narrative: No guarding with palpation. Extremity no calf tenderness General Extremity: Negative for edema Skin General Skin Exam: no breakdown Rashes: no rashes Psych cooperative Psych Narrative: good eye contact. sleeping well. Appearance: appropriate Assessment & Plan Assessment/Plan (1) Debility: (2) Cerebral ventriculitis: (3) Meningitis: (4) Cognitive dysfunction: (5) Essential (primary) hypertension: (6) Pulmonary HTN: (7) Osteoporosis: QUALIFIERS: Osteoporosis type: unspecified Presence of current pathological fracture: without current pathological fracture Qualified Code(s): M81.0 - Age-related osteoporosis without current pathological fracture (8) Depression: QUALIFIERS: Depression Type: unspecified Qualified Code(s): F32.A - Depression, unspecified (9) RLS (restless legs syndrome): (10) Presence of cardiac pacemaker: PLAN: Placed for complete heart block (11) CHB (complete heart block): (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 (13) DARIO (obstructive sleep apnea): (14) Normochromic normocytic anemia: (15) Hypophosphatemia: (16) Rheumatoid arthritis: QUALIFIERS: Rheumatoid arthritis location: multiple sites R heumatoid factor presence: unspecified presence Qualified Code(s): M06.9 - Rheumatoid arthritis, unspecified (17) Adrenal insufficiency: PLAN: Equivocal results on Cortrosyn stim test. DHEAS was low which is consistent with adrenal insufficiency. (18) Non-ST elevation myocardial infarction (NSTEMI) in recovery phase: PLAN: Elevated troponins while at [facility] and the EF dropped to 30-35%. (19) Cardiomyopathy: QUALIFIERS: Cardiomyopathy type: ischemic Qualified Code(s): I 25.5 - Ischemic cardiomyopathy PLAN: Negative stress in Jul. (20) Benign positional vertigo: QUALIFIERS: Laterality: unspecified laterality Qualified Code(s): H81.10 - Benign paroxysmal vertigo, unspecified ear (21) Current chronic use of systemic steroids: PLAN: Plan 1. Continue therapy 2. It is my opinion in the opinion of the therapist that the patient would benefit from staying until 03/04/2025 to maximize her ability to ascend/descend a flight of steps which she needs to do to be able to enter her home. 3. Continue scheduled meclizine a.m. because the dizziness she is experiencing in the stair climbing has not resolved. 4. Continue Cozaar and Lasix for cardiomyopathy. She is also on Toprol XL 12.5 mg daily because of recent NSTEMI. Charges/Coding Visit Charges Inpatient E&M: 15034 Subs Hosp L2
--- NOTE | 2025-02-23 13:00 | CASEMGMT ---
Social Work IDT met with patient and at bedside, then daughter via conference call for Team meeting. Discussed patient's progress in PT/OT/ST/SN. Educated to Medicare benefit with DC 03/04. can assist pt at home. will attend therapy training next week. Therapy will continue working on steps. SW offered HHC vs OP therapy at DC, and any DME needs. Pt/ prefers [facility] for therapy and denies DME. SW to finalize DC plans at Team next week. SW will continue to follow. Tamika Petersen DRAWING KILN SUPERVISOR CARDIAC NURSE PRACTITIONER
[2025-02-23] MEDS: Ferrous Sulfate 325 MG Tablet PO (13:03)
[2025-02-23 17:33] VITALS: BP 112/47; PULSE 62; RESP 16; TEMP 36.7; O2SAT 97
[2025-02-23] MEDS: Atorvastatin Calcium 40 MG Tablet PO (20:17)
[2025-02-23] MEDS: Pramipexole Di-HCl 1 MG Tablet PO (20:17)
[2025-02-23] MEDS: Senna/Docusate Sodium 1 Tablet 2 TABLET PO (20:18)
[2025-02-24] MEDS: Meclizine 12.5 MG Tablet PO (05:52)
[2025-02-24] MEDS: predniSONE 1 MG Tablet PO ×2 (05:52→13:57)
[2025-02-24 06:00] VITALS: BP 156/51; PULSE 73; RESP 16; TEMP 36.6; O2SAT 97
[2025-02-24 07:53] VITALS: PULSE 73
[2025-02-24] MEDS: Metoprolol(XL)Succ 25 MG Tablet 12.5 MG PO (07:53)
[2025-02-24] MEDS: Cholestyramine/Sucrose 4 GM/PACKET PO (07:53)
[2025-02-24] MEDS: Senna/Docusate Sodium 1 Tablet 2 TABLET PO ×2 (07:53→20:16)
[2025-02-24] MEDS: Pramipexole Di-HCl 0.5 MG Tablet PO ×2 (07:53→11:37)
[2025-02-24] MEDS: Hydroxychloroquine 200 MG Tablet PO (07:54)
[2025-02-24] MEDS: Aspirin 81 MG TAB.CHEW PO (07:54)
[2025-02-24] MEDS: Escitalopram Oxalate 10 MG Tablet PO (07:54)
[2025-02-24] MEDS: Pantoprazole Sodium 20 MG Tablet PO (07:54)
[2025-02-24] MEDS: Ensure Plus High Protein 120 ML LIQUID PO ×4 (07:54→20:17)
[2025-02-24] MEDS: Losartan Potassium 25 MG Tablet PO (07:54)
[2025-02-24] MEDS: Ferrous Sulfate 325 MG Tablet PO (11:37)
[2025-02-24 17:20] VITALS: BP 128/48; PULSE 61; RESP 16; TEMP 36.6; O2SAT 100
[2025-02-24] MEDS: Atorvastatin Calcium 40 MG Tablet PO (20:15)
[2025-02-24] MEDS: Pramipexole Di-HCl 1 MG Tablet PO (20:15)
[2025-02-25 06:00] VITALS: BP 107/50; PULSE 59; RESP 18; TEMP 36.9; O2SAT 97
[2025-02-25] MEDS: predniSONE 1 MG Tablet PO ×2 (06:38→13:28)
[2025-02-25] MEDS: Meclizine 12.5 MG Tablet PO (06:38)
[2025-02-25 07:52] VITALS: BP 102/40; PULSE 76
[2025-02-25] MEDS: Pantoprazole Sodium 20 MG Tablet PO (07:52)
[2025-02-25] MEDS: Aspirin 81 MG TAB.CHEW PO (07:52)
[2025-02-25] MEDS: Hydroxychloroquine 200 MG Tablet PO (07:52)
[2025-02-25] MEDS: Pramipexole Di-HCl 0.5 MG Tablet PO ×2 (07:52→12:17)
[2025-02-25] MEDS: Losartan Potassium 25 MG Tablet PO (07:52)
[2025-02-25] MEDS: Escitalopram Oxalate 10 MG Tablet PO (07:52)
[2025-02-25] MEDS: Metoprolol(XL)Succ 25 MG Tablet 12.5 MG PO (07:52)
[2025-02-25] MEDS: Cholestyramine/Sucrose 4 GM/PACKET PO (07:52)
[2025-02-25] MEDS: Ensure Plus High Protein 120 ML LIQUID PO ×3 (08:00→20:13)
[2025-02-25] MEDS: Ferrous Sulfate 325 MG Tablet PO (12:17)
[2025-02-25 17:01] VITALS: BP 111/46; PULSE 67; RESP 16; TEMP 36.9; O2SAT 99
[2025-02-25] MEDS: Atorvastatin Calcium 40 MG Tablet PO (20:12)
[2025-02-25] MEDS: Pramipexole Di-HCl 1 MG Tablet PO (20:13)
[2025-02-25] MEDS: Senna/Docusate Sodium 1 Tablet 2 TABLET PO (20:13)
[2025-02-26 06:00] VITALS: BP 153/70; PULSE 64; RESP 18; TEMP 37.2; O2SAT 94
[2025-02-26] MEDS: Meclizine 12.5 MG Tablet PO (06:31)
[2025-02-26 07:53] VITALS: PULSE 64
[2025-02-26] MEDS: Ensure Plus High Protein 120 ML LIQUID PO ×4 (07:53→20:17)
[2025-02-26] MEDS: Metoprolol(XL)Succ 25 MG Tablet 12.5 MG PO (07:53)
[2025-02-26] MEDS: Cholestyramine/Sucrose 4 GM/PACKET PO (07:53)
[2025-02-26] MEDS: Escitalopram Oxalate 10 MG Tablet PO (07:54)
[2025-02-26] MEDS: Losartan Potassium 25 MG Tablet PO (07:54)
[2025-02-26] MEDS: Hydroxychloroquine 200 MG Tablet PO (07:54)
[2025-02-26] MEDS: Senna/Docusate Sodium 1 Tablet 2 TABLET PO (07:54)
[2025-02-26] MEDS: Pantoprazole Sodium 20 MG Tablet PO (07:54)
[2025-02-26] MEDS: Aspirin 81 MG TAB.CHEW PO (07:55)
[2025-02-26] MEDS: Pramipexole Di-HCl 0.5 MG Tablet PO ×2 (07:55→12:00)
[2025-02-26] MEDS: predniSONE 1 MG Tablet PO ×2 (07:55→13:42)
[2025-02-26] MEDS: Ferrous Sulfate 325 MG Tablet PO (12:01)
[2025-02-26 17:04] VITALS: BP 122/49; PULSE 69; RESP 16; TEMP 37.1; O2SAT 98
[2025-02-26] MEDS: Atorvastatin Calcium 40 MG Tablet PO (20:16)
[2025-02-26] MEDS: Pramipexole Di-HCl 1 MG Tablet PO (20:16)
[2025-02-27 06:00] VITALS: BP 125/59; PULSE 90; RESP 17; TEMP 36.6; O2SAT 98
[2025-02-27] MEDS: Meclizine 12.5 MG Tablet PO (06:57)
[2025-02-27] MEDS: predniSONE 1 MG Tablet PO ×2 (06:57→13:28)
[2025-02-27 08:16] VITALS: PULSE 72
[2025-02-27] MEDS: Escitalopram Oxalate 10 MG Tablet PO (08:16)
[2025-02-27] MEDS: Aspirin 81 MG TAB.CHEW PO (08:16)
[2025-02-27] MEDS: Metoprolol(XL)Succ 25 MG Tablet 12.5 MG PO (08:16)
[2025-02-27] MEDS: Pramipexole Di-HCl 0.5 MG Tablet PO ×2 (08:16→11:27)
[2025-02-27] MEDS: Pantoprazole Sodium 20 MG Tablet PO (08:16)
[2025-02-27] MEDS: Ensure Plus High Protein 120 ML LIQUID PO ×4 (08:17→20:23)
[2025-02-27] MEDS: Losartan Potassium 25 MG Tablet PO (08:17)
[2025-02-27] MEDS: Hydroxychloroquine 200 MG Tablet PO (08:17)
[2025-02-27] MEDS: Cholestyramine/Sucrose 4 GM/PACKET PO (08:17)
--- NOTE | 2025-02-27 09:29 | PCM.PROGNOTE ---
Subjective Subjective Afebrile VSS - Maintaining appropriate oxygen saturation on RA Oral intake - FOOD good FLUIDS adequate Discussed with nursing - no problems that need addressed Reviewed the THERAPY notes Medication list reviewed. Denies cephalgia, lightheadedness, chest pain, shortness of breath, cough, sore throat, nausea/vomiting/abdominal pain, dysuria and calf pain. Feels as though she is getting stronger. She would like to follow up with [facility] rather than cardiology at [facility]. Will schedule an appt with [facility] post DC from rehab. Objective Data Objective Data Vital Signs: Vital Signs Temp Pulse Resp BP Pulse Ox O2 Del Method 98.8 F 72 16 122/49 H 98 Room Air 02/26/25 17:04 02/27/25 08:16 02/26/25 17:04 02/26/25 17:04 02/26/25 17:04 02/26/25 17:04 Oxygen Delivery Method Room Air Weight: 171 lb 15.369 oz Body Mass Index (BMI) 30.4 Intake & Output: Intake and Output for Last 24 Hours 02/25/25 02/26/25 02/27/25 23:59 23:59 23:59 Intake Total 1480 / 1480 1300 / 1300 240 / 240 Output Total 2060 / 2060 750 / 750 Balance -580 / -580 550 / 550 240 / 240 Lab / Micro Data 02/21/25 05:22 02/21/25 05:22 Physical Exam Const alert, oriented x3 and no apparent distress Constitutional Narrative: Forgetful General Appearance: cooperative HEENT HEENT Narrative: Mucous membranes are little dry. Eyes PERRL and EOMs intact bilaterally Neck supple Resp normal respiratory effort and clear to auscultation bilaterally Effort and Inspection: Negative for tachypneic Cardio regular rate, regular rhythm, no murmurs and no gallops Cardio Narrative: Occasional ectopic. GI normal to inspection, nondistended, normoactive bowel sounds and soft to palpation GI Narrative: No guarding with palpation. Extremity no calf tenderness General Extremity: Negative for edema Skin General Skin Exam: no breakdown Rashes: no rashes Neuro CN's II-XII intact bilaterally Psych cooperative Psych Narrative: good eye contact. sleeping well. Appearance: appropriate Assessment & Plan Assessment/Plan (1) Debility: (2) Cerebral ventriculitis: (3) Meningitis: (4) Cognitive dysfunction: (5) Essential (primary) hypertension: (6) Pulmonary HTN: (7) Osteoporosis: QUALIFIERS: Osteoporosis type: unspecified Presence of current pathological fracture: without current pathological fracture Qualified Code(s): M81.0 - Age-related osteoporosis without current pathological fracture (8) Depression: QUALIFIERS: Depression Type: unspecified Qualified Code(s): F32.A - Depression, unspecified (9) RLS (restless legs syndrome): (10) Presence of cardiac pacemaker: PLAN: Placed for complete heart block (11) CHB (complete heart block): (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 (13) DARIO (obstructive sleep apnea): (14) Normochromic normocytic anemia: (15) Hypophosphatemia: (16) Rheumatoid arthritis: QUALIFIERS: Rheumatoid arthritis location: multiple sites Rheumatoid factor presence: unspecified presence Qualified Code(s): M06.9 - Rheumatoid arthritis, unspecified (17) Adrenal insufficiency: PLAN: Equivocal results on Cortrosyn stim test. DHEAS was low which is consistent with adrenal insufficiency. (18) Non-ST elevation myocardial infarction (NSTEMI) in recovery phase: PLAN: Elevated troponins while at [facility] and the EF dropped to 30-35%. (19) Cardiomyopathy: QUALIFIERS: Cardiomyopathy type: ischemic Qualified Code(s): I25.5 - Ischemic cardiomyopathy PLAN: Negative stress in Jul. (20) Benign positional vertigo: QUALIFIERS: Laterality: unspecified laterality Qualified Code(s): H81.10 - Benign paroxysmal vertigo, unspecified ear (21) Current chronic use of systemic steroids: PLAN: Plan 1. Continue therapy 2. Discharge is scheduled for Thursday. Her Malcolm will come in for family training on Thursday. Plan is for discharge home. 3. Schedule an appointment with [facility] for follow-up. 4. Check a CMP and CBC a.m. Charges/Coding Visit Charges Inpatient E&M: 19586 Subs Hosp L1
[2025-02-27] MEDS: Ferrous Sulfate 325 MG Tablet PO (11:27)
[2025-02-27 18:00] VITALS: BP 134/43; PULSE 74; RESP 18; TEMP 36.4; O2SAT 98
[2025-02-27] MEDS: Atorvastatin Calcium 40 MG Tablet PO (20:23)
[2025-02-27] MEDS: Pramipexole Di-HCl 1 MG Tablet PO (20:25)
[2025-02-27 22:00] VITALS: O2SAT 98
[2025-02-28 06:00] VITALS: BP 118/61; PULSE 74; RESP 14; TEMP 36.8; O2SAT 97
[2025-02-28] MEDS: Meclizine 12.5 MG Tablet PO (06:16)
[2025-02-28] MEDS: predniSONE 1 MG Tablet PO ×2 (06:16→13:18)
[2025-02-28] MEDS: Escitalopram Oxalate 10 MG Tablet PO (08:16)
[2025-02-28] MEDS: Cholestyramine/Sucrose 4 GM/PACKET PO (08:16)
[2025-02-28] MEDS: Pramipexole Di-HCl 0.5 MG Tablet PO ×2 (08:16→13:18)
[2025-02-28] MEDS: Hydroxychloroquine 200 MG Tablet PO (08:16)
[2025-02-28 08:17] VITALS: BP 161/47; PULSE 82
[2025-02-28] MEDS: Losartan Potassium 25 MG Tablet PO (08:17)
[2025-02-28] MEDS: Aspirin 81 MG TAB.CHEW PO (08:17)
[2025-02-28] MEDS: Pantoprazole Sodium 20 MG Tablet PO (08:17)
[2025-02-28] MEDS: Metoprolol(XL)Succ 25 MG Tablet 12.5 MG PO (08:17)
[2025-02-28] MEDS: Ensure Plus High Protein 120 ML LIQUID PO ×3 (08:20→16:25)
[2025-02-28] MEDS: Ferrous Sulfate 325 MG Tablet PO (11:52)
[2025-02-28 17:05] VITALS: BP 129/52; PULSE 64; RESP 16; TEMP 36.6; O2SAT 99
[2025-02-28] MEDS: Pramipexole Di-HCl 1 MG Tablet PO (19:52)
[2025-02-28] MEDS: Atorvastatin Calcium 40 MG Tablet PO (19:52)
[2025-03-01 03:26] VITALS: BMI 30.2
[2025-03-01] MEDS: predniSONE 1 MG Tablet PO ×2 (05:56→14:22)
[2025-03-01] MEDS: Meclizine 12.5 MG Tablet PO (05:56)
[2025-03-01 06:00] VITALS: BP 117/53; PULSE 71; RESP 14; TEMP 37.1; O2SAT 98
[2025-03-01] MEDS: Hydroxychloroquine 200 MG Tablet PO (08:31)
[2025-03-01] MEDS: Pantoprazole Sodium 20 MG Tablet PO (08:31)
[2025-03-01] MEDS: Escitalopram Oxalate 10 MG Tablet PO (08:31)
[2025-03-01 08:32] VITALS: PULSE 71
[2025-03-01] MEDS: Aspirin 81 MG TAB.CHEW PO (08:32)
[2025-03-01] MEDS: Metoprolol(XL)Succ 25 MG Tablet 12.5 MG PO (08:32)
[2025-03-01] MEDS: Losartan Potassium 25 MG Tablet PO (08:32)
[2025-03-01] MEDS: Cholestyramine/Sucrose 4 GM/PACKET PO (08:32)
[2025-03-01] MEDS: Senna/Docusate Sodium 1 Tablet 2 TABLET PO (08:33)
[2025-03-01] MEDS: Ensure Plus High Protein 120 ML LIQUID PO ×3 (08:33→20:26)
[2025-03-01] MEDS: Pramipexole Di-HCl 0.5 MG Tablet PO ×2 (08:33→12:24)
[2025-03-01] MEDS: Ferrous Sulfate 325 MG Tablet PO (12:24)
[2025-03-01 17:49] VITALS: BP 115/40; PULSE 65; RESP 16; TEMP 36.6; O2SAT 98
[2025-03-01] MEDS: Atorvastatin Calcium 40 MG Tablet PO (20:26)
[2025-03-01] MEDS: Pramipexole Di-HCl 1 MG Tablet PO (20:27)
[2025-03-02 05:44] LABS: Hematocrit 25.2 % (37-47); Hemoglobin 8.2 g/dL (12.0-15.0); Mean Corp Hgb Conc 32.5 g/dL (32-36); Mean Corpuscular Hgb 28.3 pg (27.0-32.0); Mean Corpuscular Volume 86.9 fL (81-99); Mean Platelet Vol. 10.1 fl (6.2-12.0); Platelet Count 192 K/mm3 (150-450); RBC Distribution Width CV 17.2 % (11.6-14.6); RBC Distribution Width SD 55.2 fl (35.1-43.9); White Blood Count 6.2 K/mm3 (4.4-11.0)
[2025-03-02 06:00] VITALS: BP 108/50; PULSE 75; RESP 16; TEMP 36.6; O2SAT 96
[2025-03-02] MEDS: predniSONE 1 MG Tablet PO ×2 (06:14→14:14)
[2025-03-02] MEDS: Meclizine 12.5 MG Tablet PO (06:14)
[2025-03-02 06:17] LABS: ALB/GLOB Ratio 1.5 RATIO (0.9-2.4); AST(SGOT) 19 U/L (<=31); Alanine Aminotransfer ALT/SGPT 15 U/L (<=34); Albumin, Serum 3.5 g/dL (3.4-4.8); Alkaline Phosphatase 58 U/L (35-104); Anion Gap 10 (5-15); BUN 17 mg/dL (4-19); BUN/Creat Ratio 17.6 RATIO (10-20); Calcium,Total 9.3 mg/dL (7.6-11.0); Carbon Dioxide 23.3 mmol/L (21.0-32.0); Chloride 105 mmol/L (98-108); Creatinine, Serum 0.95 mg/dL (0.70-1.20); EST Glomerular Filtration Rate 63 (>60); Estimated Creatinine Clearance 50.37 ml/min (50-250); Globulin 2.3 g/dL (2.2-4.2); Glucose 82 mg/dL (70-99); Magnesium 1.6 mg/dL (1.5-2.2); Phosphorus 3.5 mg/dL (2.7-4.5); Potassium 4.2 mmol/L (3.3-5.1); Protein, Total 5.8 g/dL (5.9-8.4); Sodium Level 138 mmol/L (133-145); Total Bilirubin 0.61 mg/dL (0.00-1.30)
[2025-03-02 07:34] VITALS: PULSE 75
[2025-03-02] MEDS: Pantoprazole Sodium 20 MG Tablet PO (07:34)
[2025-03-02] MEDS: Metoprolol(XL)Succ 25 MG Tablet 12.5 MG PO (07:34)
[2025-03-02] MEDS: Cholestyramine/Sucrose 4 GM/PACKET PO (07:34)
[2025-03-02] MEDS: Losartan Potassium 25 MG Tablet PO (07:34)
[2025-03-02] MEDS: Senna/Docusate Sodium 1 Tablet 2 TABLET PO (07:35)
[2025-03-02] MEDS: Pramipexole Di-HCl 0.5 MG Tablet PO ×2 (07:35→11:52)
[2025-03-02] MEDS: Escitalopram Oxalate 10 MG Tablet PO (07:35)
[2025-03-02] MEDS: Hydroxychloroquine 200 MG Tablet PO (07:35)
[2025-03-02] MEDS: Aspirin 81 MG TAB.CHEW PO (07:35)
[2025-03-02] MEDS: Ensure Plus High Protein 120 ML LIQUID PO ×2 (07:36→20:34)
--- NOTE | 2025-03-02 10:49 | CASEMGMT ---
Social Work has complete two days of therapy training/shared care and pt/ are requesting to DC home /. IDT agreeable. SW faxed referral to [facility]. Plan: DC home with 02/01, [facility] PT/ST Tamika Petersen CONDEMNATION ENGINEER NEEDLE LOOM OPERATOR HELPER
[2025-03-02] MEDS: Magnesium Chloride 64 MG Delay Rel.Tablet 128 MG PO ×2 (11:52→20:32)
[2025-03-02] MEDS: Ferrous Sulfate 325 MG Tablet PO (11:52)
--- NOTE | 2025-03-02 12:06 | DCINST_ITS ---
Discharge Instructions Diet Discharge Diet: - (Low-salt, low-fat.) DC O2, CPAP, BIPAP needs Home O2 Discharge instructions: No Dressing / Incision Discharge Activity: May Not Drive, May Shower and Use Walker Dressing / Incision Call your doctor if you observe: Fever of 101 or Higher, Inability to urinate, Inability to have a bowel movement, Shortness of breath, Dizziness, Fainting spells, Chest pain, Increased palpitations (irregular heartbeat), Calf discomfort and Uncontrolled pain Follow Up Care Please Follow Up With: Jo Ellis ETIOLOGY TEACHER, ETIOLOGY TEACHER-C When: Appts are listed later in this document. you will also need to follow up with Dr. Martinez. Test Results: Test results from this visit will be discussed in further detail at your follow- up appointment, if applicable. Pending Tests Upon Discharge: none Discharge Plan Admission Admit Date/Time: 02/10/25 13:05 Primary Reason for Your Visit: Debility due to meningitis/ventriculitis Attending Provider: Radha Apple Primary Care Provider: Macho Schmidt Consulting Providers: Salvador Carreon Chi Instructions Additional Instructions / Restrictions: 1. You are having a lots of lightheadedness while on rehab. This seems to occur mostly when you are flexing and extending your neck, especially when doing stairs. We started you on meclizine 12.5 mg daily in the a.m. and you have not complained of dizziness since then. I would continue taking the meclizine once daily in the a.m. for the next 2 weeks and if you are doing well you could consider taking it only as needed. You can take meclizine up to twice daily. 2. Your magnesium was low 1 day prior to discharge and you have been started on a supplement. You will take this supplement once daily. Magnesium is important for bone health but also important in preventing cardiac dysrhythmias like atrial fibrillation. Your primary care doctor will want to recheck your mag nesium level in another 7 to 10 days. I recommend you keep the magnesium level at 2 or greater. 3. You have been a ranjan to have on rehab and we have all enjoyed working with you. Your cognitive function has improved significantly from admission to discharge. You have worked hard and done well. I think you will will do well at home. 4. No driving until the therapists release you to drive. Use the wheeled walker. With more therapy you may be able to transition to a cane. 5. Have Malcolm or Cynthia help with things involving numbers....finances, medications.....to double check you. 6. If you or your family have any questions after you get home please do not hesitate to call me. If you find when you get home that you are out of some of your medications call me and I will fax in prescriptions for you. OFFICE: [phone] CELL: [phone] NURSES STATION ON REHAB: [phone] Discharge Orders/Prescriptions Prescriptions: New acetaminophen 325 mg Tablet 650 mg PO Q6H PRN PRN (Reason: Pain Score 1-10) Qty: 0 0RF meclizine 12.5 mg Tablet See Rx Instructions .ROUTE .COMPLEX Qty: 60 0RF Rx Instructions: Take 1 tab every morning. May take 1 more dose a day if lightheaded. magnesium chloride [Mag 64] 64 mg Tablet,Delayed Release (Dr/Ec) 128 mg PO DAILY Qty: 30 0RF prednisone 1 mg Tablet 1 mg PO 0700,1400 Qty: 60 0RF Continued omeprazole 20 mg capsule,delayed release(DR/EC) 20 mg PO DAILY escitalopram oxalate 10 mg tablet 10 mg PO DAILY zoledronic [id number] [Reclast] 5 mg/100 mL piggyback 1 ea .Route .yearly Rx Instructions: yearly hydroxychloroquine 200 mg tablet 200 mg PO DAILY infliximab [Remicade] 100 mg recon soln 100 mg .Route Rx Instructions: 100 mg; every 8 weeks cholestyramine-aspartame [Prevalite] 4 gram powder in packet 1 ea PO DAILY ropinirole 1 mg tablet 1 mg PO 0800,1200 ropinirole 2 mg tablet 2 mg PO QHS calcium citrate 200 mg (950 mg) tablet 200 mg PO BID alendronate [Fosamax] 70 mg tablet 70 mg PO QWEEK ferrous sulfate [FeroSul] 325 mg (65 mg iron) tablet 325 mg PO DAILY aspirin 81 mg tablet,chewable 1 tab PO DAILY atorvastatin 40 mg tablet 40 mg PO QHS losartan [Cozaar] 25 mg tablet 25 mg PO DAILY metoprolol succinate [Toprol XL] 25 mg tablet extended release 24 hr 12.5 mg PO DAILY Discontinued prednisone 1 mg tablet 1 mg PO DAILY furosemide 20 mg tablet 20 mg PO QODAY meclizine 25 mg tablet 12.5 - 50 mg PO Q8H PRN PRN (Reason: motion sickness) Referrals / Follow Up: Rodrigue Mendez MD [Med Staff - Active Staff] - 03/07/25 10:30 am (with ETIOLOGY TEACHER Jo Ellis ) Blake Ramirez DO [Med Staff - Active Staff] - 03/16/25 8:45 am Macho Schmidt MD [Primary Care Provider] - 03/14/25 3:00 pm Josiah Singh MD [Med Staff - Courtesy Staff] - (Referral sent office will call to make appointment ) Disposition Disposition (needs filled in before D/C Order can be placed): Home, Self Care
--- NOTE | 2025-03-02 12:42 | CASEMGMT ---
Social Work IDT met with patient and at bedside and dtr via conference call for Team meeting. Discussed patient's progress in PT/OT/ST/SN. Confirmed DC plan 03/03 with and [facility] PT/ST. No other issues noted. Tamika Petersen SERVICE TRAINER CIRCUS TRAINER
--- NOTE | 2025-03-02 13:27 | PCM.DC.SUM ---
Providers Date of Admission: 02/10/25 Date of Discharge: 03/02/25 Primary Care Physician: Dr. Macho Schmidt MD Reason For Visit: VENTRICULITIS Diagnosis Discharge Diagnosis (1) Debility: Status: Acute Code(s): R53.81 - Other malaise (2) Cerebral ventriculitis: Status: Acute Code(s): G04.90 - Encephalitis and encephalomyelitis, unspecified Plan: Following a lumbar myelogram. (3) Meningitis: Status: Acute Code(s): G03.9 - Meningitis, unspecified Plan: Treated with full course of IV antibiotics. 1 blood culture of 2 at [facility] grew strep salivarius. CSF had no growth. CSF results consistent with meningitis. (4) Cognitive dysfunction: Status: Acute Code(s): F09 - Unspecified mental disorder due to known physiological condition Plan: Much improved at [facility] from rehab. Still having some difficulty with numbers. (5) Essential (primary) hypertension: Status: Chronic Code(s): I10 - Essential (primary) hypertension (6) Pulmonary HTN: Status: Chronic Code(s): I27.20 - Pulmonary hypertension, unspecified (7) Osteoporosis: Status: Chronic Code(s): M81.0 - Age-related osteoporosis without current pathological fracture Qualifiers: Osteoporosis type: unspecified Presence of current pathological fracture: without current pathological fracture Qualified Code(s): M81.0 - Age-related osteoporosis without current pathological fracture (8) Depression: Status: Chronic Code(s): F32.9 - Major depressive disorder, single episode, unspecified Qualifiers: Depression Type: unspecified Qualified Code(s): F32.A - Depression, unspecified (9) RLS (restless legs syndrome): Status: Chronic (10) Presence of cardiac pacemaker: Status: Chronic Code(s): Z95.0 - Presence of cardiac pacemaker Plan: Placed for complete heart block. Follow up scheduled with Dr. Mendez. (11) CHB (complete heart block): Status: Chronic Code(s): I44.2 - Atrioventricular block, complete Plan: S/P PM. 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 (13) DARIO (obstructive sleep apnea): Status: Chronic Code(s): G47.33 - Obstructive sleep apnea (adult) (pediatric) (14) Normochromic normocytic anemia: Status: Chronic Code(s): D64.9 - Anemia, unspecified (15) Hypophosphatemia: Status: Resolved Code(s): E83.39 - Other disorders of phosphorus metabolism (16) Rheumatoid arthritis: Status: Chronic Code(s): M06.9 - Rheumatoid arthritis, unspecified Qualifiers: Rheumatoid arthritis location: multiple sites Rheumatoid factor presence: unspecified presence Qualified Code(s): M06.9 - Rheumatoid arthritis, unspecified Plan: Follows with Dr. Martinez at the [facility]. (17) Adrenal insufficiency: Status: Suspected Code(s): E27.40 - Unspecified adrenocortical insufficiency Plan: Equivocal results on Cortrosyn stim test. DHEAS was low which is consistent with adrenal insufficiency. Pt unsure of how much prednisone she was taking. Has had bursts of high dose steroids recently for radicular pain in the 's. Has a PRN RX for Prednisone and not keeping track of how often she is taking this. (18) Non-ST elevation myocardial infarction (NSTEMI) in recovery phase: Status: Acute Code(s): I21.4 - Non-ST elevation (NSTEMI) myocardial infarction Plan: Elevated troponins while at [facility] and the EF dropped to 30-35%. (19) Cardiomyopathy: Status: Acute Code(s): I42.9 - Cardiomyopathy, unspecified Qualifiers: Cardiomyopathy type: ischemic Qualified Code(s): I25.5 - Ischemic cardiomyopathy Plan: Negative stress in Jul. (20) Benign positional vertigo: Status: Chronic Code(s): H81.10 - Benign paroxysmal vertigo, unspecified ear Qualifiers: Laterality: unspecified laterality Qualified Code(s): H81.10 - Benign paroxysmal vertigo, unspecified ear Plan: This happens mostly with flexion and extension of the neck. Persistent c/o lightheadedness, jo-ann with stair climbing. Resolved with giving Meclizine 12.5 mg every AM. 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 Discharge home on 03/03/25 2. OP PT/ST at [facility] 3. No DME needed. 4. Follow up schedules with Dr. Macho Schmidt, Dr. Mendez, Dr. Gustavo Ramirez and Dr. Josiah Singh to manage the steroids. 5. She will continue follow up with Dr. Martinez as previously arranged. 6. Prescriptions faxed to [facility]. 7. Needs a mag level checked in 1-2 weeks. Started on MAG supplenment for Mag of 1.6. Goal is 2 or >. Medications at Discharge Home Medications omeprazole 20 mg capsule,delayed release 20 mg PO DAILY gerd 08/19/22 hydroxychloroquine 200 mg tablet 200 mg PO DAILY RA 03/23/24 infliximab 100 mg intravenous solution (Remicade) 100 mg .Route RA and colitis 03/23/24 escitalopram oxalate 10 mg tablet 10 mg PO DAILY Mood 05/25/24 zoledronic acid 5 mg/100 mL in mannitol 5 %-water intravenous piggybck (Reclast) 1 ea .Route .yearly Bone health 05/25/24 cholestyramine-aspartame 4 gram oral powder for susp in a packet (Prevalite) 1 ea PO DAILY Cholesterol 05/27/24 ropinirole 1 mg tablet 1 mg PO 0800,1200 restless legs 08/30/24 alendronate 70 mg tablet (Fosamax) 70 mg PO QWEEK Bone health 02/10/25 aspirin 81 mg chewable tablet 1 tab PO DAILY heart health 02/10/25 atorvastatin 40 mg tablet 40 mg PO QHS cholesterol 02/10/25 calcium citrate 200 mg PO BID supplement 02/10/25 ferrous sulfate 325 mg (65 mg iron) tablet (FeroSul) 325 mg PO DAILY supplement 02/10/25 losartan 25 mg tablet (Cozaar) 25 mg PO DAILY BP 02/10/25 metoprolol succinate 25 mg tablet,extended release 24 hr (Toprol XL) 12.5 mg PO DAILY BP 02/10/25 ropinirole 2 mg tablet 2 mg PO QHS RLS 02/10/25 acetaminophen 325 mg tablet 650 mg (2 x 325 mg) PO Q6H PRN PRN Pain Score 1-10 #0 tabs 03/02/25 magnesium chloride 64 mg (magnesium chloride) tablet,delayed release (Mag 64) 128 mg (2 x 64 mg) PO DAILY #30 tabs 03/02/25 meclizine 12.5 mg tablet See Rx Instructions .Route .COMPLEX #60 tabs 03/02/25 prednisone 1 mg tablet 1 mg PO 0700,1400 #60 tabs 03/02/25 Hospital Course Procedures Intubation (At [facility] for acute bacterial meningitis. Extubated prior to transfer to [facility].) and - (EVD at [facility] on 01/27/25. Clamped 02/02 and removed 02/04/25.) Summary of Care Provided Minutes Spent on Discharge: 38 Hospital Course: 74-year-old female with past medical history of rheumatoid arthritis, restless leg syndrome, osteoporosis, history of pacemaker for complete heart block, pulmonary hypertension, DARIO compliant with CPAP, migraine cephalgia, GERD, microscopic colitis, history of NSTEMI in December 2016, hypertension, left bundle branch block, obesity and anxiety/depression admitted to acute inpatient rehab on 02/10/25 with debility suspected to be due to bacterial meningitis vs ventriculitis post myelogram (01/25/25) and multifocal pneumonia. The myelogram showed an old left L5 laminotomy and multilevel degenerative changes with no evidence of critical spinal stenosis. Seen in the ED at [facility] on 01/26/25 hypoxia, fever and altered mental status. CSF c/w bacterial meningitis. Intubated in the emergency department. White blood cell count was 34.4. UA was negative for UTI. Lactic acid was 2.1. Chest x-ray showed increased vascular congestion versus multifocal pneumonia. CTA of the chest was negative for pulmonary emboli. BNP was 1916. Brain CT showed ill-defined hypoattenuating foci in the periventricular white matter, more prominent in the posterior occipital regions. CTA of the head showed near complete opacification of the right paranasal sinus. There was no acute vascular abnormality. There was ventriculomegaly with increased attenuation of the CSF of the posterior horns possibly consistent with meningitis. Incidental finding was enlargement of the main pulmonary artery possibly due to chronic pulmonary arterial hypertension. There were opacities in both lung apices. [facility] teleneurology was consulted and they felt the patient most likely had meningitis. They recommended treatment with cefepime, ampicillin, vancomycin and acyclovir and a lumbar puncture. She was transferred to [facility] for a higher level of care. She was treated with cefepime and vancomycin from 01/26/2025 to 02/09/2025. Sputum and urine cultures had no growth. A blood culture from 01/26/2025 had 1 of 2 cultures growing strep salivarius. EVD was placed on 01/27/2025 and clamped on 02/02/2025. Continuous EEG x 12 hours at [facility] showed no seizure activity. She was extubated on 01/28/2025. Troponins were elevated initially and peaked at 2000. She was diagnosed with NSTEMI secondary to demand ischemia. Echocardiogram showed a 30 to 35% ejection fraction and she intermittently received furosemide. In April 2024 her ejection fraction was 55%. She was transferred to the acute inpatient rehab unit at [facility] on 02/10/2025 with 3 hours of therapy daily to restore independence/function at or near her level prior to being diagnosed with sepsis/bacterial meningitis/ventriculitis. While on rehab Michelle frequently complained of lightheadedness. She has a history of BPPV and has taken meclizine as needed in the past. The lightheadedness came most often when she was ascending and descending steps. It worsened with flexion extension of the neck. She was started on meclizine 12.5 mg daily in the a.m. and has not complained of lightheadedness since. She had mild orthostatic hypotension that did not correct with fluids. She is chronically on steroids for RA but, it was unclear from talking with Michelle how much she was actually taking at home. she had recently been on a steroid taper for radicular pain in the LE's and she has a RX at home for PRN Prednisone........she could not tell me how often she was taking this. A Cortrosyn stim test was done and the results were equivocal. A DHEAS was obtained and was low and this is consistent with adrenal insufficiency. She came to us on 1 mg of Prednisone daily. She was given 5 mg daily for a few days and then restarted on 2 mg daily. the orthostatic hypotension resolved and she felt less fatigued. Mentation also started to improve. She is being referred to endocrinology at [facility] to manage the steroids. Michelle steadily progressed on rehab. Her modified [place] score decreased from a 3 at admission to rehab to a 2 (slight disability) at discharge. At the time of discharge she is able to do 6 sit to stands in 30 seconds without cueing. She can ascend/descend 20 steps with 1 handrail at [facility] and she has ambulated up to 250 feet with a front wheeled walker at standby assist on various surfaces. She is independent with eating and supervision/set up with grooming, bathing and upper body dressing. She is standby assist with lower body dressing, toileting, toilet transfer and tub/shower transfer. Michelle's Malcolm came in for family training for 2 days prior to discharge and both Michelle and Nimesh felt comfortable with Michelle going home with some assistance from Malcolm. Lab was obtained 1 day prior to discharge and the hemoglobin is stable at 8.2. The white blood cell count and platelets are within normal limits. Sodium was 138 and the potassium is 4.2. The BUN was 17 with a stable creatinine of 0.95 and a GFR of 63. Magnesium was low at 1.6 and she was started on a magnesium supplement prior to discharge. Iron studies in April of 2024 were consistent with iron deficiency. A Lab requisition was given for her to get a iron panel as an OP and she will follow up with Dr. Macho Schmidt to discuss the results. Michelle was discharged home on 03/03/25. She will have OP PT/ST at [facility]. No DME was needed. She will ambulate with the FWW until therapy tells her it is safe to transition to a cane. She has follow up appts scheduled with Jo Ellis NP from [facility], Dr. Blake Ramirez from pulmonary medicine, Dr. Macho Schmidt, PCP and Dr. Josiah Singh (endocrinology) for management of steroids. We attempted a few times to obtain records from the office of Dr. Boyle's office to clarify what dosage of Prednisone she is to be taking but, records were never sent to us. She was discharged on 2 mg daily. Physical Exam Const alert, oriented x3 and no apparent distress Constitutional Narrative: Much more alert than at admission to rehab. cognition has improved significantly. General Appearance: cooperative and well kempt HEENT HEENT Narrative: Mucous membranes are little dry. Lasix was discontinued earlier in the admission. Eyes PERRL, EOMs intact bilaterally, conjunctivae normal and no scleral icterus Eyes Narrative: No discharge from the eyes Neck supple, no JVD and no carotid bruits General: trachea midline Chest Chest: symmetrical chest wall rise Resp normal respiratory effort, normal air movement, no use of accessory muscles and clear to auscultation bilaterally Effort and Inspection: able to speak in complete sentences; Negative for tachypneic Cardio regular rate, regular rhythm, no murmurs, no rub and no gallops Cardio Narrative: Occasional ectopic. GI normal to inspection, nondistended, normoactive bowel sounds and soft to palpation GI Narrative: No guarding with palpation. Having regular BM's. no CVA tenderness Back/Spine Back/Spine Narrative: Denies radicular pain in the LE's and back pain is relieved with just Tylenol. Extremity no calf tenderness Extremity Narrative: Recommend she continue compression wot control ankle edema and continue to elevate her legs when seated. Joint pain is adequately controlled. General Extremity: Negative for edema Skin General Skin Exam: no breakdown Rashes: no rashes Neuro CN's II-XII intact bilaterally, moves all extremities and no focal motor deficits Psych cooperative Psych Narrative: good eye contact. sleeping well. Appearance: appropriate and well kempt Attitude: calm and engaged Activity / Motor Behavior: appropriate eye contact Weight / BMI Weight Weight: 170 lb 6.677 oz Body Mass Index (BMI) 30.2 ABG / Lab / Microbiology Data 03/02/25 05:31 03/02/25 05:31 Laboratory: Laboratory Results - last 24 hr 03/02/25 05:31: WBC 6.2, RBC 2.90 L, Hgb 8.2 L, Hct 25.2 L, MCV 86.9, MCH 28.3, MCHC 32.5, RDW Std Deviation 55.2 H, RDW Coeff of Omar 17.2 H, Plt Count 192, MPV 10.1, Sodium 138, Potassium 4.2, Chloride 105, Carbon Dioxide 23.3, Anion Gap 10, BUN 17, Creatinine 0.95, Estim Creat Clear Calc 50.37, Est GFR (MDRD) Non-Af 63, BUN/Creatinine Ratio 17.6, Glucose 82, Calcium 9.3, Phosphorus 3.5, Magnesium 1.6, Total Bilirubin 0.61, AST 19, ALT 15, Alkaline Phosphatase 58, Total Protein 5.8 L, Albumin 3.5, Globulin 2.3, Albumin/Globulin Ratio 1.5 D/C Instructions Discharge Diet: - (Low-salt, low-fat.) Call your doctor if you observe: Fever of 101 or Higher, Inability to urinate, Inability to have a bowel movement, Shortness of breath, Dizziness, Fainting spells, Chest pain, Increased palpitations (irregular heartbeat), Calf discomfort and Uncontrolled pain DC O2, CPAP, BIPAP Needs Home O2 Discharge instructions: No Pending Tests Upon Discharge: none Please Follow Up With: Jo Ellis NP, DIRECTOR EMBALMER-C When: Appts are listed later in this document. you will also need to follow up with Dr. Martinez. Meaningful Use Info Meaningful Use Meaningful Use Diagnoses (Choose all that apply): None applicable Ischemic Stroke Statin Dosing Therapy Reference: STATIN DOSE THERAPY REFERENCE: * Patients > 75 years receive moderate or high dose statin therapy. * Patients 75 years or YOUNGER should receive HIGH intensity statin dose unless contraindicated. You will be required to document reason for non-treatment if statin daily dose does not meet guidelines. HIGH DOSE STATIN THERAPY DAILY Atorvastatin > than or = to 40 mg Rosuvastatin > than or = to 20 mg Amlodipine + Atorvastatin > than or = to 2.5/40 mg Ezetimibe + Simvastatin 10/80 mg Simvastatin 80mg Discharge Plan Admission Admit Date/Time: 02/10/25 13:05 Primary Reason for Your Visit: Debility due to meningitis/ventriculitis Attending Provider: Radha Apple Primary Care Provider: Macho Schmidt Consulting Providers: Salvador Carreon Chi Instructions Additional Instructions / Restrictions: 1. You are having a lots of lightheadedness while on rehab. This seems to occur mostly when you are flexing and extending your neck, especially when doing stairs. We started you on meclizine 12.5 mg daily in the a.m. and you have not complained of dizziness since then. I would continue taking the meclizine once daily in the a.m. for the next 2 weeks and if you are doing well you could consider taking it only as needed. You can take meclizine up to twice daily. 2. Your magnesium was low 1 day prior to discharge and you have been started on a supplement. You will take this supplement once daily. Magnesium is important for bone health but also important in preventing cardiac dysrhythmias like atrial fibrillation. Your primary care doctor will want to recheck your magnesium level in another 7 to 10 days. I recommend you keep the magnesium level at 2 or greater. 3. You have been a ranjan to have on rehab and we have all enjoyed working with you. Your cognitive function has improved significantly from admission to discharge. You have worked hard and done well. I think you will will do well at home. 4. No driving until the therapists release you to drive. Use the wheeled walker. With more therapy you may be able to transition to a cane. 5. Have Malcolm or Cynthia help with things involving numbers....finances, medications.....to double check you. 6. If you or your family have any questions after you get home please do not hesitate to call me. If you find when you get home that you are out of some of your medications call me and I will fax in prescriptions for you. OFFICE: [phone] CELL: [phone] NURSES STATION ON REHAB: [phone] Discharge Orders/Prescriptions Prescriptions: New acetaminophen 325 mg Tablet 650 mg PO Q6H PRN PRN (Reason: Pain Score 1-10) Qty: 0 0RF meclizine 12.5 mg Tablet See Rx Instructions .ROUTE .COMPLEX Qty: 60 0RF Rx Instructions: Take 1 tab every morning. May take 1 more dose a day if lightheaded. magnesium chloride [Mag 64] 64 mg Tablet,Delayed Release (Dr/Ec) 128 mg PO DAILY Qty: 30 0RF prednisone 1 mg Tablet 1 mg PO 0700,1400 Qty: 60 0RF Continued omeprazole 20 mg capsule,delayed release(DR/EC) 20 mg PO DAILY escitalopram oxalate 10 mg tablet 10 mg PO DAILY zoledronic egbs-[id number] [Reclast] 5 mg/100 mL piggyback 1 ea .Route .yearly Rx Instructions: yearly hydroxychloroquine 200 mg tablet 200 mg PO DAILY infliximab [Remicade] 100 mg recon soln 100 mg .Route Rx Instructions: 100 mg; every 8 weeks cholestyramine-aspartame [Prevalite] 4 gram powder in packet 1 ea PO DAILY ropinirole 1 mg tablet 1 mg PO 0800,1200 ropinirole 2 mg tablet 2 mg PO QHS calcium citrate 200 mg (950 mg) tablet 200 mg PO BID alendronate [Fosamax] 70 mg tablet 70 mg PO QWEEK ferrous sulfate [FeroSul] 325 mg (65 mg iron) tablet 325 mg PO DAILY aspirin 81 mg tablet,chewable 1 tab PO DAILY atorvastatin 40 mg tablet 40 mg PO QHS losartan [Cozaar] 25 mg tablet 25 mg PO DAILY metoprolol succinate [Toprol XL] 25 mg tablet extended release 24 hr 12.5 mg PO DAILY Discontinued prednisone 1 mg tablet 1 mg PO DAILY furosemide 20 mg tablet 20 mg PO QODAY meclizine 25 mg tablet 12.5 - 50 mg PO Q8H PRN PRN (Reason: motion sickness) Other Ambulatory Orders: Ferritin (Routine) Timeframe: 1 Week Facility: [facility] - Location: Laboratory Ordered By: Dr. Radha Apple Iron+Iron Binding Capacity (Routine) Timeframe: 1 Week Facility: [facility] - Location: Laboratory Ordered By: Dr. Radha Apple Referrals / Follow Up: Rodrigue Mendez MD [Med Staff - Active Staff] - 03/07/25 10:30 am (with DIRECTOR EMBALMER Jo Ellis ) Blake Ramirez DO [Med Staff - Active Staff] - 03/16/25 8:45 am Macho Schmidt MD [Primary Care Provider] - 03/14/25 3:00 pm Josiah Singh MD [Med Staff - Courtesy Staff] - (Referral sent office will call to make appointment ) Disposition Disposition (needs filled in before D/C Order can be placed): Home, Self Care Charges/Coding Visit Charges Inpatient E&M: 50456 Disch Hosp >30min
[2025-03-02 17:44] VITALS: BP 104/50; PULSE 66; RESP 16; TEMP 36; O2SAT 97
[2025-03-02] MEDS: Pramipexole Di-HCl 1 MG Tablet PO (20:32)
[2025-03-02] MEDS: Atorvastatin Calcium 40 MG Tablet PO (20:32)
[2025-03-03 06:00] VITALS: BP 107/49; PULSE 66; RESP 16; TEMP 36.1; O2SAT 93
[2025-03-03] MEDS: predniSONE 1 MG Tablet PO (06:32)
[2025-03-03] MEDS: Meclizine 12.5 MG Tablet PO (06:32)
[2025-03-03 08:00] VITALS: PULSE 66
[2025-03-03] MEDS: Metoprolol(XL)Succ 25 MG Tablet 12.5 MG PO (08:00)
[2025-03-03] MEDS: Hydroxychloroquine 200 MG Tablet PO (08:01)
[2025-03-03] MEDS: Pramipexole Di-HCl 0.5 MG Tablet PO (08:01)
[2025-03-03] MEDS: Cholestyramine/Sucrose 4 GM/PACKET PO (08:01)
[2025-03-03] MEDS: Aspirin 81 MG TAB.CHEW PO (08:01)
[2025-03-03] MEDS: Magnesium Chloride 64 MG Delay Rel.Tablet 128 MG PO (08:01)
[2025-03-03] MEDS: Escitalopram Oxalate 10 MG Tablet PO (08:01)
[2025-03-03] MEDS: Pantoprazole Sodium 20 MG Tablet PO (08:01)
[2025-03-03] MEDS: Losartan Potassium 25 MG Tablet PO (08:01)
[2025-03-03 11:56] VITALS: BP 107/49; PULSE 66; RESP 16; TEMP 37.1; O2SAT 97
--- NOTE | 2025-03-03 11:58 | NURSING ---
discharged home with family. discharge instruction, medications and appointments reviewed with pt and . denies questions or concerns
== END 2025-03-03 11:59 | disposition home or self-care (01) | DRG 94 ==
PROVIDERS: Admitting Provider Family Medicine Geriatric Medicine; PCP Family Medicine; Referring Provider Family Medicine Geriatric Medicine; Visit Provider Internal Medicine
DX: G00.2 Streptococcal meningitis (principal); I21.A1 Myocardial infarction type 2; J18.9 Pneumonia, unspecified organism; I44.2 Atrioventricular block, complete; A86 Unspecified viral encephalitis; E27.40 Unspecified adrenocortical insufficiency; I50.22 Chronic systolic (congestive) heart failure; Q22.1 Congenital pulmonary valve stenosis; I27.20 Pulmonary hypertension, unspecified; E83.39 Other disorders of phosphorus metabolism; I11.0 Hypertensive heart disease with heart failure; M06.9 Rheumatoid arthritis, unspecified; F32.9 Major depressive disorder, single episode, unspecified; G25.81 Restless legs syndrome; D50.9 Iron deficiency anemia, unspecified; E66.9 Obesity, unspecified; I25.5 Ischemic cardiomyopathy; G47.33 Obstructive sleep apnea (adult) (pediatric); E78.5 Hyperlipidemia, unspecified; I25.10 Atherosclerotic heart disease of native coronary artery without angina pectoris; F41.9 Anxiety disorder, unspecified; I95.1 Orthostatic hypotension; H81.10 Benign paroxysmal vertigo, unspecified ear; K21.9 Gastro-esophageal reflux disease without esophagitis; Z95.0 Presence of cardiac pacemaker; Z98.2 Presence of cerebrospinal fluid drainage device; M81.0 Age-related osteoporosis without current pathological fracture; Z68.30 Body mass index [BMI] 30.0-30.9, adult; Z79.899 Other long term (current) drug therapy; B95.4 Other streptococcus as the cause of diseases classified elsewhere; Z79.52 Long term (current) use of systemic steroids; Z79.82 Long term (current) use of aspirin
CPT/HCPCS: 36415; 80048; 80053; 82533; 82627; 83735; 84100; 85014; 85018; 85027; 92523; 92610; 97110; 97112; 97116; 97129; 97130; 97163; 97166; 97530; 97535; 97802; 97803; 82626; A4216; J0834

== ENCOUNTER → 2025-03-06 | Outpatient (CLI) | payer MEDICARE, OTHER, SELFPAY ==
[2025-03-06 17:43] LABS: Absolute Lymphocyte Count 1.54 X10^3/uL (0.83-4.51); Absolute Neutrophil Count 5.8 X10^3/uL (2.0-7.7); Basophil# 0.05 X10^3/uL; Basophil% 0.6 % (0-1); Eosinophil# 0.13 X10^3/uL; Eosinophils% 1.6 % (0-5); Hematocrit 27.8 % (37-47); Hemoglobin 8.8 g/dL (12.0-15.0); Lymphocyte # 1.54 X10^3/ul (0.83-4.51); Lymphocyte % 18.9 % (19-41); Mean Corp Hgb Conc 31.7 g/dL (32-36); Mean Corpuscular Hgb 28.1 pg (27.0-32.0); Mean Corpuscular Volume 88.8 fL (81-99); Mean Platelet Vol. 10.7 fl (6.2-12.0); Monocyte# 0.65 X10^3/uL; NRBC Flagged by Analyzer 0 % (0-5); Neutrophil # 5.75 X10^3/uL (2.7-7.7); Neutrophil % 70.5 % (47-70); Platelet Count 257 K/mm3 (150-450); RBC Distribution Width CV 17.6 % (11.6-14.6); RBC Distribution Width SD 56.6 fl (35.1-43.9); RET-HE 28.7 pg (30-35); Red Blood Count 3.13 M/mm3 (4.2-5.4); Reticulocyte Count 2.11 % (0.5-1.5); White Blood Count 8.2 K/mm3 (4.4-11.0)
[2025-03-06 18:09] LABS: Ferritin 261 ng/mL (22-378)
[2025-03-06 19:10] LABS: Iron Binding Capacity,Total 288 ug/dL (250-450)
[2025-03-06 19:20] LABS: Iron 42 ug/dL (50-170); Iron Binding Capacity,Unsat 246 ug/dL (228-428); PERCENT IRON SATURATION 14.6 % (13-59)
== END | disposition home or self-care (01) ==
LOC: MFPLAB 14:43
PROVIDERS: Internal Medicine; PCP Family Medicine; Referring Provider Family Medicine; Visit Provider Family Medicine
DX: D64.9 Anemia, unspecified (principal)
CPT/HCPCS: 36415; 82728; 83540; 83550; 85025; 85045

== ENCOUNTER → 2025-03-07 | Outpatient (CLI) | payer MEDICARE, OTHER, SELFPAY ==
[2025-03-07 12:14] LABS: Absolute Lymphocyte Count 1.13 X10^3/uL (0.83-4.51); Absolute Neutrophil Count 7.7 X10^3/uL (2.0-7.7); Basophil# 0.07 X10^3/uL; Basophil% 0.7 % (0-1); Eosinophil# 0.17 X10^3/uL; Eosinophils% 1.7 % (0-5); Hematocrit 28.1 % (37-47); Lymphocyte # 1.13 X10^3/ul (0.83-4.51); Lymphocyte % 11.6 % (19-41); Mean Corpuscular Volume 87.3 fL (81-99); Mean Platelet Vol. 10.6 fl (6.2-12.0); Monocyte# 0.68 X10^3/uL; NRBC Flagged by Analyzer 0 % (0-5); Neutrophil # 7.66 X10^3/uL (2.7-7.7); Neutrophil % 78.5 % (47-70); Platelet Count 284 K/mm3 (150-450); RBC Distribution Width CV 17.4 % (11.6-14.6); Red Blood Count 3.22 M/mm3 (4.2-5.4); White Blood Count 9.8 K/mm3 (4.4-11.0)
[2025-03-07 13:09] LABS: Anion Gap 14 (5-15); BUN 11 mg/dL (4-19); BUN/Creat Ratio 11.1 RATIO (10-20); Calcium,Total 9.6 mg/dL (7.6-11.0); Carbon Dioxide 20.8 mmol/L (21.0-32.0); Chloride 106 mmol/L (98-108); Creatinine, Serum 0.95 mg/dL (0.70-1.20); EST Glomerular Filtration Rate 62 (>60); Glucose 78 mg/dL (70-99); Potassium 3.9 mmol/L (3.3-5.1); Pro- Brain NATRIURETIC PEPTIDE 1456 pg/mL (<=1800); Sodium Level 141 mmol/L (133-145)
== END | disposition home or self-care (01) ==
LOC: LAB 10:51
PROVIDERS: PCP Family Medicine; Referring Provider Nurse Practitioner Gerontology; Visit Provider Nurse Practitioner Gerontology
DX: R06.02 Shortness of breath (principal)
CPT/HCPCS: 36415; 80048; 83880; 85025

== ENCOUNTER 2025-03-19 11:36 | Emergency (ER) | payer MEDICARE, OTHER, SELFPAY ==
[2025-03-19 11:46] VITALS: BP 116/54; PULSE 77; RESP 15; TEMP 37.2; O2SAT 94; BMI 31.8
--- NOTE | 2025-03-19 12:04 | EKG12_ITS ---
Test Reason : FALL/SOB Blood Pressure : */* mmHG Vent. Rate : 74 BPM Atrial Rate : 74 BPM P-R Int : 198 ms QRS Dur : 182 ms QT Int : 476 ms P-R-T Axes : 53 -87 74 degrees QTcB Int : 528 ms Atrial-sensed ventricular-paced rhythm Abnormal ECG Confirmed by CASSIE AGARWAL, FABRICIO ([id number]), material expeditor DANAY BONILLA ([id number]) on 03/20/2025 9:26:06 AM Referred By: Confirmed By: FABRICIO MATTHEWS MD
--- NOTE | 2025-03-19 12:12 | EDS_ITS ---
<Statement entered by Cecilio Benitez DO - 03/19/25 17:05> Patient was seen and examined with physician dairy and food laboratory assistant Norah All components of the history and physical confirmed and agreed. History of present illness and physical exam: Patient is a 74-year-old female past medical history of complete heart block, left bundle branch block, GERD, pulmonary pretension, anxiety, depression who presented to [facility] with chief complaint of generalized weakness. Patient states that after she woke up this morning she did not feel her normal self she felt off and felt weak. She states that her encouraged her to go to [employer] and while walking there she states that she felt that she became weak and fell onto her knees states that she did not hit her head did not pass out remembers entire event. States that after she got up and mated to the [facility] and sat down she was feeling better. Patient's notes that she has good and bad days and states that he should not have made her go to [employer] today. Patient recently about 2 weeks ago now got out of rehab after being admitted to the [facility] for meningitis. Review of systems: As above Physical exam: Agree with above MDM Patient is a 74-year-old female who presents to the [facility] part with a chief complaint of generalized weakness. On the differential diagnosis includes but not limited to generalized weakness, electrolyte abnormality, UTI, pneumonia. Once workup is obtained reviewed she will be reevaluated. Patient CBC was largely unremarkable no evidence of cytosis white blood count 0.8, hemoglobin is 8.6, platelet count was noted be 275. Patient sodium normal 136, potassium 4.1, creatinine was 1.23, troponin was 42 with a delta troponin obtained at 35. Patient's proBNP elevated 1768. Patient urinalysis reviewed and showed no evidence of infection. Patient chest x-ray reviewed by myself and by radiology which showed cardiomegaly with mild congestion. Patient's EKG reviewed showed arterial sensed ventricular paced rhythm with a rate of 74 bpm no Sgarbossa criteria were met. Patient ambulated here in the emergency department and felt at her baseline did not have any shortness of breath. Patient would like to go home at this point in time. She is advised to go home and rest and hydrate. She is encouraged return with worsening symptoms or concerns. She will otherwise follow-up with her doctor now presenting. is also agreed this plan all question concerns answered she discharged home in stable condition. Final impression: Generalized weakness Disposition: Patient will be discharged home in stable condition Supervising attending attestation: Cecilio PARKER History of Present Illness Chief Complaint: Weakness Narrative Narrative: Patient presenting today due to generalized weakness that started this morning. She reports that she felt well yesterday, she tried going to [employer] today with her and became increasingly weaker, she did fall onto her knees due to weakness in her legs but did not hit her head, reports that he was standing with her when she fell, she denies any injury from the fall. She also reports that this afternoon she began to feel somewhat short of breath and lightheaded. She was here on 01/26 with altered mental status, it was suspected that she had bacterial meningitis and she was transferred to [facility], meningitis was confirmed and she was hospitalized for 3 weeks. She then was transferred to TCU for rehab and has been home for 2 weeks. She has a PMH of RA, pacemaker placement, pulmonary HTN, DARIO on CPAP, GERD, CAD, HTN, and anxiety/depression. PE Risk Factors: Negative for Prior DVT or PE, Recent immobilization, Recent surgery or Recent travel [facility] Medical History Cardiomyopathy Non-ST elevation myocardial infarction (NSTEMI) in recovery phase Essential (primary) hypertension Coronary artery disease NSTEMI (non-ST elevated myocardial infarction) CHB (complete heart block) Congenital pulmonic valve stenosis History of iron deficiency anemia Current chronic use of systemic steroids Benign positional vertigo Hypophosphatemia Syncope Encounter for monitoring diuretic therapy Bilateral pleural effusion History of pleural effusion Acute kidney injury Septic shock Presence of cardiac pacemaker Left bundle branch block (LBBB) Rate-dependent bundle branch block History of immunosuppressive therapy Essential (primary) hypertension History of non-ST elevation myocardial infarction (NSTEMI) (01/15/17) Atrophic vaginitis Microscopic colitis DARIO (obstructive sleep apnea) Inflamed seborrheic keratosis Seborrheic keratosis Nevus Immunocompromised GERD (gastroesophageal reflux disease) Abnormal chest CT Pulmonary HTN Osteopenia Sleep-related breathing disorder Depression Migraine headache Community acquired pneumonia Abnormal LFTs Hypomagnesemia Hypokalemia Normochromic normocytic anemia Osteoporosis Anxiety and depression RLS (restless legs syndrome) Acute systolic (congestive) heart failure (12/2016) Acute respiratory failure with hypoxemia Legionella pneumonia Respiratory insufficiency Rheumatoid arthritis Home Medications ?Medication ?Instructions ?Recorded ?Last Taken ?Type omeprazole 20 mg capsule,delayed 20 mg PO DAILY gerd 1 03/18/25 History release hydroxychloroquine 200 mg tablet 200 mg PO DAILY RA 03/18/25 History infliximab 100 mg intravenous 100 mg IV Q56D RA and co litis 03/23/24 Unknown History solution (Remicade) escitalopram oxalate 10 mg tablet 10 mg PO DAILY Mood 05/25/24 03/18/25 History zoledronic acid 5 mg/100 mL in 1 ea .Route .yearly Bon JJ PHARMA 05/25/24 Unknown History mannitol 5 %-water intravenous piggybck (Reclast) ropinirole 1 mg tablet 1 mg PO 0800,1200 restless l egs 08/30/24 03/18/25 History atorvastatin 40 mg tablet 40 mg PO QHS cholesterol 09/2603/18/25 History calcium citrate 200 mg PO BID supplement 09/2603/18/25 History ferrous sulfate 325 mg (65 mg 325 mg PO DAILY suppleme nt 02/10/25 03/18/25 History iron) tablet (FeroSul) losartan 25 mg tablet (Cozaar) 25 mg PO DAILY BP 02/1003/18/25 History ropinirole 2 mg tablet 2 mg PO QHS RLS 02/10/25 History magnesium chloride 64 mg 128 mg (2 x 64 mg) PO DAILY #30 03/02/25 03/19/25 Rx (magnesium chloride) tabs tablet,delayed release (Mag 64) prednisone 1 mg tablet 1 mg PO 0700,1400 #60 tabs 0 03/02/25 03/18/25 Rx acetaminophen 325 mg tablet 650 mg PO Q6H PRN Pain Sco re 1-10 03/19/25 Unknown History aspirin 81 mg chewable tablet 1 tab PO DAILY heart hea lth 03/19/25 Unknown History cholecalciferol (vitamin D3) 1 tab PO DAILY 03/19/25 0 03/18/25 History cholestyramine 4 gram oral powder 4 g PO DAILY PRN CHO LESTEROL 03/19/25 Unknown History (Cholestyramine Light) meclizine 12.5 mg tablet 12.5 mg PO BID PRN dizziness 03/19/25 03/19/25 History mecobalamin (vitamin B12) 1,000 1,000 mcg PO DAILY 03/18/25 History mcg chewable tablet metoprolol tartrate 25 mg tablet 25 mg PO DAILY 03/18/25 History multivitamin (Daily Multi-Vitamin 1 tab PO DAILY 03/1903/19/25 History tablet) Allergy/AdvReac Type Severity Reaction Status Date / Time Sulfa (Sulfonamide Allergy Intermediate Rash Verified 03/19/25 11:46 Antibiotics) sulfasalazine Allergy Rash Verified 03/19/25 11:46 Family History Father CVA (cerebral vascular accident) Diabetes Surgical History H/O cataract removal with insertion of prosthetic lens History of left heart catheterization (01/19/17) History of lumbar surgery (11/2019) Total knee replacement status History of cholecystectomy Hx of appendectomy History of bilateral carpal tunnel release Social History household members: spouse Smoking Status: Never smoker second hand exposure: No alcohol intake: current alcohol intake frequency: holidays/special occasions only substance use type: does not use what type of physical activity do you participate in: bicycling frequency: 3-4 times per week ROS ROS ED Constitutional Constitutional ED: Denies chills or fever(s) Cardiovascular Cardiovascular: Denies chest pain Respiratory/Chest Respiratory/Chest: Reports dyspnea on exertion; Denies cough Gastrointestinal Gastrointestinal: Denies abdominal pain, nausea or vomiting Musculoskeletal Musculoskeletal: Denies arthralgias or myalgias Integumentary Denies rash Neurologic Neurologic: Reports weakness EXAM Physical Exam Const Vital Signs: 03/19/25 11:46 03/19/25 12:10 03/19/25 12:14 Temperature 99.0 F Temperature Source Oral Pulse Rate 77 Respiratory Rate 15 Respiratory Effort Normal Non-Labored Labored Respiratory Depth Normal Respiratory Pattern Normal Blood Pressure 116/54 L Blood Pressure Mean 74 Pulse Ox 94 Oxygen Delivery Method Room Air Room Air 03/19/25 13:48 Temperature Temperature Source Pulse Rate 78 Respiratory Rate 20 H Respiratory Effort Respiratory Depth Respiratory Pattern Blood Pressure 134/66 H Blood Pressure Mean 88 Pulse Ox 94 Oxygen Delivery Method Positive well nourished, well developed and no apparent distress General Appearance ED: well developed HEENT Reports normocephalic and head/scalp atraumatic Mouth ED: Yes moist mucous membranes normal Eyes PERRL and EOMs intact bilaterally Neck full ROM and supple Chest Wall inspection of chest normal Resp normal respiratory effort and clear to auscultation bilaterally Cardio regular rate and regular rhythm GI soft to palpation, non-tender, non-distended and no masses Back/Spine normal ROM and normal to inspection Back/Spine Narrative: No lower extremity edema Extremity normal to inspection and full ROM Neuro oriented x3, CN's II-XII intact bilaterally, moves all extremities, no focal motor deficits and no sensory deficits noted Sensorium / Orientation: awake and alert Psych mental status grossly normal and thought process normal Skin no rashes or lesions noted and no wounds MDM MDM MDM Narrative Medical decision making narrative: Patient presenting today with generalized weakness that started this morning. She tried going to [facility] but then felt even weaker, she felt weak in her legs and had to drop down to her knees. reports that she does occasionally get weak. She was recently hospitalized for bacterial meningitis for several weeks and then discharged to TCU. She has been home over the past 2 weeks. She is nontoxic-appearing and in no acute distress. She did report feeling slightly short of breath earlier. She is not hypoxic here, no conversational dyspnea. She has a low modified Saranac score, low suspicion for PE. Blood workup will be obtained. Clinically she does appear dry and will be given a 500 cc fluid bolus. Labs reveal a hemoglobin of 8.6, this is slightly lower than previous labs but consistent with labs she has had in the past. Kidney function slightly elevated with a creatinine of 1.23, this was 0.95 previously but has been elevated in the past. UA negative for UTI. Nonsignificant delta troponin. BNP WNL. Chest x- ray does show cardiomegaly with mild congestion. Reviewing previous records, it looks like she had a echo while at [facility] that showed a 30 to 35% ejection fraction and she intermittently received furosemide. In April 2024 her EF was 55%. Her vitals have remained stable here, on reexamination she is doing well. She was ambulated and did well, She was steady on her feet, she does feel comfortable going home. I recommended she have close follow-up with her PCP and she will be discharged home in stable condition. Lab Data Attestation: I reviewed the patient's lab results. Labs: Laboratory Results - last 24 hr 03/19/25 03/19/25 03/19/25 12:06 12:57 14:20 WBC 8.0 RBC 3.10 L Hgb 8.6 L Hct 27.1 L MCV 87.4 MCH 27.7 MCHC 31.7 L RDW Std Deviation 54.0 H RDW Coeff of Omar 16.9 H Plt Count 275 MPV 10.1 Immature Gran % (Auto) 0.600 Neut % (Auto) 66.1 Lymph % (Auto) 19.7 Simpson % (Auto) 11.3 H Eos % (Auto) 1.8 Baso % (Auto) 0.5 Absolute Neuts (auto) 5.3 Absolute Lymphs (auto) 1.57 Nucleated RBC % 0 Sodium 136 Potassium 4.1 Chloride 101 Carbon Dioxide 20.1 L Anion Gap 15 BUN 16 Creatinine 1.23 H Estim Creat Clear Calc 40.00 L Est GFR (MDRD) Non-Af 46 L BUN/Creatinine Ratio 12.6 Glucose 97 Calcium 9.7 Troponin T High Sens 42 H D Troponin T Hi Sens 2 Hr 35 H NT pro BNP II 1768 Urine Color Yellow Urine Clarity Clear Urine pH 6.0 Ur Specific [place] 1.010 Urine Protein 30 H Urine Glucose (UA) Normal Urine Ketones Negative Urine Occult Blood Negative Urine Nitrite Negative Urine Bilirubin Negative Urine Urobilinogen Normal Ur Leukocyte Esterase 25 H Urine RBC 0 SEEN Urine WBC 0-5 SEEN Ur Squamous Epith Cells 0-5 SEEN Urine Bacteria RARE Urine Mucus 0 SEEN Radiography X-Ray: Read by ED Physician Diagnostic Testing: Clinical Impression(s) from Imaging Studies Chest X-Ray 03/19/25 12:25 IMPRESSION: Cardiomegaly with mild congestion. Reading Location: [facility] EKG Initial EKG: Comments: 74 bpm, atrial sensed ventricular paced rhythm, no ST elevation, interpreted by attending ED physician Discharge Plan Triage Chief Complaint: Weakness Other Complaint: Shortness of Breath ED Midlevel Provider: Katarina Grijalva ED Provider: Cecilio Benitez Dx/Rx/DC Orders Clinical Impression: Generalized weakness, Dehydration Instructions: ED Weakness Uncertain Cause Prescriptions: No Action omeprazole 20 mg capsule,delayed release(DR/EC) 20 mg PO DAILY escitalopram oxalate 10 mg tablet 10 mg PO DAILY zoledronic [id number]-[id number]-[id number] [Reclast] 5 mg/100 mL piggyback 1 ea .Route .yearly Rx Instructions: yearly hydroxychloroquine 200 mg tablet 200 mg PO DAILY infliximab [Remicade] 100 mg recon soln 100 mg IV Q56D Patient Comments: PT OVERDUE FOR INJECTION DUE TO HOSPITALIZATION Rx Instructions: 100 mg intravenously; 100 mg; every 8 weeks ropinirole 1 mg tablet 1 mg PO 0800,1200 Cholestyramine Light 4 gram powder 4 g PO DAILY PRN (Reason: CHOLESTEROL) metoprolol tartrate 25 mg tablet 25 mg PO DAILY multivitamin [Daily Multi-Vitamin] Tablet 1 tab PO DAILY mecobalamin (vitamin B12) 1,000 mcg tablet,chewable 1,000 mcg PO DAILY cholecalciferol (vitamin D3) 1 tab PO DAILY acetaminophen 325 mg Tablet 650 mg PO Q6H PRN (Reason: Pain Score 1-10) meclizine 12.5 mg Tablet 12.5 mg PO BID PRN (Reason: dizziness) Rx Instructions: Take 1 tab every morning. May take 1 more dose a day if lightheaded. aspirin 81 mg tablet,chewable 1 tab PO DAILY ropinirole 2 mg tablet 2 mg PO QHS calcium citrate 200 mg (950 mg) tablet 200 mg PO BID ferrous sulfate [FeroSul] 325 mg (65 mg iron) tablet 325 mg PO DAILY atorvastatin 40 mg tablet 40 mg PO QHS losartan [Cozaar] 25 mg tablet 25 mg PO DAILY magnesium chloride [Mag 64] 64 mg Tablet,Delayed Release (Dr/Ec) 128 mg PO DAILY Qty: 30 0RF prednisone 1 mg Tablet 1 mg PO 0700,1400 Qty: 60 0RF Primary Care Provider: Macho Schmidt Referrals: Macho Schmidt MD [Primary Care Provider] - 1-2 Days if not improving Activity Restrictions/Additional Instructions: Return for any worsening symptoms. Please follow-up with your PCP. Make sure you are staying well-hydrated. Print Language: Comoran Disposition Disposition: Home, Self Care Discharge Date/Time: 03/19/25 15:23
[2025-03-19 12:14] VITALS: O2SAT 100
[2025-03-19] MEDS: 0.9% Normal Saline (500mL Bag) 500 ML 999 ML IV (12:15)
[2025-03-19 12:23] LABS: Absolute Lymphocyte Count 1.57 X10^3/uL (0.83-4.51); Absolute Neutrophil Count 5.3 X10^3/uL (2.0-7.7); Basophil# 0.04 X10^3/uL; Basophil% 0.5 % (0-1); Eosinophil# 0.14 X10^3/uL; Eosinophils% 1.8 % (0-5); Hematocrit 27.1 % (37-47); Hemoglobin 8.6 g/dL (12.0-15.0); Lymphocyte # 1.57 X10^3/ul (0.83-4.51); Lymphocyte % 19.7 % (19-41); Mean Corp Hgb Conc 31.7 g/dL (32-36); Mean Corpuscular Hgb 27.7 pg (27.0-32.0); Mean Corpuscular Volume 87.4 fL (81-99); Mean Platelet Vol. 10.1 fl (6.2-12.0); Monocyte% 11.3 % (0-10); NRBC Flagged by Analyzer 0 % (0-5); Neutrophil # 5.26 X10^3/uL (2.7-7.7); Neutrophil % 66.1 % (47-70); Platelet Count 275 K/mm3 (150-450); RBC Distribution Width CV 16.9 % (11.6-14.6)
--- NOTE | 2025-03-19 12:25 | RAD_ITS ---
EXAM: XR Chest, 2 Views CLINICAL INDICATION: SOB TECHNIQUE: Frontal and lateral views of the chest. COMPARISON: No relevant prior studies available. FINDINGS: LUNGS AND PLEURAL SPACES: See below. HEART: Cardiomegaly with mild congestion. MEDIASTINUM: Unremarkable. Normal mediastinal contour. BONES/JOINTS: Unremarkable. No acute fracture. TUBES, LINES AND DEVICES: Left-sided cardiac pacemaker. RAD/Chest PA and Lateral IMPRESSION: Cardiomegaly with mild congestion. Reading Location: [id number]
[2025-03-19 12:41] LABS: Troponin T High Sensitivity 42 ng/L (<=14)
[2025-03-19 12:42] LABS: Anion Gap 15 (5-15); BUN 16 mg/dL (4-19); BUN/Creat Ratio 12.6 RATIO (10-20); Calcium,Total 9.7 mg/dL (7.6-11.0); Carbon Dioxide 20.1 mmol/L (21.0-32.0); Chloride 101 mmol/L (98-108); Creatinine, Serum 1.23 mg/dL (0.70-1.20); EST Glomerular Filtration Rate 46 (>60); Glucose 97 mg/dL (70-99); Potassium 4.1 mmol/L (3.3-5.1); Sodium Level 136 mmol/L (133-145)
[2025-03-19 12:49] LABS: Pro- Brain NATRIURETIC PEPTIDE 1768 pg/mL (<=1800)
[2025-03-19 13:02] LABS: Mucous, Urine 0 SEEN /hpf (<or=2+); Red Blood Cells-Urine 0 SEEN /hpf (0-5)
[2025-03-19 13:04] LABS: Color, Urine Yellow (Yellow); Glucose, Dipstick Normal (Normal); Ketone-Dipstick Negative (Negative); Leukocyte Esterase-Dipstick 25 /ul (Negative); Nitrite-Dipstick Negative (Negative); Occult Blood-Urine Negative /ul (Negative); Protein-Dipstick 30 mg/dl (Negative); Urine Bilirubin Dipstick Negative (Negative); Urine Clarity Clear (Clear); Urine Urobilinogen Normal (Normal)
[2025-03-19 13:17] LABS: White Blood Cells 0-5 SEEN /hpf (0-5)
[2025-03-19 13:18] LABS: Bacteria RARE /hpf (None Seen); Squamous Epithelial Cells - UA 0-5 SEEN /hpf (5-10)
[2025-03-19 13:48] VITALS: BP 134/66; PULSE 78; RESP 20; O2SAT 94
[2025-03-19 14:45] LABS: Troponin T High Sens 2 HR 35 ng/L (<=14)
== END 2025-03-19 15:23 | disposition home or self-care (01) ==
PROVIDERS: Physician Assistant; Emergency Provider Emergency Medicine; PCP Family Medicine; Visit Provider Emergency Medicine
DX: R53.1 Weakness (principal); I11.0 Hypertensive heart disease with heart failure; I50.21 Acute systolic (congestive) heart failure; F41.9 Anxiety disorder, unspecified; E86.0 Dehydration; I25.10 Atherosclerotic heart disease of native coronary artery without angina pectoris; K21.9 Gastro-esophageal reflux disease without esophagitis; Z95.0 Presence of cardiac pacemaker; Z79.899 Other long term (current) drug therapy; Z79.82 Long term (current) use of aspirin; R06.09 Other forms of dyspnea
CPT/HCPCS: 71046; 80048; 81001; 83880; 84484; 85025; 93005; 96360; 99285; P9612; A4216

== ENCOUNTER → 2025-03-22 | Outpatient (CLI) | payer MEDICARE, OTHER, SELFPAY ==
[2025-03-23 11:27] LABS: Anion Gap 14 (5-15); BUN 16 mg/dL (4-19); BUN/Creat Ratio 15.5 RATIO (10-20); Calcium,Total 9.4 mg/dL (7.6-11.0); Carbon Dioxide 20.7 mmol/L (21.0-32.0); Chloride 106 mmol/L (98-108); Creatinine, Serum 1.01 mg/dL (0.70-1.20); EST Glomerular Filtration Rate 58 (>60); Glucose 115 mg/dL (70-99); Magnesium 1.7 mg/dL (1.5-2.2); Potassium 4.7 mmol/L (3.3-5.1); Sodium Level 140 mmol/L (133-145)
== END | disposition home or self-care (01) ==
LOC: MFPLAB 14:33
PROVIDERS: Family Medicine; PCP Family Medicine; Referring Provider Family Medicine; Visit Provider Family Medicine
DX: I10 Essential (primary) hypertension (principal); R79.0 Abnormal level of blood mineral
CPT/HCPCS: 36415; 80048; 83735

== ENCOUNTER 2025-04-07 12:00 | Outpatient (RCR) | payer MEDICARE, OTHER, SELFPAY ==
--- NOTE | 2025-03-07 16:46 | HP.SP.EV_ITS ---
Visit History Visit Info Date of Eval: 03/07/25 Visit: 1 Filer Repairer: DAMIR History Attending Doctor: Referring Doctor: Reason for Referral: DEBILITY/PNA RX HERE Date of Onset of Diagnosis: 01/26/25 Previous speech therapy: Yes Results: Patient had therapy while on [facility] rehab unit. Progress noted. Other Relevant Medical History/Diagnoses/Surgery: Patient is a 74-year-old female with past medical history of rheumatoid arthritis, restless leg syndrome, osteoporosis, history of pacemaker for complete heart block, pulmonary hypertension, DARIO compliant with CPAP, migraine cephalgia, GERD, microscopic colitis, history of NSTEMI in December 2016, hypertension, left bundle branch block, obesity and anxiety/depression. Seen in the ED at [facility] on 01/26/25 hypoxia, fever and altered mental status. CSF c/w bacterial meningitis. Intubated in the emergency department. Chest x-ray showed increased vascular congestion versus multifocal pneumonia. Brain CT showed ill-defined hypoattenuating foci in the periventricular white matter, more prominent in the posterior occipital regions. CTA of the head showed near complete opacification of the right paranasal sinus. There was ventriculomegaly with increased attenuation of the CSF of the posterior horns possibly consistent with meningitis. [facility] teleneurology was consulted and they felt the patient most likely had meningitis. She was transferred to [facility] for a higher level of care. She was extubated on 01/28/2025. She was transferred to the acute inpatient rehab unit at [facility] on 02/10/2025 with 3 hours of therapy daily to restore independence/function at or near her level prior to being diagnosed with sepsis/bacterial meningitis/ventriculitis. She was discharged to home with her on 03/03/25 with outpatient PT/ST recommended. 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 Pain Is pain an issue with your current prescribed condition?: No Personal Preferred language: [place] Patient Allergies Allergies Allergies: Allergies Sulfa (Sulfonamide Antibiotics) Allergy (Intermediate, Verified 03/07/25 10:24) Rash sulfasalazine Allergy (Verified 03/07/25 10:24) Rash Subjective Dysphagia Current Diet Solids Current Diet: Regular Current Diet Liquids Current Liquids: Thin Objective Cog/Ling/Com Test Administered Diurcmoih-Utaaxdzlsm-Zbzzspgrjlrkd Assessment Administered: Yes Ajzsggavr-Mwihciiifa-Vfrjhgdeprjvy Assessment: Cognitive ? Linguistic skills were evaluated using patient/family interview, skilled observation and informal evaluation through tasks completed by the patient. Orientation Orientation: Person, Place, Date, Day, Birthdate and Medical Diagnosis Naming [place]: WNL Abstract: Mild Conversational Tasks Conversational Tasks: Mild Comments: Patient had several hesitations in conversation that interrupted the flow of communication. She reported that 2-3x a day she experiences anomia that stops conversation and she is unable to communicate her thought for up to 10 minutes. Information Gathering Information Gathering: WFL Cause & Effect Cause & Effect: Mild Problem Solving Simple: WFL Complex: Mild and Moderate Executive Function Comments Comments: Patient was able to give information on a problem but it was not the first 2 steps to be taken but rather a further step. Patient has not completed cooking at home independently. Prior to hospitalization she was driving, cooking, completing medications and completing family banking. Currently, she is not completing any of these tasks. Further evaluation necessary for recall deficits as patient had goals on rehab addressing using recall strategies but she was not able to tell me any of the tasks completed for this goal. Reference: Neuro-QoL instrument Radiation Oncology Patient Plan Plan Plan: Speech therapy is recommended to address anomia and cognitive deficits. These deficits are impacting her functional daily living activities as she is not independently completing all tasks she was prior to hospitalization. Recommendations Treatment Warranted: Yes Treatment Warranted: Receptive/ Expressive Language and Cognition Progress Prognosis: Good Frequency Duration: 4 Weeks Visits in this POC: 8 Patient/Family Goal Patient/Family Goal: Patient wants to return to normal activities. Goals that are Established Determination:: Goals will be added/modified as deemed necessary and appropriate. Therapy will be discontinued when results of re-evaluation indicate therapy is no longer needed or lack of progress has been documented. Goal #1-5 Goal #1: Patient will use at least one word finding strategy when she exhibits anomia with minimal cues during a 10 minute conversation on 2/3 consecutive sessions. Goal #2: Patient will complete problem solving activities including but not limited to daily living activities, and money management, medications on 4/5 trials on 2/3 consecutive sessions. Goal #3: Assessment of recall skills. Education Patient has Indicated that the Following Identified Educational Needs: Cognitively Impaired Patient Instruction Patient Education: Diagnosis, Treatment Plan and Goals Person Taught: Patient and Significant Other Response to teaching: Verbalize Understanding and Has Prior Knowledge
--- NOTE | 2025-04-07 12:44 | HP.PTREVAL ---
Re-Evaluation Intro: Dr. Radha Apple, DO, It has been my pleasure to treat TATO SOLOMON over the last 10 visits for Debility. Please see the progress note below for an update on the physical therapy plan of care! Subjective Subjective: I am way better than I used to be Objective Objective/Function: Tu sec sit to stand: 6 MMT: B LE's are grossly 5/5 with the exception of B knee extension 4/5 Plan Plan Plan: Follow up or discharge in one month. Balance/Gait/Functional tests Balance/Special Test Scores Lower Extremity Functional Score: 36 Goals Goals Goal 1:: Increase B LE strength x 1 grade to aid with stair negotiation Goal Time Frame: 4-6 Weeks Goal Progress: Progressing Goal 2:: Perform the TUG test in under 15 seconds to aid with community efficiency Goal Time Frame: 4-6 Weeks Goal Progress: Progressing Goal 3:: Pt will perform 10 sit to stands in 30 seconds to aid with improving transfers. Goal Time Frame: 4-6 Weeks Goal Progress: Not Progressing Goal 4:: I with HEP Goal Time Frame: 4-6 Weeks Goal Progress: Goal Met Anticipated Interventions Anticipated Interventions Patient/Client Instruction: Educate patient on: Condition and Plan of Care For the Purpose of:: To improve self management Therapeutic Exercise to Include: Strength training, Endurance training, Balance training, Gait and locomotor training and Dynamic Lumbar Stabilization For the Purpose of:: To improve muscle performance and motor function, To increase tolerance to activity/condition/position and To improve gait and locomotor functions Re-Evaluation Ending Re-evaluation ending: Please do not hesitate to contact me at [phone] by phone or if you have questions or concerns regarding this new plan of care! Sincerely, Crow Amador, PT, ATC
--- NOTE | 2025-05-01 13:20 | HP.SP.DC ---
ST Discharge Summary Discharged: Discharge: Michelle You is discharged from [facility] Speech therapy as of 04/07/25.She was evaluated on 03/07/25 with a diagnosis of mild to moderate cognitive- linguistic deficits and completed 6 visits total including her evaluation. Her goals focused on anomia strategies, problem solving and recall testing. By the end of therapy she was not exhibiting anomia, she was able to complete all problem solving activities appropriately and her recall testing results were within normal limits. She, nor her , had any concerns regarding her cognitive abilities and stated she was back to her prior level of functioning. No further necessary at this time. Please see daily notes and reports for complete details. Thank you for allowing me to participate in the care of this patient.
--- NOTE | 2025-06-27 10:32 | HP.PT.NRP ---
Patient Information Patient Information: TATO SOLOMON was seen in my office for initial evaluation on 03/07/25. The following Plan of Care was established for this patient: POC Established Initial Frequency: 2-3x /Week Initial Duration: 4-6 Weeks Anticipated Interventions Patient/Client Instruction: Educate patient on: Condition and Plan of Care For the Purpose of:: To improve self management Therapeutic Exercise to Include: Strength training, Endurance training, Balance training, Gait and locomotor training and Dynamic Lumbar Stabilization For the Purpose of:: To improve muscle performance and motor function, To increase tolerance to activity/condition/position and To improve gait and locomotor functions Last Seen Last Seen: This patient was last seen in our office . Pertinent comments regarding their Physical therapy will appear below: Pt has not returned in greater than 30 days and is discontinued at this time. At this point I will be discontinuing this patient from physical therapy. I would be happy to see this patient again in the future if found appropriate by the physician. Thank you! Crow Amador, PT, ATC Balance/Gait/Functional tests Balance/Special Test Scores Lower Extremity Functional Score: 36
== END 2025-04-07 19:00 | disposition home or self-care (01) ==
LOC: PT 12:00
PROVIDERS: PCP Family Medicine; Referring Provider Internal Medicine; Visit Provider Internal Medicine
DX: R53.81 Other malaise (principal); J18.9 Pneumonia, unspecified organism; G93.41 Metabolic encephalopathy; R48.8 Other symbolic dysfunctions; F09 Unspecified mental disorder due to known physiological condition
CPT/HCPCS: 92507; 92523; 97110; 97116; 97161; 97530

== ENCOUNTER → 2025-04-27 | Outpatient (CLI) | payer MEDICARE, OTHER, SELFPAY ==
[2025-04-27 17:44] LABS: Absolute Lymphocyte Count 1.19 X10^3/uL (0.83-4.51); Absolute Neutrophil Count 6.4 X10^3/uL (2.0-7.7); Basophil# 0.03 X10^3/uL; Basophil% 0.4 % (0-1); Eosinophil# 0.02 X10^3/uL; Eosinophils% 0.2 % (0-5); Hematocrit 26.4 % (37-47); Hemoglobin 8.4 g/dL (12.0-15.0); Lymphocyte # 1.19 X10^3/ul (0.83-4.51); Lymphocyte % 14.3 % (19-41); Mean Corp Hgb Conc 31.8 g/dL (32-36); Mean Corpuscular Hgb 26.9 pg (27.0-32.0); Mean Corpuscular Volume 84.6 fL (81-99); Monocyte% 7.2 % (0-10); NRBC Flagged by Analyzer 0 % (0-5); Neutrophil # 6.44 X10^3/uL (2.7-7.7); Neutrophil % 77.3 % (47-70); Platelet Count 378 K/mm3 (150-450); RBC Distribution Width CV 15.6 % (11.6-14.6); Red Blood Count 3.12 M/mm3 (4.2-5.4); White Blood Count 8.3 K/mm3 (4.4-11.0)
== END | disposition home or self-care (01) ==
LOC: MTLAB 14:48
PROVIDERS: PCP Family Medicine; Referring Provider Internal Medicine Rheumatology; Visit Provider Internal Medicine Rheumatology
DX: D64.9 Anemia, unspecified (principal)
CPT/HCPCS: 36415; 85025

== ENCOUNTER → 2025-05-30 | Outpatient (CLI) | payer MEDICARE, OTHER, SELFPAY ==
[2025-05-30 17:57] LABS: Barbiturate Urine NEGATIVE (< 200 ng/mL); Benzodiazepine Urine NEGATIVE (< 200 ng/mL); PCP Urine NEGATIVE (< 25 ng/mL); THC Urine NEGATIVE (< 50 ng/mL)
== END | disposition home or self-care (01) ==
LOC: LAB 15:44
PROVIDERS: PCP Family Medicine; Referring Provider Anesthesiology; Visit Provider Anesthesiology
DX: F11.20 Opioid dependence, uncomplicated (principal)
CPT/HCPCS: 80307

== ENCOUNTER → 2025-06-05 | Outpatient (CLI) | payer MEDICARE, OTHER, SELFPAY ==
--- NOTE | 2025-06-05 13:30 | ECHOL_ITS ---
Reason For Study Reason For Study: DYSPNEA Procedure This was a limited 2D transthoracic echocardiogram. Exam performed in department. Left Ventricle Normal LV size. The left ventricular ejection fraction is 55 %. No regional wall motion abnormalities noted. Right Ventricle Normal RV size. ICD or pacer leads identified within the right ventricle. Normal systolic function. Tricuspid Valve Normal tricuspid valve. Moderate (2+) tricuspid valve insufficiency. Right ventricular systolic pressure estimated to be 58 mmHg. Aortic Valve Trisinus/trileaflet aortic valve. Pulmonic Valve Mild restriction of the pulmonic valve. Mild stenosis of the pulmonic valve. Great Vessels Normal aortic root. Mild pulmonary artery dilation. Inferior vena cava collapse with respiration. Pericardium/Pleural No pericardial effusion. MMode/2D Measurements & Calculations LVIDd: 4.8 cm IVSd: 1.1 cm LAV(MOD-sp4): 33.7 ml LVIDs: 3.3 cm LVPWd: 1.5 cm FS: 31.8 % RVOT diam: 2.0 cm SV(MOD-sp4): 31.8 ml LVAd ap4: 26.0 cm2 LVLd ap4: 7.4 cm SI(MOD-sp4): 17.4 ml/m2 EDV(MOD-sp4): 74.6 ml EDV(sp4-el): 77.4 ml LVAs ap4: 18.1 cm2 LVLs ap4: 6.3 cm ESV(MOD-sp4): 42.8 ml ESV(sp4-el): 43.7 ml EF(MOD-sp4): 42.6 % EF(sp4-el): 43.5 % SV(sp4-el): 33.7 ml LA A4 area: 15.0 cm2 RA A4 area: 18.2 cm2 Doppler Measurements & Calculations PA V2 max: 208.3 cm/sec TR max ori: 379.5 cm/sec PA V2 mean: 144.4 cm/sec TR max P.6 mmHg PA V2 VTI: 26.5 cm ECHO/Echo, Limited Study Interpretation Summary Normal LV size. The left ventricular ejection fraction is 55 %. Mild pulmonary artery dilation. Mild restriction of the pulmonic valve. Mild stenosis of the pulmonic valve. Pulmonary valve mean pressure gradient of 11 mmHg Ordering Physician: Jo Ellis Referring Physician: Jo Ellis Performed By: Anna Silverman RCS
== END | disposition home or self-care (01) ==
LOC: CVS 13:29
PROVIDERS: PCP Family Medicine; Referring Provider Nurse Practitioner Gerontology; Visit Provider Nurse Practitioner Gerontology
DX: R06.02 Shortness of breath (principal); I25.5 Ischemic cardiomyopathy
CPT/HCPCS: 93308

== ENCOUNTER → 2025-06-26 | Outpatient (CLI) | payer MEDICARE, OTHER, SELFPAY ==
--- NOTE | 2025-06-26 13:04 | MRI_ITS ---
PROCEDURE: SPINE CERVICAL (ROUTINE) 06/26/2025 REASON FOR EXAM: PAIN TECHNIQUE: SPINE CERVICAL (ROUTINE) Multiplanar and multisequence images were obtained without IV contrast administration. COMPARISON: Cervical spine x-ray, 05/12/2025. FINDINGS: Vertebrae: There are no compression fractures. Cervical vertebral body heights are preserved. Bone marrow signal is unremarkable. Alignment: There is maintenance of the normal cervical lordosis. Spinal Cord: Cervical spinal cord is of normal size and signal intensities. Structures at the foramen magnum are unremarkable. C2-3: There is a broad-based central disc protrusion. There is mild compression of the thecal sac. There is no central canal stenosis, lateral recess stenosis or foraminal narrowing. C3-4: There is a broad-based central disc protrusion. There is bilateral uncinate joint arthropathy. There is bilateral facet arthropathy with ligamentum flavum bulging. There is degenerative grade 1 retrolisthesis of C3 on C4. There is central canal stenosis with the AP dimension of the spinal canal measuring 9 mm. There is there is mild lateral recess stenosis and foraminal narrowing on the right. There is mild lateral recess stenosis and moderate foraminal narrowing on the left. C4-5: There is a broad-based central disc protrusion. There is bilateral facet arthropathy with ligamentum flavum bulging. There is degenerative grade 1 anterolisthesis of C4 on C5. There is bilateral uncinate joint arthropathy. There is compression of the thecal sac without central canal stenosis. There is mild lateral recess stenosis and moderate foraminal narrowing, bilaterally. C5-6: There is a broad-based central disc protrusion. There is bilateral facet arthropathy with ligamentum flavum bulging. There is central canal stenosis with the AP dimension of the spinal canal measuring 9 mm. There is bilateral uncinate joint arthropathy. There is mild lateral recess stenosis with moderate foraminal narrowing bilaterally. C6-7: There is a broad-based central disc protrusion. There is a large central disc extrusion. The extrusion extends 5 mm superiorly behind the C6 vertebral body and 5 mm inferiorly behind the C7 vertebral body. The extrusion measures 7 mm in AP dimension and 13 mm in transverse dimension. There is central canal stenosis with the AP dimension of the spinal canal measuring 6 mm. There is bilateral facet arthropathy with ligamentum flavum bulging. There is compression of the spinal cord. There is mild lateral recess stenosis without foraminal narrowing. 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 The paravertebral soft tissues are unremarkable. MRI/Spine Cervical (Routine) IMPRESSION: 1. Degenerative disc disease C2-3 through C6-7, with central canal stenosis C3 -4, C5-6 and C6-7. 2. There is a large central disc extrusion at C6-7 with compression of the spi nal cord. 3. There is multilevel facet arthropathy with degenerative grade 1 retrolisthe sis of C3 on C4 and degenerative grade 1 anterolisthesis of C4 on C5. 4. There is lateral recess stenosis and/or foraminal narrowing at multiple lev els as described. Reading Location: [id number]
--- NOTE | 2025-06-26 13:05 | MRI_ITS ---
PROCEDURE: LOWER EXT JOINT ONLY (ROUTINE) 06/26/2025 REASON FOR EXAM: LT FOOT/ANKLE PAIN,RHEUMATOID ARTHRITIS TECHNIQUE: T1, T2, PD, LOWER EXT JOINT ONLY (ROUTINE) Multiplanar and multisequence images were obtained without IV contrast administration. COMPARISON: COMPARISON : None FINDINGS: Bone Marrow: There is decreased T1, increased T2 and PD marrow signal in the distal 3rd of the talus and throughout the proximal 2/3 of the navicular with associated subcortical cysts and marginal osteophytes. There is a 0.6 cm corticated osteochondral fragment at the dorsal aspect of the talonavicular articulation. There is subcortical edema in the anterior process of the calcaneus and in the proximal dorsal cuboid with associated subcortical cysts and marginal osteophytes. Subcortical cyst formation and adjacent marrow edema is noted at the dorsal articular surfaces of the 3rd tarsometatarsal articulation. Effusion: There is a small effusion at the tibiotalar articulation and posterior subtalar joint. Soft Tissues: There is normal signal in the sinus tarsi. Ligaments and Tendons: There is increased fluid in the posterior tibial and flexor digitorum tendon sheaths without tendon tear or retraction, mild tenosynovitis. The flexor hallucis, and peroneal tendons appear intact. There is mild distal Achilles tendinopathy without tear. There is a trace amount of fluid in the pre Achilles bursa. The plantar fascia origin appears intact. MRI/Lower Ext Joint Only (Routine) IMPRESSION: There is decreased T1, increased T2 and PD marrow signal in the distal 3rd of t he talus and throughout the proximal 2/3 of the navicular with associated subcortical cysts and marginal osteophytes. There is subcortical edema in the anterior process of the calcaneus and in the proximal dorsal cuboid with associated subcortical cysts and marginal osteophytes. Subcortical cyst formation and adjacent marro w edema is noted at the dorsal articular surfaces of the 3rd tarsometatarsal articulation. These findings likely represent degen erative changes. Postcontrast images could be helpful for further characterization if there is clinical suspicion of osteomye litis. There is increased fluid in the posterior tibial and flexor digitorum tendon sh eaths without tendon tear or retraction, mild tenosynovitis. There is mild distal Achilles tendinopathy without tear. There is a trace amount of fluid in the pre Achilles bursa. Reading Location: [id number]
[2025-06-26 13:44] VITALS: BP 118/62; PULSE 80; RESP 16; O2SAT 100
[2025-06-26 13:58] VITALS: BP 117/47; PULSE 80; RESP 16; O2SAT 98
[2025-06-26 14:13] VITALS: BP 141/95; PULSE 80; RESP 16; O2SAT 98
[2025-06-26 14:29] VITALS: BP 128/55; PULSE 81; RESP 16; O2SAT 97
[2025-06-26 14:45] VITALS: BP 154/76; PULSE 80; RESP 16; O2SAT 98
== END | disposition home or self-care (01) ==
LOC: OPMRI 12:57
PROVIDERS: PCP Family Medicine; Referring Provider Podiatrist; Visit Provider Podiatrist
DX: M43.12 Spondylolisthesis, cervical region (principal); M06.872 Other specified rheumatoid arthritis, left ankle and foot; M54.12 Radiculopathy, cervical region; Z95.0 Presence of cardiac pacemaker
CPT/HCPCS: 72141; 73721

== ENCOUNTER → 2025-08-02 | Outpatient (CLI) | payer MEDICARE, OTHER, SELFPAY | END | disposition home or self-care (01) | PROVIDERS: PCP Family Medicine; Referring Provider Family Medicine; Visit Provider Family Medicine | DX: N39.0 Urinary tract infection, site not specified (principal) | CPT/HCPCS: 87077; 87086; 87088; 87186 ==

== ENCOUNTER → 2025-08-30 | Outpatient (CLI) | payer MEDICARE, OTHER, SELFPAY ==
--- NOTE | 2025-08-30 10:26 | US_ITS ---
PROCEDURE: US/Abdomen Limited
== END | disposition home or self-care (01) ==
PROVIDERS: PCP Family Medicine; Referring Provider Family Medicine; Visit Provider Family Medicine
DX: R10.11 Right upper quadrant pain (principal); Z90.49 Acquired absence of other specified parts of digestive tract
CPT/HCPCS: 76705

== ENCOUNTER → 2025-09-20 | Outpatient (CLI) | payer MEDICARE, OTHER, SELFPAY ==
[2025-09-20 17:44] LABS: Hematocrit 25.3 % (37-47); Hemoglobin 7.6 g/dL (12.0-15.0); Immature Granulocytes Count 0.030 X10^3/uL (0.0-0.0); Immature Reticulocyte Fraction 16.20 % (3.00-15.90); Mean Corp Hgb Conc 30.0 g/dL (32-36); Mean Corpuscular Volume 82.4 fL (81-99); Mean Platelet Vol. 10.4 fl (6.2-12.0); NRBC Flagged by Analyzer 0 % (0-5); Platelet Count 371 K/mm3 (150-450); RBC Distribution Width CV 15.5 % (11.6-14.6); RBC Distribution Width SD 47.0 fl (35.1-43.9); Red Blood Count 3.07 M/mm3 (4.2-5.4); Reticulocyte Count 1.23 % (0.5-1.5); White Blood Count 8.4 K/mm3 (4.4-11.0)
[2025-09-20 18:16] LABS: Creatinine, Urine (random) 81.30 mg/dL (28.00-217.00); Microalbumin,Random Urine 49.6 mg/L (<20 mg/L)
[2025-09-20 18:28] LABS: AST(SGOT) 20 U/L (<=31); Alanine Aminotransfer ALT/SGPT 13 U/L (<=34); Albumin, Serum 3.7 g/dL (3.4-4.8); Alkaline Phosphatase 78 U/L (35-104); Anion Gap 13 (5-15); BUN 18 mg/dL (4-19); BUN/Creat Ratio 24.0 RATIO (10-20); Calcium,Total 9.3 mg/dL (7.6-11.0); Carbon Dioxide 19.7 mmol/L (21.0-32.0); Chloride 104 mmol/L (98-108); Ferritin 235 ng/mL (22-378); Globulin 3.2 g/dL (2.2-4.2); Glucose 106 mg/dL (70-99); Iron 16 ug/dL (50-170); Iron Binding Capacity,Total 247 ug/dL (250-450); Iron Binding Capacity,Unsat 231 ug/dL (228-428); Potassium 4.5 mmol/L (3.3-5.1); Vitamin B12 1280 pg/mL (180-914)
[2025-09-20 21:30] LABS: FOLATES,SERUM (FOLIC ACID) 37.70 ng/mL (4.60-34.80)
== END | disposition home or self-care (01) ==
LOC: MFPLAB 16:19
PROVIDERS: PCP Family Medicine; Visit Provider Family Medicine
DX: R35.89 Other polyuria (principal); D63.8 Anemia in other chronic diseases classified elsewhere
CPT/HCPCS: 36415; 80053; 82043; 82570; 82607; 82728; 82746; 83540; 83550; 85025; 85045

== ENCOUNTER → 2025-10-23 | Outpatient (CLI) | payer MEDICARE, OTHER, SELFPAY ==
--- NOTE | 2025-10-23 12:40 | RAD_ITS ---
PROCEDURE: RIGHT SHOULDER MIN 2 VIEWS 10/23/2025 REASON FOR EXAM: SHOULDER PAIN TECHNIQUE: Procedure Code: RADSH Modality: DX Procedure: SHOULDER MIN 2 VIEWS COMPARISON: NO RELEVANT PRIOR FINDINGS: Bones: No fractures or other osseous abnormalities. Joints: No subluxations or dislocations. Soft tissues: Unremarkable. RAD/Shoulder min 2 Views IMPRESSION: No acute osseous or other abnormalities involving the right shoulder. Reading Location: [place] [id number]
== END | disposition home or self-care (01) ==
LOC: RAD 12:26
PROVIDERS: PCP Family Medicine; Referring Provider Anesthesiology; Visit Provider Anesthesiology
DX: M25.511 Pain in right shoulder (principal)
CPT/HCPCS: 73030